=== PATIENT | male | born 1995 | race African-American/Black ===

== ENCOUNTER 2017-01-10 18:24 | Emergency (ER) | payer BC ==
[~2017-01-10] VITALS: Ht 177.8 cm; Wt 91.5 kg
[~2017-01-10 18:24] MED LIST: AMPH30TA2 PO; CLON2TAB3 PO; TEMA30CA4 PO
[2017-01-10] MEDS ORDERED: SODIUM CHLORIDE 0.9% 1000ML 1,000 ML IV STA (18:36)
[2017-01-10 18:48] VITALS: TEMP 36.8; O2SAT 97; Ht 177.8 cm; Wt 91.5 kg
--- NOTE | 2017-01-10 19:01 | EMERGENCY ROOM VISIT NOTE ---
History Report prepared by Hilary: Alondra Santos Under the Supervision of: Dr. Renzo Sinha D.O. First contact with patient: 18:27 Stated Complaint: OVERDOSE History of Present Illness The patient is a 21 year old male who presents to the Emergency Room with resolved unresponsiveness [employer]. The patient was found in a local cafe unresponsive. He had been there for 30 minutes until closing time. They were unable to wake him up and called EMS. He had empty pill bottles in his possession which he obtained today at [facility]. He states that he went to [facility] for continuing treatment of his ADHD, anxiety, and insomnia. He denies any previous surgeries or admissions to the hospital. He refuses to answer whether he smokes. He denies alcohol use, but he told the nurse previously that he had had 3 drinks. He denies any thoughts of hurting himself. He has been eating and drinking normally. The history is limited due to the patient's intoxication. Source of History: patient, nursing staff History Limited By: intoxication Onset: [employer] OPER[employer] Position: other (global) Quality: other (unresponsiveness) Timing: resolved Note: Pt denies thoughts of hurting himself. Review of Systems Limited due to intoxication. Past Medical & Surgical Medical Problems: (1) ADHD (attention deficit hyperactivity disorder) (2) Anxiety (3) Insomnia Family History Diabetes mellitus FH: cardiovascular disease Social History Smoking Status: Never Smoker Alcohol Use: none Drug Use: none Marital Status: single Housing Status: lives with family Occupation Status: student Current/Historical Medications Unable to Obtain Active Prescriptions or Reported Meds Allergies Coded Allergies: NO KNOWN DRUG ALLERGIES (Verified Allergy, Unknown, none, 06/30/16) Physical Exam Vital Signs Date Time Temp Pulse Resp B/P Pulse Ox O2 Delivery O2 Flow Rate FiO2 01/11/17 00:01 72 20 130/85 97 Room Air 01/10/17 22:59 85 01/10/17 22:18 87 20 123/62 94 Room Air 01/10/17 20:24 90 20 118/58 93 Room Air 01/10/17 19:13 96 01/10/17 18:48 36.8 112 20 122/90 97 Room Air 01/10/17 18:48 97 Room Air Physical Exam GENERAL: Patient is listless, but responds to verbal commands. Odor of alcohol noted, does not appear to be in pain, no outward signs of trauma appreciated. EYES: The conjunctivae are clear. The pupils are round and reactive. EARS, NOSE, MOUTH AND THROAT: The nose is without any evidence of any deformity. Mucous membranes are moist tongue is midline NECK: The neck is nontender and supple. RESPIRATORY: Normal respiratory effort is noted there is no evidence of wheezing rhonchi or rales CARDIOVASCULAR: Regular rate and rhythm noted there no murmurs rubs or gallops normal S1 normal S2 GASTROINTESTINAL: The abdomen is soft. Bowel sounds are present in all quadrants. Abdomen is nontender MUSCULOSKELETAL/EXTREMITIES: There is no evidence of gross deformity full range of motion is noted in the hips and shoulders SKIN: There is no obvious evidence of any rash. There are no petechiae, pallor or cyanosis noted. NEUROLOGIC: Patient is oriented to person, place, and situation, strength is symmetric, patellar tendon reflexes 2+ bilaterally. PSYCH: Affect is flat, patient currently denies SI/HI, does not appear to be responding to internal stimuli. Medical Decision & Procedures ER Provider Diagnostic Interpretation: X-ray results as stated below per interpretation by me and the radiologist. CHEST ONE VIEW PORTABLE CLINICAL HISTORY: Overdose COMPARISON STUDY: Chest radiograph April 12, 2014. FINDINGS: There is no pneumothorax or pleural effusion. Lung volumes are slightly diminished. There is no consolidation. Pulmonary vascularity is normal. Patient is rotated. Cardiomediastinal silhouette is unremarkable. IMPRESSION: No acute cardiopulmonary findings. Electronically signed by: Anish Wallace M.D. 01/10/2017 7:30 PM Dictated Date/Time: 01/10/2017 7:30 PM Laboratory Results 01/10/17 19:00 Red Blood Count 4.64, Mean Corpuscular Volume 92.0, Mean Corpuscular Hemoglobin 31.9, Mean Corpuscular Hemoglobin Concent 34.7, Mean Platelet Volume 10.1, Neutrophils (%) (Auto) 59.9, Lymphocytes (%) (Auto) 34.7, Monocytes (%) (Auto) 4.3, Eosinophils (%) (Auto) 0.5, Basophils (%) (Auto) 0.3, Neutrophils # (Auto) 3.91, Lymphocytes # (Auto) 2.26, Monocytes # (Auto) 0.28, Eosinophils # (Auto) 0.03, Basophils # (Auto) 0.02 5/26/17 19:00 Test 01/10/17 18:40 01/10/17 19:00 Urine Color YELLOW Urine Appearance TURBID (CLEAR) Urine pH 5.0 (4.5-7.5) Urine Specific [place] 1.009 (1.000-1.030) Urine Protein NEG (NEG) Urine Glucose (UA) NEG (NEG) Urine Ketones NEG (NEG) Urine Occult Blood NEG (NEG) Urine Nitrite NEG (NEG) Urine Bilirubin NEG (NEG) Urine Urobilinogen NEG (NEG) Urine Leukocyte Esterase NEG (NEG) Urine WBC (Auto) 1-5 /hpf (0-5) Urine RBC (Auto) 0-4 /hpf (0-4) Urine Hyaline Casts (Auto) 0 /lpf (0-5) Urine Epithelial Cells (Auto) 0-5 /lpf (0-5) Urine Bacteria (Auto) NEG (NEG) Urine Opiates Screen NEG (NEG) Urine Methadone, Qualitative NEG (NEG) Urine Barbiturates NEG (NEG) Urine Phencyclidine (PCP) Level NEG (NEG) Ur Amphetamine/Methamphetamine NEG (NEG) MDMA (Ecstasy) Screen NEG (NEG) Urine Benzodiazepines Screen POS (NEG) Urine Cocaine Metabolite NEG (NEG) Urine Marijuana (THC) NEG (NEG) White Blood Count 6.52 K/uL (4.8-10.8) Red Blood Count 4.64 M/uL (4.7-6.1) Hemoglobin 14.8 g/dL (14.0-18.0) Hematocrit 42.7 % (42-52) Mean Corpuscular Volume 92.0 fL (80-100) Mean Corpuscular Hemoglobin 31.9 pg (25-34) Mean Corpuscular Hemoglobin Concent 34.7 g/dl (32-36) Platelet Count 252 K/uL (130-400) Mean Platelet Volume 10.1 fL (7.4-10.4) Neutrophils (%) (Auto) 59.9 % Lymphocytes (%) (Auto) 34.7 % Monocytes (%) (Auto) 4.3 % Eosinophils (%) (Auto) 0.5 % Basophils (%) (Auto) 0.3 % Neutrophils # (Auto) 3.91 K/uL (1.4-6.5) Lymphocytes # (Auto) 2.26 K/uL (1.2-3.4) Monocytes # (Auto) 0.28 K/uL (0.11-0.59) Eosinophils # (Auto) 0.03 K/uL (0-0.5) Basophils # (Auto) 0.02 K/uL (0-0.2) RDW Standard Deviation 46.1 fL (36.4-46.3) RDW Coefficient of Variation 13.8 % (11.5-14.5) Immature Granulocyte % (Auto) 0.3 % Immature Granulocyte # (Auto) 0.02 K/uL (0.00-0.02) Prothrombin Time 11.2 SECONDS (9.0-12.0) Prothromb Time International Ratio 1.0 (0.9-1.1) Activated Partial Thromboplast Time 24.8 SECONDS (21.0-31.0) Partial Thromboplastin Ratio 1.0 Anion Gap 10.0 mmol/L (3-11) Est Creatinine Clear Calc Drug Dose 130.7 ml/min Estimated GFR () 122.4 Estimated GFR (Non- 105.6 BUN/Creatinine Ratio 9.7 (10-20) Calcium Level 8.8 mg/dl (8.5-10.1) Total Bilirubin 0.4 mg/dl (0.2-1) Direct Bilirubin < 0.1 mg/dl (0-0.2) Aspartate Amino Transf (AST/SGOT) 22 U/L (15-37) Alanine Aminotransferase (ALT/SGPT) 48 U/L (12-78) Alkaline Phosphatase 87 U/L (45-117) Total Creatine Kinase 292 U/L (39-308) Total Protein 7.7 gm/dl (6.4-8.2) Albumin 4.1 gm/dl (3.4-5.0) Lipase 246 U/L (73-393) Salicylates Level < 1.7 mg/dl (2.8-20) Acetaminophen Level < 2 ug/ml (10-30) Ethyl Alcohol mg/dL 186.0 mg/dl (0-3) Laboratory results per my review. Medications Administered Medications (Trade) Dose Ordered Sig/Jerald Route Start Time Stop Time Status Last Admin Dose Admin Sodium Chloride (Nss 1000ml) 1,000 ml @ 999 mls/hr Q1H1M STAT IV 01/10/17 18:36 01/10/17 19:36 DC 01/10/17 19:05 999 MLS/HR Potassium Chloride (Kcl 10 Meq / Wtr) 10 meq NOW STAT IV 01/10/17 19:49 01/10/17 19:50 DC 01/10/17 20:24 10 MEQ Potassium Chloride (Klor-Con M10) 10 meq NOW STAT PO 01/10/17 19:49 01/10/17 19:50 DC 01/11/17 00:13 10 MEQ ED Course 183: The patient was evaluated in room B7. A complete history and physical examination were performed. 1835: NSS 1000 ml @ 999 mls/hr IV. 1948: Potassium Chloride 10 meq PO, Potassium Chloride 10 meq IV. 2133: I reevaluated the patient. He is not waking up. 2329: The patient was signed out to Dr. Tierney at the end of my shift. Medical Decision Prior records/ancillary studies reviewed. Triage Nursing notes reviewed. Additional history obtained from nursing staff. The patient's history was concerning for altered mental status and a possible alcohol overdose. Differential diagnosis: Etiologies such as alcohol intoxication, toxicologic, infection, hypoglycemia, electrolyte abnormalities, cardiac sources, intracerebral event, neurologic, as well as others were entertained. The patient is a 21-year-old male who presented to the emergency department after being found with altered mental status at a local restaurant. The patient appeared to have signs of alcohol intoxication on physical exam. He also had multiple bottles of benzodiazepine prescriptions with him. Initially his bottle of Xanax appeared to be empty. His other bottle benzodiazepine only had one type of pill and it on initial evaluation. The patient was medically cleared in the emergency department but was observed for a period of time until he was no longer clinically intoxicated. The patient was signed out to the shoe clerk emergency department physician at change of shift. Please see her note for final disposition. I discussed this patient's case with the emergency Department watch caser. I felt he would require some degree of an evaluation to be sure that this was not an underlying intentional overdose. The patient was much less clinically intoxicated on my final evaluation. I did advise him to avoid any further alcoholic beverages. I also advised him to only take his medications as prescribed and not mix any of his medications with alcohol. Impression Primary Impression: Altered mental status Additional Impressions: Alcohol use with intoxication Hypokalemia Scribe Attestation The scribe's documentation has been prepared under my direction and personally reviewed by me in its entirety. I confirm that the note above accurately reflects all work, treatment, procedures, and medical decision making performed by me. Departure Information Dispostion Still a Patient Prescriptions Unable to Obtain Active Prescriptions or Reported Meds Referrals No Doctor, Assigned (PCP) Problem Qualifiers Primary Impression: Altered mental status Altered mental status type: unspecified Qualified Codes: R41.82 - Altered mental status, unspecified
[2017-01-10 19:29] LABS: BASO % 0.3 %; BASO ABS # 0.02 K/uL (0-0.2); COMPLETE YES; EOS % 0.5 %; HEMATOCRIT 42.7 % (42-52); IG% 0.3 %; LYMPH % 34.7 %; LYMPH ABS # 2.26 K/uL (1.2-3.4); MEAN CORPUSCULAR HEMOGLOBIN 31.9 pg (25-34); MEAN CORPUSCULAR HGB CONC 34.7 g/dl (32-36); MEAN PLATELET VOLUME 10.1 fL (7.4-10.4); MONO % 4.3 %; NEUT % 59.9 %; PLATELET COUNT 252 K/uL (130-400); RED BLOOD COUNT 4.64 M/uL (4.7-6.1); WHITE BLOOD COUNT 6.52 K/uL (4.8-10.8)
--- NOTE | 2017-01-10 19:31 | DIAGNOSTIC IMAGING REPORT ---
CHEST ONE VIEW PORTABLE CLINICAL HISTORY: Overdose COMPARISON STUDY: Chest radiograph April 12, 2014. FINDINGS: There is no pneumothorax or pleural effusion. Lung volumes are slightly diminished. There is no consolidation. Pulmonary vascularity is normal. Patient is rotated. Cardiomediastinal silhouette is unremarkable. IMPRESSION: No acute cardiopulmonary findings. Electronically signed by: Anish Wallace M.D. 01/10/2017 7:30 PM Dictated Date/Time: 01/10/2017 7:30 PM
[2017-01-10 19:40] LABS: URINE APPEARANCE TURBID (CLEAR); URINE BILIRUBIN NEG (NEG); URINE COLOR YELLOW; URINE EPITHELIAL CELL AUTO 0-5 /lpf (0-5); URINE NITRITE NEG (NEG); URINE SPECIFIC GRAVITY 1.009 (1.000-1.030); UROBILINOGEN NEG (NEG)
[2017-01-10 19:44] LABS: PROTHROMBIN TIME (PATIENT) 11.2 SECONDS (9.0-12.0)
[2017-01-10 19:48] LABS: ACETAMINOPHEN < 2 ug/ml (10-30); ALT/SGPT 48 U/L (12-78); AST/SGOT 22 U/L (15-37); BLOOD UREA NITROGEN 10 mg/dl (7-18); BUN/CREATININE RATIO 9.7 (10-20); CALCIUM 8.8 mg/dl (8.5-10.1); CARBON DIOXIDE 28 mmol/L (21-32); CHLORIDE 109 mmol/L (98-107); GLUCOSE 73 mg/dl (70-99); POTASSIUM 2.9 mmol/L (3.5-5.1); SODIUM 147 mmol/L (136-145)
[2017-01-10] MEDS ORDERED: POTASSIUM CHLORIDE 10 MEQ TABCR PO STA (19:49)
[2017-01-10] MEDS ORDERED: POTASSIUM CHLORIDE 10 MEQ / 100ML WTR IV STA (19:49)
[2017-01-10 19:50] LABS: ALKALINE PHOSPHATASE 87 U/L (45-117)
[2017-01-10 19:54] LABS: BENZODIAZEPINE, URINE POS (NEG); COCAINE,URINE NEG (NEG); MANUAL MICROSCOPIC REQUIRED? NO; PHENCYCLIDINE, URINE NEG (NEG); REVIEW REQ? NO
[2017-01-11 00:01] VITALS: BP 130/85; PULSE 72; O2SAT 97
[2017-01-11] MEDS ORDERED: POTASSIUM CHLORIDE 10 MEQ TABCR ONE (00:11)
--- NOTE | 2017-01-11 01:10 | EMERGENCY ROOM VISIT NOTE ---
ED Visit Note First contact with patient: 00:32 This case was signed out to me at change of shift awaiting sobriety. The patient was more sober and able to communicate. He had a lengthy discussion with the audio visual project manager. He declined wanting any psychiatric evaluation. I spoke with the patient at length as well. He denies taking an overdose of his medications. He explains that he rarely drinks alcohol but did go to [facility] today and bought one [place] and drank it. The patient had his alprazolam and triazolam prescriptions refilled today at [facility]. Initially, there was some thought that he may have taken 5 triazolam with the alcohol. However, on further discussion, the patient combined both medications and one bottle. All pills were accounted for. I spent some time explaining to him the hazards of using benzodiazepines and alcohol together. I suggested that he call his parents who live locally and have them pick him up. The emergency department but he declined stating that he wanted to keep him out of it. The patient had been staying with a friend here locally but believes that he will go back to his parents [facility]. The patient denied any suicidal or homicidal thoughts. He declined wanting any psychiatric evaluation at this time.
[2017-01-12 23:39] LABS: HYDROXYETHYLFLURAZEPAM CONF NEGATIVE NG/ML (CUTOFF=50); HYDROXYMIDAZOLAM NEGATIVE NG/ML (CUTOFF=50); HYDROXYTRIAZOLAM CONF NEGATIVE NG/ML (CUTOFF=50); TEMAZEPAM CONF NEGATIVE NG/ML (CUTOFF=50)
[2017-05-23] MEDS ORDERED: RISP1TAB68 PO (05:26)
== END 2017-01-11 00:52 | disposition home or self-care (01) ==
LOC: EDBD 18:24 → C.EDB 18:26
DX: R41.82 Altered mental status, unspecified (principal); F10.129 Alcohol abuse with intoxication, unspecified; E87.6 Hypokalemia; F90.8 Attention-deficit hyperactivity disorder, other type; F41.9 Anxiety disorder, unspecified; G47.00 Insomnia, unspecified; Z83.3 Family history of diabetes mellitus

== ENCOUNTER 2017-05-15 11:59 | Inpatient (IN) | payer BC, OTHER ==
[~2017-05-15] VITALS: Ht 177.8 cm; Wt 79.7 kg
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
[2017-05-15] MEDS ORDERED: OLANZAPINE 10 MG/2.1 ML SDV IM STA (12:32)
[2017-05-15] MEDS ORDERED: WATER, STERILE FOR INJ 10 ML VIAL ONE (12:42)
[2017-05-15] MEDS ORDERED: ALPR2TAB2 PO (12:59)
[2017-05-15] MEDS ORDERED: TRIA0.25 PO (12:59)
[2017-05-15] MEDS ORDERED: AMPH30TA2 PO (12:59)
[2017-05-15 13:34] LABS: BASO % 1.1 %; BASO ABS # 0.04 K/uL (0-0.2); COMPLETE YES; EOS % 3.1 %; LYMPH % 49.7 %; LYMPH ABS # 1.75 K/uL (1.2-3.4); MEAN CELL VOLUME 92.8 fL (80-100); MEAN CORPUSCULAR HEMOGLOBIN 32.8 pg (25-34); MEAN CORPUSCULAR HGB CONC 35.3 g/dl (32-36); MONO % 10.5 %; NEUT % 35.6 %; PLATELET COUNT 190 K/uL (130-400); RED BLOOD COUNT 4.85 M/uL (4.7-6.1); WHITE BLOOD COUNT 3.52 K/uL (4.8-10.8)
[2017-05-15 13:56] LABS: ALT/SGPT 23 U/L (12-78); AST/SGOT 26 U/L (15-37); BLOOD UREA NITROGEN 8 mg/dl (7-18); CALCIUM 9.1 mg/dl (8.5-10.1); CARBON DIOXIDE 25 mmol/L (21-32); CHLORIDE 107 mmol/L (98-107); GLUCOSE 111 mg/dl (70-99); POTASSIUM 3.8 mmol/L (3.5-5.1); SODIUM 142 mmol/L (136-145)
[2017-05-15 14:06] LABS: ALKALINE PHOSPHATASE 86 U/L (45-117); THYROID STIMULATING HORMONE 0.519 uIu/ml (0.300-4.500)
[2017-05-15 14:28] LABS: ACETAMINOPHEN < 2 ug/ml (10-30)
[2017-05-15 17:21] LABS: BENZODIAZEPINE, URINE POS (NEG); COCAINE,URINE NEG (NEG); PHENCYCLIDINE, URINE NEG (NEG)
[2017-05-15 20:36] VITALS: O2SAT 99
[2017-05-15] MEDS ORDERED: SODIUM CHLORIDE 0.65% NA SOLN 45 ML (OCEAN) PRN (20:45)
[2017-05-15] MEDS ORDERED: ACETAMINOPHEN 325 MG TAB PO PRN (20:45)
[2017-05-15] MEDS ORDERED: RISPERIDONE 1 MG TAB PO PRN (20:45)
[2017-05-15] MEDS ORDERED: MAGNESIUM HYDROXIDE SUSP 30 ML UDC PO PRN (20:45)
[2017-05-15] MEDS ORDERED: BISMUTH SUBSALICYLATE PER ML OMNICELL CHARGE PO PRN (20:45)
[2017-05-15] MEDS ORDERED: ALUMINUM/MAGNESIUM SUSP 30 ML UDC PO PRN (20:45)
[2017-05-15] MEDS ORDERED: hydrOXYzine HCL 25 MG TAB PO PRN ×2 (20:45)
[2017-05-15 21:41] VITALS: BP 142/80; PULSE 64; TEMP 36.7; Ht 177.8 cm; Wt 79.7 kg
--- NOTE | 2017-05-15 22:08 | EMERGENCY ROOM VISIT NOTE ---
ED Visit Note First contact with patient: 22:07 I received this patient from Dr. Zhang at change of shift signout. The patient was medically cleared prior to change of shift. The patient was evaluated by the mental health delegate in the emergency department. The patient had a 302 petition which was upheld by Dr. Zhang. The patient was felt to be a good candidate for inpatient management at our facility. He was transferred to [address] [place] [id number]
[2017-05-16 06:49] VITALS: TEMP 36.9
[2017-05-16 07:07] VITALS: BP 110/66; PULSE 41
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
[2017-05-16] MEDS ORDERED: RISPERIDONE ODT 1MG PO ONE (11:00)
[2017-05-16] MEDS ORDERED: CLONAZEPAM 1 MG TAB PO ONE (11:00)
[2017-05-16] MEDS: RISPERIDONE ODT 1MG PO SCH ×2 (14:22→21:04)
[2017-05-16] MEDS: BENZTROPINE MESYLATE 1 MG TAB PO PRN (21:04)
[2017-05-16] MEDS: CLONAZEPAM 1 MG TAB PO SCH (21:04)
[2017-05-17 07:02] VITALS: BP 102/61; PULSE 43; TEMP 36.3
[2017-05-17 08:04] LABS: CHOLESTEROL/HDL RATIO 2.1
[2017-05-17] MEDS: CLONAZEPAM 1 MG TAB PO SCH ×2 (09:23→22:02)
[2017-05-17] MEDS: RISPERIDONE ODT 1MG PO SCH ×2 (09:23→21:36)
--- NOTE | 2017-05-17 10:30 | Psych Management Progress Note ---
Psychiatry Miscellaneous Patient seen, MS assessed. He did not attend am group and is unable to rate his mood. He is eating slowly and but was pleasant on questioning. Encouraged cooperation with treatment plan as outlined by SWAPNIL.
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
[2017-05-17] MEDS: BENZTROPINE MESYLATE 1 MG TAB PO PRN (21:36)
[2017-05-18 06:55] VITALS: BP 109/70; PULSE 51; TEMP 36.5
[2017-05-18] MEDS: CLONAZEPAM 1 MG TAB PO SCH ×3 (08:48→21:14)
[2017-05-18] MEDS: RISPERIDONE ODT 1MG PO SCH ×2 (08:49→21:14)
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
[2017-05-18 18:20] LABS: HYDROXYETHYLFLURAZEPAM CONF NEGATIVE NG/ML (CUTOFF=50); HYDROXYMIDAZOLAM NEGATIVE NG/ML (CUTOFF=50); HYDROXYTRIAZOLAM CONF NEGATIVE NG/ML (CUTOFF=50); TEMAZEPAM CONF NEGATIVE NG/ML (CUTOFF=50)
[2017-05-19 07:00] VITALS: BP 108/66; PULSE 50; TEMP 36.3
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
[2017-05-19] MEDS: RISPERIDONE ODT 1MG PO SCH ×2 (08:55→21:52)
[2017-05-19] MEDS: CLONAZEPAM 1 MG TAB PO SCH (08:55)
[2017-05-20 07:05] VITALS: BP 120/72; PULSE 71; TEMP 36.5
[2017-05-20] MEDS: CLONAZEPAM 1 MG TAB PO SCH (07:34)
[2017-05-20] MEDS: RISPERIDONE ODT 1MG PO SCH (07:35)
[2017-05-20] MEDS ORDERED: RSP1 PO (08:31)
--- NOTE | 2017-05-20 09:34 | Discharge Instructions ---
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 intact. Alert and oriented to person, place and time. Intelligence is consistent with level of education. Insight and and judgment are poor. Laboratory Test 05/15/17 13:03 05/15/17 16:35 05/17/17 07:10 White Blood Count 3.52 Red Blood Count 4.85 Hemoglobin 15.9 Hematocrit 45.0 Mean Corpuscular Volume 92.8 Mean Corpuscular Hemoglobin 32.8 Mean Corpuscular Hemoglobin Concent 35.3 Platelet Count 190 Mean Platelet Volume 10.0 Neutrophils (%) (Auto) 35.6 Lymphocytes (%) (Auto) 49.7 Monocytes (%) (Auto) 10.5 Eosinophils (%) (Auto) 3.1 Basophils (%) (Auto) 1.1 Neutrophils # (Auto) 1.25 Lymphocytes # (Auto) 1.75 Monocytes # (Auto) 0.37 Eosinophils # (Auto) 0.11 Basophils # (Auto) 0.04 RDW Standard Deviation 47.2 RDW Coefficient of Variation 13.9 Immature Granulocyte % (Auto) 0.0 Immature Granulocyte # (Auto) 0.00 Sodium Level 142 Potassium Level 3.8 Chloride Level 107 Carbon Dioxide Level 25 Anion Gap 10.0 Blood Urea Nitrogen 8 Creatinine 1.10 Estimated GFR () 108.3 Estimated GFR (Non- 93.5 BUN/Creatinine Ratio 7.0 Random Glucose 111 Calcium Level 9.1 Total Bilirubin 0.4 Direct Bilirubin 0.2 Aspartate Amino Transferase (AST) 26 Alanine Aminotransferase (ALT) 23 Alkaline Phosphatase 86 Total Protein 7.3 Albumin 3.9 Thyroid Stimulating Hormone (TSH) 0.519 Salicylates Level < 1.7 Acetaminophen Level < 2 Ethyl Alcohol mg/dL 15.0 Urine Opiates Screen NEG Urine Methadone, Qualitative NEG Urine Barbiturates NEG Urine Phencyclidine (PCP) Level NEG Urine Amphetamines Confirmation 3920 Ur Amphetamine/Methamphetamine POS Urine Methamphetamine Confirmation NEGATIVE MDMA (Ecstasy) Screen NEG Urine Hydroxyalprazolam Confirm 582 Urine Benzodiazepines Screen POS 7-Amino Clonazepam Level 121 Urine Nordiazepam Confirmation NEGATIVE Urine Hydroxyethylflurazepam Level NEGATIVE Urine Lorazepam (GC/MS) NEGATIVE Urine Oxazepam Confirm (GC/MS) NEGATIVE Urine Temazepam Confirmation NEGATIVE Urine Hydroxytriazolam Confirmation NEGATIVE Urine Hydroxymidazolam Confirmation NEGATIVE Urine Cocaine Metabolite NEG Urine Marijuana (THC) NEG Fasting Glucose 84 Triglycerides Level 86 Cholesterol Level 139 HDL Cholesterol 66 LDL Cholesterol, Calculated 56 VLDL Cholesterol, Calculated 17 Cholesterol/HDL Ratio 2.1 Total Time Total Time Spent (min): Greater than 30 minutes Total Time Included: examination of the patient, discharge planning, medication reconciliation, communication with other providers Tobacco Cessation at Discharge Smoking Status: Never Smoker FDA approved Prescription: non-smoker
[2017-05-20] MEDS ORDERED: DESTROY THIS MEDICATION SCH (12:30)
[2017-05-23] MEDS ORDERED: RISP1TAB68 PO (05:26)
== END 2017-05-20 13:42 | disposition left against medical advice (07) | DRG 885 ==
LOC: C.EDA 12:01 → C.MHU 20:50
PROVIDERS: ADMIT Psychiatry & Neurology Child & Adolescent Psychiatry; ATTEND Psychiatry & Neurology Child & Adolescent Psychiatry
DX: F29 Unspecified psychosis not due to a substance or known physiological condition (principal); F90.9 Attention-deficit hyperactivity disorder, unspecified type; Z79.899 Other long term (current) drug therapy; Z81.8 Family history of other mental and behavioral disorders

== ENCOUNTER 2017-05-21 18:28 | Emergency (ER) | payer BC, OTHER ==
[~2017-05-21] VITALS: Ht 180.3 cm; Wt 96.3 kg
[~2017-05-21 18:28] MED LIST changes: -AMPH30TA2 PO; -CLON2TAB3 PO; +RSP1 PO; -TEMA30CA4 PO
[2017-05-21] MEDS ORDERED: HALOPERIDOL LACTATE 5 MG/ML 1 ML VIAL IM STA (18:38)
[2017-05-21] MEDS ORDERED: LORAZEPAM 2 MG/ML 1 ML VIAL IM STA (18:38)
[2017-05-21 18:46] VITALS: Ht 180.3 cm; Wt 96.3 kg
[2017-05-21] MEDS ORDERED: BENZTROPINE MESYLATE 1 MG/ML 2 ML AMP IM STA (18:46)
[2017-05-21] MEDS ORDERED: SODIUM CHLORIDE 0.9% 1000ML 1,000 ML IV STA ×2 (18:51→19:34)
[2017-05-21 19:04] LABS: URINE APPEARANCE CLEAR (CLEAR); URINE BILIRUBIN NEG (NEG); URINE COLOR YELLOW; URINE NITRITE NEG (NEG); URINE PH 5.5 (4.5-7.5); URINE SPECIFIC GRAVITY 1.013 (1.000-1.030); UROBILINOGEN NEG (NEG)
[2017-05-21 19:08] LABS: MANUAL MICROSCOPIC REQUIRED? NO; REVIEW REQ? NO
[2017-05-21 19:13] LABS: BASO % 0.4 %; BASO ABS # 0.03 K/uL (0-0.2); COMPLETE YES; EOS % 0.1 %; HEMATOCRIT 45.1 % (42-52); IG% 0.3 %; LYMPH % 34.7 %; LYMPH ABS # 2.71 K/uL (1.2-3.4); MEAN CELL VOLUME 92.8 fL (80-100); MEAN CORPUSCULAR HEMOGLOBIN 32.5 pg (25-34); MEAN PLATELET VOLUME 10.2 fL (7.4-10.4); MONO % 3.7 %; NEUT % 60.8 %; PLATELET COUNT 215 K/uL (130-400); RED BLOOD COUNT 4.86 M/uL (4.7-6.1); WHITE BLOOD COUNT 7.81 K/uL (4.8-10.8)
[2017-05-21 19:24] LABS: PARTIAL THROMBOPLASTIN RATIO 0.9; PROTHROMBIN TIME (PATIENT) 11.1 SECONDS (9.0-12.0)
[2017-05-21 19:26] VITALS: O2SAT 92
[2017-05-21 19:32] LABS: BLOOD UREA NITROGEN 5 mg/dl (7-18); BUN/CREATININE RATIO 4.6 (10-20); CALCIUM 9.1 mg/dl (8.5-10.1); CARBON DIOXIDE 22 mmol/L (21-32); CHLORIDE 107 mmol/L (98-107); GLUCOSE 98 mg/dl (70-99); POTASSIUM 3.1 mmol/L (3.5-5.1); SODIUM 143 mmol/L (136-145)
[2017-05-21 19:34] LABS: ALKALINE PHOSPHATASE 76 U/L (45-117); ALT/SGPT 94 U/L (12-78); AST/SGOT 49 U/L (15-37)
[2017-05-21] MEDS ORDERED: POTASSIUM CHLORIDE 10 MEQ / 100ML WTR IV STA ×2 (19:34)
--- NOTE | 2017-05-21 19:42 | EMERGENCY ROOM VISIT NOTE ---
History Report prepared by Hilary: Alondra Santos Under the Supervision of: Dr. Won Mena M.D. First contact with patient: 18:38 Chief Complaint: ALCOHOL OVERDOSE Stated Complaint: ALCOHOL OVERDOSE Nursing Triage Summary: Patient's was walking down [place] and was found to be intoxicated. Patient's mother reports that he has been drinking alcohol and has possibly taken other drugs. Patient was cuffed by police due to raising his fists to them. 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 The patient was found downtown by police drunk and stumbling. His mother thinks that he might have taken some other drugs. Upon arrival to the ED he is spitting and urinating on security and calling the doctor "александр" and "marlen". He was placed in 10 and 2 restraints. The history is limited due to the patient's intoxication. Source of History: nursing staff History Limited By: intoxication Onset: HOSE INSPECTOR Position: other (global) Quality: other (alcohol intoxication) Timing: other (persistent) Review of Systems Limited due to intoxication. Past Medical & Surgical Medical Problems: (1) ADHD (attention deficit hyperactivity disorder) (2) Anxiety (3) Insomnia (4) Substance abuse (5) Unspecified psychosis Family History Diabetes mellitus FH: cardiovascular disease FH: depression Social History Smoking Status: Unknown if Ever Smoked Alcohol Use: none Drug Use: none Marital Status: single Housing Status: lives with family Occupation Status: student Current/Historical Medications Scheduled Risperidone (Risperidone), 3 MG PO HS Allergies Coded Allergies: NO KNOWN DRUG ALLERGIES (Verified Allergy, Unknown, none, 06/30/16) Physical Exam Vital Signs Date Time Temp Pulse Resp B/P (MAP) Pulse Ox O2 Delivery O2 Flow Rate FiO2 05/21/17 23:52 78 16 107/54 96 Room Air 05/21/17 22:48 89 05/21/17 22:32 96 94/56 100 Nasal Cannula 2.0 05/21/17 22:06 160 102/63 95 Nasal Cannula 2.0 05/21/17 21:00 85 104/73 97 Nasal Cannula 2.0 05/21/17 20:30 91 123/71 98 Nasal Cannula 2.0 05/21/17 20:08 92 16 119/56 98 Nasal Cannula 2.0 05/21/17 19:37 93 130/57 98 Nasal Cannula 2.0 05/21/17 19:28 95 95 05/21/17 19:26 92 Nasal Cannula 2.0 05/21/17 19:15 130/57 05/21/17 19:13 101 92 05/21/17 19:00 130/58 05/21/17 18:58 120 7 94 05/21/17 18:53 141/83 05/21/17 18:46 149 05/21/17 18:46 96 Room Air 05/21/17 18:46 37.1 162 142/100 96 Room Air 05/21/17 18:43 151 96 05/21/17 18:35 142/100 Physical Exam GENERAL: Patient is cursing, spitting on the floor, unreasonable, screaming at the top of his lungs, risking catastrophe in the ED. HEAD: Normocephalic atraumatic EYES: Ocular movements intact pupils equal and react to light OROPHARYNX mucous membranes are moist no exudates present no erythema or edema present NECK: Supple no nuchal rigidity CHEST: Good equal expansion LUNGS: Clear and equal to auscultation CARDIAC: Normal S1 and S2 ABDOMEN: Soft nontender no guarding BACK: No CVA tenderness EXTREMITIES: No pain upon palpation normal muscle strength in all groups no clubbing cyanosis or edema NEURO: Cranial Nerves 2-12 grossly intact Medical Decision & Procedures Laboratory Results 05/21/17 18:53 Red Blood Count 4.86, Mean Corpuscular Volume 92.8, Mean Corpuscular Hemoglobin 32.5, Mean Corpuscular Hemoglobin Concent 35.0, Mean Platelet Volume 10.2, Neutrophils (%) (Auto) 60.8, Lymphocytes (%) (Auto) 34.7, Monocytes (%) (Auto) 3.7, Eosinophils (%) (Auto) 0.1, Basophils (%) (Auto) 0.4, Neutrophils # (Auto) 4.75, Lymphocytes # (Auto) 2.71, Monocytes # (Auto) 0.29, Eosinophils # (Auto) 0.01, Basophils # (Auto) 0.03 05/21/17 18:51 Test 05/21/17 18:44 05/21/17 18:45 05/21/17 18:51 05/21/17 18:53 Urine Opiates Screen NEG (NEG) Urine Methadone, Qualitative NEG (NEG) Urine Barbiturates NEG (NEG) Urine Phencyclidine (PCP) Level NEG (NEG) Ur Amphetamine/Methamphetamine NEG (NEG) MDMA (Ecstasy) Screen NEG (NEG) Urine Benzodiazepines Screen NEG (NEG) Urine Cocaine Metabolite NEG (NEG) Urine Marijuana (THC) NEG (NEG) Urine Color YELLOW Urine Appearance CLEAR (CLEAR) Urine pH 5.5 (4.5-7.5) Urine Specific [place] 1.013 (1.000-1.030) Urine Protein NEG (NEG) Urine Glucose (UA) NEG (NEG) Urine Ketones NEG (NEG) Urine Occult Blood NEG (NEG) Urine Nitrite NEG (NEG) Urine Bilirubin NEG (NEG) Urine Urobilinogen NEG (NEG) Urine Leukocyte Esterase NEG (NEG) Anion Gap 14.0 mmol/L (3-11) Est Creatinine Clear Calc Drug Dose 122.6 ml/min Estimated GFR () 108.3 Estimated GFR (Non- 93.5 BUN/Creatinine Ratio 4.6 (10-20) Calcium Level 9.1 mg/dl (8.5-10.1) Total Bilirubin 0.3 mg/dl (0.2-1) Direct Bilirubin < 0.1 mg/dl (0-0.2) Aspartate Amino Transf (AST/SGOT) 49 U/L (15-37) Alanine Aminotransferase (ALT/SGPT) 94 U/L (12-78) Alkaline Phosphatase 76 U/L (45-117) Total Creatine Kinase 300 U/L (39-308) Total Protein 7.7 gm/dl (6.4-8.2) Albumin 4.2 gm/dl (3.4-5.0) Lipase 239 U/L (73-393) Ethyl Alcohol mg/dL 281.0 mg/dl (0-3) White Blood Count 7.81 K/uL (4.8-10.8) Red Blood Count 4.86 M/uL (4.7-6.1) Hemoglobin 15.8 g/dL (14.0-18.0) Hematocrit 45.1 % (42-52) Mean Corpuscular Volume 92.8 fL (80-100) Mean Corpuscular Hemoglobin 32.5 pg (25-34) Mean Corpuscular Hemoglobin Concent 35.0 g/dl (32-36) Platelet Count 215 K/uL (130-400) Mean Platelet Volume 10.2 fL (7.4-10.4) Neutrophils (%) (Auto) 60.8 % Lymphocytes (%) (Auto) 34.7 % Monocytes (%) (Auto) 3.7 % Eosinophils (%) (Auto) 0.1 % Basophils (%) (Auto) 0.4 % Neutrophils # (Auto) 4.75 K/uL (1.4-6.5) Lymphocytes # (Auto) 2.71 K/uL (1.2-3.4) Monocytes # (Auto) 0.29 K/uL (0.11-0.59) Eosinophils # (Auto) 0.01 K/uL (0-0.5) Basophils # (Auto) 0.03 K/uL (0-0.2) RDW Standard Deviation 47.8 fL (36.4-46.3) RDW Coefficient of Variation 14.1 % (11.5-14.5) Immature Granulocyte % (Auto) 0.3 % Immature Granulocyte # (Auto) 0.02 K/uL (0.00-0.02) Test 05/21/17 18:55 Prothrombin Time 11.1 SECONDS (9.0-12.0) Prothromb Time International Ratio 1.0 (0.9-1.1) Activated Partial Thromboplast Time 22.8 SECONDS (21.0-31.0) Partial Thromboplastin Ratio 0.9 Salicylates Level < 1.7 mg/dl (2.8-20) Acetaminophen Level < 2 ug/ml (10-30) Labs reviewed by ED physician. Medications Administered Medications (Trade) Dose Ordered Sig/Jerald Route Start Time Stop Time Status Last Admin Dose Admin Haloperidol Lactate (Haldol Inj) 10 mg NOW STAT IM 05/21/17 18:38 05/21/17 18:39 DC 05/21/17 18:44 10 MG Lorazepam (Ativan Inj) 2 mg NOW STAT IM 05/21/17 18:38 05/21/17 18:39 DC 05/21/17 18:44 2 MG Benztropine Mesylate (Cogentin Inj) 2 mg NOW STAT IM 05/21/17 18:46 05/21/17 18:47 DC 05/21/17 19:00 2 MG Sodium Chloride 1,000 ml @ 999 mls/hr Q1H1M STAT IV 05/21/17 18:51 05/21/17 19:51 DC 05/21/17 20:24 999 MLS/HR Potassium Chloride (Kcl 10 Meq / Wtr) 10 meq NOW STAT IV 05/21/17 19:34 05/21/17 19:35 DC 05/21/17 20:26 10 MEQ Potassium Chloride (Kcl 10 Meq / Wtr) 10 meq NOW STAT IV 05/21/17 19:34 05/21/17 19:35 DC 05/21/17 21:34 10 MEQ Sodium Chloride 1,000 ml @ 999 mls/hr Q1H1M STAT IV 05/21/17 19:34 05/21/17 20:34 DC 05/21/17 19:35 999 MLS/HR ECG Indication: altered mental status Rate (beats per minute): 99 Rhythm: normal sinus Findings: no acute ischemic change, no ectopy ED Course 1834: Past medical records reviewed. The patient was evaluated in room B3B. A complete history and physical examination was performed. 183: Lorazepam 2 mg IM, Haldol Inj 10 mg IM. 1845: Cogentin Inj 2 mg IM. 1850: NSS 1000 ml @ 999 mls/hr IV. 1933: NSS 1000 ml @ 999 mls/hr IV, Potassium Chloride 10 meq IV, Potassium Chloride 10 meq IV. Medical Decision Differential diagnosis: Etiologies such as metabolic, infection, hypoglycemia, electrolyte abnormalities , cardiac sources, intracerebral event, toxicologic, neurologic, as well as others were entertained. This is a 22-year-old male who presents during a period of high volume and high acuity to the emergency department belligerent and uncooperative. The patient is spitting out security guards and urinating on them. He is out of control and is risking a catastrophe. For this reason he was Haldol and Ativan and placed in restraints. He is not making sense and is babbling. He appears to be intoxicated and his blood alcohol level was obtained. Due to the fact that the patient was in restraints and chemically sedated he was placed on the quality assurance monitor. An IV was established, patient given normal saline bolus, potassium. I'm concerned that the patient may need a mental health assessment when he alana up as he was just discharged from [facility]. For this reason he was signout to Dr. Tierney at change of shift. Medication Reconcilliation Current Medication List: was personally reviewed by me Blood Pressure Screening Patient's blood pressure: Normal blood pressure Blood pressure disposition: Did not require urgent referral Impression Primary Impression: Alcohol intoxication Additional Impression: Altered mental status Critical Care I have personally spent greater than 30 minutes of critical care time in the direct management of this patient. This includes bedside care, interpretation of diagnostic studies, and testing, discussion with consultants, patient, and family members, and other required patient management activities. This 30 minutes is in excess of all separately billable procedures. Scribe Attestation The scribe's documentation has been prepared under my direction and personally reviewed by me in its entirety. I confirm that the note above accurately reflects all work, treatment, procedures, and medical decision making performed by me. Departure Information Dispostion Still a Patient Referrals No Doctor, Assigned (PCP) Forms HOME CARE DOCUMENTATION FORM, IMPORTANT VISIT INFORMATION Patient Instructions Alcohol Intoxication - [facility], Haloperidol injection, My [facility] Additional Instructions You have been examined and treated today on an emergency basis only. This is not a substitute for, or an effort to provide, complete comprehensive medical care. It is impossible to recognize and treat all injuries or illnesses in a single emergency department visit. It is therefore important that you follow up closely with your PCP. Call as soon as possible for an appointment. Thank you for your time and consideration. I look forward to speaking with you again soon. Please don't hesitate to call us if you have any questions. Problem Qualifiers Primary Impression: Alcohol intoxication Complication of substance-induced condition: with delirium Qualified Codes: F10.921 - Alcohol use, unspecified with intoxication delirium Additional Impression: Altered mental status Altered mental status type: delirium Qualified Codes: R41.0 - Disorientation , unspecified
[2017-05-21 19:51] LABS: ACETAMINOPHEN < 2 ug/ml (10-30)
[2017-05-21 22:39] LABS: BENZODIAZEPINE, URINE NEG (NEG); COCAINE,URINE NEG (NEG); PHENCYCLIDINE, URINE NEG (NEG)
[2017-05-22 06:17] VITALS: TEMP 36.9
--- NOTE | 2017-05-22 07:19 | EMERGENCY ROOM VISIT NOTE ---
ED Visit Note First contact with patient: 02:15 This case was signed out to me at change of shift awaiting sobriety. The patient is currently sleeping and will be further evaluated by psychiatry once he is medically cleared and sober. 0600: The patient woke up and was evaluated by the staff from [facility] who are familiar with him. The patient admits that he is not used to drinking such excessive alcohol. He explained that he drank [place] and most likely caused his behavior last night here in the emergency department. The patient missed taking his daily medications yesterday but has agreed to continue taking them at home. He is currently living with his parents. He'll be discharged back to them. He refused to allow the staff from [facility] to call his parents. He denies being suicidal or homicidal. He was encouraged to avoid such excessive alcohol use in the future. He does have an outpatient appointment with his provider later this week.
[2017-05-22 08:09] VITALS: BP 117/60; PULSE 84; O2SAT 95
[2017-05-23] MEDS ORDERED: RISP1TAB68 PO (05:26)
[2017-05-23] MEDS ORDERED: ALPR2TAB2 PO (18:52)
== END 2017-05-22 08:10 | disposition home or self-care (01) ==
LOC: EDBD 18:28 → C.EDB 18:32
DX: F10.921 Alcohol use, unspecified with intoxication delirium (principal); R41.0 Disorientation, unspecified; F90.9 Attention-deficit hyperactivity disorder, unspecified type; F41.9 Anxiety disorder, unspecified; G47.00 Insomnia, unspecified; F29 Unspecified psychosis not due to a substance or known physiological condition; Z83.3 Family history of diabetes mellitus; Z82.49 Family history of ischemic heart disease and other diseases of the circulatory system

== ENCOUNTER 2017-05-23 17:41 | Emergency (ER) | payer BC, OTHER ==
[~2017-05-23] VITALS: Ht 177.8 cm; Wt 95.7 kg
[~2017-05-23 17:41] MED LIST changes: +RISP1TAB68 PO; -RSP1 PO
[2017-05-23 17:53] VITALS: Ht 177.8 cm; Wt 95.7 kg
--- NOTE | 2017-05-23 18:37 | EMERGENCY ROOM VISIT NOTE ---
History Report prepared by Hilary: Celsa Gross Under the Supervision of: Dr. Ryann Zhang D.O. First contact with patient: 18:17 Chief Complaint: OTHER COMPLAINT Stated Complaint: OVERDOSE History of Present Illness The patient is a 22 year old male who presents to the Emergency Room with complaints of an episode of stumbling and weakness beginning just E MERCHANT. Per nursing staff, the patient was seen here recently for a mental health evaluation and agitation. He was seen at [facility] after a 302. She reports that the patient was brought in today after the police found him stumbling on his way home. Pt denies any trauma and none reported by police. The patient states that he is not taking any medications and was not started on his medications when he was seen here last. He reports that he has not eaten today. He denies any alcohol use, drug use, paranoia, pain, and visual and auditory hallucinations. Source of History: patient Onset: just E MERCHANT Position: other (global) Quality: other (stumbling and weakness) Timing: other (episode) Note: He denies any alcohol use, drug use, paranoia, pain, and visual and auditory hallucinations. Review of Systems See HPI for pertinent positives & negatives. A total of 10 systems reviewed and were otherwise negative. Past Medical & Surgical Medical Problems: (1) ADHD (attention deficit hyperactivity disorder) (2) Anxiety (3) Insomnia (4) Substance abuse (5) Unspecified psychosis Family History Diabetes mellitus FH: cardiovascular disease FH: depression Social History Smoking Status: Current Every Day Smoker Alcohol Use: none Drug Use: none Marital Status: single Housing Status: lives with family Occupation Status: student Current/Historical Medications Scheduled Risperidone (Risperdal), 3 MG PO HS Scheduled PRN Alprazolam (Xanax), 2 MG PO TID PRN for Anxiety Allergies Coded Allergies: No Known Allergies (Unverified , 05/22/17) Physical Exam Vital Signs Date Time Temp Pulse Resp B/P (MAP) Pulse Ox O2 Delivery O2 Flow Rate FiO2 05/24/17 14:50 60 16 128/78 98 Room Air 05/24/17 09:39 72 16 116/58 98 05/24/17 06:44 82 18 131/70 97 05/23/17 23:55 78 18 137/85 98 Room Air 05/23/17 22:51 77 18 111/54 98 Room Air 05/23/17 20:23 66 18 115/65 97 Room Air 05/23/17 17:53 102 18 134/87 97 Room Air Physical Exam GENERAL: odd affect, flat affect, alert, well appearing, well nourished, no distress, non-toxic EYE EXAM: normal conjunctiva, PERRL and EOM's grossly intact OROPHARYNX: no exudate, no erythema, lips, buccal mucosa, and tongue normal and mucous membranes are moist NECK: supple, no nuchal rigidity, no adenopathy, non-tender LUNGS: Clear to auscultation. Normal chest wall mechanics HEART: no murmurs, S1 normal and S2 normal ABDOMEN: abdomen soft, non-tender, normo-active bowel sounds, no masses, no rebound or guarding. BACK: Back is symmetrical on inspection and there is no deformity, no midline tenderness, no CVA tenderness. SKIN: no rashes and no bruising UPPER EXTREMITIES: upper extremities are grossly normal. LOWER EXTREMITIES: No pitting edema. NEURO EXAM: Normal sensorium, cranial nerves II-XII grossly intact, normal speech, no gross weakness of arms, no gross weakness of legs. Medical Decision & Procedures Laboratory Results 05/23/17 19:07 Red Blood Count 4.29, Mean Corpuscular Volume 92.1, Mean Corpuscular Hemoglobin 32.4, Mean Corpuscular Hemoglobin Concent 35.2, Mean Platelet Volume 10.0, Neutrophils (%) (Auto) 63.7, Lymphocytes (%) (Auto) 28.3, Monocytes (%) (Auto) 6.7, Eosinophils (%) (Auto) 0.4, Basophils (%) (Auto) 0.7, Neutrophils # (Auto) 3.45, Lymphocytes # (Auto) 1.53, Monocytes # (Auto) 0.36, Eosinophils # (Auto) 0.02, Basophils # (Auto) 0.04 05/23/17 19:07 Test 05/23/17 19:07 05/23/17 22:53 White Blood Count 5.41 K/uL (4.8-10.8) Red Blood Count 4.29 M/uL (4.7-6.1) Hemoglobin 13.9 g/dL (14.0-18.0) Hematocrit 39.5 % (42-52) Mean Corpuscular Volume 92.1 fL (80-100) Mean Corpuscular Hemoglobin 32.4 pg (25-34) Mean Corpuscular Hemoglobin Concent 35.2 g/dl (32-36) Platelet Count 197 K/uL (130-400) Mean Platelet Volume 10.0 fL (7.4-10.4) Neutrophils (%) (Auto) 63.7 % Lymphocytes (%) (Auto) 28.3 % Monocytes (%) (Auto) 6.7 % Eosinophils (%) (Auto) 0.4 % Basophils (%) (Auto) 0.7 % Neutrophils # (Auto) 3.45 K/uL (1.4-6.5) Lymphocytes # (Auto) 1.53 K/uL (1.2-3.4) Monocytes # (Auto) 0.36 K/uL (0.11-0.59) Eosinophils # (Auto) 0.02 K/uL (0-0.5) Basophils # (Auto) 0.04 K/uL (0-0.2) RDW Standard Deviation 46.9 fL (36.4-46.3) RDW Coefficient of Variation 13.9 % (11.5-14.5) Immature Granulocyte % (Auto) 0.2 % Immature Granulocyte # (Auto) 0.01 K/uL (0.00-0.02) Anion Gap 6.0 mmol/L (3-11) Est Creatinine Clear Calc Drug Dose 132.2 ml/min Estimated GFR () 121.6 Estimated GFR (Non- 104.9 BUN/Creatinine Ratio 10.5 (10-20) Calcium Level 8.9 mg/dl (8.5-10.1) Total Bilirubin 0.4 mg/dl (0.2-1) Aspartate Amino Transf (AST/SGOT) 37 U/L (15-37) Alanine Aminotransferase (ALT/SGPT) 56 U/L (12-78) Alkaline Phosphatase 68 U/L (45-117) Total Protein 6.4 gm/dl (6.4-8.2) Albumin 3.6 gm/dl (3.4-5.0) Globulin 2.8 gm/dl (2.5-4.0) Albumin/Globulin Ratio 1.3 (0.9-2) Ethyl Alcohol mg/dL < 3.0 mg/dl (0-3) Urine Opiates Screen NEG (NEG) Urine Methadone, Qualitative NEG (NEG) Urine Barbiturates NEG (NEG) Urine Phencyclidine (PCP) Level NEG (NEG) Ur Amphetamine/Methamphetamine NEG (NEG) MDMA (Ecstasy) Screen NEG (NEG) Urine Benzodiazepines Screen NEG (NEG) Urine Cocaine Metabolite NEG (NEG) Urine Marijuana (THC) POS (NEG) Laboratory results per my review. Medications Administered Medications (Trade) Dose Ordered Sig/Jerald Route Start Time Stop Time Status Last Admin Dose Admin Risperidone (Risperdal Tab) 3 mg NOW STAT PO 05/23/17 23:48 05/23/17 23:49 DC 05/24/17 00:19 3 MG Alprazolam (Xanax Tab) 2 mg NOW STAT PO 05/23/17 23:48 05/23/17 23:49 DC 05/23/17 23:48 2 MG ECG Indication: toxicologic Rate (beats per minute): 79 Rhythm: sinus rhythm Findings: no acute ischemic change, no ectopy, other (normal axis, normal intervals) ED Course 1820: The patient was evaluated in room C11. A complete history and physical exam was performed. 2127: I spoke to the psychiatric correctional counselor/case manager about the patients case. 2156: I spoke to Dr. Hubbard of Psychiatry. He recommends psych correctional counselor/case manager evaluation from the emergency room. 2348: Xanax Tab 2mg PO, Risperdal Tab 3mg PO. 0230: The patient was signed out to Dr. Jaime at change of shift. Pt sleeping at this time. Will be re-evaluated in the morning. Medical Decision Differential diagnosis: Etiologies such as toxicologic, infection, hypoglycemia, electrolyte abnormalities, cardiac sources, intracerebral event, neurologic, as well as others were entertained. Pt with recent admission for psychosis. Not agitated at this time, but behaving very oddly and refusing to answer many questions. Pt initially stated he wasn't taking any meds, then asked for evening meds. Psychiatry did not have any additional insight into condition and stated pt left psych unit AMA. Pt to be evaluated by psych correctional counselor/case manager here. Pt denies any complaints. Will follow simple instructions/commands for staff here. Medication Reconcilliation Current Medication List: was personally reviewed by me Blood Pressure Screening Patient's blood pressure: Elevated blood pressure Blood pressure disposition: Elevated BP felt to be situational Consults Time Called: 2153 Consulting Physician: Dr. Hubbard - Psychiatry Returned Call: [phone] Hubbard of Psychiatry. She recommends psych correctional counselor/case manager evaluation from the emergency room. Impression Primary Impression: Mood disorder Scribe Attestation The scribe's documentation has been prepared under my direction and personally reviewed by me in its entirety. I confirm that the note above accurately reflects all work, treatment, procedures, and medical decision making performed by me. Departure Information Dispostion Still a Patient Referrals No Doctor, Assigned (PCP) Patient Instructions My [facility]
[2017-05-23] MEDS ORDERED: ALPR2TAB2 PO (18:52)
[2017-05-23 19:27] LABS: BASO % 0.7 %; BASO ABS # 0.04 K/uL (0-0.2); COMPLETE YES; EOS % 0.4 %; HEMATOCRIT 39.5 % (42-52); IG% 0.2 %; LYMPH % 28.3 %; LYMPH ABS # 1.53 K/uL (1.2-3.4); MEAN CELL VOLUME 92.1 fL (80-100); MEAN CORPUSCULAR HEMOGLOBIN 32.4 pg (25-34); MEAN CORPUSCULAR HGB CONC 35.2 g/dl (32-36); MONO % 6.7 %; NEUT % 63.7 %; PLATELET COUNT 197 K/uL (130-400); RED BLOOD COUNT 4.29 M/uL (4.7-6.1); WHITE BLOOD COUNT 5.41 K/uL (4.8-10.8)
[2017-05-23 19:59] LABS: ALB/GLOB RATIO 1.3 (0.9-2); BUN/CREATININE RATIO 10.5 (10-20); CALCIUM 8.9 mg/dl (8.5-10.1); POTASSIUM 3.4 mmol/L (3.5-5.1)
[2017-05-23 23:24] LABS: BENZODIAZEPINE, URINE NEG (NEG); COCAINE,URINE NEG (NEG); PHENCYCLIDINE, URINE NEG (NEG)
[2017-05-23] MEDS ORDERED: RISPERIDONE 3 MG TAB PO STA (23:48)
[2017-05-23] MEDS ORDERED: ALPRAZOLAM 0.5 MG TAB PO STA (23:48)
--- NOTE | 2017-05-24 06:59 | EMERGENCY ROOM VISIT NOTE ---
ED Visit Note First contact with patient: 04:29 22 yr old male brought in by Police yesterday for evaluation of alerted mental status. Recent history of admission with psychosis along with alcohol abuse and reported benzo dependence. [place] to be psychiatric issue last night and given medicine to sedate him by Dr Zhang. Unable to be evaluated by [facility] until the AM when awake alert and oriented. Denies suicidal/homicidal ideation. States he feels fine. Calm cooperative and without complaint. Given earlier concerns will await [facility] eval. Signed out to Dr Kelly awaiting mental health evaluation.
--- NOTE | 2017-05-24 07:29 | EMERGENCY ROOM VISIT NOTE ---
ED Visit Note First contact with patient: 06:56 This patient was signed out shift change by Dr. Jaime. The patient had sobered up and was awaiting 3 S. to evaluate him. I went and saw him he is resting comfortably he denies any complaints. He was given a meal tray. He denies any thoughts of hurting himself and or others. Denies hallucinations. He was evaluated by 3 S and Radhika, the ED psychiatric case assembler. Radhika does know the patient's family from a recent visits. The father and the mother haven 't are involved. They feel he is safe to go home. He apparently is much better than when he was before. The parents are going to stay with him they have come up with the treatment plan that he is signed. He has not been violent. He's not been suicidal. The parents will ensure that he is taking his medications and he will get in with [facility]. He was encouraged to return if he has worsening symptoms, thoughts of hurting himself or others, any new problems or concerns.
[2017-05-24 14:50] VITALS: BP 128/78; PULSE 60; O2SAT 98
== END 2017-05-24 14:55 | disposition home or self-care (01) ==
LOC: EDBD 17:41 → C.EDC 17:43 → C.EDA 05-24 14:55
DX: F39 Unspecified mood [affective] disorder (principal); F90.9 Attention-deficit hyperactivity disorder, unspecified type; F41.9 Anxiety disorder, unspecified; G47.00 Insomnia, unspecified; Z71.51 Drug abuse counseling and surveillance of drug abuser; Z83.3 Family history of diabetes mellitus; Z82.49 Family history of ischemic heart disease and other diseases of the circulatory system; F17.210 Nicotine dependence, cigarettes, uncomplicated; Z79.899 Other long term (current) drug therapy

== ENCOUNTER → 2017-07-29 | Outpatient (CLI) | payer BC, OTHER ==
[~2017-07-29] MED LIST changes: +ALPR2TAB2 PO
[2017-07-29 09:57] LABS: BENZODIAZEPINE, URINE NEG (NEG); COCAINE,URINE NEG (NEG); PHENCYCLIDINE, URINE NEG (NEG)
== END | disposition home or self-care (01) ==
LOC: C.LAB1850 08:50
PROVIDERS: ATTEND Internal Medicine
DX: R03.0 Elevated blood-pressure reading, without diagnosis of hypertension (principal)

== ENCOUNTER → 2017-07-31 | Outpatient (CLI) | payer BC, OTHER ==
[2017-07-31 18:10] LABS: HEPATITIS B AB NEG
[2017-08-05 02:35] LABS: CHLAMYDIA TRACH RNA*** NOT DETECTED (NOT DETECTED); GC (NEIS GONORRHOEAE)RNA** NOT DETECTED (NOT DETECTED); URCREATININE 77.6 MG/DL (>/= 20)
== END | disposition home or self-care (01) ==
LOC: C.LAB1850 17:13
PROVIDERS: ATTEND Internal Medicine
DX: F19.10 Other psychoactive substance abuse, uncomplicated (principal); Z11.3 Encounter for screening for infections with a predominantly sexual mode of transmission

== ENCOUNTER 2018-03-27 12:25 | Emergency (ER) | payer OTHER ==
[~2018-03-27] VITALS: Ht 177.8 cm; Wt 98.2 kg
[~2018-03-27 12:25] MED LIST changes: -ALPR2TAB2 PO; +AMPH30TA2 PO; -RISP1TAB68 PO
[2018-03-27 12:28] VITALS: TEMP 37.3; Ht 177.8 cm; Wt 98.2 kg
[2018-03-27] MEDS ORDERED: KETOROLAC TROMETHAMINE 30 MG/ML VIAL IV STA (13:01)
[2018-03-27] MEDS ORDERED: ACETAMINOPHEN 500 MG TAB PO STA (13:01)
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
--- NOTE | 2018-03-27 13:38 | DIAGNOSTIC IMAGING REPORT ---
CHEST ONE VIEW PORTABLE CLINICAL HISTORY: 23 years-old Male presenting with EVALUATE FOR TRAUMA/INJURY. TECHNIQUE: Portable upright AP view of the chest was obtained. COMPARISON: 01/10/2017. FINDINGS: Cardiomediastinal silhouette normal. No focal opacity. No large effusion or pneumothorax. Osseous structures normal. Upper abdomen normal. IMPRESSION: 1. No acute cardiopulmonary disease. Electronically signed by: Oneal Osorio M.D. 03/27/2018 1:37 PM Dictated Date/Time: 03/27/2018 1:36 PM
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
[2018-03-27] MEDS ORDERED: OXYCODONE HCL IR 5 MG TAB (IMMEDIATE RELEASE) PO STA (15:42)
[2018-03-27 17:15] VITALS: BP 157/94; PULSE 94; O2SAT 97
== END 2018-03-27 17:17 | disposition home or self-care (01) ==
LOC: C.EDB 12:26
DX: R51 Headache (principal); S02.40FD Zygomatic fracture, left side, subsequent encounter for fracture with routine healing; S02.82XD Fracture of other specified skull and facial bones, left side, subsequent encounter for fracture with routine healing; W50.0XXA Accidental hit or strike by another person, initial encounter; F90.9 Attention-deficit hyperactivity disorder, unspecified type; F41.9 Anxiety disorder, unspecified; F12.90 Cannabis use, unspecified, uncomplicated

== ENCOUNTER 2018-04-01 00:15 | Emergency (ER) | payer OTHER ==
[~2018-04-01] VITALS: Ht 177.8 cm; Wt 90.5 kg
--- NOTE | 2018-04-01 00:29 | EMERGENCY ROOM VISIT NOTE ---
History Report prepared by Hilary: Brandon Ruff Under the Supervision of: Dr. Ryann Zhang D.O. First contact with patient: 00:18 Chief Complaint: MENTAL HEALTH EVALUATION Stated Complaint: MR History of Present Illness The patient is a 23 year old male who presents to the Emergency Room with complaints of an episode of a mental health evaluation occurring tonight. Per caser up, the patient was brought into the emergency department tonight via a 302 warrant that was signed by [facility]. He states that the patient has been increasingly delusional and aggressive. He notes that the patient was recently discharged from [facility]. The patient reports that he does not take his prescribed Adderall. He denies any recent injury and recent illness. He states that he does not use cigarettes and use recreational drugs. He notes that he drinks a moderate amount of alcohol but he reports that he did not drink any alcohol tonight. The patient reports that he does not have any suicidal and homicidal ideations. He also states that he does not feel like he is being followed/watched and he notes that he is not seeing/hearing anything that others are not noticing. HPI limited secondary to the patient being uncooperative during examination. Source of History: patient, other (caser up) History Limited By: poor cooperation Onset: tonight Position: head Quality: other (mental health evaluation) Timing: other (an episode) Note: Per caser up, the patient has been increasingly delusional and aggressive. The patient reports that he does not have any suicidal and homicidal ideations. He also states that he does not feel like he is being followed/watched and he notes that he is not seeing/hearing anything that others are not noticing. Review of Systems ROS limited secondary to the patient being uncooperative during examination. Past Medical & Surgical Medical Problems: (1) ADHD (attention deficit hyperactivity disorder) (2) Anxiety (3) Hx of psychosis (4) Insomnia (5) Substance abuse (6) Unspecified psychosis Family History Diabetes mellitus FH: cardiovascular disease FH: depression Social History Smoking Status: Never Smoker Alcohol Use: occasionally Drug Use: marijuana Marital Status: single Housing Status: lives with family Occupation Status: employed Current/Historical Medications Unable to Obtain Active Prescriptions or Reported Meds Allergies Coded Allergies: No Known Allergies (Unverified , 04/01/18) Physical Exam Vital Signs Date Time Temp Pulse Resp B/P (MAP) Pulse Ox O2 Delivery O2 Flow Rate FiO2 04/01/18 00:33 150/81 Room Air Physical Exam GENERAL: alert, well appearing, well nourished, no distress, non-toxic, odd affect. EYE EXAM: normal conjunctiva, PERRL and EOM's grossly intact OROPHARYNX: no exudate, no erythema, lips, buccal mucosa, and tongue normal and mucous membranes are moist NECK: supple, no nuchal rigidity, no adenopathy, non-tender LUNGS: Clear to auscultation. Normal chest wall mechanics HEART: no murmurs, S1 normal and S2 normal ABDOMEN: abdomen soft, non-tender, normo-active bowel sounds, no masses, no rebound or guarding. BACK: Back is symmetrical on inspection and there is no deformity, no midline tenderness, no CVA tenderness. SKIN: no rashes and no bruising UPPER EXTREMITIES: upper extremities are grossly normal. LOWER EXTREMITIES: No pitting edema. NEURO EXAM: Normal sensorium, cranial nerves II-XII grossly intact, normal speech, no gross weakness of arms, no gross weakness of legs. PSYCH: Odd affect. Patient denies HI, SI, paranoia, and hallucinations. Odd behavior, inappropriate eye contact, abnormal responses to questions. Medical Decision & Procedures Laboratory Results 04/01/18 00:35 Red Blood Count 4.32, Mean Corpuscular Volume 91.9, Mean Corpuscular Hemoglobin 32.4, Mean Corpuscular Hemoglobin Concent 35.3, Mean Platelet Volume 9.8, Neutrophils (%) (Auto) 52.5, Lymphocytes (%) (Auto) 36.5, Monocytes (%) (Auto) 7.7, Eosinophils (%) (Auto) 2.4, Basophils (%) (Auto) 0.7, Neutrophils # (Auto) 3.23, Lymphocytes # (Auto) 2.24, Monocytes # (Auto) 0.47, Eosinophils # (Auto) 0.15, Basophils # (Auto) 0.04 04/01/18 00:35 Test 04/01/18 00:35 04/01/18 02:30 White Blood Count 6.14 K/uL (4.8-10.8) Red Blood Count 4.32 M/uL (4.7-6.1) Hemoglobin 14.0 g/dL (14.0-18.0) Hematocrit 39.7 % (42-52) Mean Corpuscular Volume 91.9 fL (80-100) Mean Corpuscular Hemoglobin 32.4 pg (25-34) Mean Corpuscular Hemoglobin Concent 35.3 g/dl (32-36) Platelet Count 197 K/uL (130-400) Mean Platelet Volume 9.8 fL (7.4-10.4) Neutrophils (%) (Auto) 52.5 % Lymphocytes (%) (Auto) 36.5 % Monocytes (%) (Auto) 7.7 % Eosinophils (%) (Auto) 2.4 % Basophils (%) (Auto) 0.7 % Neutrophils # (Auto) 3.23 K/uL (1.4-6.5) Lymphocytes # (Auto) 2.24 K/uL (1.2-3.4) Monocytes # (Auto) 0.47 K/uL (0.11-0.59) Eosinophils # (Auto) 0.15 K/uL (0-0.5) Basophils # (Auto) 0.04 K/uL (0-0.2) RDW Standard Deviation 44.1 fL (36.4-46.3) RDW Coefficient of Variation 13.2 % (11.5-14.5) Immature Granulocyte % (Auto) 0.2 % Immature Granulocyte # (Auto) 0.01 K/uL (0.00-0.02) Anion Gap 9.0 mmol/L (3-11) Est Creatinine Clear Calc Drug Dose 103.9 ml/min Estimated GFR () 94.0 Estimated GFR (Non- 81.1 BUN/Creatinine Ratio 14.0 (10-20) Calcium Level 8.7 mg/dl (8.5-10.1) Total Bilirubin 0.5 mg/dl (0.2-1) Direct Bilirubin 0.2 mg/dl (0-0.2) Aspartate Amino Transf (AST/SGOT) 44 U/L (15-37) Alanine Aminotransferase (ALT/SGPT) 62 U/L (12-78) Alkaline Phosphatase 84 U/L (45-117) Total Protein 7.4 gm/dl (6.4-8.2) Albumin 3.9 gm/dl (3.4-5.0) Thyroid Stimulating Hormone (TSH) 1.170 uIu/ml (0.300-4.500) Ethyl Alcohol mg/dL < 3.0 mg/dl (0-3) Urine Color YELLOW Urine Appearance CLEAR (CLEAR) Urine pH 5.0 (4.5-7.5) Urine Specific [place] 1.030 (1.000-1.030) Urine Protein NEG (NEG) Urine Glucose (UA) NEG (NEG) Urine Ketones NEG (NEG) Urine Occult Blood NEG (NEG) Urine Nitrite NEG (NEG) Urine Bilirubin NEG (NEG) Urine Urobilinogen NEG (NEG) Urine Leukocyte Esterase NEG (NEG) Urine Opiates Screen NEG (NEG) Urine Methadone, Qualitative NEG (NEG) Urine Barbiturates NEG (NEG) Urine Phencyclidine (PCP) Level NEG (NEG) Ur Amphetamine/Methamphetamine POS (NEG) MDMA (Ecstasy) Screen NEG (NEG) Urine Benzodiazepines Screen NEG (NEG) Urine Cocaine Metabolite NEG (NEG) Urine Marijuana (THC) NEG (NEG) Laboratory results per my review. ED Course 0020: The patient was evaluated in room A5. A complete history and physical exam was performed. 0410: Patient seen and evaluated by Guicho Herrera. 0509: I spoke to psychiatric case management. 0515: [facility] delegate here to start bed search. Page 7 signed. 0700: The patient was accepted to [facility]. He will be transferred for further psychiatric treatment and care. Medical Decision Differential diagnosis: Etiologies such as mood disorder, infection, hypoglycemia, electrolyte abnormalities, cardiac sources, intracerebral event, toxicologic, neurologic, as well as others were entertained. Medication Reconcilliation Current Medication List: was personally reviewed by me Blood Pressure Screening Patient's blood pressure: Elevated blood pressure Blood pressure disposition: Elevated BP felt to be situational Impression Primary Impression: Unspecified psychosis Additional Impression: Substance abuse Scribe Attestation The scribe's documentation has been prepared under my direction and personally reviewed by me in its entirety. I confirm that the note above accurately reflects all work, treatment, procedures, and medical decision making performed by me. Departure Information Dispostion Transfer Acute Care Facility Prescriptions Unable to Obtain Active Prescriptions or Reported Meds Referrals No Doctor, Assigned (PCP) Patient Instructions My [facility] Problem Qualifiers
[2018-04-01 00:33] VITALS: Ht 177.8 cm; Wt 90.5 kg
[2018-04-01 00:47] LABS: BASO % 0.7 %; BASO ABS # 0.04 K/uL (0-0.2); EOS % 2.4 %; EOS ABS # 0.15 K/uL (0-0.5); HEMATOCRIT 39.7 % (42-52); IG# 0.01 K/uL (0.00-0.02); LYMPH % 36.5 %; LYMPH ABS # 2.24 K/uL (1.2-3.4); MEAN CELL VOLUME 91.9 fL (80-100); MEAN CORPUSCULAR HEMOGLOBIN 32.4 pg (25-34); MEAN CORPUSCULAR HGB CONC 35.3 g/dl (32-36); MEAN PLATELET VOLUME 9.8 fL (7.4-10.4); MONO % 7.7 %; MONO ABS # 0.47 K/uL (0.11-0.59); NEUT % 52.5 %; NEUT ABS # 3.23 K/uL (1.4-6.5); PLATELET COUNT 197 K/uL (130-400); RED CELL DISTRIBUTION WIDTH CV 13.2 % (11.5-14.5); RED CELL DISTRIBUTION WIDTH SD 44.1 fL (36.4-46.3); WHITE BLOOD COUNT 6.14 K/uL (4.8-10.8)
[2018-04-01 01:27] LABS: ALBUMIN 3.9 gm/dl (3.4-5.0); CALCIUM 8.7 mg/dl (8.5-10.1); CREATININE 1.23 mg/dl (0.60-1.40); POTASSIUM 3.4 mmol/L (3.5-5.1); TOTAL PROTEIN 7.4 gm/dl (6.4-8.2)
[2018-04-01 10:26] VITALS: BP 144/79; PULSE 83; O2SAT 99
== END 2018-04-01 10:27 | disposition short-term general hospital (02) ==
LOC: EDSEX 00:15 → EDBD 00:15 → C.EDA 00:17
DX: F29 Unspecified psychosis not due to a substance or known physiological condition (principal); F15.10 Other stimulant abuse, uncomplicated; R03.0 Elevated blood-pressure reading, without diagnosis of hypertension; F41.9 Anxiety disorder, unspecified; F90.9 Attention-deficit hyperactivity disorder, unspecified type; Z79.899 Other long term (current) drug therapy; Z81.8 Family history of other mental and behavioral disorders

== ENCOUNTER 2019-02-19 10:00 | Inpatient (IN) ==
[2019-02-19] MEDS ORDERED: clonazePAM 1 MG TAB PO STA (10:28)
[2019-02-19] MEDS ORDERED: clonazePAM 0.5 MG TAB PO ONE (10:33)
[2019-02-19] MEDS ORDERED: HALOPERIDOL LACTATE 5 MG/ML 1 ML VIAL IM STA (11:19)
[2019-02-19] MEDS ORDERED: LORazepam 2 MG/ML VIAL (IM USE) IM STA (11:19)
[2019-02-19 12:26] LABS: Basophils # (auto) 0.03 K/uL (0-0.2); Basophils % (auto) 0.7 %; Eosinophils # (auto) 0.01 K/uL (0-0.5); Eosinophils % (auto) 0.2 %; Hematocrit (blood only) 42.1 % (42-52); Hemoglobin 14.7 g/dL (14.0-18.0); Lymphocytes # (auto) 1.44 K/uL (1.2-3.4); Mean Corpuscular Hgb Conc 34.9 g/dL (32-36); Mean Corpuscular Volume 92.3 fL (80-100); Mean Platelet Volume 10.2 fL (7.4-10.4); Monocytes # (auto) 0.29 K/uL (0.11-0.59); Monocytes % (auto) 6.6 %; Neutrophils % (auto) 59.5 %; Platelet Count 216 K/uL (130-400); RDW Coefficient of Variation 13.7 % (11.5-14.5); RDW Standard Deviation 46.1 fL (36.4-46.3); Red Blood Count 4.56 M/uL (4.7-6.1); White Blood Count 4.37 K/uL (4.8-10.8)
[2019-02-19 12:43] LABS: BUN Creatinine Ratio 8.1 (10-20); Calcium 9.1 mg/dl (8.5-10.1); Est GFR (African American) 111.7; Est GFR (Non-African American) 96.4; Potassium 3.3 mmol/L (3.5-5.1)
[2019-02-19 12:54] LABS: Albumin Globulin Ratio 1.3 (0.9-2); Bilirubin,Total 0.9 mg/dl (0.2-1); Globulin 3.1 gm/dl (2.5-4.0); Total Protein 7.1 gm/dl (6.4-8.2)
[2019-02-19 12:58] LABS: Acetaminophen < 2 ug/ml (10-30); Salicylate < 1.7 mg/dl (2.8-20)
[2019-02-19 16:58] LABS: Amphetamines+Metham, Urine Neg (Neg); Barbiturates, Urine Neg (Neg); Benzodiazepine, Urine Neg (Neg); Cocaine, Urine Neg (Neg); MDMA (Ecstacy), Urine Neg (Neg); Methadone, Urine Neg (Neg); Opiate, Urine Neg (Neg); Phencyclidine, Urine Neg (Neg)
[2019-02-19 17:13] LABS: Appearance Urine Clear (Clear); Bacteria Urine Automated Negative (Negative); Bilirubin Urine Negative (Negative); Blood Urine Negative (Negative); Color Urine Yellow; Glucose Urine UA Negative (Negative); Ketones Urine Negative (Negative); Leukocyte Esterase Urine Trace (Negative); Nitrite Urine Negative (Negative); Protein Urine Negative (Negative); RBC Urine Automated 0-4 /hpf (0-4); Specific Gravity Urine 1.017 (1.000-1.030); Urobilinogen Urine Negative (Negative)
[2019-02-19] MEDS ORDERED: SODIUM CHLORIDE 0.65% NA SOLN 45 ML (OCEAN) PRN (17:23)
[2019-02-19] MEDS ORDERED: BISMUTH SUBSALICYLATE PER ML OMNICELL CHARGE PO PRN (17:23)
[2019-02-19] MEDS ORDERED: ALUMINUM/MAGNESIUM SUSP 30 ML UDC PO PRN (17:23)
[2019-02-19] MEDS ORDERED: ACETAMINOPHEN 325 MG TAB PO PRN (17:23)
[2019-02-19] MEDS ORDERED: MAGNESIUM HYDROXIDE SUSP 30 ML UDC PO PRN (17:23)
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
[2019-02-19] MEDS ORDERED: HALOPERIDOL LACTATE 5 MG/ML 1 ML VIAL IM PRN (20:26)
[2019-02-19] MEDS ORDERED: LORazepam 2 MG/ML VIAL (IM USE) IM PRN (20:26)
[2019-02-20] MEDS: LORazepam 1 MG TAB PO PRN ×2 (10:57→18:06)
[2019-02-20] MEDS: HALOPERIDOL 5 MG TAB PO PRN ×2 (11:33→18:06)
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
[2019-02-20] MEDS ORDERED: BENZTROPINE MESYLATE 1 MG TAB PO PRN (11:53)
[2019-02-21] MEDS: LORazepam 1 MG TAB PO PRN ×2 (03:28→21:15)
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
[2019-02-21] MEDS ORDERED: HALOPERIDOL 10 MG TABLET PO SCH (22:00)
[2019-02-22] MEDS: HALOPERIDOL 5 MG TAB PO PRN ×2 (08:00→14:52)
[2019-02-22] MEDS: LORazepam 1 MG TAB PO PRN ×3 (08:00→21:32)
--- NOTE | 2019-02-22 08:21 | Psychiatric Progress Note ---
Date of Service February 22, 2019 Impression / Recommendations Impression Denise is a 24 y/o male with a history of schizophrenia who presented with disorganized and threatening behavior, in the context of decompensation for the last several months. He was admitted on an involuntary commitment following escalating interactions with the police over disorganized and threatening behavior in the community. He requires a MNPR for safety of other patients given reports of threats to a supervisor [employer], police, and court house staff prior to admission and lability. He has been uncooperative with treatment here, refusing to participate in assessments or interviews, and has been only sporadically accept ing prn medications. He will have a 303 hearing tomorrow. (1) Schizophrenia: 02/20--The patient was admitted to the [facility] ([facility]) on q15 min checks (behavioral with suicide precautions) for safety. The patient will participate in group, recreational, and milieu therapies and will be offered additional individual and family sessions as clinically appropriate. Reviewed that he should resume antipsychotic medication FABIO and he would only discuss benzos. Adamant he won't resume Risperdal. Will offer Haldol 5 mg with Ativan 2 mg (take Haldol first) TID and readdress when less agitated. 02/21--mild improvement today in that less thought blocking and slightly less irritability. Refused meds again this am. In my opinion (Dr. Diaz), antipsychotic medication is medically necessary for the treatment of his psychosis given risk of or serious injury within 30 days. He has shown a pattern of non-compliance and escalating and threatening behavior in the community and his condition is unlikely to improve without forced psychiatric medications. Will order Haldol [address] Hubbard to provide second opinion on this and likely 303 petition tomorrow. 02/22 -patient remains inappropriate for groups and therapy, due to threatening and menacing behavior with staff and peers. Continue private room. -Increase haloperidol to 10 mg twice daily, and continue as needed doses. Agree with medications over objection, as patient has a history of a primary thought disorder, has been noncompliant with treatment which has led to decompensation, increasing psychosis, and escalating threatening and aggressive behavior in the community and now in the hospital. He required physical and chemical restraints in the ER due to threats to staff and attempts to leave. He has improved with antipsychotic medication in the past. -File for 303 hearing to be held tomorrow. -Patient remains uncooperative with attempts to assess him, will not provide historical information such as where he has been living or if he has any outpatient treatment, or sign releases for family or friends to provide collateral information. Present on Admission?: Yes (2) Noncompliance with medication regimen: 02/22 -patient with chronic noncompliance which has severely impaired his ability to function or provide for his own basic needs in the community. He will likely need an involuntary outpatient commitment. Present on Admission?: Yes (3) Anxiety: 02/22 -patient reports anxiety, but otherwise uncooperative with the assessment and does not appear overtly anxious; refusing vital signs for the last 3 days. He has been demanding high-dose benzodiazepines, and has been repeatedly informed that these are not indicated, but that Lorazepam is ordered as needed to be taken with haloperidol. Present on Admission?: Yes (4) Substance abuse: 02/22 -drug screen positive for THC. Once he is less psychotic, we will need to provide education regarding the risks of cannabis use, specifically exacerbation of psychotic symptoms. -On admission, patient reported being prescribed clonazepam 2 mg twice daily, and per PDMP he last filled a prescription on 12/17/2018, from a Dr. Matt Oneill in [place], [place]. In the past year, he has filled clonazepam and dextroamphetamine/amphetamine prescriptions from 5 different clinicians in different parts of the [place], a pattern consistent with substance abuse and drug-seeking. He does not appear to have been on clonazepam consistently, as his last 2 prescriptions were filled in 06/2018 and 12/2018. Present on Admission?: Yes Inventory Assets Strengths: unable to assess Needs: clarification of legal charges, outpatient services Risk Factors Assessment Male: Yes : No Do You Have Access To A Gun?: No Health Problems: No Mental Health Diagnoses: Yes Substance Use Disorders: Yes Previous Psychiatric Hospitalization: Yes Protective Factors Assessment : No Responsible for Young Children: No Employed: No Good Rapport with Provider: No Interval History Identifying Information DENISE MURRY is a 24-year-old M who has a history of schizophrenia, who was admitted on 02/19/19 17:23 on a 302 involuntary commitment for threatening behavior in the community. Chief Complaint "Your stop was unanticipated". Review of Systems Sleep Information Total Hours of Sleep: 9.75 Sleep Comments: awake at shift change then slept the remainder of the night Meal Information Percent Meal Consumed - Breakfast: 100 Percent Meal Consumed - Lunch: 100 Percent Meal Consumed - Dinner: 100 Nutrition Comment: still sleeping Subjective Subjective Patient was seen & assessed and interval progress reviewed with Treatment Team. Staff report he remains disorganized, has not been appropriate to attend groups, has had inappropriate behavior with staff and peers, and security had to be called to the unit due to threatening behavior to staff. He has refused to complete his admission assessments, and has repeatedly gone to the nursing station and stared at staff or knocked on the window to get their attention, then made demands of them (demanded to be given 4 mg of Ativan, and told staff to do his laundry). He has repeatedly asked for high dose benzodiazepines, and has not wanted to take Haldol as needed's when offered, but has he has taken it with staff encouragement. Not been cooperative with treatment or assessments, and has refused to sign releases for parents or outpatient treatment providers. He has been staring intently and inappropriately at staff and peers, attempted to disrobe in the dayroom, and laughing inappropriately at times. On my assess ment, he was seen in his room, and was uncooperative with attempts to engage him in interview. He either answered questions with unrelated information, or stared intently and did not speak at all. When asked his understanding of why he was admitted, he said "how often will I be seeing you?" When the question was repeated, he said "the Haldol does not need to be conjoined, disjoin the Haldol." He then demanded to be given Ativan, and then Klonopin, and when asked why he wants these medications, he said "I wish to take the medication I wish to take." He refused to answer questions about his mood, thoughts, where he has been living, and if he has any outpatient treatment. He said he wants to leave "within 5 days," and advised him that we will need more complete information regarding his recent treatment, symptoms, and living situation, which she is declining to give. He denies that he has ever been diagnosed with schizophrenia, although he does state he remembers being hospitalized here in the past. Physical Exam Psychiatric Orientation: alert Apperance: appropriately dressed and appeared stated age Athletic appearing muscular male. Staring intently. Menacing, leaning toward this physician while staring angrily. Minimal, at times does not respond to questions at all, other times answers with very short statements. Affect: + irritable affect, + angry affect and + constricted affect Refuses to answer Thought Process: + thought blocking, + tangential thought process and + incoherent thought process Focused on demands for benzodiazepines. Refuses to answer Refuses to answer Refuses to answer Cognition: + recent memory not intact and + attention not intact Insight: + severely impaired insight Judgement: + severely impaired judgement Vital Signs (Past 24 Hours) Last Vital Signs Temp 36.8 C 02/19/19 19:39 Pulse 91 H 02/19/19 19:39 Resp 18 02/19/19 19:39 BP 134/82 02/19/19 19:39 Pulse Ox 99 02/19/19 19:39 Results & Data Current Inpatient Medications Current Inpatient Medications: Current Inpatient Medications Acetaminophen (Tylenol) 650 mg PO Q4H PRN PRN Reason: Headache or Minor Fever Stop: 03/21/19 17:22 Al Hydrox/Mg Hydrox/Simethicone (Maalox) 30 ml PO Q4H PRN PRN Reason: GI Upset Stop: 03/21/19 17:22 Benztropine Mesylate (Cogentin) 1 mg PO Q8 PRN PRN Reason: Muscle Spasm Stop: 03/22/19 11:52 Bismuth Subsalicylate (Kaopectate) 15 ml PO PRN PRN PRN Reason: Loose Stool Stop: 03/21/19 17:22 Haloperidol (Haldol) 5 mg PO Q4H PRN PRN Reason: Agitation Stop: 03/21/19 20:25 Last Admin: 02/22/19 08:00 Dose: 5 mg Documented by: Haloperidol (Haldol) 10 mg PO HS [facility] Stop: 03/23/19 21:59 Last Admin: 02/21/19 21:10 Dose: 10 mg Documented by: Haloperidol Lactate (Haldol) 5 mg IM Q4H PRN PRN Reason: Severe Agitation Stop: 03/21/19 20:25 Hydroxyzine HCl (Vistaril) 50 mg PO HSZ PRN PRN Reason: Insomnia Stop: 03/21/19 17:22 Hydroxyzine HCl (Vistaril) 25 mg PO Q4H PRN PRN Reason: Anxiety Stop: 03/21/19 17:22 Lorazepam (Ativan) 2 mg IM Q4H PRN PRN Reason: Severe Agitation Stop: 03/21/19 20:25 Lorazepam (Ativan) 2 mg PO Q4H PRN PRN Reason: Agitation Stop: 03/21/19 20:25 Last Admin: 02/22/19 08:00 Dose: 2 mg Documented by: Magnesium Hydroxide (Milk Of Magnesia) 30 ml PO DAILY PRN PRN Reason: Heartburn Stop: 03/21/19 17:22 Sodium Chloride ([place] Nasal) 1 - 2 sprays NA PRN PRN PRN Reason: Nasal Dryness/Congestion Stop: 03/21/19 17:22 Mental Health & Subst Abuse Tx Therapist Name of Therapist: None Prime Broker Name of Prime Broker: [employer] [facility] Harriett Treviño Phone Number for Prime Broker: [phone] Case Management Appointment Comment: [address] Dougie [address] [place] [id number] Post Discharge Appointments Contact Information Discharge Discharge [address]: [address] [place] [id number] CPT Code CPT Code 80906 (1) Schizophrenia Schizophrenia type: unspecified Qualified Code(s): F20.9 - Schizophrenia, unspecified
[2019-02-22] MEDS ORDERED: HALOPERIDOL 10 MG TABLET PO SCH (10:15)
[2019-02-22] MEDS: HALOPERIDOL 10 MG TABLET PO SCH (21:29)
--- NOTE | 2019-02-23 08:17 | Psychiatric Progress Note ---
Date of Service February 23, 2019 Impression / Recommendations Impression Denise is a 24 y/o male with a history of schizophrenia and polysubstance abuse who presented with disorganized and threatening behavior, in the context of decompensation for the last several months. He was admitted on an involuntary commitment following escalating interactions with the police over disorganized and threatening behavior in the community. He requires a MNPR for safety of other patients given reports of threats to a coke drawer, police, and court house staff prior to admission and lability. He has been uncooperative with treatment here, refusing to participate in assessments or interviews, lacks insight and does not believe he needs treatment, wanting only benzodiazepines. He is on a 303 involuntary commitment as of today, and we will start medications over objection and work towards a long-acting injectable antipsychotic and likely involuntary outpatient commitment. (1) Schizophrenia: 02/20--The patient was admitted to the [facility] ([facility]) on q15 min checks (behavioral with suicide precautions) for safety. The patient will participate in group, recreational, and milieu therapies and will be offered additional individual and family sessions as clinically appropriate. Reviewed that he should resume antipsychotic medication FABIO and he would only discuss benzos. Adamant he won't resume Risperdal. Will offer Haldol 5 mg with Ativan 2 mg (take Haldol first) TID and readdress when less agitated. 02/21--mild improvement today in that less thought blocking and slightly less irritability. Refused meds again this am. In my opinion (Dr. Diaz), antipsychotic medication is medically necessary for the treatment of his psychosis given risk of or serious injury within 30 days. He has shown a pattern of non-compliance and escalating and threatening behavior in the community and his condition is unlikely to improve without forced psychiatric medications. Will order Haldol [address] Hubbard to provide second opinion on this and likely 303 petition tomorrow. 02/22 -patient remains inappropriate for groups and therapy, due to threatening and menacing behavior with staff and peers. Continue private room. -Increase haloperidol to 10 mg twice daily, and continue as needed doses. Agree with medications over objection, as patient has a history of a primary thought disorder, has been noncompliant with treatment which has led to decompensation, increasing psychosis, and escalating threatening and aggressive behavior in the community and now in the hospital. He required physical and chemical restraints in the ER due to threats to staff and attempts to leave. He has improved with antipsychotic medication in the past. -File for 303 hearing to be held tomorrow. -Patient remains uncooperative with attempts to assess him, will not provide historical information such as where he has been living or if he has any outpatient treatment, or sign releases for family or friends to provide collateral information. 02/23 -303 commitment granted. -Continue private room given threatening behavior, agitation, and recent history of erratic and inappropriate behavior in the community. Patient not yet appropriate for groups. -Continue haloperidol 10 mg twice daily, and 5 mg as needed. Will order an IM backup for refusal, as he has been seen by 2 physicians who both agree with medications over objection. He will likely need a long-acting injectable antipsychotic given his history of nonadherence. -Parents report he has been abusing benzodiazepines, and he is very focused on getting them here, asking for them frequently and receiving 8 mg of lorazepam daily. Will decrease to 1 mg every 4 hours as needed, with a plan to taper off prior to discharge given risk of abuse/misuse/negative outcomes. -Contact forensic therapeutic case manager, Harriett Treviño, and schedule a meeting to discuss treatment plan. Patient will likely need an involuntary outpatient commitment. (2) Noncompliance with medication regimen: 02/22 -patient with chronic noncompliance which has severely impaired his ability to function or provide for his own basic needs in the community. He will likely need an involuntary outpatient commitment. 02/23 -303 commitment granted. Pursue medications over objection, consider long- acting injectable, and schedule meeting with forensic therapeutic case manager. (3) Anxiety: 02/22 -patient reports anxiety, but otherwise uncooperative with the assessment and does not appear overtly anxious; refusing vital signs for the last 3 days. He has been demanding high-dose benzodiazepines, and has been repeatedly informed that these are not indicated, but that Lorazepam is ordered as needed to be taken with haloperidol. 02/23 -parents describe history of OCD symptoms. Patient unwilling to participate in assessment, and no noticeable compulsions here, so unclear if currently active. Continue to monitor and assess. (4) Substance abuse: 02/22 -drug screen positive for THC. Once he is less psychotic, we will need to provide education regarding the risks of cannabis use, specifically exacerbation of psychotic symptoms. -On admission, patient reported being prescribed clonazepam 2 mg twice daily, and per PDMP he last filled a prescription on 12/17/2018, from a Dr. Matt Oneill in [place], [place]. In the past year, he has filled clonazepam and dextroamphetamine/amphetamine prescriptions from 5 different clinicians in different parts of the [place], a pattern consistent with substance abuse and drug -seeking. He does not appear to have been on clonazepam consistently, as his last 2 prescriptions were filled in 06/2018 and 12/2018. 02/23 -parents report history of alcohol, cannabis, benzodiazepine, and stimulant abuse. This is also indicated in previous records from 2017 hospitalization. -Avoid controlled substances given high risk of abuse. Inventory Assets Strengths: unable to assess Needs: clarification of legal charges, outpatient services Risk Factors Assessment Male: Yes : No Do You Have Access To A Gun?: No Health Problems: No Mental Health Diagnoses: Yes Substance Use Disorders: Yes Previous Psychiatric Hospitalization: Yes Protective Factors Assessment : No Responsible for Young Children: No Employed: No Supportive Family: Yes Good Rapport with Provider: No Interval History Identifying Information DENISE MURRY is a 24-year-old M who has a history of schizophrenia, who was admitted on 02/19/19 17:23 on a 302 involuntary commitment for threatening behavior in the community. He is on a 303 involuntary commitment as of 02/24/20 19. Chief Complaint "What do you want?" Review of Systems Notes Attempted to review 10 systems, but patient was uncooperative and refused to answer. Sleep Information Total Hours of Sleep: 9.25 Sleep Comments: awake shortly before 0600-wanting to know when his hearing is and "will they find me?" he had his hand inside his underwear and while talking to staff was moving his hand about. he did stop when asked to. Meal Information Percent Meal Consumed - Breakfast: 100 Percent Meal Consumed - Lunch: 100 Percent Meal Consumed - Dinner: 100 Nutrition Comment: still sleeping Subjective Subjective Patient was seen & assessed and interval progress reviewed with Nursing and social work. Staff report he was irritable and poorly cooperative yesterday, frequently demanding benzodiazepines, and got 4 doses of lorazepam 2 mg. He refused to complete his social and TR assessment, despite multiple attempts to meet with him. He spends most of his time in his room, is refusing groups, but has come out to eat meals. He refused to sign his treatment plan, and does not respond to questions about symptoms when asked by nursing staff or clinicians. He took scheduled haloperidol with staff encouragement, and requested and received Haldol and Ativan as needed multiple times for anxiety and agitation. He had inappropriate behavior with a female peer, telling her he "really really" liked her, and stating that the hospital did not give him condoms. She reported this to staff. He contacted his parents, who attempted to visit him, but left after he was disrespectful to them. He has refused to sign a release for them, but they provided some information to staff: the patient has had mental health and substance abuse problems for 5-6 years. 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 At the time, he was using marijuana heavily, and after returning home, he began drinking alcohol excessively. He then went to [place] to try to continue law school, but was kicked out of the program. He then went to a law school in [place], continued to drink heavily, began hallucinating and experiencing paranoia, and thought that people including the [place] police were after him. He has been involuntarily committed multiple times and has been to rehab for alcoholism. He has had erratic and threatening behavior in the community which has led to him being banned from multiple businesses and outpatient clinics. He abuses prescription medications including stimulants and benzodiazepines, and they recently received a letter from the hospital asking the patient to stop calling demanding medications. They stated he took 60 tablets of clonazepam and 1.5 weeks. It has been recommended that he take a long-acting injectable antipsychotic, but he has always refused. Parents indicated support of this, preferably one that lasts 3 months. He blames his parents for what has happened to him and has been verbally aggressive with them at home. He has been unable to hold a job, but was functioning better between 07/2018 and 10/2018, but decompensated after his friend was shot and killed by police. They did not know where he was until he called them yesterday, and were going to file a missing persons report with the police. On my assessment, the patient was uncooperative and refused to answer questions, saying "what do you want," then demanded that I come back later. He refused to answer questions about his mood, anxiety, sleep, SI, HI, or psychotic symptoms. He refused to answer questions about his visit with his parents, if he has outpatient treatment providers, or his opinions on treatment. He did ask questions about his hearing, and explained what I would reports and the treatment recommendations to him again. He then ignored further questions about his current symptoms or wishes with respect to treatment. He attended his 303 hearing which he contested, and testified that he has a bail modification hearing February 25 which he needs to continue. He said he was also given a subpoena to appear as a witness in a criminal trial and doesn't know when it is, and requested a public safety teacher to be assigned to him for these issues. Physical Exam Psychiatric Orientation: alert; + uncooperative Apperance: appropriately dressed and appeared stated age Athletic appearing muscular male. Intense, menacing stare. Motor Behavior: no abnormal motor movements Minimal speech, long delay prior to answering Affect: + angry affect and + constricted affect Patient refuses to answer Thought Process: + thought blocking Disorganized, perseverating on wanting benzodiazepines and wanting to leave the hospital. Answers with unrelated information; at times refuses to answer. Refuses to answer. Refuses to answer. Refuses to answer. Insight: + severely impaired insight Judgement: + severely impaired judgement Vital Signs (Past 24 Hours) Last Vital Signs Temp 36.8 C 02/19/19 19:39 Pulse 91 H 02/19/19 19:39 Resp 18 02/19/19 19:39 BP 134/82 02/19/19 19:39 Pulse Ox 99 02/19/19 19:39 Results & Data Laboratory Results Laboratory Results - last 24 hr 02/19/19 16:15 U Marijuana THC Carboxy 16 A Current Inpatient Medications Current Inpatient Medications: Current Inpatient Medications Acetaminophen (Tylenol) 650 mg PO Q4H PRN PRN Reason: Headache or Minor Fever Stop: 03/21/19 17:22 Al Hydrox/Mg Hydrox/Simethicone (Maalox) 30 ml PO Q4H PRN PRN Reason: GI Upset Stop: 03/21/19 17:22 Benztropine Mesylate (Cogentin) 1 mg PO Q8 PRN PRN Reason: Muscle Spasm Stop: 03/22/19 11:52 Bismuth Subsalicylate (Kaopectate) 15 ml PO PRN PRN PRN Reason: Loose Stool Stop: 03/21/19 17:22 Haloperidol (Haldol) 5 mg PO Q4H PRN PRN Reason: Agitation Stop: 03/21/19 20:25 Last Admin: 02/22/19 14:52 Dose: 5 mg Documented by: Haloperidol (Haldol) 10 mg PO BID [facility] Stop: 03/24/19 20:59 Last Admin: 02/22/19 21:29 Dose: 10 mg Documented by: Haloperidol Lactate (Haldol) 5 mg IM Q4H PRN PRN Reason: Severe Agitation Stop: 03/21/19 20:25 Hydroxyzine HCl (Vistaril) 50 mg PO HSZ PRN PRN Reason: Insomnia Stop: 03/21/19 17:22 Hydroxyzine HCl (Vistaril) 25 mg PO Q4H PRN PRN Reason: Anxiety Stop: 03/21/19 17:22 Lorazepam (Ativan) 2 mg IM Q4H PRN PRN Reason: Severe Agitation Stop: 03/21/19 20:25 Lorazepam (Ativan) 2 mg PO Q4H PRN PRN Reason: Agitation Stop: 03/21/19 20:25 Last Admin: 02/22/19 21:32 Dose: 2 mg Documented by: Magnesium Hydroxide (Milk Of Magnesia) 30 ml PO DAILY PRN PRN Reason: Heartburn Stop: 03/21/19 17:22 Sodium Chloride ([place] Nasal) 1 - 2 sprays NA PRN PRN PRN Reason: Nasal Dryness/Congestion Stop: 03/21/19 17:22 Mental Health & Subst Abuse Tx Therapist Name of Therapist: None Area Field Person Name of Area Field Person: [employer] - Harriett Treviño Phone Number for Area Field Person: [phone] Case Management Appointment Comment: [address], [place] [address] Post Discharge Appointments Contact Information Discharge Discharge [address]: [address] [place] [address], [place] [address] CPT Code CPT Code 60392 (1) Schizophrenia Schizophrenia type: unspecified Qualified Code(s): F20.9 - Schizophrenia, unspecified
[2019-02-23] MEDS: LORazepam 1 MG TAB PO PRN ×2 (09:24→22:17)
[2019-02-23] MEDS: HALOPERIDOL 10 MG TABLET PO SCH ×2 (09:25→22:13)
[2019-02-23] MEDS ORDERED: HALOPERIDOL LACTATE 5 MG/ML 1 ML VIAL IM PRN (10:35)
[2019-02-24] MEDS: LORazepam 1 MG TAB PO PRN ×2 (09:49→21:58)
[2019-02-24] MEDS: HALOPERIDOL 10 MG TABLET PO SCH ×2 (09:49→21:58)
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
--- NOTE | 2019-02-25 08:27 | Psychiatric Progress Note ---
Date of Service February 25, 2019 Impression / Recommendations Impression Denise is a 24 y/o male with a history of schizophrenia, treatment nonadherence, and polysubstance abuse who presented with disorganized and threatening behavior, in the context of decompensation for the last several months and ongoing substance abuse. He was admitted on an involuntary commitment following escalating interactions with the police over disorganized and threatening behavior in the community, and is now on a 303 involuntary commitment. He requires a MNPR for the safety of other patients given his psychosis and recent threatening and aggressive behavior. He is behaving in a sexually inappropriate way here, exposing his genitals to staff and propositioning female peer multiple times despite attempts to educate him on behavioral expectations and to redirect him. He is uncooperative with treatment, refusing to participate in assessments or interviews, lacks insight and does not believe he needs treatment, wanting only benzodiazepines. He has been seen by 2 physicians for medications over ob jection and will work towards a long-acting injectable antipsychotic and long- term treatment at the [facility] versus involuntary outpatient commitment. (1) Schizophrenia: 02/20--The patient was admitted to the [facility] ([facility] mental health unit) on q15 min checks (behavioral with suicide precautions) for safety. The patient will participate in group, recreational, and milieu therapies and will be offered additional individual and family sessions as clinically appropriate. Reviewed that he should resume antipsychotic medication FABIO and he would only discuss benzos. Adamant he won't resume Risperdal. Will offer Haldol 5 mg with Ativan 2 mg (take Haldol first) TID and readdress when less agitated. 02/21--mild improvement today in that less thought blocking and slightly less irritability. Refused meds again this am. In my opinion (Dr. Diaz), antipsychotic medication is medically necessary for the treatment of his psychosis given risk of or serious injury within 30 days. He has shown a pattern of non-compliance and escalating and threatening behavior in the community and his condition is unlikely to improve without forced psychiatric medications. Will order Haldol [address] Hubbard to provide second opinion on this and likely 303 petition tomorrow. 02/22 -patient remains inappropriate for groups and therapy, due to threatening and menacing behavior with staff and peers. Continue private room. -Increase haloperidol to 10 mg twice daily, and continue as needed doses. Agree with medications over objection, as patient has a history of a primary thought disorder, has been noncompliant with treatment which has led to decompensation, increasing psychosis, and escalating threatening and aggressive behavior in the community and now in the hospital. He required physical and chemical restraints in the ER due to threats to staff and attempts to leave. He has improved with antipsychotic medication in the past. -File for 303 hearing to be held tomorrow. -Patient remains uncooperative with attempts to assess him, will not provide historical information such as where he has been living or if he has any outpatient treatment, or sign releases for family or friends to provide collateral information. 02/23 -303 commitment granted. -Continue private room given threatening behavior, agitation, and recent history of erratic and inappropriate behavior in the community. Patient not yet appropriate for groups. -Continue haloperidol 10 mg twice daily, and 5 mg as needed. Will order an IM backup for refusal, as he has been seen by 2 physicians who both agree with medications over objection. He will likely need a long-acting injectable antipsychotic given his history of nonadherence. -Parents report he has been abusing benzodiazepines, and he is very focused on getting them here, asking for them frequently and receiving 8 mg of lorazepam daily. Will decrease to 1 mg every 4 hours as needed, with a plan to taper off prior to discharge given risk of abuse/misuse/negative outcomes. -Contact forensic spring encaser, Harriett Treviño, and schedule a meeting to discuss treatment plan. Patient will likely need an involuntary outpatient commitment. 02/24 -continue Haldol p.o. with IM backup, and lorazepam as needed. Patient refusing to discuss other antipsychotic options, so if he remains on haloperidol, can receive Haldol Decanoate once the effective dose is reached. -Encourage patient to sign releases for his parents and for outpatient treatment referrals, so that discharge planning can begin. -Continue to enforce appropriate boundaries, as patient has been sexually inappropriate with female peer. Continue private room, and excused from groups until he is able to maintain behavioral control. 02/25 -continue Haldol, and lorazepam as needed. -Attempt scheduled family meeting with parents and his outpatient spring encaser. -Encourage the patient to start engaging in treatment. He is willing to meet with a counselor one-on-one today. -Appropriate boundaries-patient has been reminded repeatedly of the need to cover his genital area and the inappropriateness of his sexual propositions to females. (2) Noncompliance with medication regimen: 02/22 -patient with chronic noncompliance which has severely impaired his ability to function or provide for his own basic needs in the community. He will likely need an involuntary outpatient commitment. 02/23 -303 commitment granted. Pursue medications over objection, consider long- acting injectable, and schedule meeting with forensic spring encaser. 02/25 -file for 304 involuntary commitment, as state hospitalization may be needed given severity of his illness, lack of insight and unwillingness to engage in treatment, and pattern of noncompliance with treatment. Patient has requested an independent evaluation, so the hearing will be scheduled sometime next week once that is completed. Patient was informed, and states his preference is to leave the hospital immediately, with no outpatient treatment. (3) Anxiety: 02/22 -patient reports anxiety, but otherwise uncooperative with the assessment and does not appear overtly anxious; refusing vital signs for the last 3 days. He has been demanding high-dose benzodiazepines, and has been repeatedly informed that these are not indicated, but that Lorazepam is ordered as needed to be taken with haloperidol. 02/23 -parents describe history of OCD symptoms. Patient unwilling to participate in assessment, and no noticeable compulsions here, so unclear if currently active. Continue to monitor and assess. 02/25 -patient denies OCD symptoms, and none have been observed here. He does report feeling "anxious," but is a poor historian and unable to get much further information. He does not appear to be expansive panic. We will continue to assess and rule out SYBIL. He is refusing an SSRI antidepressant, wanting only benzodiazepines. (4) Substance abuse: 02/22 -drug screen positive for THC. Once he is less psychotic, we will need to provide education regarding the risks of cannabis use, specifically exacerbation of psychotic symptoms. -On admission, patient reported being prescribed clonazepam 2 mg twice daily, and per PDMP he last filled a prescription on 12/17/2018, from a Dr. Matt Oneill in [place], [place]. In the past year, he has filled clonazepam and dextroamphetamine/amphetamine prescriptions from 5 different clinicians in different parts of the state, a pattern consistent with substance abuse and drug-seeking. He does not appear to have been on clonazepam consistently, as his last 2 prescriptions were filled in 06/2018 and 12/2018. 02/23 -parents report history of alcohol, cannabis, benzodiazepine, and stimulant abuse. This is also indicated in previous records from 2017 hospitalization. -Avoid controlled substances given high risk of abuse. Inventory Assets Strengths: unable to assess Needs: clarification of legal charges, outpatient services Risk Factors Assessment Male: Yes : No Do You Have Access To A Gun?: No Health Problems: No Mental Health Diagnoses: Yes Substance Use Disorders: Yes Previous Psychiatric Hospitalization: Yes Protective Factors Assessment : No Responsible for Young Children: No Employed: No Supportive Family: Yes Good Rapport with Provider: No Interval History Identifying Information DENISE MURRY is a 24-year-old M who has a history of schizophrenia, who was admitted on 02/19/19 17:23 on a 302 involuntary commitment for threatening behavior in the community. He is on a 303 involuntary commitment as of 02/23/2019. Chief Complaint "All right". Review of Systems Sleep Information Total Hours of Sleep: 7.75 Sleep Comments: toileted at 0030 Meal Information Percent Meal Consumed - Breakfast: 100 Percent Meal Consumed - Lunch: 100 Percent Meal Consumed - Dinner: 100 Nutrition Comment: pt consistently throws away plastic utensils after eating rather than handing them back in Subjective Subjective Patient was seen & assessed and interval progress reviewed with nursing and social work. Staff report he remains disorganized, hypersexual, disrobing and exposing his genitals to staff, and has sexually propositioned a female peer multiple times despite redirection. He is thought blocked and paranoid, uncooperative with care, and refuses to answer questions about symptoms and his psychiatric history or treatment. On my assessment, he initially answers all questions with "all right." He says "I have a question for you, can't remember." Again attempted to clarify the events that led up to hospitalization, and when asked about what was going on in his life, he says "just trying to get by." He unable/unwilling to clarify what he means by this or to explain why he had so many contacts with crisis and police prior to hospitalization. He cannot explain why he repeatedly went to the court house or threatens people there. He abruptly changes the subject, stating "I feel like I have anxiety that's not being treated here." He is more willing today to talk about his anxiety symptoms, and although he cannot explain them independently, when given options, indicates that he worries a lot, feels on edge, and that this has been going on "for some time." He becomes irritable when attempts are made to get more specific information, and when questions about panic attacks arrest. He denies OCD symptoms "not that I can recall," and symptoms of depression and henry. He denies thoughts of harming himself and others at this time. He asks what he can have to treat his anxiety, and started to discuss ge neralized anxiety disorder and the first line treatment, SSRI antidepressants, and he interrupted to say "no, I do not want treatment, my anxiety is better." He then asks for a higher dose of Ativan, and again explained that this medication is being used only short-term for acute symptom management, and is not a good long-term treatment given his addictions history. He refused to discuss past antipsychotic medication trials, and says he wants to "leave as soon as possible." When asked what he would do if he were discharged today, he says he will "go home and better my life." When reflected back that his parents said he could not return home until he was in treatment, stable, and agreed to involve them in his treatment planning, he did not respond. Again reviewed the treatment recommendations, including the plan to file for a 304 involuntary commitment with the options of long-term inpatient treatment at the [facility] versus diversion and an involuntary outpatient commitment. Discussed the recommended outpatient treatment, which would include following up with a psychiatrist, therapist, and spring encaser, as well as other services as deemed appropriate. He repeatedly states that he does not want any outpatient treatment and asks what he can do to be discharged without having to go to treatment. When asked if he can explain this more, he says "I can address all of my medical concerns here in the hospital." Although he continues to refuse to attend groups, today he is willing to meet with a counselor one-on-one. He then demands that he have "intensive, individual, daily therapy." Physical Exam Psychiatric Orientation: alert and oriented x 3 Apperance: appropriately dressed, appropriately groomed and appeared stated age Eye Contact: good eye contact Staring Motor Behavior: no abnormal motor movements Slightly delayed and slowed Affect: + flat affect (Irritable at times) "All right." Thought Process: + thought blocking and + tangential thought process; + thought association not intact Paucity of thought content, often gives very vague answers, have to ask for jose quent clarification, at times does not respond with related information or refuses to respond at all. Suicidal Thoughts: denies suicidal thoughts Homicidal Thoughts: denies homicidal thoughts Does not answer with related information Cognition: + remote memory not intact, + attention not intact and + language not intact Insight: + severely impaired insight Judgement: + severely impaired judgement Vital Signs (Past 24 Hours) Last Vital Signs Temp 36.8 C 02/19/19 19:39 Pulse 91 H 02/19/19 19:39 Resp 18 02/19/19 19:39 BP 134/82 02/19/19 19:39 Pulse Ox 99 02/19/19 19:39 Results & Data Current Inpatient Medications Current Inpatient Medications: Current Inpatient Medications Acetaminophen (Tylenol) 650 mg PO Q4H PRN PRN Reason: Headache or Minor Fever Stop: 03/21/19 17:22 Al Hydrox/Mg Hydrox/Simethicone (Maalox) 30 ml PO Q4H PRN PRN Reason: GI Upset Stop: 03/21/19 17:22 Benztropine Mesylate (Cogentin) 1 mg PO Q8 PRN PRN Reason: Muscle Spasm Stop: 03/22/19 11:52 Bismuth Subsalicylate (Kaopectate) 15 ml PO PRN PRN PRN Reason: Loose Stool Stop: 03/21/19 17:22 Haloperidol (Haldol) 5 mg PO Q4H PRN PRN Reason: Agitation Stop: 03/21/19 20:25 Last Admin: 02/22/19 14:52 Dose: 5 mg Documented by: Haloperidol (Haldol) 10 mg PO BID [facility] Stop: 03/24/19 20:59 Last Admin: 02/24/19 21:58 Dose: 10 mg Documented by: Haloperidol Lactate (Haldol) 5 mg IM Q4H PRN PRN Reason: Severe Agitation Stop: 03/21/19 20:25 Haloperidol Lactate (Haldol) 10 mg IM BID PRN PRN Reason: refusal of PO Haldol Stop: 03/25/19 10:34 Hydroxyzine HCl (Vistaril) 50 mg PO HSZ PRN PRN Reason: Insomnia Stop: 03/21/19 17:22 Hydroxyzine HCl (Vistaril) 25 mg PO Q4H PRN PRN Reason: Anxiety Stop: 03/21/19 17:22 Lorazepam (Ativan) 2 mg IM Q4H PRN PRN Reason: Severe Agitation Stop: 03/21/19 20:25 Lorazepam (Ativan) 1 mg PO Q4H PRN PRN Reason: Agitation Stop: 03/21/19 20:25 Last Admin: 02/24/19 21:58 Dose: 1 mg Documented by: Magnesium Hydroxide (Milk Of Magnesia) 30 ml PO DAILY PRN PRN Reason: Heartburn Stop: 03/21/19 17:22 Sodium Chloride ([place] Nasal) 1 - 2 sprays NA PRN PRN PRN Reason: Nasal Dryness/Congestion Stop: 03/21/19 17:22 Mental Health & Subst Abuse Tx Therapist Name of Therapist: None Litigation Counsel Name of Litigation Counsel: [employer] [facility] - Harriett Treviño Phone Number for Litigation Counsel: [phone] Case Management Appointment Comment: [address], [place] [address] Post Discharge Appointments Contact Information Discharge Discharge Address: [address] [place] [id number] CPT Code CPT Code 81193 (1) Schizophrenia Schizophrenia type: unspecified Qualified Code(s): F20.9 - Schizophrenia, unspecified
[2019-02-25] MEDS: HALOPERIDOL 10 MG TABLET PO SCH ×2 (09:20→21:59)
[2019-02-25] MEDS: LORazepam 1 MG TAB PO PRN (21:59)
[2019-02-26] MEDS: LORazepam 1 MG TAB PO PRN (09:52)
[2019-02-26] MEDS: HALOPERIDOL 10 MG TABLET PO SCH ×2 (09:56→21:37)
--- NOTE | 2019-02-26 12:14 | Psychiatric Progress Note ---
Date of Service February 26, 2019 Impression / Recommendations Cary Argueta is a 24 y/o male with a history of schizophrenia, treatment nonadherence, and polysubstance abuse who presented with disorganized and threatening behavior, in the context of decompensation for the last several months and ongoing substance abuse. He was admitted on an involuntary commitment following escalating interactions with the police over disorganized and threatening behavior in the community, and is now on a 303 involuntary commitment. He requires a MNPR for the safety of other patients given his psychosis and recent threatening and aggressive behavior. He is behaving in a sexually inappropriate way here, exposing his genitals to staff and propositioning female peer multiple times despite attempts to educate him on behavioral expectations and to redirect him. He is uncooperative with treatment, refusing to participate in assessments or interviews, lacks insight and does not believe he needs treatment, wanting only benzodiazepines. He has been seen by 2 physicians for medications over ob jection and will work towards a long-acting injectable antipsychotic and long- term treatment at the [facility] versus involuntary outpatient commitment. The patient remains guarded and appears to be suspicious. His response to routine questions, such as where he lives in the community, are met with stoney silence or questions about my motives in asking. He has no insight into his illness, he tells me that he does not have any correct psychiatric diagnoses, other than ADHD and anxiety, and he also tells me that any medication I might name, other than Adderall, clonazepam, and buspirone will be refused because "[He] cannot take them." He declined to explain what he meant when he said that he "cannot take them," and when I named various psychiatric medications he immediately replied to each, "that is on the list I cannot take." His insistence is that he be given "the right medicines: Clonazepam and Adderall," and that if he is given these medications he will be "fine" and able to go home. He does allow that he might be interested in finding a place to live other than with his parents, but struggles to tell me what he means by that and what kind of a living situation he would for. He declined to describe his circumstances at home, only to say "it is fine." (1) Schizophrenia: 02/20--The patient was admitted to the [facility] ([facility]) on q15 min checks (behavioral with suicide precautions) for safety. The patient will participate in group, recreational, and milieu therapies and will be offered additional individual and family sessions as clinically appropriate. Reviewed that he should resume antipsychotic medication FABIO and he would only discuss benzos. Adamant he won't resume Risperdal. Will offer Haldol 5 mg with Ativan 2 mg (take Haldol first) TID and readdress when less agitated. 02/21--mild improvement today in that less thought blocking and slightly less irritability. Refused meds again this am. In my opinion (Dr. Diaz), antipsychotic medication is medically necessary for the treatment of his psychosis given risk of or serious injury within 30 days. He has shown a pattern of non-compliance and escalating and threatening behavior in the community and his condition is unlikely to improve without forced psychiatric medications. Will order Haldol [address] Hubbard to provide second opinion on this and likely 303 petition tomorrow. 02/22 -patient remains inappropriate for groups and therapy, due to threatening and menacing behavior with staff and peers. Continue private room. -Increase haloperidol to 10 mg twice daily, and continue as needed doses. Agree with medications over objection, as patient has a history of a primary thought disorder, has been noncompliant with treatment which has led to decompensation, increasing psychosis, and escalating threatening and aggressive behavior in the community and now in the hospital. He required physical and chemical restraints in the ER due to threats to staff and attempts to leave. He has improved with antipsychotic medication in the past. -File for 303 hearing to be held tomorrow. -Patient remains uncooperative with attempts to assess him, will not provide historical information such as where he has been living or if he has any outpatient treatment, or sign releases for family or friends to provide collateral information. 02/23 -303 commitment granted. -Continue private room given threatening behavior, agitation, and recent history of erratic and inappropriate behavior in the community. Patient not yet appr opriate for groups. -Continue haloperidol 10 mg twice daily, and 5 mg as needed. Will order an IM backup for refusal, as he has been seen by 2 physicians who both agree with medications over objection. He will likely need a long-acting injectable antipsychotic given his history of nonadherence. -Parents report he has been abusing benzodiazepines, and he is very focused on getting them here, asking for them frequently and receiving 8 mg of lorazepam daily. Will decrease to 1 mg every 4 hours as needed, with a plan to taper off prior to discharge given risk of abuse/misuse/negative outcomes. -Contact forensic child welfare caseworker, Harriett Treviño, and schedule a meeting to discuss treatment plan. Patient will likely need an involuntary outpatient commitment. 02/24 -continue Haldol p.o. with IM backup, and lorazepam as needed. Patient refusing to discuss other antipsychotic options, so if he remains on haloperidol, can receive Haldol Decanoate once the effective dose is reached. -Encourage patient to sign releases for his parents and for outpatient treatment referrals, so that discharge planning can begin. -Continue to enforce appropriate boundaries, as patient has been sexually inappropriate with female peer. Continue private room, and excused from groups until he is able to maintain behavioral control. 02/25 -continue Haldol, and lorazepam as needed. -Attempt scheduled family meeting with parents and his outpatient child welfare caseworker. -Encourage the patient to start engaging in treatment. He is willing to meet with a counselor one-on-one today. -Appropriate boundaries-patient has been reminded repeatedly of the need to cover his genital area and the inappropriateness of his sexual propositions to females. 02/26 -The patient is taking haloperidol 10 mg twice a day as prescribedalthough he repeatedly asks to have this medication discontinued. At the same time, he cannot or will not say, specifically, why he would like haloperidol to be discontinued, other than to say "it is not what I need." (The patient does appear to be tolerating haloperidol well, except for some excess sedation at this point.) -The patient continues to appear suspicious and is withdrawn. He is decl ining to actively participate in treatment. (2) Noncompliance with medication regimen: 02/22 -patient with chronic noncompliance which has severely impaired his ability to function or provide for his own basic needs in the community. He will likely need an involuntary outpatient commitment. 02/23 -303 commitment granted. Pursue medications over objection, consider long- acting injectable, and schedule meeting with forensic child welfare caseworker. 02/25 -file for 304 involuntary commitment, as state hospitalization may be needed given severity of his illness, lack of insight and unwillingness to engage in treatment, and pattern of noncompliance with treatment. Patient has requested an independent evaluation, so the hearing will be scheduled sometime next week once that is completed. Patient was informed, and states his preference is to leave the hospital immediately, with no outpatient treatment. 02/26 -the patient seems to have no insight into his illness, no insight into his need for treatment (with the exception of stimulant medications and clonazepam). He acknowledges that he had been in outpatient treatment, but stopped going "because it is not necessary." -Because of the severity of illness, the patient's lack of insight, and is not adherence with treatment on an outpatient basis, the plan was reiterated today is to refer the patient for long-term psychiatric hospitalization. (3) Anxiety: 02/22 -patient reports anxiety, but otherwise uncooperative with the assessment and does not appear overtly anxious; refusing vital signs for the last 3 days. He has been demanding high-dose benzodiazepines, and has been repeatedly informed that these are not indicated, but that Lorazepam is ordered as needed to be taken with haloperidol. 02/23 -parents describe history of OCD symptoms. Patient unwilling to participate in assessment, and no noticeable compulsions here, so unclear if currently active. Continue to monitor and assess. 02/25 -patient denies OCD symptoms, and none have been observed here. He does report feeling "anxious," but is a poor historian and unable to get much further information. He does not appear to be expansive panic. We will continue to assess and rule out SYBIL. He is refusing an SSRI antidepressant, wanting only benzodiazepines. (4) Substance abuse: 02/22 -drug screen positive for THC. Once he is less psychotic, we will need to provide education regarding the risks of cannabis use, specifically exacerbation of psychotic symptoms. -On admission, patient reported being prescribed clonazepam 2 mg twice daily, and per PDMP he last filled a prescription on 12/17/2018, from a Dr. Matt Oneill in [place], [place]. In the past year, he has filled clonazepam and dextroamphetamine/amphetamine prescriptions from 5 different clinicians in different parts of the state, a pattern consistent with substance abuse and drug-seeking. He does not appear to have been on clonazepam consistently, as his last 2 prescriptions were filled in 06/2018 and 12/2018. 02/23 -parents report history of alcohol, cannabis, benzodiazepine, and stimulant abuse. This is also indicated in previous records from 2017 hospitalization. -Avoid controlled substances given high risk of abuse. 02/26 -Today, the patient tells us that he is able to take buspirone at an unspecified dose, but when we offered to prescribe this to him for anxiety he said "it is not necessary." When asked why clonazepam is necessary, if buspirone is not, he simply repeated "clonazepam is necessary. Buspirone is not necessary." Inventory Assets Strengths: College graduate. Supportive family. Needs: clarification of legal charges, outpatient services Risk Factors Assessment Male: Yes : No Do You Have Access To A Gun?: No Health Problems: No Mental Health Diagnoses: Yes Substance Use Disorders: Yes Previous Psychiatric Hospitalization: Yes Protective Factors Assessment : No Responsible for Young Children: No Employed: No Supportive Family: Yes Good Rapport with Provider: No Interval History Identifying Information DENISE MURRY is a 24-year-old M who has a history of schizophrenia, who was admitted on 02/19/19 17:23 on a 302 involuntary commitment for threatening behavior in the community. He is on a 303 involuntary commitment as of 02/23/2019. Chief Complaint "It's all in my record". Review of Systems Sleep Information Total Hours of Sleep: 9 Sleep Comments: toileted at 0030 Meal Information Percent Meal Consumed - Breakfast: 80 Percent Meal Consumed - Lunch: 100 Percent Meal Consumed - Dinner: 100 Nutrition Comment: pt consistently throws away plastic utensils after eating rather than handing them back in Subjective Subjective Patient was seen & assessed and interval progress reviewed with Treatment Team. I met individually with the patient in order to assess his current mental status, evaluate his response to treatment, coordinate any necessary changes in his treatment regimen together with the patient, and address issues and concerns that may arise. The patient was only marginally cooperative, and presented as highly suspicious of most questions asked. When I asked what had happened that brought him to the hospital, he told me that the information I would need will be found in his record ("petitioning statement"). I explained several times that while I have read his record, I would like to understand what happened from his perspective, and his responses to say "my perspective is the same as what is in the record." It was only when I said that the perspective that is in the record is that he has schizophrenia and needs treatment at the hospital level of care that he offered any other explanation. That explanation was only "I was interacting with people, and that was the problem." When specifically asked to address the fact that he was at the [facility] in [place], he told me that he was there for "writs." When he was asked to explain what he meant by that, he simply repeated the word "writs." Eventually, with additional questioning, he reported that he had gone to the [facility] in order to file writs against other people, but would not say the reasons for this, and would not individual targets. I commented that I had read that he had been observed wearing only boxer shorts below the waist in the court house, and he told me that he had removed his pants in order to "get through security." The patient reflexively denied all symptoms of schizophrenia, and tells me that the only medications he will except in the hospital are Adderall, clonazepam, and buspironealthough he adds "buspirone is not currently necessary." I had offered to shake the patient's hand, but he would not shake hands, and would not explain why. He also ask nursing staff or a pen so that he could make notes of what I said, but did not do so during the encounter. When I asked what I could do to help him, he said "give me the right medicines and get me out of here quick." He asked that I discontinue haloperidol, but accepted my opinion that this was a medication that I believe would be beneficial for him to take and that I would not recommend discontinuing haloperidol. There had been some concern among nursing staff that the patient may be "cheeking" his haloperidol, but the person's administering the medications indicate that they are doing mouth checks, see no evidence of movements that would suggest cheeking, and describes him placing the pill at the back of his throat and then swallowing water. The concern had been that the patient, on at least one occasion, entered the bathroom immediately after taking his medications and so I am recommending that he be asked to use the bathroom before medicines are given, and then be observed for at least a few minutes afterwards. According to the PDMP, he filled a presciption for Clonazepam 2 mg BID #60 on 12/17/18. (There are several other filled prescriptions for Clorazepam 2 mg in the past year). The PDMP also shows that he has been prescribed Adderall 30 mg twice a day as recently as 05/11/2018. Physical Exam Psychiatric Orientation: oriented x 3 Apperance: appropriately dressed and appropriately groomed Eye Contact: + poor eye contact Motor Behavior: no abnormal motor movements The patient offers little spontaneous speech. There are substantial pauses between questions and answers. The patient often answers in 1 or 2 words, and declines to elaborate. 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 Suicidal Thoughts: denies suicidal thoughts Homicidal Thoughts: denies homicidal thoughts Hallucinations: no auditory hallucinations The patient appears to be attending to internal stimuli. The patient was uncooperative with cognitive testing. Estimated Intelligence: + above average estimated intelligence Insight: + severely impaired insight Judgement: + severely impaired judgement Vital Signs (Past 24 Hours) Last Vital Signs Temp 36.8 C 02/19/19 19:39 Pulse 91 H 02/19/19 19:39 Resp 18 02/19/19 19:39 BP 134/82 02/19/19 19:39 Pulse Ox 99 02/19/19 19:39 Results & Data Current Inpatient Medications Current Inpatient Medications: Current Inpatient Medications Acetaminophen (Tylenol) 650 mg PO Q4H PRN PRN Reason: Headache or Minor Fever Stop: 03/21/19 17:22 Al Hydrox/Mg Hydrox/Simethicone (Maalox) 30 ml PO Q4H PRN PRN Reason: GI Upset Stop: 03/21/19 17:22 Benztropine Mesylate (Cogentin) 1 mg PO Q8 PRN PRN Reason: Muscle Spasm Stop: 03/22/19 11:52 Bismuth Subsalicylate (Kaopectate) 15 ml PO PRN PRN PRN Reason: Loose Stool Stop: 03/21/19 17:22 Haloperidol (Haldol) 5 mg PO Q4H PRN PRN Reason: Agitation Stop: 03/21/19 20:25 Last Admin: 02/22/19 14:52 Dose: 5 mg Documented by: Haloperidol (Haldol) 10 mg PO BID [facility] Stop: 03/24/19 20:59 Last Admin: 02/26/19 09:56 Dose: 10 mg Documented by: Haloperidol Lactate (Haldol) 5 mg IM Q4H PRN PRN Reason: Severe Agitation Stop: 03/21/19 20:25 Haloperidol Lactate (Haldol) 10 mg IM BID PRN PRN Reason: refusal of PO Haldol Stop: 03/25/19 10:34 Hydroxyzine HCl (Vistaril) 50 mg PO HSZ PRN PRN Reason: Insomnia Stop: 03/21/19 17:22 Hydroxyzine HCl (Vistaril) 25 mg PO Q4H PRN PRN Reason: Anxiety Stop: 03/21/19 17:22 Lorazepam (Ativan) 2 mg IM Q4H PRN PRN Reason: Severe Agitation Stop: 03/21/19 20:25 Lorazepam (Ativan) 1 mg PO Q4H PRN PRN Reason: Agitation Stop: 03/21/19 20:25 Last Admin: 02/26/19 09:52 Dose: 1 mg Documented by: Magnesium Hydroxide (Milk Of Magnesia) 30 ml PO DAILY PRN PRN Reason: Heartburn Stop: 03/21/19 17:22 Sodium Chloride ([place] Nasal) 1 - 2 sprays NA PRN PRN PRN Reason: Nasal Dryness/Congestion Stop: 03/21/19 17:22 Mental Health & Subst Abuse Tx Therapist Name of Therapist: IOANA Hassan [employer] Mixer Operator Name of Snack Foods Mixer Operator: [employer] - Harriett Treviño Phone Number for [employer] Mixer Operator: [phone] Case Management Appointment Comment: [address], [place] [address] Post Discharge Appointments Primary Care Physician Name Of Family Doctor: STACEY Holt Contact Information Discharge Discharge [address]: [address] [place] [id number] CPT Code CPT Code 59855 (1) Schizophrenia Schizophrenia type: unspecified Qualified Code(s): F20.9 - Schizophrenia, unspecified
[2019-02-27] MEDS: HALOPERIDOL 10 MG TABLET PO SCH ×2 (10:30→21:36)
--- NOTE | 2019-02-27 12:46 | Psychiatric Progress Note ---
Date of Service February 27, 2019 Impression / Recommendations Impression Denise is a 24 y/o male with a history of schizophrenia, treatment nonadherence, and polysubstance abuse who presented with disorganized and threatening behavior, in the context of decompensation for the last several months and ongoing substance abuse. He was admitted on an involuntary commitment following escalating interactions with the police over disorganized and threatening behavior in the community, and is now on a 303 involuntary commitment. He requires a MNPR for the safety of other patients given his psychosis and recent threatening and aggressive behavior. He is behaving in a sexually inappropriate way here, exposing his genitals to staff and propositioning female peer multiple times despite attempts to educate him on behavioral expectations and to redirect him. He is uncooperative with treatment, refusing to participate in assessments or interviews, lacks insight and does not believe he needs treatment, wanting only benzodiazepines. He has been seen by 2 physicians for medications over ob jection and will work towards a long-acting injectable antipsychotic and long- term treatment at the [facility] versus involuntary outpatient commitment. (1) Schizophrenia: 02/20--The patient was admitted to the [facility] ([facility]) on q15 min checks (behavioral with suicide precautions) for safety. The patient will participate in group, recreational, and milieu therapies and will be offered additional individual and family sessions as clinically appropriate. Reviewed that he should resume antipsychotic medication FABIO and he would only discuss benzos. Adamant he won't resume Risperdal. Will offer Haldol 5 mg with Ativan 2 mg (take Haldol first) TID and readdress when less agitated. 02/21--mild improvement today in that less thought blocking and slightly less irritability. Refused meds again this am. In my opinion (Dr. Diaz), antipsychotic medication is medically necessary for the treatment of his psychosis given risk of or serious injury within 30 days. He has shown a pattern of non-compliance and escalating and threatening behavior in the community and his condition is unlikely to improve without forced psychiatric medications. Will order Haldol [address] Hubbard to provide second opinion on this and likely 303 petition tomorrow. 02/22 -patient remains inappropriate for groups and therapy, due to threatening and menacing behavior with staff and peers. Continue private room. -Increase haloperidol to 10 mg twice daily, and continue as needed doses. Agree with medications over objection, as patient has a history of a primary thought disorder, has been noncompliant with treatment which has led to decompensation, increasing psychosis, and escalating threatening and aggressive behavior in the community and now in the hospital. He required physical and chemical restraints in the ER due to threats to staff and attempts to leave. He has improved with antipsychotic medication in the past. -File for 303 hearing to be held tomorrow. -Patient remains uncooperative with attempts to assess him, will not provide historical information such as where he has been living or if he has any outpatient treatment, or sign releases for family or friends to provide collateral information. 02/23 -303 commitment granted. -Continue private room given threatening behavior, agitation, and recent history of erratic and inappropriate behavior in the community. Patient not yet appropriate for groups. -Continue haloperidol 10 mg twice daily, and 5 mg as needed. Will order an IM backup for refusal, as he has been seen by 2 physicians who both agree with medications over objection. He will likely need a long-acting injectable antipsychotic given his history of nonadherence. -Parents report he has been abusing benzodiazepines, and he is very focused on getting them here, asking for them frequently and receiving 8 mg of lorazepam daily. Will decrease to 1 mg every 4 hours as needed, with a plan to taper off prior to discharge given risk of abuse/misuse/negative outcomes. -Contact forensic clinical case manager, Harriett Treviño, and schedule a meeting to discuss treatment plan. Patient will likely need an involuntary outpatient commitment. 02/24 -continue Haldol p.o. with IM backup, and lorazepam as needed. Patient refusing to discuss other antipsychotic options, so if he remains on haloperidol, can receive Haldol Decanoate once the effective dose is reached. -Encourage patient to sign releases for his parents and for outpatient treatment referrals, so that discharge planning can begin. -Continue to enforce appropriate boundaries, as patient has been sexually inappropriate with female peer. Continue private room, and excused from groups until he is able to maintain behavioral control. 02/25 -continue Haldol, and lorazepam as needed. -Attempt scheduled family meeting with parents and his outpatient clinical case manager. -Encourage the patient to start engaging in treatment. He is willing to meet with a counselor one-on-one today. -Appropriate boundaries-patient has been reminded repeatedly of the need to cover his genital area and the inappropriateness of his sexual propositions to females. 02/26 -The patient is taking haloperidol 10 mg twice a day as prescribedalthough he repeatedly asks to have this medication discontinued. At the same time, he cannot or will not say, specifically, why he would like haloperidol to be discontinued, other than to say "it is not what I need." (The patient does appear to be tolerating haloperidol well, except for some excess sedation at this point.) -The patient continues to appear suspicious and is withdrawn. He is declining to actively participate in treatment. 02/27 Continue medication regimen unchanged 304 hearing scheduled for Friday. Patient will require chest x-ray and EKG prior to transfer to [facility]. (2) Noncompliance with medication regimen: 02/22 -patient with chronic noncompliance which has severely impaired his ability to function or provide for his own basic needs in the community. He will likely need an involuntary outpatient commitment. 02/23 -303 commitment granted. Pursue medications over objection, consider long- acting injectable, and schedule meeting with forensic clinical case manager. 02/25 -file for 304 involuntary commitment, as state hospitalization may be need ed given severity of his illness, lack of insight and unwillingness to engage in treatment, and pattern of noncompliance with treatment. Patient has requested an independent evaluation, so the hearing will be scheduled sometime next week once that is completed. Patient was informed, and states his preference is to leave the hospital immediately, with no outpatient treatment. 02/26 -the patient seems to have no insight into his illness, no insight into his need for treatment (with the exception of stimulant medications and clonazepam). He acknowledges that he had been in outpatient treatment, but stopped going "because it is not necessary." -Because of the severity of illness, the patient's lack of insight, and is not adherence with treatment on an outpatient basis, the plan was reiterated today is to refer the patient for long-term psychiatric hospitalization. (3) Anxiety: 02/22 -patient reports anxiety, but otherwise uncooperative with the assessment and does not appear overtly anxious; refusing vital signs for the last 3 days. He has been demanding high-dose benzodiazepines, and has been repeatedly informed that these are not indicated, but that Lorazepam is ordered as needed to be taken with haloperidol. 02/23 -parents describe history of OCD symptoms. Patient unwilling to participate in assessment, and no noticeable compulsions here, so unclear if currently active. Continue to monitor and assess. 02/25 -patient denies OCD symptoms, and none have been observed here. He does report feeling "anxious," but is a poor historian and unable to get much further information. He does not appear to be expansive panic. We will continue to assess and rule out SYBIL. He is refusing an SSRI antidepressant, wanting only benzodiazepines. (4) Substance abuse: 02/22 -drug screen positive for THC. Once he is less psychotic, we will need to provide education regarding the risks of cannabis use, specifically exacerbation of psychotic symptoms. -On admission, patient reported being prescribed clonazepam 2 mg twice daily, and per PDMP he last filled a prescription on 12/17/2018, from a Dr. Matt Oneill in [place], [place]. In the past year, he has filled clonazepam and dextroamphetamine/amphetamine prescriptions from 5 different clinicians in different parts of the [place], a pattern consistent with substance abuse and drug-seeking. He does not appear to have been on clonazepam consistently, as his last 2 prescriptions were filled in 06/2018 and 12/2018. 02/23 -parents report history of alcohol, cannabis, benzodiazepine, and stimulant abuse. This is also indicated in previous records from 2017 hospitalization. -Avoid controlled substances given high risk of abuse. 02/26 -Today, the patient tells us that he is able to take buspirone at an unspecified dose, but when we offered to prescribe this to him for anxiety he said "it is not necessary." When asked why clonazepam is necessary, if buspirone is not, he simply repeated "clonazepam is necessary. Buspirone is not necessary." Inventory Assets Strengths: College graduate. Supportive family. Needs: clarification of legal charges, outpatient services Risk Factors Assessment Male: Yes : No Do You Have Access To A Gun?: No Health Problems: No Mental Health Diagnoses: Yes Substance Use Disorders: Yes Previous Psychiatric Hospitalization: Yes Protective Factors Assessment : No Responsible for Young Children: No Employed: No Supportive Family: Yes Good Rapport with Provider: No Interval History Identifying Information DENISE MURRY is a 24-year-old M who has a history of schizophrenia, who was admitted on 02/19/19 17:23 on a 302 involuntary commitment for threatening behavior in the community. He is on a 303 involuntary commitment as of 02/23/2019. Chief Complaint "I do not agree with my diagnosis". Review of Systems Notes Denies dystonia Sleep Information Total Hours of Sleep: 8 Sleep Comments: toileted at 0030 Meal Information Percent Meal Consumed - Breakfast: 100 Percent Meal Consumed - Lunch: 80 Percent Meal Consumed - Dinner: 100 Nutrition Comment: pt consistently throws away plastic utensils after eating rather than handing them back in Subjective Subjective Patient was seen & assessed and interval progress reviewed with Treatment Team. Per staff patient has 304 hearing on Friday. Has been compliant with Haldol. Has appeared paranoid regarding medication and focused on examining medication packaging before willing to comply. Cannot tolerate groups. Irritable, rude on the unit. Patient is minimally participatory in interview today. States he fe els "fine." He reports that he is being treated for a diagnosis that he does not agree with but denies side effects associated with Haldol. He is aware of pending 304 hearing. Physical Exam Psychiatric Drowsy Apperance: + disheveled Eye Contact: + fair eye contact Motor Behavior: no abnormal motor movements Clear but minimal Affect: + blunted affect Fine Thought Process: + perseveration and + concrete thought process Thought Content: + paranoid Suicidal Thoughts: denies suicidal thoughts Homicidal Thoughts: denies homicidal thoughts Hallucinations: no auditory hallucinations Cognition: + attention not intact Insight: + severely impaired insight Judgement: + severely impaired judgement Vital Signs (Past 24 Hours) Last Vital Signs Temp 36.8 C 02/19/19 19:39 Pulse 91 H 02/19/19 19:39 Resp 18 02/19/19 19:39 BP 134/82 02/19/19 19:39 Pulse Ox 99 02/19/19 19:39 Results & Data Current Inpatient Medications Current Inpatient Medications: Current Inpatient Medications Acetaminophen (Tylenol) 650 mg PO Q4H PRN PRN Reason: Headache or Minor Fever Stop: 03/21/19 17:22 Al Hydrox/Mg Hydrox/Simethicone (Maalox) 30 ml PO Q4H PRN PRN Reason: GI Upset Stop: 03/21/19 17:22 Benztropine Mesylate (Cogentin) 1 mg PO Q8 PRN PRN Reason: Muscle Spasm Stop: 03/22/19 11:52 Bismuth Subsalicylate (Kaopectate) 15 ml PO PRN PRN PRN Reason: Loose Stool Stop: 03/21/19 17:22 Haloperidol (Haldol) 5 mg PO Q4H PRN PRN Reason: Agitation Stop: 03/21/19 20:25 Last Admin: 02/22/19 14:52 Dose: 5 mg Documented by: Haloperidol (Haldol) 10 mg PO BID [facility] Stop: 03/24/19 20:59 Last Admin: 02/27/19 10:30 Dose: 10 mg Documented by: Haloperidol Lactate (Haldol) 5 mg IM Q4H PRN PRN Reason: Severe Agitation Stop: 03/21/19 20:25 Haloperidol Lactate (Haldol) 10 mg IM BID PRN PRN Reason: refusal of PO Haldol Stop: 03/25/19 10:34 Hydroxyzine HCl (Vistaril) 50 mg PO HSZ PRN PRN Reason: Insomnia Stop: 03/21/19 17:22 Hydroxyzine HCl (Vistaril) 25 mg PO Q4H PRN PRN Reason: Anxiety Stop: 03/21/19 17:22 Lorazepam (Ativan) 2 mg IM Q4H PRN PRN Reason: Severe Agitation Stop: 03/21/19 20:25 Lorazepam (Ativan) 1 mg PO Q4H PRN PRN Reason: Agitation Stop: 03/21/19 20:25 Last Admin: 02/26/19 09:52 Dose: 1 mg Documented by: Magnesium Hydroxide (Milk Of Magnesia) 30 ml PO DAILY PRN PRN Reason: Heartburn Stop: 03/21/19 17:22 Sodium Chloride (Lamb Nasal) 1 - 2 sprays NA PRN PRN PRN Reason: Nasal Dryness/Congestion Stop: 03/21/19 17:22 Mental Health & Subst Abuse Tx Therapist Name of Therapist: IOANA Hassan Enterprise Systems Manager Name of Enterprise Systems Manager: [employer] - Harriett Treviño Phone Number for Enterprise Systems Manager: [phone] Case Management Appointment Comment: [address], [place] [address] Post Discharge Appointments Primary Care Physician Name Of Family Doctor: STACEY Holt Contact Information Discharge Discharge [address]: [address] [place] [id number] CPT Code CPT Code 11066 (1) Schizophrenia Schizophrenia type: unspecified Qualified Code(s): F20.9 - Schizophrenia, unspecified
[2019-02-27] MEDS: LORazepam 1 MG TAB PO PRN (21:36)
[2019-02-28] MEDS: HALOPERIDOL 10 MG TABLET PO SCH ×2 (09:56→21:43)
--- NOTE | 2019-02-28 14:50 | Psychiatric Progress Note ---
Date of Service February 28, 2019 Impression / Recommendations Impression Denise is a 24 y/o male with a history of schizophrenia, treatment nonadherence, and polysubstance abuse who presented with disorganized and threatening behavior, in the context of decompensation for the last several months and ongoing substance abuse. He was admitted on an involuntary commitment following escalating interactions with the police over disorganized and threatening behavior in the community, and is now on a 303 involuntary commitment. He requires a MNPR for the safety of other patients given his psychosis and recent threatening and aggressive behavior. He is behaving in a sexually inappropriate way here, exposing his genitals to staff and propositioning female peer multiple times despite attempts to educate him on behavioral expectations and to redirect him. He is uncooperative with treatment, refusing to participate in assessments or interviews, lacks insight and does not believe he needs treatment, wanting only benzodiazepines. He has been seen by 2 physicians for medications over ob jection and will work towards a long-acting injectable antipsychotic and long- term treatment at the [facility] versus involuntary outpatient commitment. (1) Schizophrenia: 02/20--The patient was admitted to the [facility] ([facility]) on q15 min checks (behavioral with suicide precautions) for safety. The patient will participate in group, recreational, and milieu therapies and will be offered additional individual and family sessions as clinically appropriate. Reviewed that he should resume antipsychotic medication FABIO and he would only discuss benzos. Adamant he won't resume Risperdal. Will offer Haldol 5 mg with Ativan 2 mg (take Haldol first) TID and readdress when less agitated. 02/21--mild improvement today in that less thought blocking and slightly less irritability. Refused meds again this am. In my opinion (Dr. Diaz), antipsychotic medication is medically necessary for the treatment of his psychosis given risk of or serious injury within 30 days. He has shown a pattern of non-compliance and escalating and threatening behavior in the community and his condition is unlikely to improve without forced psychiatric medications. Will order Haldol [address] Hbubard to provide second opinion on this and likely 303 petition tomorrow. 02/22 -patient remains inappropriate for groups and therapy, due to threatening and menacing behavior with staff and peers. Continue private room. -Increase haloperidol to 10 mg twice daily, and continue as needed doses. Agree with medications over objection, as patient has a history of a primary thought disorder, has been noncompliant with treatment which has led to decompensation, increasing psychosis, and escalating threatening and aggressive behavior in the community and now in the hospital. He required physical and chemical restraints in the ER due to threats to staff and attempts to leave. He has improved with antipsychotic medication in the past. -File for 303 hearing to be held tomorrow. -Patient remains uncooperative with attempts to assess him, will not provide historical information such as where he has been living or if he has any outpatient treatment, or sign releases for family or friends to provide collateral information. 02/23 -303 commitment granted. -Continue private room given threatening behavior, agitation, and recent history of erratic and inappropriate behavior in the community. Patient not yet appropriate for groups. -Continue haloperidol 10 mg twice daily, and 5 mg as needed. Will order an IM backup for refusal, as he has been seen by 2 physicians who both agree with medications over objection. He will likely need a long-acting injectable antipsychotic given his history of nonadherence. -Parents report he has been abusing benzodiazepines, and he is very focused on getting them here, asking for them frequently and receiving 8 mg of lorazepam daily. Will decrease to 1 mg every 4 hours as needed, with a plan to taper off prior to discharge given risk of abuse/misuse/negative outcomes. -Contact forensic rn case manager hospice, Harriett Treviño, and schedule a meeting to discuss treatment plan. Patient will likely need an involuntary outpatient commitment. 02/24 -continue Haldol p.o. with IM backup, and lorazepam as needed. Patient refusing to discuss other antipsychotic options, so if he remains on haloperidol, can receive Haldol Decanoate once the effective dose is reached. -Encourage patient to sign releases for his parents and for outpatient treatment referrals, so that discharge planning can begin. -Continue to enforce appropriate boundaries, as patient has been sexually inappropriate with female peer. Continue private room, and excused from groups until he is able to maintain behavioral control. 02/25 -continue Haldol, and lorazepam as needed. -Attempt scheduled family meeting with parents and his outpatient rn case manager hospice. -Encourage the patient to start engaging in treatment. He is willing to meet with a counselor one-on-one today. -Appropriate boundaries-patient has been reminded repeatedly of the need to cover his genital area and the inappropriateness of his sexual propositions to females. 02/26 -The patient is taking haloperidol 10 mg twice a day as prescribedalthough he repeatedly asks to have this medication discontinued. At the same time, he cannot or will not say, specifically, why he would like haloperidol to be discontinued, other than to say "it is not what I need." (The patient does appear to be tolerating haloperidol well, except for some excess sedation at this point.) -The patient continues to appear suspicious and is withdrawn. He is declining to actively participate in treatment. 02/27 Continue medication regimen unchanged 304 hearing scheduled for Friday. Patient will require chest x-ray and EKG prior to transfer to [facility]. 02/28 Patient demonstrating some improved ability to participate and interacting more appropriately with peers and staff in last 24 hours. We will continue to advance therapeutic programming as tolerated and indicated. Continue Haldol as scheduled which remains well-tolerated (2) Noncompliance with medication regimen: 02/22 -patient with chronic noncompliance which has severely impaired his ability to function or provide for his own basic needs in the community. He wi ll likely need an involuntary outpatient commitment. 02/23 -303 commitment granted. Pursue medications over objection, consider long- acting injectable, and schedule meeting with forensic rn case manager hospice. 02/25 -file for 304 involuntary commitment, as state hospitalization may be needed given severity of his illness, lack of insight and unwillingness to engage in treatment, and pattern of noncompliance with treatment. Patient has requested an independent evaluation, so the hearing will be scheduled sometime next week once that is completed. Patient was informed, and states his preference is to leave the hospital immediately, with no outpatient treatment. 02/26 -the patient seems to have no insight into his illness, no insight into his need for treatment (with the exception of stimulant medications and clonazepam). He acknowledges that he had been in outpatient treatment, but stopped going "because it is not necessary." -Because of the severity of illness, the patient's lack of insight, and is not adherence with treatment on an outpatient basis, the plan was reiterated today is to refer the patient for long-term psychiatric hospitalization. (3) Anxiety: 02/22 -patient reports anxiety, but otherwise uncooperative with the assessment and does not appear overtly anxious; refusing vital signs for the last 3 days. He has been demanding high-dose benzodiazepines, and has been repeatedly informed that these are not indicated, but that Lorazepam is ordered as needed to be taken with haloperidol. 02/23 -parents describe history of OCD symptoms. Patient unwilling to participate in assessment, and no noticeable compulsions here, so unclear if currently active. Continue to monitor and assess. 02/25 -patient denies OCD symptoms, and none have been observed here. He does report feeling "anxious," but is a poor historian and unable to get much further information. He does not appear to be expansive panic. We will continue to assess and rule out SYBIL. He is refusing an SSRI antidepressant, wanting only benzodiazepines. 02/28 Possibility of obsessive concern for germs again raised by nursing following his reluctance to take the Haldol tablet after it touched his pillow and reluctance to touch his silverware again after he has finished eating. Patient denies obsessions or compulsions but we will continue to monitor (4) Substance abuse: 02/22 -drug screen positive for THC. Once he is less psychotic, we will need to provide education regarding the risks of cannabis use, specifically exacerbation of psychotic symptoms. -On admission, patient reported being prescribed clonazepam 2 mg twice daily, and per PDMP he last filled a prescription on 12/17/2018, from a Dr. Matt Oneill in [place], [place]. In the past year, he has filled clonazepam and dextroamphetamine/amphetamine prescriptions from 5 different clinicians in different parts of the state, a pattern consistent with substance abuse and drug-seeking. He does not appear to have been on clonazepam consistently, as his last 2 prescriptions were filled in 06/2018 and 12/2018. 02/23 -parents report history of alcohol, cannabis, benzodiazepine, and stimulant abuse. This is also indicated in previous records from 2017 hospitalization. -Avoid controlled substances given high risk of abuse. 02/26 -Today, the patient tells us that he is able to take buspirone at an unspecified dose, but when we offered to prescribe this to him for anxiety he said "it is not necessary." When asked why clonazepam is necessary, if buspiron e is not, he simply repeated "clonazepam is necessary. Buspirone is not necessary." Inventory Assets Strengths: College graduate. Supportive family. Needs: clarification of legal charges, outpatient services Risk Factors Assessment Male: Yes : No Do You Have Access To A Gun?: No Health Problems: No Mental Health Diagnoses: Yes Substance Use Disorders: Yes Previous Psychiatric Hospitalization: Yes Protective Factors Assessment : No Responsible for Young Children: No Employed: No Supportive Family: Yes Good Rapport with Provider: No Interval History Identifying Information DENISE MURRY is a 24-year-old M who has a history of schizophrenia, who was admitted on 02/19/19 17:23 on a 302 involuntary commitment for threatening behavior in the community. He is on a 303 involuntary commitment as of 02/23/2019. Chief Complaint "I am fine". Review of Systems Notes Denies pain or dystonia Sleep Information Total Hours of Sleep: 7.5 Sleep Comments: toileted at 0030 Meal Information Percent Meal Consumed - Breakfast: 100 Percent Meal Consumed - Lunch: 100 Percent Meal Consumed - Dinner: 100 Nutrition Comment: pt consistently throws away plastic utensils after eating rather than handing them back in Subjective Subjective Patient was seen & assessed and interval progress reviewed with Treatment Team. No acute events overnight. Patient was visited by mother last evening which went well. He did attend community meeting but did not participate. Remains compliant with Haldol following thorough inspection of the packaging. Per nursing report, suspect for obsessive preoccupation regarding potential contagion. Patient is interviewed lying in bed. He is minimally participatory but reports feeling fine and denies acute concerns today. Physical Exam Psychiatric Orientation: + guarded Apperance: + disheveled Eye Contact: + fair eye contact Motor Behavior: + psychomotor retardation Speech: + abnormal rate/rhythm/volume of speech (minimal) Affect: + flat affect "fine" Thought Process: + concrete thought process Thought Content: not paranoid Suicidal Thoughts: denies suicidal thoughts Hallucinations: no auditory hallucinations Insight: + severely impaired insight Judgement: + impaired judgement Vital Signs (Past 24 Hours) Last Vital Signs Temp 36.8 C 02/19/19 19:39 Pulse 91 H 02/19/19 19:39 Resp 18 02/19/19 19:39 BP 134/82 02/19/19 19:39 Pulse Ox 99 02/19/19 19:39 Results & Data Current Inpatient Medications Current Inpatient Medications: Current Inpatient Medications Acetaminophen (Tylenol) 650 mg PO Q4H PRN PRN Reason: Headache or Minor Fever Stop: 03/21/19 17:22 Al Hydrox/Mg Hydrox/Simethicone (Maalox) 30 ml PO Q4H PRN PRN Reason: GI Upset Stop: 03/21/19 17:22 Benztropine Mesylate (Cogentin) 1 mg PO Q8 PRN PRN Reason: Muscle Spasm Stop: 03/22/19 11:52 Bismuth Subsalicylate (Kaopectate) 15 ml PO PRN PRN PRN Reason: Loose Stool Stop: 03/21/19 17:22 Haloperidol (Haldol) 5 mg PO Q4H PRN PRN Reason: Agitation Stop: 03/21/19 20:25 Last Admin: 02/22/19 14:52 Dose: 5 mg Documented by: Haloperidol (Haldol) 10 mg PO BID [facility] Stop: 03/24/19 20:59 Last Admin: 02/28/19 09:56 Dose: 10 mg Documented by: Haloperidol Lactate (Haldol) 5 mg IM Q4H PRN PRN Reason: Severe Agitation Stop: 03/21/19 20:25 Haloperidol Lactate (Haldol) 10 mg IM BID PRN PRN Reason: refusal of PO Haldol Stop: 03/25/19 10:34 Hydroxyzine HCl (Vistaril) 50 mg PO HSZ PRN PRN Reason: Insomnia Stop: 03/21/19 17:22 Hydroxyzine HCl (Vistaril) 25 mg PO Q4H PRN PRN Reason: Anxiety Stop: 03/21/19 17:22 Lorazepam (Ativan) 2 mg IM Q4H PRN PRN Reason: Severe Agitation Stop: 03/21/19 20:25 Lorazepam (Ativan) 1 mg PO Q4H PRN PRN Reason: Agitation Stop: 03/21/19 20:25 Last Admin: 02/27/19 21:36 Dose: 1 mg Documented by: Magnesium Hydroxide (Milk Of Magnesia) 30 ml PO DAILY PRN PRN Reason: Heartburn Stop: 03/21/19 17:22 Sodium Chloride ([place] Nasal) 1 - 2 sprays NA PRN PRN PRN Reason: Nasal Dryness/Congestion Stop: 03/21/19 17:22 Mental Health & Subst Abuse Tx Therapist Name of Therapist: IOANA Hassan [employer] Crop [employer]er Name of Field Crop Grower: [facility] - Harriett Treviño Phone Number for Field Crop Grower: [phone] Case Management Appointment Comment: [phone], [place] [address] Post Discharge Appointments Primary Care Physician Name Of Family Doctor: STACEY Holt Contact Information Discharge Discharge [address]: [address] [place] [address], [place] [address] CPT Code CPT Code 80198 (1) Schizophrenia Schizophrenia type: unspecified Qualified Code(s): F20.9 - Schizophrenia, unspecified
[2019-02-28] MEDS: LORazepam 1 MG TAB PO PRN (21:46)
--- NOTE | 2019-03-01 08:50 | Psychiatric Progress Note ---
Date of Service March 01, 2019 Impression / Recommendations Impression Denise is a 24 y/o male with a history of schizophrenia, OCD, treatment nonadherence, and polysubstance abuse who presented with disorganized and threatening behavior, in the context of nonadherence, decompensation for the last several months and ongoing substance abuse. He was admitted on an involuntary commitment following escalating interactions with the police over disorganized and threatening behavior in the community, and is on a 304 involuntary commitment as of 03/01/19. He requires a MNPR for the safety of other patients given his psychosis, sexually inappropriate behavior, and threatening and aggressive behavior. He remains poorly uncooperative with treatment, declining to participate in assessments or interviews, lacks insight and does not believe he needs treatment, wanting only benzodiazepines. He will be referred to [facility], while also exploring diversion and involuntary outpatient commitment with referral to the community. (1) Schizophrenia: 02/20--The patient was admitted to the [facility] ([facility]) on q15 min checks (behavioral with suicide precautions) for safety. The patient will participate in group, recreational, and milieu therapies and will be offered additional individual and family sessions as clinically appropriate. Reviewed that he should resume antipsychotic medication FABIO and he would only discuss benzos. Adamant he won't resume Risperdal. Will offer Haldol 5 mg with Ativan 2 mg (take Haldol first) TID and readdress when less agitated. 02/21--mild improvement today in that less thought blocking and slightly less irritability. Refused meds again this am. In my opinion (Dr. Diaz), antipsychotic medication is medically necessary for the treatment of his psychosis given risk of or serious injury within 30 days. He has shown a pattern of non-compliance and escalating and threatening behavior in the community and his condition is unlikely to improve without forced psychiatric medications. Will order Haldol [address] Hubbard to provide second opinion on this and likely 303 petition tomorrow. 02/22 -patient remains inappropriate for groups and therapy, due to threatening and menacing behavior with staff and peers. Continue private room. -Increase haloperidol to 10 mg twice daily, and continue as needed doses. Agree with medications over objection, as patient has a history of a primary thought disorder, has been noncompliant with treatment which has led to decompensation, increasing psychosis, and escalating threatening and aggressive behavior in the community and now in the hospital. He required physical and chemical restraints in the ER due to threats to staff and attempts to leave. He has improved with antipsychotic medication in the past. -File for 303 hearing to be held tomorrow. -Patient remains uncooperative with attempts to assess him, will not provide historical information such as where he has been living or if he has any outpatient treatment, or sign releases for family or friends to provide collateral information. 02/23 -303 commitment granted. -Continue private room given threatening behavior, agitation, and recent history of erratic and inappropriate behavior in the community. Patient not yet appropriate for groups. -Continue haloperidol 10 mg twice daily, and 5 mg as needed. Will order an IM backup for refusal, as he has been seen by 2 physicians who both agree with medications over objection. He will likely need a long-acting injectable antipsychotic given his history of nonadherence. -Parents report he has been abusing benzodiazepines, and he is very focused on getting them here, asking for them frequently and receiving 8 mg of lorazepam daily. Will decrease to 1 mg every 4 hours as needed, with a plan to taper off prior to discharge given risk of abuse/misuse/negative outcomes. -Contact forensic manager of case management, Harriett Treviño, and schedule a meeting to discuss treatment plan. Patient will likely need an involuntary outpatient commitment. 02/24 -continue Haldol p.o. with IM backup, and lorazepam as needed. Patient refusing to discuss other antipsychotic options, so if he remains on haloperidol, can receive Haldol Decanoate once the effective dose is reached. -Encourage patient to sign releases for his parents and for outpatient treatment referrals, so that discharge planning can begin. -Continue to enforce appropriate boundaries, as patient has been sexually inappropriate with female peer. Continue private room, and excused from groups until he is able to maintain behavioral control. 02/25 -continue Haldol, and lorazepam as needed. -Attempt scheduled family meeting with parents and his outpatient manager of case management. -Encourage the patient to start engaging in treatment. He is willing to meet with a counselor one-on-one today. -Appropriate boundaries-patient has been reminded repeatedly of the need to cover his genital area and the inappropriateness of his sexual propositions to females. 02/26 -The patient is taking haloperidol 10 mg twice a day as prescribedalthough he repeatedly asks to have this medication discontinued. At the same time, he cannot or will not say, specifically, why he would like haloperidol to be discontinued, other than to say "it is not what I need." (The patient does appear to be tolerating haloperidol well, except for some excess sedation at this point.) -The patient continues to appear suspicious and is withdrawn. He is declining to actively participate in treatment. 02/27 Continue medication regimen unchanged 304 hearing scheduled for Friday. Patient will require chest x-ray and EKG prior to transfer to [facility]. 02/28 Patient demonstrating some improved ability to participate and interacting more appropriately with peers and staff in last 24 hours. We will continue to advance therapeutic programming as tolerated and indicated. Continue Haldol as scheduled which remains well-tolerated. 03/01 -Patient noncompliant with mouth checks and continues to go to the bathroom just after taking pills; due to concerns for cheeking, will switch to liquid haloperidol, with IM back up for refusal. -304 granted. Refer to [facility]. -Schedule meeting with patient, manager of case management, and family for discharge planning/exploring diversion options. (2) Noncompliance with medication regimen: 02/22 -patient with chronic noncompliance which has severely impaired his ability to function or provide for his own basic needs in the community. He will likely need an involuntary outpatient commitment. 02/23 -303 commitment granted. Pursue medications over objection, consider long- acting injectable, and schedule meeting with forensic manager of case management. 02/25 -file for 304 involuntary commitment, as state hospitalization may be needed given severity of his illness, lack of insight and unwillingness to engage in treatment, and pattern of noncompliance with treatment. Patient has requested an independent evaluation, so the hearing will be scheduled sometime next week once that is completed. Patient was informed, and states his preference is to leave the hospital immediately, with no outpatient treatment. 02/26 -The patient seems to have no insight into his illness, no insight into his need for treatment (with the exception of stimulant medications and clonazepam). He acknowledges that he had been in outpatient treatment, but stopped going "because it is not necessary." -Because of the severity of illness, the patient's lack of insight, and is not adherence with treatment on an outpatient basis, the plan was reiterated today is to refer the patient for long-term psychiatric hospitalization. 03/01 -Concerns for cheeking as above; change to liquid haloperidol with IM ba ckup for refusal. Work towards long acting injectable. -304 granted; refer to [facility]. (3) Anxiety: 02/22 -patient reports anxiety, but otherwise uncooperative with the assessment and does not appear overtly anxious; refusing vital signs for the last 3 days. He has been demanding high-dose benzodiazepines, and has been repeatedly informed that these are not indicated, but that Lorazepam is ordered as needed to be taken with haloperidol. 02/23 -parents describe history of OCD symptoms. Patient unwilling to participate in assessment, and no noticeable compulsions here, so unclear if currently active. Continue to monitor and assess. 02/25 -patient denies OCD symptoms, and none have been observed here. He does report feeling "anxious," but is a poor historian and unable to get much further information. He does not appear to be expansive panic. We will continue to assess and rule out SYBIL. He is refusing an SSRI antidepressant, wanting only benzodiazepines. 02/28Possibility of obsessive concern for germs again raised by nursing following his reluctance to take the Haldol tablet after it touched his pillow and reluctance to touch his silverware again after he has finished eating. Patient denies obsessions or compulsions but we will continue to monitor. 03/01 - Patient refusing to discuss OCD symptoms. (4) Substance abuse: 02/22 -drug screen positive for THC. Once he is less psychotic, we will need to provide education regarding the risks of cannabis use, specifically exacerbation of psychotic symptoms. -On admission, patient reported being prescribed clonazepam 2 mg twice daily, and per PDMP he last filled a prescription on 12/17/2018, from a Dr. Matt Oneill in [place], [place]. In the past year, he has filled clonazepam and dextroamphetamine/amphetamine prescriptions from 5 different clinicians in different parts of the state, a pattern consistent with substance abuse and drug-seeking. He does not appear to have been on clonazepam consistently, as his last 2 prescriptions were filled in 06/2018 and 12/2018. 02/23 -parents report history of alcohol, cannabis, benzodiazepine, and stimulant abuse. This is also indicated in previous records from 2017 hospitalization. -Avoid controlled substances given high risk of abuse. 02/26-Today, the patient tells us that he is able to take buspirone at an unspecified dose, but when we offered to prescribe this to him for anxiety he said "it is not necessary." When asked why clonazepam is necessary, if buspirone is not, he simply repeated "clonazepam is necessary. Buspirone is not necessary." Inventory Assets Strengths: College graduate. Supportive family. Needs: clarification of legal charges, outpatient services, adherence with treatment and medications Risk Factors Assessment Male: Yes : No Do You Have Access To A Gun?: No Health Problems: No Mental Health Diagnoses: Yes Substance Use Disorders: Yes Previous Psychiatric Hospitalization: Yes Protective Factors Assessment : No Responsible for Young Children: No Employed: No Supportive Family: Yes Good Rapport with Provider: No Interval History Identifying Information DENISE MURRY is a 24-year-old M who has a history of schizophrenia, who was admitted on 02/19/19 17:23 on a 302 involuntary commitment for threatening behavior in the community. He is on a 303 involuntary commitment as of 02/23/2019. Chief Complaint "I'm good". Review of Systems Sleep Information Total Hours of Sleep: 8 Sleep Comments: toileted at 0030 Meal Information Percent Meal Consumed - Breakfast: 100 Percent Meal Consumed - Lunch: 100 Percent Meal Consumed - Dinner: 90 Nutrition Comment: pt consistently throws away plastic utensils after eating rather than handing them back in Subjective Subjective Patient was seen & assessed and interval progress reviewed with Treatment Team. Staff reports that, due to concerns for cheeking, he was instructed to use the bathroom prior to taking his medications and then to be observed for several minutes afterwards, but he has not been willing to do this and refused to allow mouth checks and went to go to the bathroom directly after taking pills. He remains irritable and demanding with staff. He spends most of his time in bed, and although he did attend community meeting, he did not participate. On my assessment, he was uncooperative and answered most questions with a question. When asked his understanding of his diagnosis and treatment recommendations, he says "you tell me." He did state he understood that snf treatment was being recommended, but was unable to give further details. He denies mood symptoms and says "I'm good." He does not believe he needs inpatient treatment or antipsychotic medication, and says if he were discharged he would return to live with his parents. When reflected concerns that they had expressed and that they weren't willing to accept him at home unless he was stabilized, he said they told him it could be considered. He then refused to answer further questions, stating he wanted to talk to his green lumber grader, and wanted his green lumber grader present. The patient attended his 304 hearing, and had requested a second opinion, so met with Dr. Luis Key who testified as well, and recommended PHP or IOP. The patient testified and said he would consider outpatient treatment, and said he did not need a long acting injectable antipsychotic as "it's a step towards addiction." Physical Exam Psychiatric Orientation: alert and + guarded; + uncooperative Apperance: appropriately dressed, appropriately groomed and appeared stated age Staring intently. Motor Behavior: steady gait and station and no abnormal motor movements slow speech, delayed response Affect: + irritable affect and + constricted affect "I'm good." Thought Process: goal directed thought process Thought Content: + paranoid and + compulsions (refused to take pill after it fell on his pillow) paucity of thought content, vague answers Suicidal Thoughts: denies suicidal thoughts Homicidal Thoughts: denies homicidal thoughts does not answer with related information Cognition: attention grossly intact and language grossly intact; + recent memory not intact Insight: + severely impaired insight Judgement: + severely impaired judgement Vital Signs (Past 24 Hours) Last Vital Signs Temp 36.8 C 02/19/19 19:39 Pulse 91 H 02/19/19 19:39 Resp 18 02/19/19 19:39 BP 134/82 02/19/19 19:39 Pulse Ox 99 02/19/19 19:39 Results & Data Current Inpatient Medications Current Inpatient Medications: Current Inpatient Medications Acetaminophen (Tylenol) 650 mg PO Q4H PRN PRN Reason: Headache or Minor Fever Stop: 03/21/19 17:22 Al Hydrox/Mg Hydrox/Simethicone (Maalox) 30 ml PO Q4H PRN PRN Reason: GI Upset Stop: 03/21/19 17:22 Benztropine Mesylate (Cogentin) 1 mg PO Q8 PRN PRN Reason: Muscle Spasm Stop: 03/22/19 11:52 Bismuth Subsalicylate (Kaopectate) 15 ml PO PRN PRN PRN Reason: Loose Stool Stop: 03/21/19 17:22 Haloperidol (Haldol) 5 mg PO Q4H PRN PRN Reason: Agitation Stop: 03/21/19 20:25 Last Admin: 02/22/19 14:52 Dose: 5 mg Documented by: Haloperidol (Haldol) 10 mg PO BID [facility] Stop: 03/24/19 20:59 Last Admin: 02/28/19 21:43 Dose: 10 mg Documented by: Haloperidol Lactate (Haldol) 5 mg IM Q4H PRN PRN Reason: Severe Agitation Stop: 03/21/19 20:25 Haloperidol Lactate (Haldol) 10 mg IM BID PRN PRN Reason: refusal of PO Haldol Stop: 03/25/19 10:34 Hydroxyzine HCl (Vistaril) 50 mg PO HSZ PRN PRN Reason: Insomnia Stop: 03/21/19 17:22 Hydroxyzine HCl (Vistaril) 25 mg PO Q4H PRN PRN Reason: Anxiety Stop: 03/21/19 17:22 Lorazepam (Ativan) 2 mg IM Q4H PRN PRN Reason: Severe Agitation Stop: 03/21/19 20:25 Lorazepam (Ativan) 1 mg PO Q4H PRN PRN Reason: Agitation Stop: 03/21/19 20:25 Last Admin: 02/28/19 21:46 Dose: 1 mg Documented by: Magnesium Hydroxide (Milk Of Magnesia) 30 ml PO DAILY PRN PRN Reason: Heartburn Stop: 03/21/19 17:22 Sodium Chloride ([place] Nasal) 1 - 2 sprays NA PRN PRN PRN Reason: Nasal Dryness/Congestion Stop: 03/21/19 17:22 Mental Health & Subst Abuse Tx Therapist Name of Therapist: IOANA Hassan Cash Sales Audit Clerk Name of Cash Sales Audit Clerk: [employer] - Harriett Treviño Phone Number for Cash Sales Audit Clerk: [phone] Case Management Appointment Comment: [address] [place] [address] [place] [address], [place] [address] Post Discharge Appointments Primary Care Physician Name Of Family Doctor: STACEY Holt Contact Information Discharge Discharge Address: [address] [place] [address], [place] [address] CPT Code CPT Code 87702 (1) Schizophrenia Schizophrenia type: unspecified Qualified Code(s): F20.9 - Schizophrenia, unspecified
[2019-03-01] MEDS ORDERED: HALOPERIDOL 5 MG TAB PO SCH (09:45)
[2019-03-01] MEDS: HALOPERIDOL 5 MG/2.5 ML UDP PO SCH ×2 (10:31→22:07)
[2019-03-01] MEDS: LORazepam 1 MG TAB PO PRN ×2 (10:31→22:13)
--- NOTE | 2019-03-01 14:12 | XRay Report ---
SINGLE VIEW CHEST CLINICAL HISTORY: Pre-referral examination. FINDINGS: An AP, portable, upright chest radiograph is compared to study dated 12/30/2018. The cardiom ediastinal silhouette is unremarkable. There is mild elevation of the left hemidiaphragm. The lungs a nd pleural spaces are clear. No pneumothorax is seen. The bony thorax is grossly intact. IMPRESSION: No active disease in the chest. Electronically signed by: Armando Fonseca M.D. 03/01/2019 2:11 PM
--- NOTE | 2019-03-02 09:43 | Psychiatric Progress Note ---
Date of Service March 02, 2019 Impression / Recommendations Impression Denise is a 24 y/o male with a history of schizophrenia, OCD, treatment nonadherence, and polysubstance abuse who presented with disorganized and threatening behavior, in the context of nonadherence, decompensation for the last several months and ongoing substance abuse. He was admitted on an involuntary commitment following escalating interactions with the police over disorganized and threatening behavior in the community, and is on a 304 involuntary commitment as of 03/01/19. He requires a MNPR for the safety of other patients given his psychosis, sexually inappropriate behavior, and threatening and aggressive behavior. He remains poorly uncooperative with treatment, declining to participate in assessments or interviews, lacks insight and does not believe he needs treatment, wanting only benzodiazepines. He was started on the liquid form of haloperidol, due to concern for cheeking medications. Mild improvements have been seen in the appropriateness of patient's behavior; however, he remains in appropriate for discharge to the community in his current condition. He has been referred to [facility], but exploration of diversion and involuntary outpatient commitment with referral to the community will continue in the interim. At this time, he is unwilling to sign necessary releases of information for coordination of aftercare arrangements to make a referral to the community a viable option. (1) Schizophrenia: 02/20--The patient was admitted to the [facility] ([facility] unit) on q15 min checks (behavioral with suicide precautions) for safety. The patient will participate in group, recreational, and milieu therapies and will be offered additional individual and family sessions as clinically appropriate. Reviewed that he should resume antipsychotic medication FABIO and he would only discuss benzos. Adamant he won't resume Risperdal. Will offer Haldol 5 mg with Ativan 2 mg (take Haldol first) TID and readdress when less agitated. 02/21--mild improvement today in that less thought blocking and slightly less irritability. Refused meds again this am. In my opinion (Dr. Diaz), antipsychotic medication is medically necessary for the treatment of his psychosis given risk of or serious injury within 30 days. He has shown a pattern of non-compliance and escalating and threatening behavior in the community and his condition is unlikely to improve without forced psychiatric medications. Will order Haldol [address] Hubbard to provide second opinion on this and likely 303 petition tomorrow. 02/22 -patient remains inappropriate for groups and therapy, due to threatening and menacing behavior with staff and peers. Continue private room. -Increase haloperidol to 10 mg twice daily, and continue as needed doses. Agree with medications over objection, as patient has a history of a primary thought disorder, has been noncompliant with treatment which has led to decompensation, increasing psychosis, and escalating threatening and aggressive behavior in the community and now in the hospital. He required physical and chemical restraints in the ER due to threats to staff and attempts to leave. He has improved with antipsychotic medication in the past. -File for 303 hearing to be held tomorrow. -Patient remains uncooperative with attempts to assess him, will not provide historical information such as where he has been living or if he has any outpatient treatment, or sign releases for family or friends to provide collateral information. 02/23 -303 commitment granted. -Continue private room given threatening behavior, agitation, and recent history of erratic and inappropriate behavior in the community. Patient not yet appropriate for groups. -Continue haloperidol 10 mg twice daily, and 5 mg as needed. Will order an IM backup for refusal, as he has been seen by 2 physicians who both agree with medications over objection. He will likely need a long-acting injectable antipsychotic given his history of nonadherence. -Parents report he has been abusing benzodiazepines, and he is very focused on getting them here, asking for them frequently and receiving 8 mg of lorazepam daily. Will decrease to 1 mg every 4 hours as needed, with a plan to taper off prior to discharge given risk of abuse/misuse/negative outcomes. -Contact forensic showcase maker, Harriett Treviño, and schedule a meeting to discuss treatment plan. Patient will likely need an involuntary outpatient commitment. 02/24 -continue Haldol p.o. with IM backup, and lorazepam as needed. Patient refusing to discuss other antipsychotic options, so if he remains on haloperidol, can receive Haldol Decanoate once the effective dose is reached. -Encourage patient to sign releases for his parents and for outpatient treatment referrals, so that discharge planning can begin. -Continue to enforce appropriate boundaries, as patient has been sexually inappropriate with female peer. Continue private room, and excused from groups until he is able to maintain behavioral control. 02/25 -continue Haldol, and lorazepam as needed. -Attempt scheduled family meeting with parents and his outpatient showcase maker. -Encourage the patient to start engaging in treatment. He is willing to meet with a counselor one-on-one today. -Appropriate boundaries-patient has been reminded repeatedly of the need to cover his genital area and the inappropriateness of his sexual propositions to females. 02/26 -The patient is taking haloperidol 10 mg twice a day as prescribedalthough he repeatedly asks to have this medication discontinued. At the same time, he cannot or will not say, specifically, why he would like haloperidol to be discontinued, other than to say "it is not what I need." (The patient does appear to be tolerating haloperidol well, except for some excess sedation at this point.) -The patient continues to appear suspicious and is withdrawn. He is declining to actively participate in treatment. 02/27 Continue medication regimen unchanged 304 hearing scheduled for Friday. Patient will require chest x-ray and EKG prior to transfer to [facility]. 02/28 Patient demonstrating some improved ability to participate and interacting more appropriately with peers and staff in last 24 hours. We will continue to advance therapeutic programming as tolerated and indicated. Continue Haldol as scheduled which remains well-tolerated. 03/01 -Patient noncompliant with mouth checks and continues to go to the bathroom just after taking pills; due to concerns for cheeking, will switch to liquid haloperidol, with IM back up for refusal. -304 granted. Refer to [facility]. -Schedule meeting with patient, showcase maker, and family for discharge planning/exploring diversion options. 03/02 - Continue liquid haloperidol as above - Refusing to sign ROIs to allow for consideration or adequate coordination of diversion options. (2) Noncompliance with medication regimen: 02/22 -patient with chronic noncompliance which has severely impaired his ability to function or provide for his own basic needs in the community. He will likely need an involuntary outpatient commitment. 02/23 -303 commitment granted. Pursue medications over objection, consider long- acting injectable, and schedule meeting with forensic showcase maker. 02/25 -file for 304 involuntary commitment, as state hospitalization may be needed given severity of his illness, lack of insight and unwillingness to engage in treatment, and pattern of noncompliance with treatment. Patient has requested an independent evaluation, so the hearing will be scheduled sometime next week once that is completed. Patient was informed, and states his preference is to leave the hospital immediately, with no outpatient treatment. 02/26 -The patient seems to have no insight into his illness, no insight into his need for treatment (with the exception of stimulant medications and clonazepam). He acknowledges that he had been in outpatient treatment, but stopped going "because it is not necessary." -Because of the severity of illness, the patient's lack of insight, and is not adherence with treatment on an outpatient basis, the plan was reiterated today is to refer the patient for long-term psychiatric hospitalization. 03/01 -Concerns for cheeking as above; change to liquid haloperidol with IM backup for refusal. Work towards long acting injectable. -304 granted; refer to [facility]. (3) Anxiety: 02/22 -patient reports anxiety, but otherwise uncooperative with the assessment and does not appear overtly anxious; refusing vital signs for the last 3 days. He has been demanding high-dose benzodiazepines, and has been repeatedly informed that these are not indicated, but that Lorazepam is ordered as needed to be taken with haloperidol. 02/23 -parents describe history of OCD symptoms. Patient unwilling to participate in assessment, and no noticeable compulsions here, so unclear if currently active. Continue to monitor and assess. 02/25 -patient denies OCD symptoms, and none have been observed here. He does report feeling "anxious," but is a poor historian and unable to get much further information. He does not appear to be expansive panic. We will continue to assess and rule out SYBIL. He is refusing an SSRI antidepressant, wanting only b enzodiazepines. 02/28Possibility of obsessive concern for germs again raised by nursing following his reluctance to take the Haldol tablet after it touched his pillow and reluctance to touch his silverware again after he has finished eating. Patient denies obsessions or compulsions but we will continue to monitor. 03/01 - Patient refusing to discuss OCD symptoms. (4) Substance abuse: 02/22 -drug screen positive for THC. Once he is less psychotic, we will need to provide education regarding the risks of cannabis use, specifically exacerbation of psychotic symptoms. -On admission, patient reported being prescribed clonazepam 2 mg twice daily, and per PDMP he last filled a prescription on 12/17/2018, from a Dr. Matt Oneill in [place], [place]. In the past year, he has filled clonazepam and dextroamphetamine/amphetamine prescriptions from 5 different clinicians in different parts of the state, a pattern consistent with substance abuse and drug-seeking. He does not appear to have been on clonazepam consistently, as his last 2 prescriptions were filled in 06/2018 and 12/2018. 02/23 -parents report history of alcohol, cannabis, benzodiazepine, and stimulant abuse. This is also indicated in previous records from 2017 hospitalization. -Avoid controlled substances given high risk of abuse. 02/26-Today, the patient tells us that he is able to take buspirone at an unspecified dose, but when we offered to prescribe this to him for anxiety he said "it is not necessary." When asked why clonazepam is necessary, if buspirone is not, he simply repeated "clonazepam is necessary. Buspirone is not necessary." Inventory Assets Strengths: College graduate. Supportive family. Needs: clarification of legal charges, outpatient services, adherence with treatment and medications Risk Factors Assessment Male: Yes : No Do You Have Access To A Gun?: No Health Problems: No Mental Health Diagnoses: Yes Substance Use Disorders: Yes Previous Psychiatric Hospitalization: Yes Protective Factors Assessment : No Responsible for Young Children: No Employed: No Supportive Family: Yes Good Rapport with Provider: No Interval History Identifying Information DENISE MURRY is a 24-year-old M who has a history of schizophrenia, who was admitted on 02/19/19 17:23 on a 302 involuntary commitment for threatening behavior in the community. He is on a 303 involuntary commitment as of 02/23/2019. Chief Complaint "Fine..." Review of Systems Notes Constitutional: denied Cardiovascular: denied Respiratory: denied Gastrointestinal: denied Neurological: denied Psychiatric: denies symptoms other than stated above Total of at least 10 systems reviewed, pertinent positives as above and in HPI. Sleep Information Total Hours of Sleep: 7.5 Sleep Comments: pt pn q-15 minute checks Meal Information Percent Meal Consumed - Breakfast: 100 Percent Meal Consumed - Lunch: 100 Percent Meal Consumed - Dinner: 100 Nutrition Comment: pt consistently throws away plastic utensils after eating rather than handing them back in Subjective Subjective Patient was seen & assessed and interval progress reviewed with Nursing and social work. Staff reports the patient continues to remain in his room most of the day. He is unwilling to sign releases to encourage coordination of aftercare, should a diversionary plan be appropriate. He is continued to take his scheduled haloperidol as ordered. Patient was seen today to assess progress since admission. He states that he is "fine". He was asked about his group attendance, and if he felt he would be able to participate in activity groups more frequently throughout the day. Patient does not clearly answer this question, but does inquire if staff keeps track of his group participation. It was explained to patient that appropriate participation in group programming allow staff to assess if patient started displaying behavior appropriate for discharge. Patient inquires further, specifically asking of staff documents attendance or behavior during group. Patient also requests to know what will be required for discharge. Patient was reminded that at this time his discharge planning is uncertain, with staff preparing for the highest level of care which at this time is [facility]. A brief summary of expectations for safe and appropriate discharge was explained, again reiterating that it was not clear at this time if this situation was applied to the patient. Patient then states "if I am discharged, is Miguel A off the table?" This provider briefly but clearly stated that we have to make discharge plans according to the highest possible level of treatment necessary, but if it was felt that a diversion was appropriate to Miguel A would be off the table for his current admission. Patient was reminded that if he continues to behave similarly to prior to his hospitalization, a [facility] referral may be considered in future hospitalizations as well. Patient denied having further questions and stated he was planning to attend community meeting after our discussion. This provider periodically checked on the patient, who did not attend community meeting on time. Physical Exam Psychiatric Orientation: alert, oriented x 3 and + guarded; + uncooperative Apperance: appropriately dressed (in t-shirt and shorts) and appropriately groomed Eye Contact: + poor eye contact (Eyes closed for majority of the encounter) Motor Behavior: no abnormal motor movements (Observed while laying in bed) Speech: normal rate/rhythm/volume of speech (Only brief responses to questions, irritable tone) Affect: + irritable affect and + constricted affect "Fine" Thought Process: goal directed thought process (Frequent questions regarding discharge process) Thought Content: + paranoid Suicidal Thoughts: denies suicidal thoughts Homicidal Thoughts: denies homicidal thoughts Cognition: attention grossly intact Insight: + severely impaired insight Judgement: + severely impaired judgement Vital Signs (Past 24 Hours) Last Vital Signs Temp 36.8 C 07/05/19 19:39 Pulse 91 H 02/19/19 19:39 Resp 18 02/19/19 19:39 BP 134/82 02/19/19 19:39 Pulse Ox 99 02/19/19 19:39 Results & Data Current Inpatient Medications Current Inpatient Medications: Current Inpatient Medications Acetaminophen (Tylenol) 650 mg PO Q4H PRN PRN Reason: Headache or Minor Fever Stop: 03/21/19 17:22 Al Hydrox/Mg Hydrox/Simethicone (Maalox) 30 ml PO Q4H PRN PRN Reason: GI Upset Stop: 03/21/19 17:22 Benztropine Mesylate (Cogentin) 1 mg PO Q8 PRN PRN Reason: Muscle Spasm Stop: 03/22/19 11:52 Bismuth Subsalicylate (Kaopectate) 15 ml PO PRN PRN PRN Reason: Loose Stool Stop: 03/21/19 17:22 Haloperidol (Haldol) 5 mg PO Q4H PRN PRN Reason: Agitation Stop: 03/21/19 20:25 Last Admin: 02/22/19 14:52 Dose: 5 mg Documented by: Haloperidol Lactate (Haldol) 5 mg IM Q4H PRN PRN Reason: Severe Agitation Stop: 03/21/19 20:25 Haloperidol Lactate (Haldol) 10 mg IM BID PRN PRN Reason: refusal of PO Haldol Stop: 03/25/19 10:34 Haloperidol Lactate (Haldol Lactate) 10 mg PO BID [facility] Stop: 03/31/19 10:14 Last Admin: 03/01/19 22:07 Dose: 10 mg Documented by: Hydroxyzine HCl (Vistaril) 50 mg PO HSZ PRN PRN Reason: Insomnia Stop: 03/21/19 17:22 Hydroxyzine HCl (Vistaril) 25 mg PO Q4H PRN PRN Reason: Anxiety Stop: 03/21/19 17:22 Lorazepam (Ativan) 2 mg IM Q4H PRN PRN Reason: Severe Agitation Stop: 03/21/19 20:25 Lorazepam (Ativan) 1 mg PO Q4H PRN PRN Reason: Agitation Stop: 03/21/19 20:25 Last Admin: 03/01/19 22:13 Dose: 1 mg Documented by: Magnesium Hydroxide (Milk Of Magnesia) 30 ml PO DAILY PRN PRN Reason: Heartburn Stop: 03/21/19 17:22 Sodium Chloride ([place] Nasal) 1 - 2 sprays NA PRN PRN PRN Reason: Nasal Dryness/Congestion Stop: 03/21/19 17:22 Mental Health & Subst Abuse Tx Therapist Name of Therapist: IOANA Hassan Director Global Market Research Name of Director Global Market Research: [employer] - Harriett Treviño Phone Number for Director Global Market Research: [phone] Case Management Appointment Comment: [address], [place] [address] Post Discharge Appointments Primary Care Physician Name Of Family Doctor: STACEY Holt Contact Information Discharge Discharge [address]: [address] [place] [id number] CPT Code CPT Code 19217 (1) Schizophrenia Schizophrenia type: unspecified Qualified Code(s): F20.9 - Schizophrenia, unspecified
[2019-03-02] MEDS: HALOPERIDOL 5 MG/2.5 ML UDP PO SCH ×2 (09:49→21:40)
[2019-03-02] MEDS: LORazepam 1 MG TAB PO PRN ×2 (09:52→21:40)
[2019-03-03] MEDS: HALOPERIDOL 5 MG/2.5 ML UDP PO SCH ×2 (09:53→21:33)
[2019-03-03] MEDS: LORazepam 1 MG TAB PO PRN ×2 (09:58→21:38)
--- NOTE | 2019-03-03 11:22 | Psychiatric Progress Note ---
Date of Service March 03, 2019 Impression / Recommendations Impression 24 y/o male with a history of schizophrenia, OCD, treatment nonadherence, and polysubstance abuse who presented with disorganized and threatening behavior, in the context of nonadherence, decompensation for the last several months and ongoing substance abuse. He was admitted on an involuntary commitment following escalating interactions with the police over disorganized and threatening behavior in the community, and is on a 304 involuntary commitment as of 03/01/19. He requires a MNPR for the safety of other patients given his psychosis, sexually inappropriate behavior, and threatening and aggressive behavior. He was started on the liquid form of haloperidol, due to concern for cheeking medications. Mild improvements have been seen in the appropriateness of patient's behavior; however, he remains in appropriate for discharge to the community at this time. He has been referred to [facility], but exploration of diversion and involuntary outpatient commitment with referral to the community will continue in the interim. Pt signed conditional releases for various individuals to allow for attempted coordination of a diversion plan, should that be appropriate at time of anticipated discharge. (1) Schizophrenia: 02/20--The patient was admitted to the [facility]) on q15 min checks (behavioral with suicide precautions) for safety. The patient will participate in group, recreational, and milieu therapies and will be offered additional individual and family sessions as clinically appropriate. Reviewed that he should resume antipsychotic medication FABIO and he would only discuss benzos. Adamant he won't resume Risperdal. Will offer Haldol 5 mg with Ativan 2 mg (take Haldol first) TID and readdress when less agitated. 02/21--mild improvement today in that less thought blocking and slightly less irritability. Refused meds again this am. In my opinion (Dr. Diaz), antipsychotic medication is medically necessary for the treatment of his psychosis given risk of or serious injury within 30 days. He has shown a pattern of non-compliance and escalating and threatening behavior in the community and his condition is unlikely to improve without forced psychiatric medications. Will order Haldol [address] Hubbard to provide second opinion on this and likely 303 petition tomorrow. 02/22 -patient remains inappropriate for groups and therapy, due to threatening and menacing behavior with staff and peers. Continue private room. -Increase haloperidol to 10 mg twice daily, and continue as needed doses. Agree with medications over objection, as patient has a history of a primary thought disorder, has been noncompliant with treatment which has led to decompensation, increasing psychosis, and escalating threatening and aggressive behavior in the community and now in the hospital. He required physical and chemical restraints in the ER due to threats to staff and attempts to leave. He has improved with antipsychotic medication in the past. -File for 303 hearing to be held tomorrow. -Patient remains uncooperative with attempts to assess him, will not provide historical information such as where he has been living or if he has any outpatient treatment, or sign releases for family or friends to provide collateral information. 02/23 -303 commitment granted. -Continue private room given threatening behavior, agitation, and recent history of erratic and inappropriate behavior in the community. Patient not yet appropriate for groups. -Continue haloperidol 10 mg twice daily, and 5 mg as needed. Will order an IM backup for refusal, as he has been seen by 2 physicians who both agree with medications over objection. He will likely need a long-acting injectable antipsychotic given his history of nonadherence. -Parents report he has been abusing benzodiazepines, and he is very focused on getting them here, asking for them frequently and receiving 8 mg of lorazepam daily. Will decrease to 1 mg every 4 hours as needed, with a plan to taper off prior to discharge given risk of abuse/misuse/negative outcomes. -Contact forensic case filler, Harriett Treviño, and schedule a meeting to discuss treatment plan. Patient will likely need an involuntary outpatient commitment. 02/24 -continue Haldol p.o. with IM backup, and lorazepam as needed. Patient refusing to discuss other antipsychotic options, so if he remains on haloperidol, can receive Haldol Decanoate once the effective dose is reached. -Encourage patient to sign releases for his parents and for outpatient treatment referrals, so that discharge planning can begin. -Continue to enforce appropriate boundaries, as patient has been sexually inappropriate with female peer. Continue private room, and excused from groups until he is able to maintain behavioral control. 02/25 -continue Haldol, and lorazepam as needed. -Attempt scheduled family meeting with parents and his outpatient case filler. -Encourage the patient to start engaging in treatment. He is willing to meet with a counselor one-on-one today. -Appropriate boundaries-patient has been reminded repeatedly of the need to cover his genital area and the inappropriateness of his sexual propositions to females. 02/26 -The patient is taking haloperidol 10 mg twice a day as prescribedalthough he repeatedly asks to have this medication discontinued. At the same time, he cannot or will not say, specifically, why he would like haloperidol to be discontinued, other than to say "it is not what I need." (The patient does appear to be tolerating haloperidol well, except for some excess sedation at this point.) -The patient continues to appear suspicious and is withdrawn. He is declining to actively participate in treatment. 02/27 Continue medication regimen unchanged 304 hearing scheduled for Friday. Patient will require chest x-ray and EKG prior to transfer to [facility]. 02/28 Patient demonstrating some improved ability to participate and interacting more appropriately with peers and staff in last 24 hours. We will continue to advance therapeutic programming as tolerated and indicated. Continue Haldol as scheduled which remains well-tolerated. 03/01 -Patient noncompliant with mouth checks and continues to go to the bathroom just after taking pills; due to concerns for cheeking, will switch to liquid haloperidol, with IM back up for refusal. -304 granted. Refer to [facility]. -Schedule meeting with patient, case filler, and family for discharge planning/exploring diversion options. 03/02 - Continue liquid haloperidol as above - Refusing to sign ROIs to allow for consideration or adequate coordination of diversion options. 03/03 - Continue current haloperidol dosing, liquid as above - Pt signed some conditional ROIs this morning to allow for potential coordination of diversion plan (2) Noncompliance with medication regimen: 02/22 -patient with chronic noncompliance which has severely impaired his ability to function or provide for his own basic needs in the community. He will likely need an involuntary outpatient commitment. 02/23 -303 commitment granted. Pursue medications over objection, consider long- acting injectable, and schedule meeting with forensic case filler. 02/25 -file for 304 involuntary commitment, as state hospitalization may be need ed given severity of his illness, lack of insight and unwillingness to engage in treatment, and pattern of noncompliance with treatment. Patient has requested an independent evaluation, so the hearing will be scheduled sometime next week once that is completed. Patient was informed, and states his preference is to leave the hospital immediately, with no outpatient treatment. 02/26 -The patient seems to have no insight into his illness, no insight into his need for treatment (with the exception of stimulant medications and clonazepam). He acknowledges that he had been in outpatient treatment, but stopped going "because it is not necessary." -Because of the severity of illness, the patient's lack of insight, and is not adherence with treatment on an outpatient basis, the plan was reiterated today is to refer the patient for long-term psychiatric hospitalization. 03/01 -Concerns for cheeking as above; change to liquid haloperidol with IM backup for refusal. Work towards long acting injectable. -304 granted; refer to [facility]. (3) Anxiety: 02/22 -patient reports anxiety, but otherwise uncooperative with the assessment and does not appear overtly anxious; refusing vital signs for the last 3 days. He has been demanding high-dose benzodiazepines, and has been repeatedly informed that these are not indicated, but that Lorazepam is ordered as needed to be taken with haloperidol. 02/23 -parents describe history of OCD symptoms. Patient unwilling to participate in assessment, and no noticeable compulsions here, so unclear if currently a ctive. Continue to monitor and assess. 02/25 -patient denies OCD symptoms, and none have been observed here. He does report feeling "anxious," but is a poor historian and unable to get much further information. He does not appear to be expansive panic. We will continue to assess and rule out SYBIL. He is refusing an SSRI antidepressant, wanting only benzodiazepines. 02/28Possibility of obsessive concern for germs again raised by nursing following his reluctance to take the Haldol tablet after it touched his pillow and reluctance to touch his silverware again after he has finished eating. Patient denies obsessions or compulsions but we will continue to monitor. 03/01 - Patient refusing to discuss OCD symptoms. (4) Substance abuse: 02/22 -drug screen positive for THC. Once he is less psychotic, we will need to provide education regarding the risks of cannabis use, specifically exacerbation of psychotic symptoms. -On admission, patient reported being prescribed clonazepam 2 mg twice daily, and per PDMP he last filled a prescription on 12/17/2018, from a Dr. Matt Oneill in [place], [place]. In the past year, he has filled clonazepam and dextroa mphetamine/amphetamine prescriptions from 5 different clinicians in different parts of the state, a pattern consistent with substance abuse and drug-seeking. He does not appear to have been on clonazepam consistently, as his last 2 prescriptions were filled in 06/2018 and 12/2018. 02/23 -parents report history of alcohol, cannabis, benzodiazepine, and stimulant abuse. This is also indicated in previous records from 2017 hospitalization. -Avoid controlled substances given high risk of abuse. 02/26-Today, the patient tells us that he is able to take buspirone at an unspecified dose, but when we offered to prescribe this to him for anxiety he said "it is not necessary." When asked why clonazepam is necessary, if buspirone is not, he simply repeated "clonazepam is necessary. Buspirone is not necessary." Inventory Assets Strengths: College graduate. Supportive family. Needs: clarification of legal charges, outpatient services, adherence with treatment and medications Risk Factors Assessment Male: Yes : No Do You Have Access To A Gun?: No Health Problems: No Mental Health Diagnoses: Yes Substance Use Disorders: Yes Previous Psychiatric Hospitalization: Yes Protective Factors Assessment : No Responsible for Young Children: No Employed: No Supportive Family: Yes Good Rapport with Provider: No Interval History Identifying Information DENISE MURRY is a 24-year-old M who has a history of schizophrenia, who was admitted on 02/19/19 17:23 on a 302 involuntary commitment for threatening behavior in the community. He is on a 304 involuntary commitment as of 03/01/2019. Chief Complaint "I'm feeling very good, thank you. How are you today?" Review of Systems Notes Constitutional: denied Cardiovascular: denied Respiratory: denied Gastrointestinal: denied Neurological: denied Psychiatric: denies symptoms other than stated above Total of at least 10 systems reviewed, pertinent positives as above and in HPI. Sleep Information Total Hours of Sleep: 8 Sleep Comments: pt pn q-15 minute checks Meal Information Percent Meal Consumed - Breakfast: 100 Percent Meal Consumed - Lunch: 100 Percent Meal Consumed - Dinner: 100 Nutrition Comment: pt consistently throws away plastic utensils after eating rather than handing them back in Subjective Subjective Patient was seen & assessed and interval progress reviewed with Treatment Team. Staff reports the patient has been demonstrating some increased group participation. Referral to [facility] was faxed and reportedly received. Pt did sign some conditional ROIs for communication with various individuals - which was previously declined. Pt was seen today to assess progress since admission. Pt states he is doing "very well." He reports feeling "very comfortable" with his progress and remains interested in a diversion plan. Pt offers, "I'm not delusional, I'm not hallucinating, I'm not having any suicidal [id number]. I'm fine." Pt denies homicidal ideation as well. Pt was asked what he feels would be beneficial for the remainder of his stay - to which he reports "a discharge plan." Pt seemed to believe he would be able to return to his parents' house, which is was informed did not seem to be the case. Pt was applauded for his willingness to sign releases to allow for coordination of a possible diversion plan. He continues to desire to not require state hospitalization. He denied other needs or concerns today. Physical Exam Psychiatric Orientation: alert, oriented x 3, cooperative (superficially) and + guarded (remaining somewhat guarded) Apperance: appropriately dressed (casually in t-shirt and shorts) and appropriately groomed Eye Contact: + fair eye contact Motor Behavior: no abnormal motor movements (observed while laying and sitting upright in bed) Speech: normal rate/rhythm/volume of speech Affect: + flat affect; no depressed affect and no anxious affect Mood: no depressed mood and no anxious mood "I'm doing very well, feeling very comfortable" Thought Process: goal directed thought process and clear/coherent thought process Thought Content: + paranoid (improved greatly, continues to have increased suspicion ) and reality based without delusions; no hopelessness and no worthlessness Suicidal Thoughts: denies suicidal thoughts, denies suicidal plan and denies suicidal intent Homicidal Thoughts: denies homicidal thoughts Hallucinations: no auditory hallucinations and no visual hallucinations Cognition: attention grossly intact and language grossly intact Insight: + impaired insight Judgement: + impaired judgement Vital Signs (Past 24 Hours) Last Vital Signs Temp 36.8 C 02/19/19 19:39 Pulse 91 H 02/19/19 19:39 Resp 18 02/19/19 19:39 BP 134/82 02/19/19 19:39 Pulse Ox 99 02/19/19 19:39 Results & Data Current Inpatient Medications Current Inpatient Medications: Current Inpatient Medications Acetaminophen (Tylenol) 650 mg PO Q4H PRN PRN Reason: Headache or Minor Fever Stop: 03/21/19 17:22 Al Hydrox/Mg Hydrox/Simethicone (Maalox) 30 ml PO Q4H PRN PRN Reason: GI Upset Stop: 03/21/19 17:22 Benztropine Mesylate (Cogentin) 1 mg PO Q8 PRN PRN Reason: Muscle Spasm Stop: 03/22/19 11:52 Bismuth Subsalicylate (Kaopectate) 15 ml PO PRN PRN PRN Reason: Loose Stool Stop: 03/21/19 17:22 Haloperidol (Haldol) 5 mg PO Q4H PRN PRN Reason: Agitation Stop: 03/21/19 20:25 Last Admin: 02/22/19 14:52 Dose: 5 mg Documented by: Haloperidol Lactate (Haldol) 5 mg IM Q4H PRN PRN Reason: Severe Agitation Stop: 03/21/19 20:25 Haloperidol Lactate (Haldol) 10 mg IM BID PRN PRN Reason: refusal of PO Haldol Stop: 03/25/19 10:34 Haloperidol Lactate (Haldol Lactate) 10 mg PO BID [facility] Stop: 03/31/19 10:14 Last Admin: 03/03/19 09:53 Dose: 10 mg Documented by: Hydroxyzine HCl (Vistaril) 50 mg PO HSZ PRN PRN Reason: Insomnia Stop: 03/21/19 17:22 Hydroxyzine HCl (Vistaril) 25 mg PO Q4H PRN PRN Reason: Anxiety Stop: 03/21/19 17:22 Lorazepam (Ativan) 2 mg IM Q4H PRN PRN Reason: Severe Agitation Stop: 03/21/19 20:25 Lorazepam (Ativan) 1 mg PO Q4H PRN PRN Reason: Agitation Stop: 03/21/19 20:25 Last Admin: 03/03/19 09:58 Dose: 1 mg Documented by: Magnesium Hydroxide (Milk Of Magnesia) 30 ml PO DAILY PRN PRN Reason: Heartburn Stop: 03/21/19 17:22 Sodium Chloride (Reno Nasal) 1 - 2 sprays NA PRN PRN PRN Reason: Nasal Dryness/Congestion Stop: 03/21/19 17:22 Mental Health & Subst Abuse Tx Therapist Name of Therapist: IOANA Hassan Machine Assembler Supervisor Name of Machine Assembler Supervisor: [employer] - Harriett Treviño Phone Number for Machine Assembler Supervisor: [phone] Case Management Appointment Comment: [address], [place] [address] Post Discharge Appointments Primary Care Physician Name Of Family Doctor: STACEY Holt Contact Information Discharge Discharge [address]: [address] [place] [id number] CPT Code CPT Code 15100 (1) Schizophrenia Schizophrenia type: unspecified Qualified Code(s): F20.9 - Schizophrenia, unspecified
--- NOTE | 2019-03-04 08:50 | Psychiatric Progress Note ---
Date of Service March 04, 2019 Impression / Recommendations Impression 24 y/o male with a history of schizophrenia, OCD, treatment nonadherence, and polysubstance abuse who presented with disorganized and threatening behavior, in the context of nonadherence, decompensation for the last several months and ongoing substance abuse. He was admitted on an involuntary commitment following escalating interactions with the police over disorganized and threatening behavior in the community, and is on a 304 involuntary commitment as of 03/01/19. He requires a MNPR for the safety of other patients given his psychosis, sexually inappropriate behavior, and threatening and aggressive behavior. He was started on the liquid form of haloperidol, due to concern for cheeking medications. Mild improvements have been seen in the appropriateness of patient's behavior; however, he remains in appropriate for discharge to the community at this time. He has been referred to [facility], but exploration of diversion and involuntary outpatient commitment with referral to the community will continue in the interim. Pt signed conditional releases for the [employer] to allow for attempted coordination of a diversion plan, should that be appropriate at time of anticipated discharge. (1) Schizophrenia: 02/20--The patient was admitted to the [facility] on q15 min checks (behavioral with suicide precautions) for safety. The patient will participate in group, recreational, and milieu therapies and will be offered additional individual and family sessions as clinically appropriate. Reviewed that he should resume antipsychotic medication FABIO and he would only discuss benzos. Adamant he won't resume Risperdal. Will offer Haldol 5 mg with Ativan 2 mg (take Haldol first) TID and readdress when less agitated. 02/21--mild improvement today in that less thought blocking and slightly less irritability. Refused meds again this am. In my opinion (Dr. Diaz), antipsychotic medication is medically necessary for the treatment of his psychosis given risk of or serious injury within 30 days. He has shown a pattern of non-compliance and escalating and threatening behavior in the community and his condition is unlikely to improve without forced psychiatric medications. Will order Haldol [address] Hubbard to provide second opinion on this and likely 303 petition tomorrow. 02/22 -patient remains inappropriate for groups and therapy, due to threatening and menacing behavior with staff and peers. Continue private room. -Increase haloperidol to 10 mg twice daily, and continue as needed doses. Agree with medications over objection, as patient has a history of a primary thought disorder, has been noncompliant with treatment which has led to decompensation, increasing psychosis, and escalating threatening and aggressive behavior in the community and now in the hospital. He required physical and chemical restraints in the ER due to threats to staff and attempts to leave. He has improved with antipsychotic medication in the past. -File for 303 hearing to be held tomorrow. -Patient remains uncooperative with attempts to assess him, will not provide historical information such as where he has been living or if he has any outpatient treatment, or sign releases for family or friends to provide collateral information. 02/23 -303 commitment granted. -Continue private room given threatening behavior, agitation, and recent history of erratic and inappropriate behavior in the community. Patient not yet appropriate for groups. -Continue haloperidol 10 mg twice daily, and 5 mg as needed. Will order an IM backup for refusal, as he has been seen by 2 physicians who both agree with medications over objection. He will likely need a long-acting injectable antipsychotic given his history of nonadherence. -Parents report he has been abusing benzodiazepines, and he is very focused on getting them here, asking for them frequently and receiving 8 mg of lorazepam daily. Will decrease to 1 mg every 4 hours as needed, with a plan to taper off prior to discharge given risk of abuse/misuse/negative outcomes. -Contact forensic heel caser, Harriett Treviño, and schedule a meeting to discuss treatment plan. Patient will likely need an involuntary outpatient commitment. 02/24 -continue Haldol p.o. with IM backup, and lorazepam as needed. Patient refusing to discuss other antipsychotic options, so if he remains on haloperidol, can receive Haldol Decanoate once the effective dose is reached. -Encourage patient to sign releases for his parents and for outpatient treatment referrals, so that discharge planning can begin. -Continue to enforce appropriate boundaries, as patient has been sexually inappropriate with female peer. Continue private room, and excused from groups until he is able to maintain behavioral control. 02/25 -continue Haldol, and lorazepam as needed. -Attempt scheduled family meeting with parents and his outpatient heel caser. -Encourage the patient to start engaging in treatment. He is willing to meet with a counselor one-on-one today. -Appropriate boundaries-patient has been reminded repeatedly of the need to cover his genital area and the inappropriateness of his sexual propositions to females. 02/26 -The patient is taking haloperidol 10 mg twice a day as prescribedalthough he repeatedly asks to have this medication discontinued. At the same time, he cannot or will not say, specifically, why he would like haloperidol to be discontinued, other than to say "it is not what I need." (The patient does appear to be tolerating haloperidol well, except for some excess sedation at this point.) -The patient continues to appear suspicious and is withdrawn. He is declining to actively participate in treatment. 02/27 Continue medication regimen unchanged 304 hearing scheduled for Friday. Patient will require chest x-ray and EKG prior to transfer to [facility]. 02/28 Patient demonstrating some improved ability to participate and interacting m ore appropriately with peers and staff in last 24 hours. We will continue to advance therapeutic programming as tolerated and indicated. Continue Haldol as scheduled which remains well-tolerated. 03/01 -Patient noncompliant with mouth checks and continues to go to the bathroom just after taking pills; due to concerns for cheeking, will switch to liquid haloperidol, with IM back up for refusal. -304 granted. Refer to [facility]. -Schedule meeting with patient, heel caser, and family for discharge planning/exploring diversion options. 03/02 - Continue liquid haloperidol as above - Refusing to sign ROIs to allow for consideration or adequate coordination of diversion options. 03/03 - Continue current haloperidol dosing, liquid as above - Pt signed some conditional ROIs this morning to allow for potential coordination of diversion plan 03/04 - Continue current medication regimen - Meeting with mother and [employer] automotive leasing sales representative to discuss diversionary discharge planning tomorrow morning - Continue to encourage participation in groups to most adequately assess thought content/process and appropriate behavior, these all appear to be improving (2) Noncompliance with medication regimen: 02/22 -patient with chronic noncompliance which has severely impaired his ability to function or provide for his own basic needs in the community. He will likely need an involuntary outpatient commitment. 02/23 -303 commitment granted. Pursue medications over objection, consider long- acting injectable, and schedule meeting with forensic heel caser. 02/25 -file for 304 involuntary commitment, as state hospitalization may be needed given severity of his illness, lack of insight and unwillingness to engage in treatment, and pattern of noncompliance with treatment. Patient has requested an independent evaluation, so the hearing will be scheduled sometime next week once that is completed. Patient was informed, and states his pr eference is to leave the hospital immediately, with no outpatient treatment. 02/26 -The patient seems to have no insight into his illness, no insight into his need for treatment (with the exception of stimulant medications and clonazepam). He acknowledges that he had been in outpatient treatment, but stopped going "because it is not necessary." -Because of the severity of illness, the patient's lack of insight, and is not adherence with treatment on an outpatient basis, the plan was reiterated today is to refer the patient for long-term psychiatric hospitalization. 03/01 -Concerns for cheeking as above; change to liquid haloperidol with IM backup for refusal. Work towards long acting injectable. -304 granted; refer to [facility]. (3) Anxiety: 02/22 -patient reports anxiety, but otherwise uncooperative with the assessment and does not appear overtly anxious; refusing vital signs for the last 3 days. He has been demanding high-dose benzodiazepines, and has been repeatedly informed that these are not indicated, but that Lorazepam is ordered as needed to be taken with haloperidol. 02/23 -parents describe history of OCD symptoms. Patient unwilling to participate in assessment, and no noticeable compulsions here, so unclear if currently active. Continue to monitor and assess. 02/25 -patient denies OCD symptoms, and none have been observed here. He does report feeling "anxious," but is a poor historian and unable to get much further information. He does not appear to be expansive panic. We will continue to assess and rule out SYBIL. He is refusing an SSRI antidepressant, wanting only benzodiazepines. 02/28Possibility of obsessive concern for germs again raised by nursing following his reluctance to take the Haldol tablet after it touched his pillow and reluctance to touch his silverware again after he has finished eating. Patient denies obsessions or compulsions but we will continue to monitor. 03/01 - Patient refusing to discuss OCD symptoms. (4) Substance abuse: 02/22 -drug screen positive for THC. Once he is less psychotic, we will need to provide education regarding the risks of cannabis use, specifically exacerbation of psychotic symptoms. -On admission, patient reported being prescribed clonazepam 2 mg twice daily, and per PDMP he last filled a prescription on 12/17/2018, from a Dr. Matt Oneill in [place], [place]. In the past year, he has filled clonazepam and dextroamphetamine/amphetamine prescriptions from 5 different clinicians in different parts of the state, a pattern consistent with substance abuse and drug-seeking. He does not appear to have been on clonazepam consistently, as his last 2 prescriptions were filled in 06/2018 and 12/2018. 02/23 -parents report history of alcohol, cannabis, benzodiazepine, and stimulant abuse. This is also indicated in previous records from 2017 hospitalization. -Avoid controlled substances given high risk of abuse. 02/26-Today, the patient tells us that he is able to take buspirone at an unspecified dose, but when we offered to prescribe this to him for anxiety he said "it is not necessary." When asked why clonazepam is necessary, if buspirone is not, he simply repeated "clonazepam is necessary. Buspirone is not necessary." Inventory Assets Strengths: College graduate. Supportive family. Needs: clarification of legal charges, outpatient services, adherence with treatment and medications Risk Factors Assessment Male: Yes : No Do You Have Access To A Gun?: No Health Problems: No Mental Health Diagnoses: Yes Substance Use Disorders: Yes Previous Psychiatric Hospitalization: Yes Protective Factors Assessment : No Responsible for Young Children: No Employed: No Supportive Family: Yes Good Rapport with Provider: No Interval History Identifying Information DENISE MURRY is a 24-year-old M who has a history of schizophrenia, who was admitted on 02/19/19 17:23 on a 302 involuntary commitment for threatening behavior in the community. He is on a 304 involuntary commitment as of 03/01/2019. Chief Complaint "I'm fine, thank you." Review of Systems Notes Constitutional: denied Cardiovascular: denied Respiratory: denied Gastrointestinal: denied Neurological: denied Psychiatric: denies symptoms other than stated above Total of at least 10 systems reviewed, pertinent positives as above and in HPI. Sleep Information Total Hours of Sleep: 7 Sleep Comments: pt pn q-15 minute checks Meal Information Percent Meal Consumed - Breakfast: 100 Percent Meal Consumed - Lunch: 100 Percent Meal Consumed - Dinner: 100 Nutrition Comment: pt consistently throws away plastic utensils after eating rather than handing them back in Subjective Subjective Patient was seen & assessed and interval progress reviewed with Nursing and social work. Staff reports the patient received visit from his mother last evening, and appeared to be appropriately affectionate. It was reported he can return to live with his parents temporarily while awaiting alternative housing plans. A meeting with mother and BSU is scheduled for tomorrow morning. Pt has participated in more groups, but often leaves early or does not fully participate. Some ongoing irritability with evening staff was reported. Pt was seen today to assess progress since admission. Pt states he is "fine" today. He states he had a visit with his mother yesterday, which went well. He told this provider his is permitted to return home, which is his ideal plan. Pt states he does not feel a day or skills program would be helpful for him. Prior to his hospitalization, he states he had been searching for a job. Ideally, patient states he would like to work in a law firm. Pt continues to desire a "discharge plan" that would allow him to avoid state hospitalization. He is not sure that he requires anything additional from his stay in order for this to be done. Pt denies other needs or concerns today, and is hopeful to attend more groups today. Physical Exam Psychiatric Orientation: alert, oriented x 3 and cooperative (pleasant conversation today) Apperance: appropriately dressed (casually in t-shirt and shorts) and appropriately groomed Eye Contact: good eye contact Motor Behavior: no abnormal motor movements (observed while laying in bed) Speech: normal rate/rhythm/volume of speech (rather brief responses to questions, monotone) Affect: + flat affect; no depressed affect and no anxious affect Mood: no depressed mood and no anxious mood "I'm fine" Thought Process: goal directed thought process and clear/coherent thought process Thought Content: reality based without delusions Suicidal Thoughts: denies suicidal thoughts Homicidal Thoughts: denies homicidal thoughts Hallucinations: no auditory hallucinations and no visual hallucinations Cognition: attention grossly intact and language grossly intact Estimated Intelligence: consistent with education level Insight: + impaired insight Judgement: + impaired judgement Vital Signs (Past 24 Hours) Last Vital Signs Temp 36.8 C 02/19/19 19:39 Pulse 91 H 02/19/19 19:39 Resp 18 02/19/19 19:39 BP 134/82 02/19/19 19:39 Pulse Ox 99 02/19/19 19:39 Results & Data Current Inpatient Medications Current Inpatient Medications: Current Inpatient Medications Acetaminophen (Tylenol) 650 mg PO Q4H PRN PRN Reason: Headache or Minor Fever Stop: 03/21/19 17:22 Al Hydrox/Mg Hydrox/Simethicone (Maalox) 30 ml PO Q4H PRN PRN Reason: GI Upset Stop: 03/21/19 17:22 Benztropine Mesylate (Cogentin) 1 mg PO Q8 PRN PRN Reason: Muscle Spasm Stop: 03/22/19 11:52 Bismuth Subsalicylate (Kaopectate) 15 ml PO PRN PRN PRN Reason: Loose Stool Stop: 03/21/19 17:22 Haloperidol (Haldol) 5 mg PO Q4H PRN PRN Reason: Agitation Stop: 03/21/19 20:25 Last Admin: 02/22/19 14:52 Dose: 5 mg Documented by: Haloperidol Lactate (Haldol) 5 mg IM Q4H PRN PRN Reason: Severe Agitation Stop: 03/21/19 20:25 Haloperidol Lactate (Haldol) 10 mg IM BID PRN PRN Reason: refusal of PO Haldol Stop: 03/25/19 10:34 Haloperidol Lactate (Haldol Lactate) 10 mg PO BID [facility] Stop: 03/04/19 09:01 Last Admin: 03/03/19 21:33 Dose: 10 mg Documented by: Haloperidol Lactate (Haldol Lactate) 10 mg PO BID [facility] Stop: 04/03/19 20:59 Hydroxyzine HCl (Vistaril) 50 mg PO HSZ PRN PRN Reason: Insomnia Stop: 03/21/19 17:22 Hydroxyzine HCl (Vistaril) 25 mg PO Q4H PRN PRN Reason: Anxiety Stop: 03/21/19 17:22 Lorazepam (Ativan) 2 mg IM Q4H PRN PRN Reason: Severe Agitation Stop: 03/21/19 20:25 Lorazepam (Ativan) 1 mg PO Q4H PRN PRN Reason: Agitation Stop: 03/21/19 20:25 Last Admin: 03/03/19 21:38 Dose: 1 mg Documented by: Magnesium Hydroxide (Milk Of Magnesia) 30 ml PO DAILY PRN PRN Reason: Heartburn Stop: 03/21/19 17:22 Sodium Chloride ([place] Nasal) 1 - 2 sprays NA PRN PRN PRN Reason: Nasal Dryness/Congestion Stop: 03/21/19 17:22 Mental Health & Subst Abuse Tx Therapist Name of Therapist: IOANA Hassan Electrician Third Name of Electrician Third: [employer] - Harriett Treviño Phone Number for Electrician Third: [phone] Case Management Appointment Comment: [address] [place] [address], [place] [address] Post Discharge Appointments Primary Care Physician [facility] Contact Information Discharge Discharge [address]: [address] [place] [address], [place] [address] CPT Code CPT Code 39467 (1) Schizophrenia Schizophrenia type: unspecified Qualified Code(s): F20.9 - Schizophrenia, unspecified
[2019-03-04] MEDS: LORazepam 1 MG TAB PO PRN ×2 (09:16→21:54)
[2019-03-04] MEDS: HALOPERIDOL 5 MG/2.5 ML UDP PO SCH (09:17)
[2019-03-04] MEDS: HALOPERIDOL ORAL SOLN 2 MG/ML PO SCH (21:43)
[2019-03-05] MEDS: HALOPERIDOL ORAL SOLN 2 MG/ML PO SCH ×2 (09:36→21:05)
--- NOTE | 2019-03-05 15:41 | Psychiatric Progress Note ---
Date of Service March 05, 2019 Impression / Recommendations Impression 24 y/o male with a history of schizophrenia, OCD, treatment nonadherence, and polysubstance abuse who presented with disorganized and threatening behavior, in the context of nonadherence, decompensation for the last several months and ongoing substance abuse. He was admitted on an involuntary commitment following escalating interactions with the police over disorganized and threatening behavior in the community, and is on a 304 involuntary commitment as of 03/01/19. The patient continues to have essentially no insight into his illness and insists that he believes that he does not have schizophrenia, nor does he believe that he has any other psychiatric illness. Instead, he attributes to the incompetence of others his encounters with police officers in the community, the behaviors that led to the admission, his history of previous psychiatric hospitalizations, and various past behaviors that are consistent with psychosis. At the same time, the patient seems to be beginning to understand that he will need to cooperate with treatment if he is to avoid long-term psychiatric hospitalization at a state facility --although, while indicating verbal understanding, he continues to be unwilling to complete the necessary paperwork that would allow us to fully explore diversion options with his based services unit. He is now saying that he will agree to take oral psychiatric medications, including haloperidol, on discharge. However, he continues to have difficulty accepting our recommendation that he be placed on a Depo form of haloperidol (Haldol decanoate) because of his long history of nonadherence with medications. We met today with the patient's parents, together with the patient and a administrative representative from the [facility] services unit for [facility]. The patient's parents clearly want what is best for the patient. The patient's father said several times that he expects mental health professionals to "identify the causes [of his son's illness) and get to the root of the problem."In essence, the patient's mother, and possibly his mother, believe that their son's schizophrenia can be cured, although they were able to hear and, perhaps, except the explanation that, at the present time, we do not yet know how to cure schizophreniaalthough we can effectively treat it. The patient's parents are also quite supportive, but at times appeared to be vacillating between aligning themselves with the patient's treatment providers, and at other times apparently suspecting the motives of the staff. For example, they seem to have trouble accepting that our goal is not long-term psychiatric hospitalization, but successful community reentry. There was also somewhat difficult to successfully encourage the parents to reinforce our recommendations, for example regarding long-acting intramuscular antipsychotic medications and by encouraging the patient to cooperate with our efforts to coordinate long-term care and diversion efforts. At the same time, as noted above, the patient's condition does seem to be improving and he has been somewhat less suspicious and somewhat more cooperative. Our hope is that as the patient continues to improve he will except that he has not, or at least to be able to accept that he will require long-acting Depo antipsychotic medications due to his history of recurrent nonadherence with psychiatric medications on an outpatient basis. (1) Schizophrenia: 02/20--The patient was admitted to the [facility] ([facility] unit) on q15 min checks (behavioral with suicide precautions) for safety. The patient will participate in group, recreational, and milieu therapies and will be offered additional individual and family sessions as clinically appropriate. Reviewed that he should resume antipsychotic medication FABIO and he would only discuss benzos. Adamant he won't resume Risperdal. Will offer Haldol 5 mg with Ativan 2 mg (take Haldol first) TID and readdress when less agitated. 02/21--mild improvement today in that less thought blocking and slightly less irritability. Refused meds again this am. In my opinion (Dr. Diaz), antipsychotic medication is medically necessary for the treatment of his psychosis given risk of or serious injury within 30 days. He has shown a pattern of non-compliance and escalating and threatening behavior in the community and his condition is unlikely to improve without forced psychiatric medications. Will order Haldol [address] Hubbard to provide second opinion on this and likely 303 petition tomorrow. 02/22 -patient remains inappropriate for groups and therapy, due to threatening and menacing behavior with staff and peers. Continue private room. -Increase haloperidol to 10 mg twice daily, and continue as needed doses. Agree with medications over objection, as patient has a history of a primary thought disorder, has been noncompliant with treatment which has led to decompensation, increasing psychosis, and escalating threatening and aggressive behavior in the community and now in the hospital. He required physical and chemical restraints in the ER due to threats to staff and attempts to leave. He has improved with antipsychotic medication in the past. -File for 303 hearing to be held tomorrow. -Patient remains uncooperative with attempts to assess him, will not provide historical information such as where he has been living or if he has any outpatient treatment, or sign releases for family or friends to provide collateral information. 02/23 -303 commitment granted. -Continue private room given threatening behavior, agitation, and recent history of erratic and inappropriate behavior in the community. Patient not yet appropriate for groups. -Continue haloperidol 10 mg twice daily, and 5 mg as needed. Will order an IM b ackup for refusal, as he has been seen by 2 physicians who both agree with medications over objection. He will likely need a long-acting injectable antipsychotic given his history of nonadherence. -Parents report he has been abusing benzodiazepines, and he is very focused on getting them here, asking for them frequently and receiving 8 mg of lorazepam daily. Will decrease to 1 mg every 4 hours as needed, with a plan to taper off prior to discharge given risk of abuse/misuse/negative outcomes. -Contact forensic family preservation caseworker, Harriett Treviño, and schedule a meeting to discuss treatment plan. Patient will likely need an involuntary outpatient commitment. 02/24 -continue Haldol p.o. with IM backup, and lorazepam as needed. Patient refusing to discuss other antipsychotic options, so if he remains on haloperidol, can receive Haldol Decanoate once the effective dose is reached. -Encourage patient to sign releases for his parents and for outpatient treatment referrals, so that discharge planning can begin. -Continue to enforce appropriate boundaries, as patient has been sexually inappropriate with female peer. Continue private room, and excused from groups until he is able to maintain behavioral control. 02/25 -continue Haldol, and lorazepam as needed. -Attempt scheduled family meeting with parents and his outpatient family preservation caseworker. -Encourage the patient to start engaging in treatment. He is willing to meet with a counselor one-on-one today. -Appropriate boundaries-patient has been reminded repeatedly of the need to cover his genital area and the inappropriateness of his sexual propositions to females. 02/26 -The patient is taking haloperidol 10 mg twice a day as prescribedalthough he repeatedly asks to have this medication discontinued. At the same time, he cannot or will not say, specifically, why he would like haloperidol to be discontinued, other than to say "it is not what I need." (The patient does appear to be tolerating haloperidol well, except for some excess sedation at this point.) -The patient continues to appear suspicious and is withdrawn. He is declining to actively participate in treatment. 02/27 Continue medication regimen unchanged 304 hearing scheduled for Friday. Patient will require chest x-ray and EKG [facility]. 02/28 Patient demonstrating some improved ability to participate and interacting more appropriately with peers and staff in last 24 hours. We will continue to advance therapeutic programming as tolerated and indicated. Continue Haldol as scheduled which remains well-tolerated. 03/01 -Patient noncompliant with mouth checks and continues to go to the bathroom just after taking pills; due to concerns for cheeking, will switch to liquid haloperidol, with IM back up for refusal. -304 granted. Refer to [facility]. -Schedule meeting with patient, family preservation caseworker, and family for discharge planning/exploring diversion options. 03/02 - Continue liquid haloperidol as above - Refusing to sign ROIs to allow for consideration or adequate coordination of diversion options. 03/03 - Continue current haloperidol dosing, liquid as above - Pt signed some conditional ROIs this morning to allow for potential coordination of diversion plan 03/04 - Continue current medication regimen - Meeting with mother and [facility] administrative representative to discuss diversionary discharge planning tomorrow morning - Continue to encourage participation in groups to most adequately assess thought content/process and appropriate behavior, these all appear to be improving 03/05 -We have been discussing the option of converting immediate release oral haloperidol to Haldol Decanoate, given his history of nonadherence. The patient's initial response was to become irritated and insists that he does not have a history of nonadherence with medications (even though he was initially nonadherent even here in the hospital). Later, he seemed to recognize that it is reasonable for treatment providers and caregivers to be concerned about his history of nonadherence with medications, and offered reassurance that he would promise to continue to take psychiatric medications as prescribedbut he does not want to take an intramuscular form. (2) Noncompliance with medication regimen: 02/22 -patient with chronic noncompliance which has severely impaired his ability to function or provide for his own basic needs in the community. He will likely need an involuntary outpatient commitment. 02/23 -303 commitment granted. Pursue medications over objection, consider long- acting injectable, and schedule meeting with forensic family preservation caseworker. 02/25 -file for 304 involuntary commitment, as state hospitalization may be needed given severity of his illness, lack of insight and unwillingness to engage in treatment, and pattern of noncompliance with treatment. Patient has requested an independent evaluation, so the hearing will be scheduled sometime next week once that is completed. Patient was informed, and states his preference is to leave the hospital immediately, with no outpatient treatment. 02/26 -The patient seems to have no insight into his illness, no insight into his need for treatment (with the exception of stimulant medications and clonazepam). He acknowledges that he had been in outpatient treatment, but stopped going "because it is not necessary." -Because of the severity of illness, the patient's lack of insight, and is not adherence with treatment on an outpatient basis, the plan was reiterated today is to refer the patient for long-term psychiatric hospitalization. 03/01 -Concerns for cheeking as above; change to liquid haloperidol with IM backup for refusal. Work towards long acting injectable. -304 granted; refer to [facility]. 03/05 -The patient seems to have improved since being given liquid haloperidol, which suggests but does not confirm that he had been "cheeking" his haloperidol tablets. This circumstance, combined with his history of recurrent nonadherence with medications on an outpatient basis are reasons that the treatment team agrees that a condition of discharge needs to be willingness to accept intramuscular Depo antipsychotic medications. (3) Anxiety: 02/22 -patient reports anxiety, but otherwise uncooperative with the assessment and does not appear overtly anxious; refusing vital signs for the last 3 days. He has been demanding high-dose benzodiazepines, and has been repeatedly informed that these are not indicated, but that Lorazepam is ordered as needed to be taken with haloperidol. 02/23 -parents describe history of OCD symptoms. Patient unwilling to participate in assessment, and no noticeable compulsions here, so unclear if currently active. Continue to monitor and assess. 02/25 -patient denies OCD symptoms, and none have been observed here. He does report feeling "anxious," but is a poor historian and unable to get much further information. He does not appear to be expansive panic. We will continue to assess and rule out SYBIL. He is refusing an SSRI antidepressant, wanting only benzodiazepines. 02/28Possibility of obsessive concern for germs again raised by nursing following his reluctance to take the Haldol tablet after it touched his pillow and reluctance to touch his silverware again after he has finished eating. Patient denies obsessions or compulsions but we will continue to monitor. 03/01 - Patient refusing to discuss OCD symptoms. 03/05 -Today, the patient was able to talk about his obsessive-compulsive symptoms, and his parents presence. However, he insisted that the thoughts and behaviors were not in any way abnormal, and he said "of other people have a problem with that, that is up to them." Reported behaviors include handwashing, fear of infectious disease contamination, and, for example, reluctance to touch other people, including his parents. (4) Substance abuse: 02/22 -drug screen positive for THC. Once he is less psychotic, we will need to provide education regarding the risks of cannabis use, specifically exacerbation of psychotic symptoms. -On admission, patient reported being prescribed clonazepam 2 mg twice daily, and per PDMP he last filled a prescription on 12/17/2018, from a Dr. Matt Oneill in [place], [place]. In the past year, he has filled clonazepam and dextroamphetamine/amphetamine prescriptions from 5 different clinicians in different parts of the state, a pattern consistent with substance abuse and drug-seeking. He does not appear to have been on clonazepam consistently, as his last 2 prescriptions were filled in 06/2018 and 12/2018. 02/23 -parents report history of alcohol, cannabis, benzodiazepine, and stimulant abuse. This is also indicated in previous records from 2017 hospitalization. -Avoid controlled substances given high risk of abuse. 02/26-Today, the patient tells us that he is able to take buspirone at an unspecified dose, but when we offered to prescribe this to him for anxiety he said "it is not necessary." When asked why clonazepam is necessary, if buspirone is not, he simply repeated "clonazepam is necessary. Buspirone is not necessary." 03/05 -The patient continues to have essentially no insight into the risks associated with the use of alcohol, cannabis, benzodiazepines, stimulants, and other drugs of abuse. When it was explained to him that these substances can and do interfere with treatment for mental illnesses such as schizophrenia, his replies to say "I do not have schizophrenia." Inventory Assets Strengths: College graduate. Supportive family. Needs: clarification of legal charges, outpatient services, adherence with treatment and medications Risk Factors Assessment Male: Yes : No Do You Have Access To A Gun?: No Health Problems: No Mental Health Diagnoses: Yes Substance Use Disorders: Yes Previous Psychiatric Hospitalization: Yes Protective Factors Assessment : No Responsible for Young Children: No Employed: No Supportive Family: Yes Good Rapport with Provider: No Interval History Identifying Information DENISE MURRY is a 24-year-old M who has a history of schizophrenia, who was admitted on 02/19/19 17:23 on a 302 involuntary commitment for threatening behavior in the community. He is on a 304 involuntary commitment as of 03/01/2019. Chief Complaint "Other people". Review of Systems Sleep Information Total Hours of Sleep: 7.5 Sleep Comments: pt on q-15 minute checks Meal Information Percent Meal Consumed - Breakfast: 100 Percent Meal Consumed - Lunch: 100 Percent Meal Consumed - Dinner: 100 Nutrition Comment: pt consistently throws away plastic utensils after eating rather than handing them back in Subjective Subjective Patient was seen & assessed and interval progress reviewed with Treatment Team. I met individually with the patient, as well as with the patient and his parents today in order to assess his current mental status, evaluate his response to treatment, make any necessary changes in his treatment regimen and coordination with the patient, and address issues and concerns that may arise. Reports from staff are that the patient has been less suspicious and generally more cooperative. However, he remains with holding, continues to answer questions with brief, clipped statements, and when asked to sign routine documents he looks at them suspiciously and refuses. He continues to tell us that he does not believe that he needs psychiatric medications, tells us that he does not have schizophrenia and that he has no psychiatric diagnoses. When asked to explain his psychiatric hospitalizations and problematic behaviors he externalizes all responsibility for these to other people who he describes as being confused or unable to tolerate what he considers to be reasonable behaviors. The patient's parents describe a history of irrational behaviors, such as his insisting that neither parent, anywhere near to him when he is eating because he is afraid that they will contaminate his food through spitting on it. The parents also say that he is sometimes "up for several days at a time without sleeping." The patient tells us that he continues to see nothing wrong with his decision to take off his pants and attempt to go through a metal detector at a court house and only his boxer shorts (below the waist) and says that he feels that this is perfectly reasonable for anyone to do showed a have difficulty passing through a metal detector. When it was pointed out to him today that he has been responding favorably to haloperidol, and when we recommended that he take this medication as an intramuscular injection (Depo form) because of his history of recurrent nonadherence with medications following discharge, as well as his nonadherence with medication during the initial portion of his current stay, the patient became irritated and insisted that it is not true that he stops medications on an outpatient basis. (This is well documented.) He tells me that he is interested in a diversion from the planned transfer to the [facility] [place], and asks repeatedly what he needs to do in order to accomplish a diversion. However, he seems unwilling to accept our expectations in this regard, which include agreement to a Depo form of psychiatric medications, full participation in treatment on the unit, and cooperation in the service of promoting communication between the treatment team and the base services unit that would be charged with creating a diversion plan. Physical Exam Psychiatric Orientation: oriented x 3 Apperance: appropriately dressed and appropriately groomed Eye Contact: + poor eye contact Motor Behavior: no abnormal motor movements The patient's speech is often nonspontaneous. At times, he does not respond to questions and, instead, turns his head away or yawns. Affect: + blunted affect "Fine." Thought Process: + concrete thought process Thought Content: + paranoid The patient is not forthcoming, and it is difficult to assess his thought content because he is so guarded. No delusional material was identified today and the patient's thought content, but he continues to be clearly suspicious of the motives of staff and others. Suicidal Thoughts: denies suicidal thoughts Homicidal Thoughts: denies homicidal thoughts Hallucinations: no auditory hallucinations Cognition: recent memory grossly intact, remote memory grossly intact and language grossly intact Estimated Intelligence: + above average estimated intelligence Insight: + severely impaired insight Judgement: + poor judgement Vital Signs (Past 24 Hours) Last Vital Signs Temp 36.8 C 02/19/19 19:39 Pulse 91 H 02/19/19 19:39 Resp 18 02/19/19 19:39 BP 134/82 02/19/19 19:39 Pulse Ox 99 02/19/19 19:39 Results & Data Current Inpatient Medications Current Inpatient Medications: Current Inpatient Medications Acetaminophen (Tylenol) 650 mg PO Q4H PRN PRN Reason: Headache or Minor Fever Stop: 03/21/19 17:22 Al Hydrox/Mg Hydrox/Simethicone (Maalox) 30 ml PO Q4H PRN PRN Reason: GI Upset Stop: 03/21/19 17:22 Benztropine Mesylate (Cogentin) 1 mg PO Q8 PRN PRN Reason: Muscle Spasm Stop: 03/22/19 11:52 Bismuth Subsalicylate (Kaopectate) 15 ml PO PRN PRN PRN Reason: Loose Stool Stop: 03/21/19 17:22 Haloperidol (Haldol) 5 mg PO Q4H PRN PRN Reason: Agitation Stop: 03/21/19 20:25 Last Admin: 02/22/19 14:52 Dose: 5 mg Documented by: Haloperidol Lactate (Haldol) 5 mg IM Q4H PRN PRN Reason: Severe Agitation Stop: 03/21/19 20:25 Haloperidol Lactate (Haldol) 10 mg IM BID PRN PRN Reason: refusal of PO Haldol Stop: 03/25/19 10:34 Haloperidol Lactate (Haldol Lactate) 10 mg PO BID [facility] Stop: 04/03/19 20:59 Last Admin: 03/05/19 09:36 Dose: 10 mg Documented by: Hydroxyzine HCl (Vistaril) 50 mg PO HSZ PRN PRN Reason: Insomnia Stop: 03/21/19 17:22 Hydroxyzine HCl (Vistaril) 25 mg PO Q4H PRN PRN Reason: Anxiety Stop: 03/21/19 17:22 Lorazepam (Ativan) 2 mg IM Q4H PRN PRN Reason: Severe Agitation Stop: 03/21/19 20:25 Lorazepam (Ativan) 1 mg PO Q4H PRN PRN Reason: Agitation Stop: 03/21/19 20:25 Last Admin: 03/04/19 21:54 Dose: 1 mg Documented by: Magnesium Hydroxide (Milk Of Magnesia) 30 ml PO DAILY PRN PRN Reason: Heartburn Stop: 03/21/19 17:22 Sodium Chloride ([place] Nasal) 1 - 2 sprays NA PRN PRN PRN Reason: Nasal Dryness/Congestion Stop: 03/21/19 17:22 Mental Health & Subst Abuse Tx Therapist Name of Therapist: IOANA Hassan Packaging Coordinator Name of Packaging Coordinator: Base Service Unit - Harriett Treviño Phone Number for Packaging Coordinator: [phone] Case Management Appointment Comment: [address], [place] [address] Post Discharge Appointments Primary Care Physician Name Of Family Doctor: STACEY Holt Contact Information Discharge Discharge [address]: [address] [place] [id number] CPT Code CPT Code 63902 (1) Schizophrenia Schizophrenia type: unspecified Qualified Code(s): F20.9 - Schizophrenia, unspecified
[2019-03-06] MEDS: HALOPERIDOL ORAL SOLN 2 MG/ML PO SCH ×2 (09:54→21:31)
[2019-03-06] MEDS: LORazepam 1 MG TAB PO PRN ×2 (09:54→21:34)
--- NOTE | 2019-03-06 13:33 | Psychiatric Progress Note ---
Date of Service March 06, 2019 Impression / Recommendations Impression 24 y/o male with a history of schizophrenia, OCD, treatment nonadherence, and polysubstance abuse who presented with disorganized and threatening behavior, in the context of nonadherence, decompensation for the last several months and ongoing substance abuse. He was admitted on an involuntary commitment following escalating interactions with the police over disorganized and threatening behavior in the community, and is on a 304 involuntary commitment as of 03/01/19. The patient continues to have essentially no insight into his illness and insists that he believes that he does not have schizophrenia, nor does he believe that he has any other psychiatric illness. Instead, he attributes to the incompetence of others his encounters with police officers in the community, the behaviors that led to the admission, his history of previous psychiatric hospitalizations, and various past behaviors that are consistent with psychosis. At the same time, the patient seems to be beginning to understand that he will need to cooperate with treatment if he is to avoid long-term psychiatric hospitalization at a state facility --although, while indicating verbal understanding, he continues to be unwilling to complete the necessary paperwork that would allow us to fully explore diversion options with his based services unit. He is now saying that he will agree to take oral psychiatric medications, including haloperidol, on discharge. However, he continues to have difficulty accepting our recommendation that he be placed on a Depo form of haloperidol (Haldol decanoate) because of his long history of nonadherence with medications. We met today with the patient's parents, together with the patient and a circulation representative from the [facility] unit for [facility]. The patient's parents clearly want what is best for the patient. The patient's father said several times that he expects mental health professionals to "identify the causes [of his son's illness) and get to the root of the problem."In essence, the patient's mother, and possibly his mother, believe that their son's schizophrenia can be cured, although they were able to hear and, perhaps, except the explanation that, at the present time, we do not yet know how to cure schizophreniaalthough we can effectively treat it. The patient's parents are also quite supportive, but at times appeared to be vacillating between aligning themselves with the patient's treatment providers, and at other times apparently suspecting the motives of the staff. For example, they seem to have trouble accepting that our goal is not long-term psychiatric hospitalization, but successful community reentry. There was also somewhat difficult to successfully encourage the parents to reinforce our recommendations, for example regarding long-acting intramuscular antipsychotic medications and by encouraging the patient to cooperate with our efforts to coordinate long-term care and diversion efforts. At the same time, as noted above, the patient's condition does seem to be improving and he has been somewhat less suspicious and somewhat more cooperative. Our hope is that as the patient continues to improve he will except that he has not, or at least to be able to accept that he will require long-acting Depo antipsychotic medications due to his history of recurrent nonadherence with psychiatric medications on an outpatient basis. He appears to be considering the CASTANEDA but with the consideraiton being tied to its impact on aftercare options, although it is a starting point (1) Schizophrenia: 02/20--The patient was admitted to the [facility] ([facility]) on q15 min checks (behavioral with suicide precautions) for safety. The patient will participate in group, recreational, and milieu therapies and will be offered additional individual and family sessions as clinically appropriate. Reviewed that he should resume antipsychotic medication FABIO and he would only discuss benzos. Adamant he won't resume Risperdal. Will offer Haldol 5 mg with Ativan 2 mg (take Haldol first) TID and readdress when less agitated. 02/21--mild improvement today in that less thought blocking and slightly less irritability. Refused meds again this am. In my opinion (Dr. Diaz), antipsychotic medication is medically necessary for the treatment of his psychosis given risk of or serious injury within 30 days. He has shown a pattern of non-compliance and escalating and threatening behavior in the community and his condition is unlikely to improve without forced psychiatric medications. Will order Haldol [address] Hubbard to provide second opinion on this and likely 303 petition tomorrow. 02/22 -patient remains inappropriate for groups and therapy, due to threatening and menacing behavior with staff and peers. Continue private room. -Increase haloperidol to 10 mg twice daily, and continue as needed doses. Agree with medications over objection, as patient has a history of a primary thought disorder, has been noncompliant with treatment which has led to decompensation, increasing psychosis, and escalating threatening and aggressive behavior in the community and now in the hospital. He required physical and chemical restraints in the ER due to threats to staff and attempts to leave. He has improved with antipsychotic medication in the past. -File for 303 hearing to be held tomorrow. -Patient remains uncooperative with attempts to assess him, will not provide historical information such as where he has been living or if he has any outpatient treatment, or sign releases for family or friends to provide collateral information. 02/23 -303 commitment granted. -Continue private room given threatening behavior, agitation, and recent history of erratic and inappropriate behavior in the community. Patient not yet appropriate for groups. -Continue haloperidol 10 mg twice daily, and 5 mg as needed. Will order an IM backup for refusal, as he has been seen by 2 physicians who both agree with medications over objection. He will likely need a long-acting injectable antipsychotic given his history of nonadherence. -Parents report he has been abusing benzodiazepines, and he is very focused on getting them here, asking for them frequently and receiving 8 mg of lorazepam daily. Will decrease to 1 mg every 4 hours as needed, with a plan to taper off prior to discharge given risk of abuse/misuse/negative outcomes. -Contact forensic child welfare caseworker, Harriett Treviño, and schedule a meeting to discuss treatment plan. Patient will likely need an involuntary outpatient commitment. 02/24 -continue Haldol p.o. with IM backup, and lorazepam as needed. Patient refusing to discuss other antipsychotic options, so if he remains on haloperidol, can receive Haldol Decanoate once the effective dose is reached. -Encourage patient to sign releases for his parents and for outpatient treatment referrals, so that discharge planning can begin. -Continue to enforce appropriate boundaries, as patient has been sexually inappropriate with female peer. Continue private room, and excused from groups until he is able to maintain behavioral control. 02/25 -continue Haldol, and lorazepam as needed. -Attempt scheduled family meeting with parents and his outpatient child welfare caseworker. -Encourage the patient to start engaging in treatment. He is willing to meet with a counselor one-on-one today. -Appropriate boundaries-patient has been reminded repeatedly of the need to cover his genital area and the inappropriateness of his sexual propositions to females. 02/26 -The patient is taking haloperidol 10 mg twice a day as prescribedalthough he repeatedly asks to have this medication discontinued. At the same time, he cannot or will not say, specifically, why he would like haloperidol to be discontinued, other than to say "it is not what I need." (The patient does appear to be tolerating haloperidol well, except for some excess sedation at this point.) -The patient continues to appear suspicious and is withdrawn. He is declining to actively participate in treatment. 02/27 Continue medication regimen unchanged 304 hearing scheduled for Friday. Patient will require chest x-ray and EKG prior to transfer to [facility]. 02/28 Patient demonstrating some improved ability to participate and interacting more appropriately with peers and staff in last 24 hours. We will continue to advance therapeutic programming as tolerated and indicated. Continue Haldol as scheduled which remains well-tolerated. 03/01 -Patient noncompliant with mouth checks and continues to go to the bathroom just after taking pills; due to concerns for cheeking, will switch to liquid haloperidol, with IM back up for refusal. -304 granted. Refer to [facility]. -Schedule meeting with patient, child welfare caseworker, and family for discharge planning/exploring diversion options. 03/02 - Continue liquid haloperidol as above - Refusing to sign ROIs to allow for consideration or adequate coordination of diversion options. 03/03 - Continue current haloperidol dosing, liquid as above - Pt signed some conditional ROIs this morning to allow for potential coordination of diversion plan 03/04 - Continue current medication regimen - Meeting with mother and [facility] circulation representative to discuss diversionary discharge planning tomorrow morning - Continue to encourage participation in groups to most adequately assess thought content/process and appropriate behavior, these all appear to be improving 03/05 -We have been discussing the option of converting immediate release oral haloperidol to Haldol Decanoate, given his history of nonadherence. The patient's initial response was to become irritated and insists that he does not have a history of nonadherence with medications (even though he was initially nonadherent even here in the hospital). Later, he seemed to recognize that it is reasonable for treatment providers and caregivers to be concerned about his history of nonadherence with medications, and offered reassurance that he would promise to continue to take psychiatric medications as prescribedbut he does not want to take an intramuscular form. 03/06 - continue to engage ieth him about his medication and treatment plan and addressing potential of Haldol Dec CASTANEDA. addressing if pt is willing to sign TERRY's for CRR's as potential plans [facility] (2) Noncompliance with medication regimen: 02/22 -patient with chronic noncompliance which has severely impaired his ability to function or provide for his own basic needs in the community. He will likely need an involuntary outpatient commitment. 02/23 -303 commitment granted. Pursue medications over objection, consider long- acting injectable, and schedule meeting with forensic child welfare caseworker. 02/25 -file for 304 involuntary commitment, as state hospitalization may be needed given severity of his illness, lack of insight and unwillingness to engage in treatment, and pattern of noncompliance with treatment. Patient has requested an independent evaluation, so the hearing will be scheduled sometime next week once that is completed. Patient was informed, and states his preference is to leave the hospital immediately, with no outpatient treatment. 02/26 -The patient seems to have no insight into his illness, no insight into his need for treatment (with the exception of stimulant medications and clonazepam). He acknowledges that he had been in outpatient treatment, but stopped going "because it is not necessary." -Because of the severity of illness, the patient's lack of insight, and is not adherence with treatment on an outpatient basis, the plan was reiterated today is to refer the patient for long-term psychiatric hospitalization. 03/01 -Concerns for cheeking as above; change to liquid haloperidol with IM backup for refusal. Work towards long acting injectable. -304 granted; refer to [facility]. 03/05 -The patient seems to have improved since being given liquid haloperidol, which suggests but does not confirm that he had been "cheeking" his haloperidol tablets. This circumstance, combined with his history of recurrent nonadherence with medications on an outpatient basis are reasons that the treatment team agrees that a condition of discharge needs to be willingness to accept intramuscular Depo antipsychotic medications. 03/06 =as above (3) Anxiety: 02/22 -patient reports anxiety, but otherwise uncooperative with the assessment and does not appear overtly anxious; refusing vital signs for the last 3 days. He has been demanding high-dose benzodiazepines, and has been repeatedly informed that these are not indicated, but that Lorazepam is ordered as needed to be taken with haloperidol. 02/23 -parents describe history of OCD symptoms. Patient unwilling to participate in assessment, and no noticeable compulsions here, so unclear if currently active. Continue to monitor and assess. 02/25 -patient denies OCD symptoms, and none have been observed here. He does report feeling "anxious," but is a poor historian and unable to get much further information. He does not appear to be expansive panic. We will continue to assess and rule out SYBIL. He is refusing an SSRI antidepressant, wanting only benzodiazepines. 02/28Possibility of obsessive concern for germs again raised by nursing following his reluctance to take the Haldol tablet after it touched his pillow and reluctance to touch his silverware again after he has finished eating. Patient denies obsessions or compulsions but we will continue to monitor. 03/01 - Patient refusing to discuss OCD symptoms. 03/05 -Today, the patient was able to talk about his obsessive-compulsive symptoms, and his parents presence. However, he insisted that the thoughts and behaviors were not in any way abnormal, and he said "of other people have a problem with that, that is up to them." Reported behaviors include handwashing, fear of infectious disease contamination, and, for example, reluctance to touch other people, including his parents. (4) Substance abuse: 02/22 -drug screen positive for THC. Once he is less psychotic, we will need to provide education regarding the risks of cannabis use, specifically exacerbation of psychotic symptoms. -On admission, patient reported being prescribed clonazepam 2 mg twice daily, and per PDMP he last filled a prescription on 12/17/2018, from a Dr. Matt Oneill in [place], [place]. In the past year, he has filled clonazepam and dextroamphetamine/amphetamine prescriptions from 5 different clinicians in different parts of the state, a pattern consistent with substance abuse and drug-seeking. He does not appear to have been on clonazepam consistently, as his last 2 prescriptions were filled in 06/2018 and 12/2018. 02/23 -parents report history of alcohol, cannabis, benzodiazepine, and stimulant abuse. This is also indicated in previous records from 2017 hospitalization. -Avoid controlled substances given high risk of abuse. 02/26-Today, the patient tells us that he is able to take buspirone at an unspeci fied dose, but when we offered to prescribe this to him for anxiety he said "it is not necessary." When asked why clonazepam is necessary, if buspirone is not, he simply repeated "clonazepam is necessary. Buspirone is not necessary." 03/05 -The patient continues to have essentially no insight into the risks associated with the use of alcohol, cannabis, benzodiazepines, stimulants, and other drugs of abuse. When it was explained to him that these substances can and do interfere with treatment for mental illnesses such as schizophrenia, his replies to say "I do not have schizophrenia." Inventory Assets Strengths: College graduate. Supportive family. Needs: clarification of legal charges, outpatient services, adherence with treatment and medications Risk Factors Assessment Male: Yes : No Do You Have Access To A Gun?: No Health Problems: No Mental Health Diagnoses: Yes Substance Use Disorders: Yes Previous Psychiatric Hospitalization: Yes Protective Factors Assessment : No Responsible for Young Children: No Employed: No Supportive Family: Yes Good Rapport with Provider: No Interval History Identifying Information DENISE MURRY is a 24-year-old M who has a history of schizophrenia, who was admitted on 02/19/19 17:23 on a 302 involuntary commitment for threatening behavior in the community. He is on a 304 involuntary commitment as of 03/01/2019. Chief Complaint "is there options to not go to [facility]". Review of Systems Sleep Information Total Hours of Sleep: 7 Sleep Comments: pt on q-15 minute checks Meal Information Percent Meal Consumed - Breakfast: 100 Percent Meal Consumed - Lunch: 100 Percent Meal Consumed - Dinner: 100 Nutrition Comment: pt consistently throws away plastic utensils after eating rather than handing them back in Subjective Subjective Patient was seen & assessed and interval progress reviewed with nursing and social work. Pt preoccupied and focused on exploring diversion options. Pt wanting to known if certain to go to [facility] if diversion does not occur and if certain could have diversion. Pt guarded. Denied being paranoid or suspicious though. Pt indicates that doctors dx him as having schizophrenia but he will only concede its a possibility. HE feels Haldol helps some but he is not able to articulate in what way it helps or in what ways he would it to help further. He is considering Haldol decanoate injections and started to indicate willing to have a first injection of it but then pulled back to just something he is considering. He denied SI or HI or Hallucinations. senior copywriter attempted to review with pt the meeting that occurred yesterday with parents and [facility] staff. Physical Exam Psychiatric Orientation: alert, oriented x 3, cooperative (pleasant conversation today) and + guarded (remaining somewhat guarded) Apperance: appropriately dressed, appropriately groomed and appeared stated age Eye Contact: good eye contact Motor Behavior: steady gait and station, no abnormal motor movements and + psychomotor retardation Speech: normal rate/rhythm/volume of speech (rather brief responses to questions, monotone) Affect: + blunted affect; no depressed affect, no anxious affect and + mood not congruent with affect Mood: no depressed mood good mood Thought Process: goal directed thought process, clear/coherent thought process, + thought blocking, + tangential thought process, + perseveration, + concrete thought process and + incoherent thought process; + thought association not intact Thought Content: + preoccupation, + paranoid and + persecution Suicidal Thoughts: denies suicidal thoughts, denies suicidal plan and denies suicidal intent Homicidal Thoughts: denies homicidal thoughts Hallucinations: no auditory hallucinations and no visual hallucinations Cognition: recent memory grossly intact, remote memory grossly intact, attention grossly intact and language grossly intact Estimated Intelligence: consistent with education level and + above average estimated intelligence Insight: + impaired insight Judgement: + impaired judgement Vital Signs (Past 24 Hours) Last Vital Signs Temp 36.8 C 02/19/19 19:39 Pulse 91 H 02/19/19 19:39 Resp 18 02/19/19 19:39 BP 134/82 02/19/19 19:39 Pulse Ox 99 02/19/19 19:39 Results & Data Current Inpatient Medications Current Inpatient Medications: Current Inpatient Medications Acetaminophen (Tylenol) 650 mg PO Q4H PRN PRN Reason: Headache or Minor Fever Stop: 03/21/19 17:22 Al Hydrox/Mg Hydrox/Simethicone (Maalox) 30 ml PO Q4H PRN PRN Reason: GI Upset Stop: 03/21/19 17:22 Benztropine Mesylate (Cogentin) 1 mg PO Q8 PRN PRN Reason: Muscle Spasm Stop: 03/22/19 11:52 Bismuth Subsalicylate (Kaopectate) 15 ml PO PRN PRN PRN Reason: Loose Stool Stop: 03/21/19 17:22 Haloperidol (Haldol) 5 mg PO Q4H PRN PRN Reason: Agitation Stop: 03/21/19 20:25 Last Admin: 02/22/19 14:52 Dose: 5 mg Documented by: Haloperidol Lactate (Haldol) 5 mg IM Q4H PRN PRN Reason: Severe Agitation Stop: 03/21/19 20:25 Haloperidol Lactate (Haldol) 10 mg IM BID PRN PRN Reason: refusal of PO Haldol Stop: 03/25/19 10:34 Haloperidol Lactate (Haldol Lactate) 10 mg PO BID [facility] Stop: 04/03/19 20:59 Last Admin: 03/06/19 09:54 Dose: 10 mg Documented by: Hydroxyzine HCl (Vistaril) 50 mg PO HSZ PRN PRN Reason: Insomnia Stop: 03/21/19 17:22 Hydroxyzine HCl (Vistaril) 25 mg PO Q4H PRN PRN Reason: Anxiety Stop: 03/21/19 17:22 Lorazepam (Ativan) 2 mg IM Q4H PRN PRN Reason: Severe Agitation Stop: 03/21/19 20:25 Lorazepam (Ativan) 1 mg PO Q4H PRN PRN Reason: Agitation Stop: 03/21/19 20:25 Last Admin: 03/06/19 09:54 Dose: 1 mg Documented by: Magnesium Hydroxide (Milk Of Magnesia) 30 ml PO DAILY PRN PRN Reason: Heartburn Stop: 03/21/19 17:22 Sodium Chloride ([place] Nasal) 1 - 2 sprays NA PRN PRN PRN Reason: Nasal Dryness/Congestion Stop: 03/21/19 17:22 Mental Health & Subst Abuse Tx Therapist Name of Therapist: IOANA Hassan Director Consumer Affairs Name of Director Consumer Affairs: [facility] - Harriett Treviño Phone Number for Director Consumer Affairs: [phone] Case Management Appointment Comment: [address], [place] [address] Post Discharge Appointments Primary Care Physician Name Of Family Doctor: STACEY Holt Contact Information Discharge Discharge [address]: [address] [place] [id number] CPT Code CPT Code [id number] (1) Schizophrenia Schizophrenia type: unspecified Qualified Code(s): F20.9 - Schizophrenia, unspecified
[2019-03-07] MEDS: HALOPERIDOL ORAL SOLN 2 MG/ML PO SCH ×2 (09:03→21:32)
[2019-03-07] MEDS: LORazepam 1 MG TAB PO PRN ×2 (09:03→21:34)
--- NOTE | 2019-03-07 18:28 | Psychiatric Progress Note ---
Date of Service March 07, 2019 Impression / Recommendations Impression 24 y/o male with a history of schizophrenia, OCD, treatment nonadherence, and polysubstance abuse who presented with disorganized and threatening behavior, in the context of nonadherence, decompensation for the last several months and ongoing substance abuse. He was admitted on an involuntary commitment following escalating interactions with the police over disorganized and threatening behavior in the community, and is on a 304 involuntary commitment as of 03/01/19. The patient continues to have essentially no insight into his illness and insists that he believes that he does not have schizophrenia, nor does he believe that he has any other psychiatric illness. Instead, he attributes to the incompetence of others his encounters with police officers in the community, the behaviors that led to the admission, his history of previous psychiatric hospitalizations, and various past behaviors that are consistent with psychosis. At the same time, the patient seems to be beginning to understand that he will need to cooperate with treatment if he is to avoid long-term psychiatric hospitalization at a state facility --although, while indicating verbal understanding, he continues to be unwilling to complete the necessary paperwork that would allow us to fully explore diversion options with his based services unit. He is now saying that he will agree to take oral psychiatric medications, including haloperidol, on discharge. However, he continues to have difficulty accepting our recommendation that he be placed on a Depo form of haloperidol (Haldol decanoate) because of his long history of nonadherence with medications. We met today with the patient's parents, together with the patient and a loss control representative from the [facility] for [facility]. The patient's parents clearly want what is best for the patient. The patient's father said several times that he expects mental health professionals to "identify the causes [of his son's illness) and get to the root of the problem."In essence, the patient's mother, and possibly his mother, believe that their son's schizophrenia can be cured, although they were able to hear and, perhaps, except the explanation that, at the present time, we do not yet know how to cure schizophreniaalthough we can effectively treat it. The patient's parents are also quite supportive, but at times appeared to be vacillating between aligning themselves with the patient's treatment providers, and at other times apparently suspecting the motives of the staff. For example, they seem to have trouble accepting that our goal is not long-term psychiatric hospitalization, but successful community reentry. There was also somewhat difficult to successfully encourage the parents to reinforce our recommendations, for example regarding long-acting intramuscular antipsychotic medications and by encouraging the patient to cooperate with our efforts to coordinate long-term care and diversion efforts. At the same time, as noted above, the patient's condition does seem to be improving and he has been somewhat less suspicious and somewhat more cooperative. Our hope is that as the patient continues to improve he will except that he has not, or at least to be able to accept that he will require long-acting Depo antipsychotic medications due to his history of recurrent nonadherence with psychiatric medications on an outpatient basis. He appears to be considering the CASTANEDA but with the consideration being tied to its impact on aftercare options, although it is a starting point. Pt apepars to be more open about Terry's and possibility of haldol dec injection as of 03/07 (1) Schizophrenia: 02/20--The patient was admitted to the [facility] on q15 min checks (behavioral with suicide precautions) for safety. The patient will participate in group, recreational, and milieu therapies and will be offered additional individual and family sessions as clinically appropriate. Reviewed that he should resume antipsychotic medication FABIO and he would only discuss benzos. Adamant he won't resume Risperdal. Will offer Haldol 5 mg with Ativan 2 mg (take Haldol first) TID and readdress when less agitated. 02/21--mild improvement today in that less thought blocking and slightly less irritability. Refused meds again this am. In my opinion (Dr. Diaz), antipsychotic medication is medically necessary for the treatment of his psychosis given risk of or serious injury within 30 days. He has shown a pattern of non-compliance and escalating and threatening behavior in the commun ity and his condition is unlikely to improve without forced psychiatric medications. Will order Haldol [address] Hubbard to provide second opinion on this and likely 303 petition tomorrow. 02/22 -patient remains inappropriate for groups and therapy, due to threatening and menacing behavior with staff and peers. Continue private room. -Increase haloperidol to 10 mg twice daily, and continue as needed doses. Agree with medications over objection, as patient has a history of a primary thought disorder, has been noncompliant with treatment which has led to decompensation, increasing psychosis, and escalating threatening and aggressive behavior in the community and now in the hospital. He required physical and chemical restraints in the ER due to threats to staff and attempts to leave. He has improved with antipsychotic medication in the past. -File for 303 hearing to be held tomorrow. -Patient remains uncooperative with attempts to assess him, will not provide historical information such as where he has been living or if he has any outpatient treatment, or sign releases for family or friends to provide collateral information. 02/23 -303 commitment granted. -Continue private room given threatening behavior, agitation, and recent history of erratic and inappropriate behavior in the community. Patient not yet appropriate for groups. -Continue haloperidol 10 mg twice daily, and 5 mg as needed. Will order an IM backup for refusal, as he has been seen by 2 physicians who both agree with medications over objection. He will likely need a long-acting injectable antipsychotic given his history of nonadherence. -Parents report he has been abusing benzodiazepines, and he is very focused on getting them here, asking for them frequently and receiving 8 mg of lorazepam daily. Will decrease to 1 mg every 4 hours as needed, with a plan to taper off prior to discharge given risk of abuse/misuse/negative outcomes. -Contact forensic renal case manager, Harriett Treviño, and schedule a meeting to discuss treatment plan. Patient will likely need an involuntary outpatient commitment. 02/24 -continue Haldol p.o. with IM backup, and lorazepam as needed. Patient refusing to discuss other antipsychotic options, so if he remains on haloperidol, can receive Haldol Decanoate once the effective dose is reached. -Encourage patient to sign releases for his parents and for outpatient treatment referrals, so that discharge planning can begin. -Continue to enforce appropriate boundaries, as patient has been sexually inappropriate with female peer. Continue private room, and excused from groups until he is able to maintain behavioral control. 02/25 -continue Haldol, and lorazepam as needed. -Attempt scheduled family meeting with parents and his outpatient renal case manager. -Encourage the patient to start engaging in treatment. He is willing to meet with a counselor one-on-one today. -Appropriate boundaries-patient has been reminded repeatedly of the need to cover his genital area and the inappropriateness of his sexual propositions to females. 02/26 -The patient is taking haloperidol 10 mg twice a day as prescribedalthough he repeatedly asks to have this medication discontinued. At the same time, he cannot or will not say, specifically, why he would like haloperidol to be discontinued, other than to say "it is not what I need." (The patient does appear to be tolerating haloperidol well, except for some excess sedation at this point.) -The patient continues to appear suspicious and is withdrawn. He is declining to actively participate in treatment. 02/27 Continue medication regimen unchanged 304 hearing scheduled for Friday. Patient will require chest x-ray and E[facility] 02/28 Patient demonstrating some improved ability to participate and interacting more appropriately with peers and staff in last 24 hours. We will continue to advance therapeutic programming as tolerated and indicated. Continue Haldol as scheduled which remains well-tolerated. 03/01 -Patient noncompliant with mouth checks and continues to go to the bathroom just after taking pills; due to concerns for cheeking, will switch to liquid haloperidol, with IM back up for refusal. -304 granted. Refer to [facility]. -Schedule meeting with patient, renal case manager, and family for discharge planning/exploring diversion options. 03/02 - Continue liquid haloperidol as above - Refusing to sign ROIs to allow for consideration or adequate coordination of diversion options. 03/03 - Continue current haloperidol dosing, liquid as above - Pt signed some conditional ROIs this morning to allow for potential coordination of diversion plan 03/04 - Continue current medication regimen - Meeting with mother and [facility] loss control representative to discuss diversionary discharge planning tomorrow morning - Continue to encourage participation in groups to most adequately assess thought content/process and appropriate behavior, these all appear to be improving 03/05 -We have been discussing the option of converting immediate release oral haloperidol to Haldol Decanoate, given his history of nonadherence. The patient's initial response was to become irritated and insists that he does not have a history of nonadherence with medications (even though he was initially nonadherent even here in the hospital). Later, he seemed to recognize that it is reasonable for treatment providers and caregivers to be concerned about his history of nonadherence with medications, and offered reassurance that he would promise to continue to take psychiatric medications as prescribedbut he does not want to take an intramuscular form. 03/06 - continue to engage ieth him about his medication and treatment plan and addressing potential of Haldol Dec CASTANEDA. addressing if pt is willing to sign TERRY's for CRR's as potential plans [facility] 03/07 - making progress towards TERRY and possibility of haldol Dec but not fully occurred as of yet (2) Noncompliance with medication regimen: 02/22 -patient with chronic noncompliance which has severely impaired his ability to function or provide for his own basic needs in the community. He will likely need an involuntary outpatient commitment. 02/23 -303 commitment granted. Pursue medications over objection, consider long- acting injectable, and schedule meeting with forensic renal case manager. 02/25 -file for 304 involuntary commitment, as state hospitalization may be needed given severity of his illness, lack of insight and unwillingness to engage in treatment, and pattern of noncompliance with treatment. Patient has requested an independent evaluation, so the hearing will be scheduled sometime next week once that is completed. Patient was informed, and states his preference is to leave the hospital immediately, with no outpatient treatment. 02/26 -The patient seems to have no insight into his illness, no insight into his need for treatment (with the exception of stimulant medications and clonazepam). He acknowledges that he had been in outpatient treatment, but stopped going "because it is not necessary." -Because of the severity of illness, the patient's lack of insight, and is not adherence with treatment on an outpatient basis, the plan was reiterated today is to refer the patient for long-term psychiatric hospitalization. 03/01 -Concerns for cheeking as above; change to liquid haloperidol with IM backup for refusal. Work towards long acting injectable. -304 granted; refer to [facility]. 03/05 -The patient seems to have improved since being given liquid haloperidol, which suggests but does not confirm that he had been "cheeking" his haloperidol tablets. This circumstance, combined with his history of recurrent nonadherence with medications on an outpatient basis are reasons that the treatment team agrees that a condition of discharge needs to be willingness to accept intramuscular Depo antipsychotic medications. 03/06 =as above (3) Anxiety: 02/22 -patient reports anxiety, but otherwise uncooperative with the assessment and does not appear overtly anxious; refusing vital signs for the last 3 days. He has been demanding high-dose benzodiazepines, and has been repeatedly informed that these are not indicated, but that Lorazepam is ordered as needed to be taken with haloperidol. 02/23 -parents describe history of OCD symptoms. Patient unwilling to participate in assessment, and no noticeable compulsions here, so unclear if currently active. Continue to monitor and assess. 02/25 -patient denies OCD symptoms, and none have been observed here. He does report feeling "anxious," but is a poor historian and unable to get much further information. He does not appear to be expansive panic. We will continue to assess and rule out SYBIL. He is refusing an SSRI antidepressant, wanting only benzodiazepines. 02/28Possibility of obsessive concern for germs again raised by nursing following his reluctance to take the Haldol tablet after it touched his pillow and reluctance to touch his silverware again after he has finished eating. Patient denies obsessions or compulsions but we will continue to monitor. 03/01 - Patient refusing to discuss OCD symptoms. 03/05 -Today, the patient was able to talk about his obsessive-compulsive symptoms, and his parents presence. However, he insisted that the thoughts and behaviors were not in any way abnormal, and he said "of other people have a problem with that, that is up to them." Reported behaviors include handwashing, fear of infectious disease contamination, and, for example, reluctance to touch other people, including his parents. (4) Substance abuse: 02/22 -drug screen positive for THC. Once he is less psychotic, we will need to provide education regarding the risks of cannabis use, specifically exacerbation of psychotic symptoms. -On admission, patient reported being prescribed clonazepam 2 mg twice daily, and per PDMP he last filled a prescription on 12/17/2018, from a Dr. Matt Oneill in [place], [place]. In the past year, he has filled clonazepam and dextroamphetamine/amphetamine prescriptions from 5 different clinicians in different parts of the state, a pattern consistent with substance abuse and drug-seeking. He does not appear to have been on clonazepam consistently, as his last 2 prescriptions were filled in 06/2018 and 12/2018. 02/23 -parents report history of alcohol, cannabis, benzodiazepine, and stimulant abuse. This is also indicated in previous records from 2017 hospitalization. -Avoid controlled substances given high risk of abuse. 02/26-Today, the patient tells us that he is able to take buspirone at an unspecified dose, but when we offered to prescribe this to him for anxiety he said "it is not necessary." When asked why clonazepam is necessary, if buspirone is not, he simply repeated "clonazepam is necessary. Buspirone is not necessary." 03/05 -The patient continues to have essentially no insight into the risks associated with the use of alcohol, cannabis, benzodiazepines, stimulants, and other drugs of abuse. When it was explained to him that these substances can and do interfere with treatment for mental illnesses such as schizophrenia, his replies to say "I do not have schizophrenia." Inventory Assets Strengths: College graduate. Supportive family. Needs: clarification of legal charges, outpatient services, adherence with treatment and medications Risk Factors Assessment Male: Yes : No Do You Have Access To A Gun?: No Health Problems: No Mental Health Diagnoses: Yes Substance Use Disorders: Yes Previous Psychiatric Hospitalization: Yes Protective Factors Assessment : No Responsible for Young Children: No Employed: No Supportive Family: Yes Good Rapport with Provider: No Interval History Identifying Information DENISE MURRY is a 24-year-old M who has a history of schizophrenia, who was admitted on 02/19/19 17:23 on a 302 involuntary commitment for threatening behavior in the community. He is on a 304 involuntary commitment as of 03/01/2019. Chief Complaint "[]". Review of Systems Sleep Information Total Hours of Sleep: 7.5 Sleep Comments: pt on q-15 minute checks Meal Information Percent Meal Consumed - Breakfast: 100 Percent Meal Consumed - Lunch: 100 Percent Meal Consumed - Dinner: 100 Nutrition Comment: pt consistently throws away plastic utensils after eating rather than handing them back in Subjective Subjective Patient was seen & assessed and interval progress reviewed with nursing and social science teacher. pt had signed ROIs but for verbal only and addresed tis restriction would make the TERRY not practical for help with aftercare planning and pt stated would complete ROIs again wihtout such restrctions. HE indicated that he was considering otbaining a haldol dec. injection and leaning towards it but wanted to review this further with Dr. Coombs tomorrow. He denied viewing himself as parnaoid or suspciious and deneid [facility]. He endtered community memclaren [facility] region last evening and rated hism mood an 8. He denied depressed mood or anxiety concerns. He has been beahviroally approapite ion the unit per staff. Physical Exam Psychiatric Orientation: alert, oriented x 3, cooperative and + guarded (not as severely guarded today ) Apperance: appropriately dressed, appropriately groomed and appeared stated age Eye Contact: good eye contact Motor Behavior: steady gait and station and no abnormal motor movements Speech: normal rate/rhythm/volume of speech (rather brief responses to questions, monotone) Affect: + blunted affect, + constricted affect and mood congruent with affect Mood: no depressed mood, no anxious mood, no irritable mood, no dysphoric mood and no angry mood Thought Process: goal directed thought process and + concrete thought process Thought Content: + preoccupation, + paranoid, reality based without delusions, + delusions (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.") and + persecution; no worthlessness Suicidal Thoughts: denies suicidal thoughts, denies suicidal plan and denies suicidal intent Homicidal Thoughts: denies homicidal thoughts Hallucinations: no auditory hallucinations and no visual hallucinations Cognition: recent memory grossly intact, remote memory grossly intact, attention grossly intact and language grossly intact Estimated Intelligence: consistent with education level and + above average estimated intelligence Insight: + impaired insight and + severely impaired insight Judgement: + poor judgement and + impaired judgement Vital Signs (Past 24 Hours) Last Vital Signs Temp 36.8 C 02/19/19 19:39 Pulse 91 H 02/19/19 19:39 Resp 18 02/19/19 19:39 BP 134/82 02/19/19 19:39 Pulse Ox 99 02/19/19 19:39 Results & Data Current Inpatient Medications Current Inpatient Medications: Current Inpatient Medications Acetaminophen (Tylenol) 650 mg PO Q4H PRN PRN Reason: Headache or Minor Fever Stop: 03/21/19 17:22 Al Hydrox/Mg Hydrox/Simethicone (Maalox) 30 ml PO Q4H PRN PRN Reason: GI Upset Stop: 03/21/19 17:22 Benztropine Mesylate (Cogentin) 1 mg PO Q8 PRN PRN Reason: Muscle Spasm Stop: 03/22/19 11:52 Bismuth Subsalicylate (Kaopectate) 15 ml PO PRN PRN PRN Reason: Loose Stool Stop: 03/21/19 17:22 Haloperidol (Haldol) 5 mg PO Q4H PRN PRN Reason: Agitation Stop: 03/21/19 20:25 Last Admin: 02/22/19 14:52 Dose: 5 mg Documented by: Haloperidol Lactate (Haldol) 5 mg IM Q4H PRN PRN Reason: Severe Agitation Stop: 03/21/19 20:25 Haloperidol Lactate (Haldol) 10 mg IM BID PRN PRN Reason: refusal of PO Haldol Stop: 03/25/19 10:34 Haloperidol Lactate (Haldol Lactate) 10 mg PO BID [facility] Stop: 04/03/19 20:59 Last Admin: 03/07/19 09:03 Dose: 10 mg Documented by: Hydroxyzine HCl (Vistaril) 50 mg PO HSZ PRN PRN Reason: Insomnia Stop: 03/21/19 17:22 Hydroxyzine HCl (Vistaril) 25 mg PO Q4H PRN PRN Reason: Anxiety Stop: 03/21/19 17:22 Lorazepam (Ativan) 2 mg IM Q4H PRN PRN Reason: Severe Agitation Stop: 03/21/19 20:25 Lorazepam (Ativan) 1 mg PO Q4H PRN PRN Reason: Agitation Stop: 03/21/19 20:25 Last Admin: 03/07/19 09:03 Dose: 1 mg Documented by: Magnesium Hydroxide (Milk Of Magnesia) 30 ml PO DAILY PRN PRN Reason: Heartburn Stop: 03/21/19 17:22 Sodium Chloride ([place] Nasal) 1 - 2 sprays NA PRN PRN PRN Reason: Nasal Dryness/Congestion Stop: 03/21/19 17:22 Mental Health & Subst Abuse Tx Therapist Name of Therapist: IOANA Hassan [employer] Worker Name of Sugar Mill Worker: [employer] [facility] - Harriett Treviño Phone Number for Sugar Mill Worker: [phone] Case Management Appointment Comment: [address], [place] [address] Post Discharge Appointments Primary Care Physician Name Of Family Doctor: STACEY Holt Contact Information Discharge Discharge [address]: [address] [place] [id number] CPT Code CPT Code 20195 (1) Schizophrenia Schizophrenia type: unspecified Qualified Code(s): F20.9 - Schizophrenia, unspecified
[2019-03-08] MEDS: HALOPERIDOL ORAL SOLN 2 MG/ML PO SCH ×2 (08:54→20:50)
[2019-03-08] MEDS: LORazepam 1 MG TAB PO PRN ×2 (09:09→21:15)
--- NOTE | 2019-03-08 17:05 | Psychiatric Progress Note ---
Date of Service March 08, 2019 Impression / Recommendations Impression 24 y/o male with a history of schizophrenia, OCD, treatment nonadherence, and polysubstance abuse who presented with disorganized and threatening behavior, in the context of nonadherence, decompensation for the last several months and ongoing substance abuse. He was admitted on an involuntary commitment following escalating interactions with the police over disorganized and threatening behavior in the community, and is on a 304 involuntary commitment as of 03/01/19. We are currently seeing some signs of improvement, although the improvement noted seems to be, to some extent, depending upon the identity of the staff member with whom he is interacting. Overall, he has been less suspicious, more forthcoming, and more willing to trust. As has been the case recently, today he makes reference with a plan to cooperate, or to "seriously consider" forms of cooperation, without necessarily following through with the promised or requested behaviors. The reason that the patient currently requires psychiatric hospitalization is the fact that he has consistently, and fairly quickly, stopped psychiatric treatment, including all psychiatric medications (other than benzodiazepines) upon release from hospitals, or after they have otherwise been prescribed. His history is such that medication and other forms of treatment adherence in the community, he is at current ongoing risk for causing serious physical harm to the person of others and to himself. This is the case with many individuals who suffer from serious and persistent mental illnesses, he may not fully understand the reasons for him to take psychiatric medications, and he may not be able to understand or acknowledge the target symptoms. However, the goal is for the patient to understand that he needs active psychiatric treatment in the community, as an alternative to return to the hospital. We will continue to actively treat the patient with the hope and expectation that he will eventually be able to cooperate with our efforts to investigate diversionary strategies to avoid long-term psychiatric hospitalization. (1) Schizophrenia: 02/20--The patient was admitted to the [facility] ([facility]) on q15 min checks (behavioral with suicide precautions) for safety. The patient will participate in group, recreational, and milieu therapies and will be offered additional individual and family sessions as clinically appropriate. Reviewed that he should resume antipsychotic medication FABIO and he would only discuss benzos. Adamant he won't resume Risperdal. Will offer H aldol 5 mg with Ativan 2 mg (take Haldol first) TID and readdress when less agitated. 02/21--mild improvement today in that less thought blocking and slightly less irritability. Refused meds again this am. In my opinion (Dr. Diaz), antipsychotic medication is medically necessary for the treatment of his psychosis given risk of or serious injury within 30 days. He has shown a pattern of non-compliance and escalating and threatening behavior in the community and his condition is unlikely to improve without forced psychiatric medications. Will order Haldol [address] Hubbard to provide second opinion on this and likely 303 petition tomorrow. 02/22 -patient remains inappropriate for groups and therapy, due to threatening and menacing behavior with staff and peers. Continue private room. -Increase haloperidol to 10 mg twice daily, and continue as needed doses. Agree with medications over objection, as patient has a history of a primary thought disorder, has been noncompliant with treatment which has led to decompensation, increasing psychosis, and escalating threatening and aggressive behavior in the community and now in the hospital. He required physical and chemical restraints in the ER due to threats to staff and attempts to leave. He has improved with antipsychotic medication in the past. -File for 303 hearing to be held tomorrow. -Patient remains uncooperative with attempts to assess him, will not provide historical information such as where he has been living or if he has any outpatient treatment, or sign releases for family or friends to provide collateral information. 02/23 -303 commitment granted. -Continue private room given threatening behavior, agitation, and recent history of erratic and inappropriate behavior in the community. Patient not yet appropriate for groups. -Continue haloperidol 10 mg twice daily, and 5 mg as needed. Will order an IM backup for refusal, as he has been seen by 2 physicians who both agree with medications over objection. He will likely need a long-acting injectable antipsychotic given his history of nonadherence. -Parents report he has been abusing benzodiazepines, and he is very focused on getting them here, asking for them frequently and receiving 8 mg of lorazepam daily. Will decrease to 1 mg every 4 hours as needed, with a plan to taper off prior to discharge given risk of abuse/misuse/negative outcomes. -Contact forensic patient case manager, Harriett Treviño, and schedule a meeting to discuss treatment plan. Patient will likely need an involuntary outpatient commitment. 02/24 -continue Haldol p.o. with IM backup, and lorazepam as needed. Patient refusing to discuss other antipsychotic options, so if he remains on haloperidol, can receive Haldol Decanoate once the effective dose is reached. -Encourage patient to sign releases for his parents and for outpatient treatment referrals, so that discharge planning can begin. -Continue to enforce appropriate boundaries, as patient has been sexually inappropriate with female peer. Continue private room, and excused from groups until he is able to maintain behavioral control. 02/25 -continue Haldol, and lorazepam as needed. -Attempt scheduled family meeting with parents and his outpatient patient case manager. -Encourage the patient to start engaging in treatment. He is willing to meet with a counselor one-on-one today. -Appropriate boundaries-patient has been reminded repeatedly of the need to cover his genital area and the inappropriateness of his sexual propositions to females. 02/26 -The patient is taking haloperidol 10 mg twice a day as prescribedalthough he repeatedly asks to have this medication discontinued. At the same time, he cannot or will not say, specifically, why he would like haloperidol to be discontinued, other than to say "it is not what I need." (The patient does appear to be tolerating haloperidol well, except for some excess sedation at this point.) -The patient continues to appear suspicious and is withdrawn. He is declinin g to actively participate in treatment. 02/27 Continue medication regimen unchanged 304 hearing scheduled for Friday. Patient will require chest x-ray and EKG prior to transfer to [facility]. 02/28 Patient demonstrating some improved ability to participate and interacting more appropriately with peers and staff in last 24 hours. We will continue to advance therapeutic programming as tolerated and indicated. Continue Haldol as scheduled which remains well-tolerated. 03/01 -Patient noncompliant with mouth checks and continues to go to the bathroom just after taking pills; due to concerns for cheeking, will switch to liquid haloperidol, with IM back up for refusal. -304 granted. Refer to [facility]. -Schedule meeting with patient, patient case manager, and family for discharge planning/exploring diversion options. 03/02 - Continue liquid haloperidol as above - Refusing to sign ROIs to allow for consideration or adequate coordination of diversion options. 03/03 - Continue current haloperidol dosing, liquid as above - Pt signed some conditional ROIs this morning to allow for potential coordination of diversion plan 03/04 - Continue current medication regimen - Meeting with mother and [facility] medical office representative to discuss diversionary discharge planning tomorrow morning - Continue to encourage participation in groups to most adequately assess thought content/process and appropriate behavior, these all appear to be improving 03/05 -We have been discussing the option of converting immediate release oral haloperidol to Haldol Decanoate, given his history of nonadherence. The patient's initial response was to become irritated and insists that he does not have a history of nonadherence with medications (even though he was initially nonadherent even here in the hospital). Later, he seemed to recognize that it is reasonable for treatment providers and caregivers to be concerned about his history of nonadherence with medications, and offered reassurance that he would promise to continue to take psychiatric medications as prescribedbut he does not want to take an intramuscular form. 03/06 - continue to engage ieth him about his medication and treatment plan and addressing potential of Haldol Dec CASTANEDA. addressing if pt is willing to sign TERRY's for CRR's as potential plans for diversion from [facility] referral 03/07 - making progress towards TERRY and possibility of haldol Dec but not fully occurred as of yet 03/08 -The patient appears to be less suspicious and is more cooperative. Symptoms such as thought blocking appear to have improved significantly. He continues to show obsessive symptoms and, for example, still has not actually executed the necessary release of information documents that we will need to pursue diversion from long-term hospitalization. He has expressed a willingness to do so for several days now, but has yet to actually follow through. -Although it has been difficult to get specific information from the patient regarding his thought content, he does seem to be much more trusting, less suspicious, and more animated, a set of circumstances that we are attributing to antipsychotic medication. Present on Admission?: Yes (2) Noncompliance with medication regimen: 02/22 -patient with chronic noncompliance which has severely impaired his ability to function or provide for his own basic needs in the community. He will likely need an involuntary outpatient commitment. 02/23 -303 commitment granted. Pursue medications over objection, consider long- acting injectable, and schedule meeting with forensic patient case manager. 02/25 -file for 304 involuntary commitment, as state hospitalization may be needed given severity of his illness, lack of insight and unwillingness to engage in treatment, and pattern of noncompliance with treatment. Patient has requested an independent evaluation, so the hearing will be scheduled sometime next week once that is completed. Patient was informed, and states his preference is to leave the hospital immediately, with no outpatient treatment. 02/26 -The patient seems to have no insight into his illness, no insight into his need for treatment (with the exception of stimulant medications and clonazepam). He acknowledges that he had been in outpatient treatment, but stopped going "because it is not necessary." -Because of the severity of illness, the patient's lack of insight, and is not adherence with treatment on an outpatient basis, the plan was reiterated today is to refer the patient for long-term psychiatric hospitalization. 03/01 -Concerns for cheeking as above; change to liquid haloperidol with IM backup for refusal. Work towards long acting injectable. -304 granted; refer to [facility]. 03/05 -The patient seems to have improved since being given liquid haloperidol, which suggests but does not confirm that he had been "cheeking" his haloperidol tablets. This circumstance, combined with his history of recurrent nonadherence with medications on an outpatient basis are reasons that the treatment team agrees that a condition of discharge needs to be willingness to accept intramuscular Depo antipsychotic medications. 03/06 =as above 03/08 -Today, the patient says that he is giving "serious consideration" to agreeing to take an intramuscular injection of Haldol Decanoate. He understands that this is 1 of the things that we are expecting him to agree to as part of an effort to actively pursue diversion. Despite the patient's agreement that he will "seriously consider" Haldol Decanoate, he still has not agreed to take it. His history of nonadherence in the community, coupled with dangerous behaviors when not medicated, are the primary reasons that long-term psychiatric hospitalization appears to be necessary Present on Admission?: Yes (3) Anxiety: 02/22 -patient reports anxiety, but otherwise uncooperative with the assessment and does not appear overtly anxious; refusing vital signs for the last 3 days. He has been demanding high-dose benzodiazepines, and has been repeatedly informed that these are not indicated, but that Lorazepam is ordered as needed to be taken with haloperidol. 02/23 -parents describe history of OCD symptoms. Patient unwilling to participate in assessment, and no noticeable compulsions here, so unclear if currently active. Continue to monitor and assess. 02/25 -patient denies OCD symptoms, and none have been observed here. He does report feeling "anxious," but is a poor historian and unable to get much further information. He does not appear to be expansive panic. We will continue to assess and rule out SYBIL. He is refusing an SSRI antidepressant, wanting only benzodiazepines. 02/28Possibility of obsessive concern for germs again raised by nursing following his reluctance to take the Haldol tablet after it touched his pillow and reluctance to touch his silverware again after he has finished eating. Patient denies obsessions or compulsions but we will continue to monitor. 03/01 - Patient refusing to discuss OCD symptoms. 03/05 -Today, the patient was able to talk about his obsessive-compulsive symptoms, and his parents presence. However, he insisted that the thoughts and behaviors were not in any way abnormal, and he said "of other people have a problem with that, that is up to them." Reported behaviors include handwashing, fear of infectious disease contamination, and, for example, reluctance to touch other people, including his parents. 03/08 -The patient reports that he realizes that he has been "obsessive" when she is also evidence of some improvement. Present on Admission?: Yes (4) Substance abuse: 02/22 -drug screen positive for THC. Once he is less psychotic, we will need to provide education regarding the risks of cannabis use, specifically exacerbation of psychotic symptoms. -On admission, patient reported being prescribed clonazepam 2 mg twice daily, and per PDMP he last filled a prescription on 12/17/2018, from a Dr. Matt Oneill in [place], [place]. In the past year, he has filled clonazepam and dextroamphetamine/amphetamine prescriptions from 5 different clinicians in different parts of the state, a pattern consistent with substance abuse and drug-seeking. He does not appear to have been on clonazepam consistently, as his last 2 prescriptions were filled in 06/2018 and 12/2018. 02/23 -parents report history of alcohol, cannabis, benzodiazepine, and stimulant abuse. This is also indicated in previous records from 2017 hospitalization. -Avoid controlled substances given high risk of abuse. 02/26-Today, the patient tells us that he is able to take buspirone at an unspecified dose, but when we offered to prescribe this to him for anxiety he said "it is not necessary." When asked why clonazepam is necessary, if buspirone is not, he simply repeated "clonazepam is necessary. Buspirone is not necessary." 03/05 -The patient continues to have essentially no insight into the risks a ssociated with the use of alcohol, cannabis, benzodiazepines, stimulants, and other drugs of abuse. When it was explained to him that these substances can and do interfere with treatment for mental illnesses such as schizophrenia, his replies to say "I do not have schizophrenia." 03/08 -The patient has not requested benzodiazepines and has not mentioned a need for chemical substances such as alcohol, cannabis, stimulant medications and other drugs of abuse, and is now more focused on meeting criteria for community diversion. Present on Admission?: Yes Inventory Assets Strengths: College graduate. Supportive family. Needs: clarification of legal charges, outpatient services, adherence with treatment and medications Risk Factors Assessment Male: Yes : No Do You Have Access To A Gun?: No Health Problems: No Mental Health Diagnoses: Yes Substance Use Disorders: Yes Previous Psychiatric Hospitalization: Yes Protective Factors Assessment : No Responsible for Young Children: No Employed: No Supportive Family: Yes Good Rapport with Provider: No Interval History Identifying Information DENISE MURRY is a 24-year-old M who has a history of schizophrenia, who was admitted on 02/19/19 17:23 on a 302 involuntary commitment for threatening behavior in the community. He is on a 304 involuntary commitment as of 03/01/2019. Chief Complaint "I'm glad to talk to you. I wonder if you've given more thought to diversion." Review of Systems Sleep Information Total Hours of Sleep: 7.5 Sleep Comments: pt on q-15 minute checks Meal Information Percent Meal Consumed - Breakfast: 100 Percent Meal Consumed - Lunch: 100 Percent Meal Consumed - Dinner: 100 Nutrition Comment: pt consistently throws away plastic utensils after eating rather than handing them back in Subjective Subjective Patient was seen & assessed and interval progress reviewed with Treatment Team. I met with the patient individually in order to assess his current mental status, evaluate his response to treatment, coordinate any necessary changes in his treatment regimen with the patient, and address issues and concerns that may arise. As above, the patient said that he was eager to discuss the steps that he will need to take in order to achieve diversion from a transfer to long-term psychiatric hospitalization. I reiterated what has been repeated a number of times, and, specifically, told him that we will need to start by having clear releases of information that will allow us to make the necessary appropriate referrals to the usual channels which will include both verbal and written communications, including communications by facsimile. Perhaps disingenuously, the patient said "I understand that. I did not realize it at first, but I understand it now." However, the reality is that although he has been given the release of information paperwork again, he still has not executed at and, instead, to sitting at his bedside unsigned. We also discussed our expectation that he will agree to Depo antipsychotic medication, (currently held always recommended) given his history of recurrent nonadherence with medications in the community, confirmed by his family. The patient again repeated that he is "seriously considering" this, but did not agree to it. Or observations the patient has been more active in the milieu, has begun interacting appropriately with peers, has not been exposing his penis to others, and has not been observed her smiling appropriately during interactions. Physical Exam Psychiatric Orientation: oriented x 3 Apperance: appropriately groomed Eye Contact: + fair eye contact Motor Behavior: steady gait and station Speech: normal rate/rhythm/volume of speech Today there were no delays between questions and responses, and the patient elaborated fully without my having to ask follow-up questions. Affect: + constricted affect The patient's body movements are now more animated, and he smiles appropriately during conversations. The patient describes his mood as "hopeful." Thought Process: goal directed thought process Thought Content: reality based without delusions (No delusional material was identified and the patient's thought content. Other staff members, however, reports that the patient remains suspicious and withholding.) Suicidal Thoughts: denies suicidal thoughts Homicidal Thoughts: denies homicidal thoughts Hallucinations: no auditory hallucinations Cognition: recent memory grossly intact, remote memory grossly intact and language grossly intact Estimated Intelligence: + above average estimated intelligence Insight: + impaired insight Judgement: + limited judgement Vital Signs (Past 24 Hours) Last Vital Signs Temp 36.8 C 02/19/19 19:39 Pulse 91 H 02/19/19 19:39 Resp 18 02/19/19 19:39 BP 134/82 02/19/19 19:39 Pulse Ox 99 02/19/19 19:39 Results & Data Current Inpatient Medications Current Inpatient Medications: Current Inpatient Medications Acetaminophen (Tylenol) 650 mg PO Q4H PRN PRN Reason: Headache or Minor Fever Stop: 03/21/19 17:22 Al Hydrox/Mg Hydrox/Simethicone (Maalox) 30 ml PO Q4H PRN PRN Reason: GI Upset Stop: 03/21/19 17:22 Benztropine Mesylate (Cogentin) 1 mg PO Q8 PRN PRN Reason: Muscle Spasm Stop: 03/22/19 11:52 Bismuth Subsalicylate (Kaopectate) 15 ml PO PRN PRN PRN Reason: Loose Stool Stop: 03/21/19 17:22 Haloperidol (Haldol) 5 mg PO Q4H PRN PRN Reason: Agitation Stop: 03/21/19 20:25 Last Admin: 02/22/19 14:52 Dose: 5 mg Documented by: Haloperidol Lactate (Haldol) 5 mg IM Q4H PRN PRN Reason: Severe Agitation Stop: 03/21/19 20:25 Haloperidol Lactate (Haldol) 10 mg IM BID PRN PRN Reason: refusal of PO Haldol Stop: 03/25/19 10:34 Haloperidol Lactate (Haldol Lactate) 10 mg PO BID [facility] Stop: 04/03/19 20:59 Last Admin: 03/08/19 08:54 Dose: 10 mg Documented by: Hydroxyzine HCl (Vistaril) 50 mg PO HSZ PRN PRN Reason: Insomnia Stop: 03/21/19 17:22 Hydroxyzine HCl (Vistaril) 25 mg PO Q4H PRN PRN Reason: Anxiety Stop: 03/21/19 17:22 Lorazepam (Ativan) 2 mg IM Q4H PRN PRN Reason: Severe Agitation Stop: 03/21/19 20:25 Lorazepam (Ativan) 1 mg PO Q4H PRN PRN Reason: Agitation Stop: 03/21/19 20:25 Last Admin: 03/08/19 09:09 Dose: 1 mg Documented by: Magnesium Hydroxide (Milk Of Magnesia) 30 ml PO DAILY PRN PRN Reason: Heartburn Stop: 03/21/19 17:22 Sodium Chloride ([place] Nasal) 1 - 2 sprays NA PRN PRN PRN Reason: Nasal Dryness/Congestion Stop: 03/21/19 17:22 Mental Health & Subst Abuse Tx Therapist Name of Therapist: IOANA Hassan Editing Clerk Name of Editing Clerk: [employer] - Harriett Treviño Phone Number for Editing Clerk: [phone] Case Management Appointment Comment: [address], [place] [address] Post Discharge Appointments Primary Care Physician Name Of Family Doctor: STACEY Holt Contact Information Discharge Discharge [address]: [address] [place] [address], [place] [address] CPT Code CPT Code 56190 (1) Schizophrenia Schizophrenia type: unspecified Qualified Code(s): F20.9 - Schizophrenia, unspecified
[2019-03-09] MEDS: LORazepam 1 MG TAB PO PRN ×2 (09:07→21:04)
[2019-03-09] MEDS: HALOPERIDOL ORAL SOLN 2 MG/ML PO SCH ×2 (09:07→21:02)
--- NOTE | 2019-03-09 15:34 | Psychiatric Progress Note ---
Date of Service March 09, 2019 Impression / Recommendations Impression 24 y/o male with a history of schizophrenia, OCD, treatment nonadherence, and polysubstance abuse who presented with disorganized and threatening behavior, in the context of nonadherence, decompensation for the last several months and ongoing substance abuse. He was admitted on an involuntary commitment following escalating interactions with the police over disorganized and threatening behavior in the community, and is on a 304 involuntary commitment as of 03/01/19. We are currently seeing some signs of improvement, although the improvement noted seems to be, to some extent, depending upon the identity of the staff member with whom he is interacting. Overall, he has been less suspicious, more forthcoming, and more willing to trust. As has been the case recently, today he makes reference with a plan to cooperate, or to "seriously consider" forms of cooperation, without necessarily following through with the promised or requested behaviors. The reason that the patient currently requires psychiatric hospitalization is the fact that he has consistently, and fairly quickly, stopped psychiatric treatment, including all psychiatric medications (other than benzodiazepines) upon release from hospitals, or after they have otherwise been prescribed. His history is such that medication and other forms of treatment adherence in the community, he is at current ongoing risk for causing serious physical harm to the person of others and to himself. This is the case with many individuals who suffer from serious and persistent mental illnesses, he may not fully understand the reasons for him to take psychiatric medications, and he may not be able to understand or acknowledge the target symptoms. However, the goal is for the patient to understand that he needs active psychiatric treatment in the community, as an alternative to return to the hospital. We will continue to actively treat the patient with the hope and expectation that he will eventually be able to cooperate with our efforts to investigate diversionary strategies to avoid long-term psychiatric hospitalization. Received request from Miguel A for additional information regarding previous diagnosis of "pulmonary nodule." Records reviewed by this provider. It appears the patient had been diagnosed with a 5mm pulmonary nodule on a CT scan on 04/08/2014. Nodule described to be "indeterminate left apical 5mm pulmonary nodule." Repeat scanned in 6 months was recommended, but either not completed or records are unavailable. CT scan obtained for unrelated concerns on 02/15/2015 - again reported 5mm left apical nodule described to be "stable." No further scans available for review. Chest x-ray on 03/01/19 showed "no active disease in the chest." (1) Schizophrenia: 02/20--The patient was admitted to the [facility]) on q15 min checks (behavioral with suicide precautions) for safety. The patient will participate in group, recreational, and milieu therapies and will be offered additional individual and family sessions as clinically appropriate. Reviewed that he should resume antipsychotic medication FABIO and he would only discuss benzos. Adamant he won't resume Risperdal. Will offer Haldol 5 mg with Ativan 2 mg (take Haldol first) TID and readdress when less agitated. 02/21--mild improvement today in that less thought blocking and slightly less irritability. Refused meds again this am. In my opinion (Dr. Diaz), antipsychotic medication is medically necessary for the treatment of his psychosis given risk of or serious injury within 30 days. He has shown a pattern of non-compliance and escalating and threatening behavior in the community and his condition is unlikely to improve without forced psychiatric medications. Will order Haldol [address] Hubbard to provide second opinion on this and likely 303 petition tomorrow. 02/22 -patient remains inappropriate for groups and therapy, due to threatening and menacing behavior with staff and peers. Continue private room. -Increase haloperidol to 10 mg twice daily, and continue as needed doses. Agree with medications over objection, as patient has a history of a primary thought disorder, has been noncompliant with treatment which has led to decompensation, increasing psychosis, and escalating threatening and aggressive behavior in the community and now in the hospital. He required physical and chemical restraints in the ER due to threats to staff and attempts to leave. He has improved with antipsychotic medication in the past. -File for 303 hearing to be held tomorrow. -Patient remains uncooperative with attempts to assess him, will not provide historical information such as where he has been living or if he has any outpatient treatment, or sign releases for family or friends to provide collateral information. 02/23 -303 commitment granted. -Continue private room given threatening behavior, agitation, and recent history of erratic and inappropriate behavior in the community. Patient not yet appropriate for groups. -Continue haloperidol 10 mg twice daily, and 5 mg as needed. Will order an IM backup for refusal, as he has been seen by 2 physicians who both agree with medications over objection. He will likely need a long-acting injectable antipsychotic given his history of nonadherence. -Parents report he has been abusing benzodiazepines, and he is very focused on getting them here, asking for them frequently and receiving 8 mg of lorazepam daily. Will decrease to 1 mg every 4 hours as needed, with a plan to taper off prior to discharge given risk of abuse/misuse/negative outcomes. -Contact forensic porter sample case, Harriett Treviño, and schedule a meeting to discuss treatment plan. Patient will likely need an involuntary outpatient commitment. 02/24 -continue Haldol p.o. with IM backup, and lorazepam as needed. Patient refusing to discuss other antipsychotic options, so if he remains on haloperidol, can receive Haldol Decanoate once the effective dose is reached. -Encourage patient to sign releases for his parents and for outpatient treatment referrals, so that discharge planning can begin. -Continue to enforce appropriate boundaries, as patient has been sexually inappropriate with female peer. Continue private room, and excused from groups until he is able to maintain behavioral control. 02/25 -continue Haldol, and lorazepam as needed. -Attempt scheduled family meeting with parents and his outpatient porter sample case. -Encourage the patient to start engaging in treatment. He is willing to meet with a counselor one-on-one today. -Appropriate boundaries-patient has been reminded repeatedly of the need to cover his genital area and the inappropriateness of his sexual propositions to females. 02/26 -The patient is taking haloperidol 10 mg twice a day as prescribedalthough he repeatedly asks to have this medication discontinued. At the same time, he cannot or will not say, specifically, why he would like haloperidol to be di scontinued, other than to say "it is not what I need." (The patient does appear to be tolerating haloperidol well, except for some excess sedation at this point.) -The patient continues to appear suspicious and is withdrawn. He is declining to actively participate in treatment. 02/27 Continue medication regimen unchanged 304 hearing scheduled for Friday. Patient will require chest x-ray and EKG prior to [facility]. 02/28 Patient demonstrating some improved ability to participate and interacting more appropriately with peers and staff in last 24 hours. We will continue to advance therapeutic programming as tolerated and indicated. Continue Haldol as scheduled which remains well-tolerated. 03/01 -Patient noncompliant with mouth checks and continues to go to the bathroom just after taking pills; due to concerns for cheeking, will switch to liquid haloperidol, with IM back up for refusal. -304 granted. Refer to [facility]. -Schedule meeting with patient, porter sample case, and family for discharge planning/exploring diversion options. 03/02 - Continue liquid haloperidol as above - Refusing to sign ROIs to allow for consideration or adequate coordination of diversion options. 03/03 - Continue current haloperidol dosing, liquid as above - Pt signed some conditional ROIs this morning to allow for potential coordination of diversion plan 03/04 - Continue current medication regimen - Meeting with mother and [employer] student services representative to discuss diversionary discharge planning tomorrow morning - Continue to encourage participation in groups to most adequately assess thought content/process and appropriate behavior, these all appear to be improving 03/05 -We have been discussing the option of converting immediate release oral haloperidol to Haldol Decanoate, given his history of nonadherence. The patient's initial response was to become irritated and insists that he does not have a history of nonadherence with medications (even though he was initially nonadherent even here in the hospital). Later, he seemed to recognize that it is reasonable for treatment providers and caregivers to be concerned about his history of nonadherence with medications, and offered reassurance that he would promise to continue to take psychiatric medications as prescribedbut he does not want to take an intramuscular form. 03/06 - continue to engage ieth him about his medication and treatment plan and addressing potential of Haldol Dec CASTANEDA. addressing if pt is willing to sign TERRY's for CRR's as potential plans for diversion from [facility] referral 03/07 - making progress towards TERRY and possibility of haldol Dec but not fully occurred as of yet 03/08 -The patient appears to be less suspicious and is more cooperative. Symptoms such as thought blocking appear to have improved significantly. He continues to show obsessive symptoms and, for example, still has not actually executed the necessary release of information documents that we will need to pursue diversion from long-term hospitalization. He has expressed a willingness to do so for several days now, but has yet to actually follow through. -Although it has been difficult to get specific information from the patient regarding his thought content, he does seem to be much more trusting, less suspicious, and more animated, a set of circumstances that we are attributing to antipsychotic medication. 03/09 - Continue current medication regimen, with ongoing encouragement for consideration of haloperidol decanoate - Pt requesting additional meeting with [employer] and parents - seems appropriate as still considering diversion planning, will determine appropriate timing for a second meeting as well as clear objectives to discuss (2) Noncompliance with medication regimen: 02/22 -patient with chronic noncompliance which has severely impaired his ability to function or provide for his own basic needs in the community. He will likely need an involuntary outpatient commitment. 02/23 -303 commitment granted. Pursue medications over objection, consider long- acting injectable, and schedule meeting with forensic porter sample case. 02/25 -file for 304 involuntary commitment, as state hospitalization may be needed given severity of his illness, lack of insight and unwillingness to engage in treatment, and pattern of noncompliance with treatment. Patient has requested an independent evaluation, so the hearing will be scheduled sometime next week once that is completed. Patient was informed, and states his preference is to leave the hospital immediately, with no outpatient treatment. 02/26 -The patient seems to have no insight into his illness, no insight into his need for treatment (with the exception of stimulant medications and clonazepam). He acknowledges that he had been in outpatient treatment, but stopped going "because it is not necessary." -Because of the severity of illness, the patient's lack of insight, and is not adherence with treatment on an outpatient basis, the plan was reiterated today is to refer the patient for long-term psychiatric hospitalization. 03/01 -Concerns for cheeking as above; change to liquid haloperidol with IM backup for refusal. Work towards long acting injectable. -304 granted; refer to [facility]. 03/05 -The patient seems to have improved since being given liquid haloperidol, which suggests but does not confirm that he had been "cheeking" his haloperidol tablets. This circumstance, combined with his history of recurrent nonadherence with medications on an outpatient basis are reasons that the treatment team agrees that a condition of discharge needs to be willingness to accept intramuscular Depo antipsychotic medications. 03/06 =as above 03/08 -Today, the patient says that he is giving "serious consideration" to agreeing to take an intramuscular injection of Haldol Decanoate. He understands that this is 1 of the things that we are expecting him to agree to as part of an effort to actively pursue diversion. Despite the patient's agreement that he will "seriously consider" Haldol Decanoate, he still has not agreed to take it. His history of nonadherence in the community, coupled with dangerous behaviors when not medicated, are the primary reasons that long-term psychiatric hospitalization appears to be necessary (3) Anxiety: 02/22 -patient reports anxiety, but otherwise uncooperative with the assessment and does not appear overtly anxious; refusing vital signs for the last 3 days. He has been demanding high-dose benzodiazepines, and has been repeatedly informed that these are not indicated, but that Lorazepam is ordered as needed to be taken with haloperidol. 02/23 -parents describe history of OCD symptoms. Patient unwilling to participate in assessment, and no noticeable compulsions here, so unclear if currently active. Continue to monitor and assess. 02/25 -patient denies OCD symptoms, and none have been observed here. He does report feeling "anxious," but is a poor historian and unable to get much further information. He does not appear to be expansive panic. We will continue to assess and rule out SYBIL. He is refusing an SSRI antidepressant, wanting only benzodiazepines. 02/28Possibility of obsessive concern for germs again raised by nursing following his reluctance to take the Haldol tablet after it touched his pillow and reluctance to touch his silverware again after he has finished eating. Patient denies obsessions or compulsions but we will continue to monitor. 03/01 - Patient refusing to discuss OCD symptoms. 03/05 -Today, the patient was able to talk about his obsessive-compulsive symptoms, and his parents presence. However, he insisted that the thoughts and behaviors were not in any way abnormal, and he said "of other people have a problem with that, that is up to them." Reported behaviors include handwashing, fear of infectious disease contamination, and, for example, reluctance to touch other people, including his parents. 03/08 -The patient reports that he realizes that he has been "obsessive" when she is also evidence of some improvement. (4) Substance abuse: 02/22 -drug screen positive for THC. Once he is less psychotic, we will need to provide education regarding the risks of cannabis use, specifically exacerbation of psychotic symptoms. -On admission, patient reported being prescribed clonazepam 2 mg twice daily, and per PDMP he last filled a prescription on 12/17/2018, from a Dr. Matt Oneill in [place], [place]. In the past year, he has filled clonazepam and dextroamphetamine/amphetamine prescriptions from 5 different clinicians in different parts of the state, a pattern consistent with substance abuse and drug-seeking. He does not appear to have been on clonazepam consistently, as his last 2 prescriptions were filled in 06/2018 and 12/2018. 02/23 -parents report history of alcohol, cannabis, benzodiazepine, and stimulant abuse. This is also indicated in previous records from 2017 hospitalization. -Avoid controlled substances given high risk of abuse. 02/26-Today, the patient tells us that he is able to take buspirone at an unspecified dose, but when we offered to prescribe this to him for anxiety he said "it is not necessary." When asked why clonazepam is necessary, if buspir one is not, he simply repeated "clonazepam is necessary. Buspirone is not necessary." 03/05 -The patient continues to have essentially no insight into the risks associated with the use of alcohol, cannabis, benzodiazepines, stimulants, and other drugs of abuse. When it was explained to him that these substances can and do interfere with treatment for mental illnesses such as schizophrenia, his replies to say "I do not have schizophrenia." 03/08 -The patient has not requested benzodiazepines and has not mentioned a need for chemical substances such as alcohol, cannabis, stimulant medications and other drugs of abuse, and is now more focused on meeting criteria for community diversion. Inventory Assets Strengths: College graduate. Supportive family. Needs: clarification of legal charges, outpatient services, adherence with treatment and medications Risk Factors Assessment Male: Yes : No Do You Have Access To A Gun?: No Health Problems: No Mental Health Diagnoses: Yes Substance Use Disorders: Yes Previous Psychiatric Hospitalization: Yes Protective Factors Assessment : No Responsible for Young Children: No Employed: No Supportive Family: Yes Good Rapport with Provider: No Interval History Identifying Information DENISE MURRY is a 24-year-old M who has a history of schizophrenia, who was admitted on 02/19/19 17:23 on a 302 involuntary commitment for threatening behavior in the community. He is on a 304 involuntary commitment as of 03/01/2019. Chief Complaint "I'm fine. How are you?" Review of Systems Notes Constitutional: denied Cardiovascular: denied Respiratory: denied Gastrointestinal: denied Neurological: denied Psychiatric: denies symptoms other than stated above Total of at least 10 systems reviewed, pertinent positives as above and in HPI. Sleep Information Total Hours of Sleep: 7.75 Sleep Comments: pt on q-1`5 minute checks Meal Information Percent Meal Consumed - Breakfast: 100 Percent Meal Consumed - Lunch: 100 Percent Meal Consumed - Dinner: 100 Nutrition Comment: pt consistently throws away plastic utensils after eating rather than handing them back in Subjective Subjective Patient was seen & assessed and interval progress reviewed with Nursing and social work. Staff report the patient has continued to be rather consistent in behavior, tolerating some groups. Pt was seen today to assess progress since admission. Pt states he is fine, and nearly immediately requests to discuss discharge. He verbalized that he completed all requested ROIs to allow for referrals for additional outpatient services. Pt was asked about his consideration of haloperidol decanoate, as he was informed this would likely be the recommendation if diversion from the [facility] is deemed appropriate. Pt states he is not interested, as he was told it isn't something that would be enforced. Pt was reminded of how easily medications can be forgotten and that, in fact, our recommendations have not changed. Pt requests to know why is estimated length of stay is not decreasing, and when informed that referral to [place] remained the current discharge trajectory, he requested to know if the referral could be revoked. Pt was informed this was not possible, but was reminded that with his cooperation a diversionary plan may be possible. Pt was asked about other needs today, and verbalized desire to have another treatment team meeting including the [employer] and his parents. He denies other needs or c oncerns today. Physical Exam Psychiatric Orientation: alert, oriented x 3 and + guarded Apperance: appropriately dressed and + disheveled (observed to be in bed most of the day) Eye Contact: + fair eye contact Motor Behavior: no abnormal motor movements (observed while laying or sitting in bed) Speech: normal rate/rhythm/volume of speech (somewhat harsh/direct tone) Affect: + flat affect and + irritable affect (mildly) Mood: no depressed mood and no anxious mood "I'm fine" Thought Process: goal directed thought process and + concrete thought process Thought Content: + paranoid; no delusions (none verbalized at this time, though may still be underlying) Suicidal Thoughts: denies suicidal thoughts Homicidal Thoughts: denies homicidal thoughts Hallucinations: no auditory hallucinations (denies) Cognition: attention grossly intact and language grossly intact Estimated Intelligence: consistent with education level Insight: + severely impaired insight Judgement: + severely impaired judgement Vital Signs (Past 24 Hours) Last Vital Signs Temp 36.8 C 02/19/19 19:39 Pulse 76 03/09/19 11:28 Resp 14 03/09/19 11:28 BP 113/67 03/09/19 11:28 Pulse Ox 99 02/19/19 19:39 Results & Data Current Inpatient Medications Current Inpatient Medications: Current Inpatient Medications Acetaminophen (Tylenol) 650 mg PO Q4H PRN PRN Reason: Headache or Minor Fever Stop: 03/21/19 17:22 Al Hydrox/Mg Hydrox/Simethicone (Maalox) 30 ml PO Q4H PRN PRN Reason: GI Upset Stop: 03/21/19 17:22 Benztropine Mesylate (Cogentin) 1 mg PO Q8 PRN PRN Reason: Muscle Spasm Stop: 03/22/19 11:52 Bismuth Subsalicylate (Kaopectate) 15 ml PO PRN PRN PRN Reason: Loose Stool Stop: 03/21/19 17:22 Haloperidol (Haldol) 5 mg PO Q4H PRN PRN Reason: Agitation Stop: 03/21/19 20:25 Last Admin: 02/22/19 14:52 Dose: 5 mg Documented by: Haloperidol Lactate (Haldol) 5 mg IM Q4H PRN PRN Reason: Severe Agitation Stop: 03/21/19 20:25 Haloperidol Lactate (Haldol) 10 mg IM BID PRN PRN Reason: refusal of PO Haldol Stop: 03/25/19 10:34 Haloperidol Lactate (Haldol Lactate) 10 mg PO BID [facility] Stop: 04/03/19 20:59 Last Admin: 03/09/19 09:07 Dose: 10 mg Documented by: Hydroxyzine HCl (Vistaril) 50 mg PO HSZ PRN PRN Reason: Insomnia Stop: 03/21/19 17:22 Hydroxyzine HCl (Vistaril) 25 mg PO Q4H PRN PRN Reason: Anxiety Stop: 03/21/19 17:22 Lorazepam (Ativan) 2 mg IM Q4H PRN PRN Reason: Severe Agitation Stop: 03/21/19 20:25 Lorazepam (Ativan) 1 mg PO Q4H PRN PRN Reason: Agitation Stop: 03/21/19 20:25 Last Admin: 03/09/19 09:07 Dose: 1 mg Documented by: Magnesium Hydroxide (Milk Of Magnesia) 30 ml PO DAILY PRN PRN Reason: Heartburn Stop: 03/21/19 17:22 Sodium Chloride ([place] Nasal) 1 - 2 sprays NA PRN PRN PRN Reason: Nasal Dryness/Congestion Stop: 03/21/19 17:22 Mental Health & Subst Abuse Tx Therapist Name of Therapist: IOANA Hassan Economic Development Manager Name of Economic Development Manager: [employer] - Harriett Treviño Phone Number for Economic Development Manager: [phone] Case Management Appointment Comment: [address], [place] [address] Post Discharge Appointments Primary Care Physician Name Of Family Doctor: STACEY Holt Contact Information Discharge Discharge [address]: [address] [place] [id number] CPT Code CPT Code 22193 (1) Schizophrenia Schizophrenia type: unspecified Qualified Code(s): F20.9 - Schizophrenia, unspecified
[2019-03-10] MEDS: HALOPERIDOL ORAL SOLN 2 MG/ML PO SCH ×2 (09:00→21:25)
[2019-03-10] MEDS: LORazepam 1 MG TAB PO PRN ×2 (09:02→21:28)
--- NOTE | 2019-03-10 13:42 | Psychiatric Progress Note ---
Date of Service March 10, 2019 Impression / Recommendations Impression 24 y/o male with a history of schizophrenia, OCD, treatment nonadherence, and polysubstance abuse who presented with disorganized and threatening behavior, in the context of nonadherence, decompensation for the last several months and ongoing substance abuse. He was admitted on an involuntary commitment following escalating interactions with the police over disorganized and threatening behavior in the community, and is on a 304 involuntary commitment as of 03/01/19. We are currently seeing some signs of improvement, although the improvement noted seems to be, to some extent, depending upon the identity of the staff member with whom he is interacting. Overall, he has been less suspicious, more forthcoming, and more willing to trust. As has been the case recently, today he makes reference with a plan to cooperate, or to "seriously consider" forms of cooperation, without necessarily following through with the promised or requested behaviors. The reason that the patient currently requires psychiatric hospitalization is the fact that he has consistently, and fairly quickly, stopped psychiatric treatment, including all psychiatric medications (other than benzodiazepines) upon release from hospitals, or after they have otherwise been prescribed. His history is such that medication and other forms of treatment adherence in the community, he is at current ongoing risk for causing serious physical harm to the person of others and to himself. This is the case with many individuals who suffer from serious and persistent mental illnesses, he may not fully understand the reasons for him to take psychiatric medications, and he may not be able to understand or acknowledge the target symptoms. However, the goal is for the patient to understand that he needs active psychiatric treatment in the community, as an alternative to return to the hospital. We will continue to actively treat the patient with the hope and expectation that he will eventually be able to cooperate with our efforts to investigate diversionary strategies to avoid long-term psychiatric hospitalization. (1) Schizophrenia: 02/20--The patient was admitted to the [facility] ([facility]) on q15 min checks (behavioral with suicide precautions) for safety. The patient will participate in group, recreational, and milieu therapies and will be offered additional individual and family sessions as clinically appropriate. Reviewed that he should resume antipsychotic medication FABIO and he would only discuss benzos. Adamant he won't resume Risperdal. Will offer Haldol 5 mg with Ativan 2 mg (take Haldol first) TID and readdress when less agitated. 02/21--mild improvement today in that less thought blocking and slightly less irritability. Refused meds again this am. In my opinion (Dr. Diaz), antipsychotic medication is medically necessary for the treatment of his psychosis given risk of or serious injury within 30 days. He has shown a pattern of non-compliance and escalating and threatening behavior in the community and his condition is unlikely to improve without forced psychiatric medications. Will order Haldol [address] Hubbard to provide second opinion on this and likely 303 petition tomorrow. 02/22 -patient remains inappropriate for groups and therapy, due to threatening and menacing behavior with staff and peers. Continue private room. -Increase haloperidol to 10 mg twice daily, and continue as needed doses. Agree with medications over objection, as patient has a history of a primary thought disorder, has been noncompliant with treatment which has led to decompensation, increasing psychosis, and escalating threatening and aggressive behavior in the community and now in the hospital. He required physical and chemical restraints in the ER due to threats to staff and attempts to leave. He has improved with antipsychotic medication in the past. -File for 303 hearing to be held tomorrow. -Patient remains uncooperative with attempts to assess him, will not provide historical information such as where he has been living or if he has any outpatient treatment, or sign releases for family or friends to provide collateral information. 02/23 -303 commitment granted. -Continue private room given threatening behavior, agitation, and recent history of erratic and inappropriate behavior in the community. Patient not yet approp riate for groups. -Continue haloperidol 10 mg twice daily, and 5 mg as needed. Will order an IM backup for refusal, as he has been seen by 2 physicians who both agree with medications over objection. He will likely need a long-acting injectable antipsychotic given his history of nonadherence. -Parents report he has been abusing benzodiazepines, and he is very focused on getting them here, asking for them frequently and receiving 8 mg of lorazepam daily. Will decrease to 1 mg every 4 hours as needed, with a plan to taper off prior to discharge given risk of abuse/misuse/negative outcomes. -Contact forensic case managers, Harriett Treviño, and schedule a meeting to discuss treatment plan. Patient will likely need an involuntary outpatient commitment. 02/24 -continue Haldol p.o. with IM backup, and lorazepam as needed. Patient refusing to discuss other antipsychotic options, so if he remains on haloperidol, can receive Haldol Decanoate once the effective dose is reached. -Encourage patient to sign releases for his parents and for outpatient treatment referrals, so that discharge planning can begin. -Continue to enforce appropriate boundaries, as patient has been sexually inappropriate with female peer. Continue private room, and excused from groups until he is able to maintain behavioral control. 02/25 -continue Haldol, and lorazepam as needed. -Attempt scheduled family meeting with parents and his outpatient case managers. -Encourage the patient to start engaging in treatment. He is willing to meet with a counselor one-on-one today. -Appropriate boundaries-patient has been reminded repeatedly of the need to cover his genital area and the inappropriateness of his sexual propositions to females. 02/26 -The patient is taking haloperidol 10 mg twice a day as prescribedalthough he repeatedly asks to have this medication discontinued. At the same time, he cannot or will not say, specifically, why he would like haloperidol to be discontinued, other than to say "it is not what I need." (The patient does appear to be tolerating haloperidol well, except for some excess sedation at this point.) -The patient continues to appear suspicious and is withdrawn. He is declin ing to actively participate in treatment. 02/27 Continue medication regimen unchanged 304 hearing scheduled for Friday. Patient will require chest x-ray and EKG prior to transfer to [facility]. 02/28 Patient demonstrating some improved ability to participate and interacting more appropriately with peers and staff in last 24 hours. We will continue to advance therapeutic programming as tolerated and indicated. Continue Haldol as scheduled which remains well-tolerated. 03/01 -Patient noncompliant with mouth checks and continues to go to the bathroom just after taking pills; due to concerns for cheeking, will switch to liquid haloperidol, with IM back up for refusal. -304 granted. Refer to [facility]. -Schedule meeting with patient, case managers, and family for discharge planning/exploring diversion options. 03/02 - Continue liquid haloperidol as above - Refusing to sign ROIs to allow for consideration or adequate coordination of diversion options. 03/03 - Continue current haloperidol dosing, liquid as above - Pt signed some conditional ROIs this morning to allow for potential coordination of diversion plan 03/04 - Continue current medication regimen - Meeting with mother and [employer] guest experience representative to discuss diversionary discharge planning tomorrow morning - Continue to encourage participation in groups to most adequately assess thought content/process and appropriate behavior, these all appear to be improving 03/05 -We have been discussing the option of converting immediate release oral haloperidol to Haldol Decanoate, given his history of nonadherence. The patient's initial response was to become irritated and insists that he does not have a history of nonadherence with medications (even though he was initially nonadherent even here in the hospital). Later, he seemed to recognize that it is reasonable for treatment providers and caregivers to be concerned about his history of nonadherence with medications, and offered reassurance that he would promise to continue to take psychiatric medications as prescribedbut he does not want to take an intramuscular form. 03/06 - continue to engage ieth him about his medication and treatment plan and addressing potential of Haldol Dec CASTANEDA. addressing if pt is willing to sign TERRY's for CRR's as potential plans for diversion from [facility] referral 03/07 - making progress towards TERRY and possibility of haldol Dec but not fully occurred as of yet 03/08 -The patient appears to be less suspicious and is more cooperative. Symptoms such as thought blocking appear to have improved significantly. He continues to show obsessive symptoms and, for example, still has not actually executed the necessary release of information documents that we will need to pursue diversion from long-term hospitalization. He has expressed a willingness to do so for several days now, but has yet to actually follow through. -Although it has been difficult to get specific information from the patient regarding his thought content, he does seem to be much more trusting, less suspicious, and more animated, a set of circumstances that we are attributing to antipsychotic medication. 03/09 - Continue current medication regimen, with ongoing encouragement for consideration of haloperidol decanoate - Pt requesting additional meeting with BSU and parents - seems appropriate as still considering diversion planning, will determine appropriate timing for a second meeting as well as clear objectives to discuss 03/10 - Continue as above - Attempting to schedule outpatient treatment team meeting for 03/15 - Continue to encourage participation in group programming in order to demonstrate appropriateness for diversionary planning (2) Noncompliance with medication regimen: 02/22 -patient with chronic noncompliance which has severely impaired his ability to function or provide for his own basic needs in the community. He will likely need an involuntary outpatient commitment. 02/23 -303 commitment granted. Pursue medications over objection, consider long- acting injectable, and schedule meeting with forensic case managers. 02/25 -file for 304 involuntary commitment, as state hospitalization may be needed given severity of his illness, lack of insight and unwillingness to engage in treatment, and pattern of noncompliance with treatment. Patient has requested an independent evaluation, so the hearing will be scheduled sometime next week once that is completed. Patient was informed, and states his preference is to leave the hospital immediately, with no outpatient treatment. 02/26 -The patient seems to have no insight into his illness, no insight into his need for treatment (with the exception of stimulant medications and clonazepam). He acknowledges that he had been in outpatient treatment, but stopped going "because it is not necessary." -Because of the severity of illness, the patient's lack of insight, and is not adherence with treatment on an outpatient basis, the plan was reiterated today is to refer the patient for long-term psychiatric hospitalization. 03/01 -Concerns for cheeking as above; change to liquid haloperidol with IM backup for refusal. Work towards long acting injectable. -304 granted; refer to [facility]. 03/05 -The patient seems to have improved since being given liquid haloperidol, which suggests but does not confirm that he had been "cheeking" his haloperidol tablets. This circumstance, combined with his history of recurrent nonadherence with medications on an outpatient basis are reasons that the treatment team agrees that a condition of discharge needs to be willingness to accept intramuscular Depo antipsychotic medications. 03/06 =as above 03/08 -Today, the patient says that he is giving "serious consideration" to agreeing to take an intramuscular injection of Haldol Decanoate. He understands that this is 1 of the things that we are expecting him to agree to as part of an effort to actively pursue diversion. Despite the patient's agreement that he will "seriously consider" Haldol Decanoate, he still has not agreed to take it. His history of nonadherence in the community, coupled with dangerous behaviors when not medicated, are the primary reasons that long-term psychiatric hospitalization appears to be necessary 03/10 - revisited recommendation that the patient consider CASTANEDA haloperidol decanoate prior to discharge. Pt is resistant to the idea, as he feels he does not need this form of medication. He states he is "considering it" (3) Anxiety: 02/22 -patient reports anxiety, but otherwise uncooperative with the assessment and does not appear overtly anxious; refusing vital signs for the last 3 days. He has been demanding high-dose benzodiazepines, and has been repeatedly informed that these are not indicated, but that Lorazepam is ordered as needed to be taken with haloperidol. 02/23 -parents describe history of OCD symptoms. Patient unwilling to participate in assessment, and no noticeable compulsions here, so unclear if currently active. Continue to monitor and assess. 02/25 -patient denies OCD symptoms, and none have been observed here. He does report feeling "anxious," but is a poor historian and unable to get much further information. He does not appear to be expansive panic. We will continue to assess and rule out SYBIL. He is refusing an SSRI antidepressant, wanting only benzodiazepines. 02/28Possibility of obsessive concern for germs again raised by nursing following his reluctance to take the Haldol tablet after it touched his pillow and reluctance to touch his silverware again after he has finished eating. Patient denies obsessions or compulsions but we will continue to monitor. 03/01 - Patient refusing to discuss OCD symptoms. 03/05 -Today, the patient was able to talk about his obsessive-compulsive symptoms, and his parents presence. However, he insisted that the thoughts and behaviors were not in any way abnormal, and he said "of other people have a problem with that, that is up to them." Reported behaviors include handwashing, fear of infectious disease contamination, and, for example, reluctance to touch other people, including his parents. 03/08 -The patient reports that he realizes that he has been "obsessive" when she is also evidence of some improvement. (4) Substance abuse: 02/22 -drug screen positive for THC. Once he is less psychotic, we will need to provide education regarding the risks of cannabis use, specifically exacerbation of psychotic symptoms. -On admission, patient reported being prescribed clonazepam 2 mg twice daily, and per PDMP he last filled a prescription on 12/17/2018, from a Dr. Matt Oneill in [place], [place]. In the past year, he has filled clonazepam and dextroamphetamine/amphetamine prescriptions from 5 different clinicians in different parts of the state, a pattern consistent with substance abuse and drug-seeking. He does not appear to have been on clonazepam consistently, as his last 2 prescriptions were filled in 06/2018 and 12/2018. 02/23 -parents report history of alcohol, cannabis, benzodiazepine, and stimulant abuse. This is also indicated in previous records from 2017 hospitalization. -Avoid controlled substances given high risk of abuse. 02/26-Today, the patient tells us that he is able to take buspirone at an unspecified dose, but when we offered to prescribe this to him for anxiety he said "it is not necessary." When asked why clonazepam is necessary, if buspirone is not, he simply repeated "clonazepam is necessary. Buspirone is not necessary." 03/05 -The patient continues to have essentially no insight into the risks associated with the use of alcohol, cannabis, benzodiazepines, stimulants, and other drugs of abuse. When it was explained to him that these substances can and do interfere with treatment for mental illnesses such as schizophrenia, his replies to say "I do not have schizophrenia." 03/08 -The patient has not requested benzodiazepines and has not mentioned a need for chemical substances such as alcohol, cannabis, stimulant medications and other drugs of abuse, and is now more focused on meeting criteria for community diversion. Inventory Assets Strengths: College graduate. Supportive family. Needs: clarification of legal charges, outpatient services, adherence with treatment and medications Risk Factors Assessment Male: Yes : No Do You Have Access To A Gun?: No Health Problems: No Mental Health Diagnoses: Yes Substance Use Disorders: Yes Previous Psychiatric Hospitalization: Yes Protective Factors Assessment : No Responsible for Young Children: No Employed: No Supportive Family: Yes Good Rapport with Provider: No Interval History Identifying Information DENISE MURRY is a 24-year-old M who has a history of schizophrenia, who was admitted on 02/19/19 17:23 on a 302 involuntary commitment for threatening behavior in the community. He is on a 304 involuntary commitment as of 03/01/2019. Chief Complaint "Oh hi, yeah, I'm good. Coming along." Review of Systems Notes Constitutional: denied Cardiovascular: denied Respiratory: denied Gastrointestinal: denied Neurological: denied Psychiatric: denies symptoms other than stated above Total of at least 10 systems reviewed, pertinent positives as above and in HPI. Sleep Information Total Hours of Sleep: 7.75 Sleep Comments: pt on q-15 minute checks Meal Information Percent Meal Consumed - Breakfast: 100 Percent Meal Consumed - Lunch: 100 Percent Meal Consumed - Dinner: 100 Nutrition Comment: pt consistently throws away plastic utensils after eating rather than handing them back in Subjective Subjective Patient was seen & assessed and interval progress reviewed with Treatment Team. Staff report the patient has continued to show improvements. He has signed releases without the previous conditions (only verbal communication, no faxed documents, etc.), which allows for consideration of a diversion plan. It is reported the patient appears less guarded and has been demonstrating clearer thoughts. Pt was seen today to assess progress since admission. Pt states he is doing well today, "coming along." Pt reports feeling as though things are progressing during his treatment, but is unable to provide specific examples - stating "everything's better." Pt states, "so we are thinking more like 5 to 8 days and then discharge?" Pt was informed that his estimated length of stay was reduced, as his progress suggests it is most likely a diversionary plan will be an option. Pt is pleased to hear this, but continues to pressure this provider on specifics regarding discharge. Pt was informed of the steps that would need to take place to ensure adequate aftercare and outpatient support. Pt states, "I signed a release for [facility], do I need to sign others? Are there other options we could be considering to hear back faster?" Pt was reassured that we would keep him informed of updates and if our search for providers would need to widen. He remains willing for a psychiatric prescriber and a therapist. We revisited the idea of an CASTANEDA, which he remains largely resistant to. Pt was informed that it is likely that it will be recommended by his outpatient supports, and certainly remains our recommendation even if we are not enforcing it at this time. Pt states he is "considering it." Pt denies other needs or concerns today. Physical Exam Psychiatric Orientation: alert, oriented x 3 and cooperative (moreso today) Apperance: appropriately dressed, appropriately groomed and appeared stated age Eye Contact: good eye contact Motor Behavior: steady gait and station and no abnormal motor movements Speech: normal rate/rhythm/volume of speech Affect: + blunted affect (a bit more reactive today during conversation) Mood: no depressed mood and no anxious mood "Things are going well, I'm feeling better." Thought Process: goal directed thought process and clear/coherent thought process Thought Content: + preoccupation (with discharge and steps to allow for this) and reality based without delusions (no overt delusional content voiced today) Suicidal Thoughts: denies suicidal thoughts Homicidal Thoughts: denies homicidal thoughts Hallucinations: no auditory hallucinations (no mention of hallucinations) Cognition: attention grossly intact and language grossly intact Estimated Intelligence: consistent with education level Insight: + limited insight (likely chronic, due to long-term illness) Judgement: + limited judgement (likely chronic, due to long-term illness) Vital Signs (Past 24 Hours) Last Vital Signs Temp 36.8 C 02/19/19 19:39 Pulse 76 03/09/19 11:28 Resp 14 03/09/19 11:28 BP 113/67 03/09/19 11:28 Pulse Ox 99 02/19/19 19:39 Results & Data Current Inpatient Medications Current Inpatient Medications: Current Inpatient Medications Acetaminophen (Tylenol) 650 mg PO Q4H PRN PRN Reason: Headache or Minor Fever Stop: 03/21/19 17:22 Al Hydrox/Mg Hydrox/Simethicone (Maalox) 30 ml PO Q4H PRN PRN Reason: GI Upset Stop: 03/21/19 17:22 Benztropine Mesylate (Cogentin) 1 mg PO Q8 PRN PRN Reason: Muscle Spasm Stop: 03/22/19 11:52 Bismuth Subsalicylate (Kaopectate) 15 ml PO PRN PRN PRN Reason: Loose Stool Stop: 03/21/19 17:22 Haloperidol (Haldol) 5 mg PO Q4H PRN PRN Reason: Agitation Stop: 03/21/19 20:25 Last Admin: 02/22/19 14:52 Dose: 5 mg Documented by: Haloperidol Lactate (Haldol) 5 mg IM Q4H PRN PRN Reason: Severe Agitation Stop: 03/21/19 20:25 Haloperidol Lactate (Haldol) 10 mg IM BID PRN PRN Reason: refusal of PO Haldol Stop: 03/25/19 10:34 Haloperidol Lactate (Haldol Lactate) 10 mg PO BID [facility] Stop: 04/03/19 20:59 Last Admin: 03/10/19 09:00 Dose: 10 mg Documented by: Hydroxyzine HCl (Vistaril) 50 mg PO HSZ PRN PRN Reason: Insomnia Stop: 03/21/19 17:22 Hydroxyzine HCl (Vistaril) 25 mg PO Q4H PRN PRN Reason: Anxiety Stop: 03/21/19 17:22 Lorazepam (Ativan) 2 mg IM Q4H PRN PRN Reason: Severe Agitation Stop: 03/21/19 20:25 Lorazepam (Ativan) 1 mg PO Q4H PRN PRN Reason: Agitation Stop: 03/21/19 20:25 Last Admin: 03/10/19 09:02 Dose: 1 mg Documented by: Magnesium Hydroxide (Milk Of Magnesia) 30 ml PO DAILY PRN PRN Reason: Heartburn Stop: 03/21/19 17:22 Sodium Chloride ([place] Nasal) 1 - 2 sprays NA PRN PRN PRN Reason: Nasal Dryness/Congestion Stop: 03/21/19 17:22 Mental Health & Subst Abuse Tx Therapist Name of Therapist: IOANA Hassan Employment Counselor Name of Employment Counselor: [employer] Harriett Treviño Phone Number for Employment Counselor: [phone] Case Management Appointment Comment: [address] [place] [address] [place] [address], [place] [address] Post Discharge Appointments Primary Care Physician Name Of Family Doctor: STACEY Hlot Contact Information Discharge Discharge Address: [address] [place] [id number] CPT Code CPT Code 87658 (1) Schizophrenia Schizophrenia type: unspecified Qualified Code(s): F20.9 - Schizophrenia, unspecified
[2019-03-11] MEDS: HALOPERIDOL ORAL SOLN 2 MG/ML PO SCH ×2 (08:57→21:19)
[2019-03-11] MEDS: LORazepam 1 MG TAB PO PRN ×2 (09:20→21:20)
--- NOTE | 2019-03-11 09:48 | Psychiatric Progress Note ---
Date of Service March 11, 2019 Impression / Recommendations Impression 24 y/o male with a history of schizophrenia, OCD, treatment nonadherence, and polysubstance abuse who presented with disorganized and threatening behavior, in the context of nonadherence, decompensation for the last several months and ongoing substance abuse. He was admitted on an involuntary commitment following escalating interactions with the police over disorganized and threatening behavior in the community, and is on a 304 involuntary commitment as of 03/01/19. We are currently seeing some signs of improvement, although the improvement noted seems to be, to some extent, depending upon the identity of the staff member with whom he is interacting. Overall, he has been less suspicious, more forthcoming, and more willing to trust. As has been the case recently, today he makes reference with a plan to cooperate, or to "seriously consider" forms of cooperation, without necessarily following through with the promised or requested behaviors. The reason that the patient currently requires psychiatric hospitalization is the fact that he has consistently, and fairly quickly, stopped psychiatric treatment, including all psychiatric medications (other than benzodiazepines) upon release from hospitals, or after they have otherwise been prescribed. His history is such that medication and other forms of treatment adherence in the community, he is at current ongoing risk for causing serious physical harm to the person of others and to himself. This is the case with many individuals who suffer from serious and persistent mental illnesses, he may not fully understand the reasons for him to take psychiatric medications, and he may not be able to understand or acknowledge the target symptoms. However, the goal is for the patient to understand that he needs active psychiatric treatment in the community, as an alternative to return to the hospital. We will continue to actively treat the patient with the hope and expectation that he will eventually be able to cooperate with our efforts to investigate diversionary strategies to avoid long-term psychiatric hospitalization. (1) Schizophrenia: 02/20--The patient was [facility] to [facility]) on q15 min checks (behavioral with suicide precautions) for safety. The patient will participate in group, recreational, and milieu therapies and will be offered additional individual and family sessions as clinically appropriate. Reviewed that he should resume antipsychotic medication FABIO and he would only discuss benzos. Adamant he won't resume Risperdal. Will offer Haldol 5 mg with Ativan 2 mg (take Haldol first) TID and readdress when less agitated. 02/21--mild improvement today in that less thought blocking and slightly less irritability. Refused meds again this am. In my opinion (Dr. Diaz), antipsychotic medication is medically necessary for the treatment of his psychosis given risk of or serious injury within 30 days. He has shown a pattern of non-compliance and escalating and threatening behavior in the community and his condition is unlikely to improve without forced psychiatric medications. Will order Haldol [address] Hubbard to provide second opinion on this and likely 303 petition tomorrow. 02/22 -patient remains inappropriate for groups and therapy, due to threatening and menacing behavior with staff and peers. Continue private room. -Increase haloperidol to 10 mg twice daily, and continue as needed doses. Agree with medications over objection, as patient has a history of a primary thought disorder, has been noncompliant with treatment which has led to decompensation, increasing psychosis, and escalating threatening and aggressive behavior in the community and now in the hospital. He required physical and chemical restraints in the ER due to threats to staff and attempts to leave. He has improved with antipsychotic medication in the past. -File for 303 hearing to be held tomorrow. -Patient remains uncooperative with attempts to assess him, will not provide historical information such as where he has been living or if he has any outpatient treatment, or sign releases for family or friends to provide collateral information. 02/23 -303 commitment granted. -Continue private room given threatening behavior, agitation, and recent history of erratic and inappropriate behavior in the community. Patient not yet approp riate for groups. -Continue haloperidol 10 mg twice daily, and 5 mg as needed. Will order an IM backup for refusal, as he has been seen by 2 physicians who both agree with medications over objection. He will likely need a long-acting injectable antipsychotic given his history of nonadherence. -Parents report he has been abusing benzodiazepines, and he is very focused on getting them here, asking for them frequently and receiving 8 mg of lorazepam daily. Will decrease to 1 mg every 4 hours as needed, with a plan to taper off prior to discharge given risk of abuse/misuse/negative outcomes. -Contact forensic case mgr, Harriett Treviño, and schedule a meeting to discuss treatment plan. Patient will likely need an involuntary outpatient commitment. 02/24 -continue Haldol p.o. with IM backup, and lorazepam as needed. Patient refusing to discuss other antipsychotic options, so if he remains on haloperidol, can receive Haldol Decanoate once the effective dose is reached. -Encourage patient to sign releases for his parents and for outpatient treatment referrals, so that discharge planning can begin. -Continue to enforce appropriate boundaries, as patient has been sexually inappropriate with female peer. Continue private room, and excused from groups until he is able to maintain behavioral control. 02/25 -continue Haldol, and lorazepam as needed. -Attempt scheduled family meeting with parents and his outpatient case mgr. -Encourage the patient to start engaging in treatment. He is willing to meet with a counselor one-on-one today. -Appropriate boundaries-patient has been reminded repeatedly of the need to cover his genital area and the inappropriateness of his sexual propositions to females. 02/26 -The patient is taking haloperidol 10 mg twice a day as prescribedalthough he repeatedly asks to have this medication discontinued. At the same time, he cannot or will not say, specifically, why he would like haloperidol to be discontinued, other than to say "it is not what I need." (The patient does appear to be tolerating haloperidol well, except for some excess sedation at this point.) -The patient continues to appear suspicious and is withdrawn. He is declin ing to actively participate in treatment. 02/27 Continue medication regimen unchanged 304 hearing scheduled for Friday. Patient will require chest x-ray and EKG prior to transfer to [facility]. 02/28 Patient demonstrating some improved ability to participate and interacting more appropriately with peers and staff in last 24 hours. We will continue to advance therapeutic programming as tolerated and indicated. Continue Haldol as scheduled which remains well-tolerated. 03/01 -Patient noncompliant with mouth checks and continues to go to the bathroom just after taking pills; due to concerns for cheeking, will switch to liquid haloperidol, with IM back up for refusal. -304 granted. Refer to [facility]. -Schedule meeting with patient, case mgr, and family for discharge planning/exploring diversion options. 03/02 - Continue liquid haloperidol as above - Refusing to sign ROIs to allow for consideration or adequate coordination of diversion options. 03/03 - Continue current haloperidol dosing, liquid as above - Pt signed some conditional ROIs this morning to allow for potential coordination of diversion plan 03/04 - Continue current medication regimen - Meeting with mother and [employer] statement services representative to discuss diversionary discharge planning tomorrow morning - Continue to encourage participation in groups to most adequately assess thought content/process and appropriate behavior, these all appear to be improving 03/05 -We have been discussing the option of converting immediate release oral haloperidol to Haldol Decanoate, given his history of nonadherence. The patient's initial response was to become irritated and insists that he does not have a history of nonadherence with medications (even though he was initially nonadherent even here in the hospital). Later, he seemed to recognize that it is reasonable for treatment providers and caregivers to be concerned about his history of nonadherence with medications, and offered reassurance that he would promise to continue to take psychiatric medications as prescribedbut he does not want to take an intramuscular form. 03/06 - continue to engage ieth him about his medication and treatment plan and addressing potential of Haldol Dec CASTANEDA. addressing if pt is willing to sign TERRY's for CRR's as potential plans for diversion from [facility] referral 03/07 - making progress towards TERRY and possibility of haldol Dec but not fully occurred as of yet 03/08 -The patient appears to be less suspicious and is more cooperative. Symptoms such as thought blocking appear to have improved significantly. He continues to show obsessive symptoms and, for example, still has not actually executed the necessary release of information documents that we will need to pursue diversion from long-term hospitalization. He has expressed a willingness to do so for several days now, but has yet to actually follow through. -Although it has been difficult to get specific information from the patient regarding his thought content, he does seem to be much more trusting, less suspicious, and more animated, a set of circumstances that we are attributing to antipsychotic medication. 03/09 - Continue current medication regimen, with ongoing encouragement for consideration of haloperidol decanoate - Pt requesting additional meeting with BSU and parents - seems appropriate as still considering diversion planning, will determine appropriate timing for a second meeting as well as clear objectives to discuss 03/10 - Continue as above - Attempting to schedule outpatient treatment team meeting for 03/15 - Continue to encourage participation in group programming in order to demonstrate appropriateness for diversionary planning 03/11 - As above - Continue to reinforce recommendation for CASTANEDA due to compliance concerns and increase likelihood of diversionary planning being appropriate - Continue to encourage increased group participation (2) Noncompliance with medication regimen: 02/22 -patient with chronic noncompliance which has severely impaired his ability to function or provide for his own basic needs in the community. He wi ll likely need an involuntary outpatient commitment. 02/23 -303 commitment granted. Pursue medications over objection, consider long- acting injectable, and schedule meeting with forensic case mgr. 02/25 -file for 304 involuntary commitment, as state hospitalization may be needed given severity of his illness, lack of insight and unwillingness to engage in treatment, and pattern of noncompliance with treatment. Patient has requested an independent evaluation, so the hearing will be scheduled sometime next week once that is completed. Patient was informed, and states his preference is to leave the hospital immediately, with no outpatient treatment. 02/26 -The patient seems to have no insight into his illness, no insight into his need for treatment (with the exception of stimulant medications and clonazepam). He acknowledges that he had been in outpatient treatment, but stopped going "because it is not necessary." -Because of the severity of illness, the patient's lack of insight, and is not adherence with treatment on an outpatient basis, the plan was reiterated today is to refer the patient for long-term psychiatric hospitalization. 03/01 -Concerns for cheeking as above; change to liquid haloperidol with IM backup for refusal. Work towards long acting injectable. -304 granted; refer to [facility]. 03/05 -The patient seems to have improved since being given liquid haloperidol, which suggests but does not confirm that he had been "cheeking" his haloperidol tablets. This circumstance, combined with his history of recurrent nonadherence with medications on an outpatient basis are reasons that the treatment team agrees that a condition of discharge needs to be willingness to accept intramuscular Depo antipsychotic medications. 03/06 =as above 03/08 -Today, the patient says that he is giving "serious consideration" to agreeing to take an intramuscular injection of Haldol Decanoate. He understands that this is 1 of the things that we are expecting him to agree to as part of an effort to actively pursue diversion. Despite the patient's agreement that he will "seriously consider" Haldol Decanoate, he still has not agreed to take it. His history of nonadherence in the community, coupled with dangerous behaviors when not medicated, are the primary reasons that long-term psychiatric hospitalization appears to be necessary 03/10 - revisited recommendation that the patient consider CASTANEDA haloperidol decanoate prior to discharge. Pt is resistant to the idea, as he feels he does not need this form of medication. He states he is "considering it" (3) Anxiety: 02/22 -patient reports anxiety, but otherwise uncooperative with the assessment and does not appear overtly anxious; refusing vital signs for the last 3 days. He has been demanding high-dose benzodiazepines, and has been repeatedly informed that these are not indicated, but that Lorazepam is ordered as needed to be taken with haloperidol. 02/23 -parents describe history of OCD symptoms. Patient unwilling to participate in assessment, and no noticeable compulsions here, so unclear if currently active. Continue to monitor and assess. 02/25 -patient denies OCD symptoms, and none have been observed here. He does report feeling "anxious," but is a poor historian and unable to get much further information. He does not appear to be expansive panic. We will continue to assess and rule out SYBIL. He is refusing an SSRI antidepressant, wanting only benzodiazepines. 02/28Possibility of obsessive concern for germs again raised by nursing followin g his reluctance to take the Haldol tablet after it touched his pillow and reluctance to touch his silverware again after he has finished eating. Patient denies obsessions or compulsions but we will continue to monitor. 03/01 - Patient refusing to discuss OCD symptoms. 03/05 -Today, the patient was able to talk about his obsessive-compulsive symptoms, and his parents presence. However, he insisted that the thoughts and behaviors were not in any way abnormal, and he said "of other people have a problem with that, that is up to them." Reported behaviors include handwashing, fear of infectious disease contamination, and, for example, reluctance to touch other people, including his parents. 03/08 -The patient reports that he realizes that he has been "obsessive" when she is also evidence of some improvement. (4) Substance abuse: 02/22 -drug screen positive for THC. Once he is less psychotic, we will need to provide education regarding the risks of cannabis use, specifically exacerbation of psychotic symptoms. -On admission, patient reported being prescribed clonazepam 2 mg twice daily, and per PDMP he last filled a prescription on 12/17/2018, from a Dr. Matt Oneill in [place], [place]. In the past year, he has filled clonazepam and dextroamphetamine/amphetamine prescriptions from 5 different clinicians in different parts of the state, a pattern consistent with substance abuse and drug-seeking. He does not appear to have been on clonazepam consistently, as his last 2 prescriptions were filled in 06/2018 and 12/2018. 02/23 -parents report history of alcohol, cannabis, benzodiazepine, and stimulant abuse. This is also indicated in previous records from 2017 hospitalization. -Avoid controlled substances given high risk of abuse. 02/26-Today, the patient tells us that he is able to take buspirone at an unspecified dose, but when we offered to prescribe this to him for anxiety he said "it is not necessary." When asked why clonazepam is necessary, if buspirone is not, he simply repeated "clonazepam is necessary. Buspirone is not necessary." 03/05 -The patient continues to have essentially no insight into the risks associated with the use of alcohol, cannabis, benzodiazepines, stimulants, and other drugs of abuse. When it was explained to him that these substances can and do interfere with treatment for mental illnesses such as schizophrenia, his replies to say "I do not have schizophrenia." 03/08 -The patient has not requested benzodiazepines and has not mentioned a need for chemical substances such as alcohol, cannabis, stimulant medications and other drugs of abuse, and is now more focused on meeting criteria for community diversion. Inventory Assets Strengths: College graduate. Supportive family. Needs: clarification of legal charges, outpatient services, adherence with treatment and medications Risk Factors Assessment Male: Yes : No Do You Have Access To A Gun?: No Health Problems: No Mental Health Diagnoses: Yes Substance Use Disorders: Yes Previous Psychiatric Hospitalization: Yes Protective Factors Assessment : No Responsible for Young Children: No Employed: No Supportive Family: Yes Good Rapport with Provider: No Interval History Identifying Information DENISE MURRY is a 24-year-old M who has a history of schizophrenia, who was admitted on 02/19/19 17:23 on a 302 involuntary commitment for threatening behavior in the community. He is on a 304 involuntary commitment as of 03/01/2019. Chief Complaint "Doing well this morning." Review of Systems Notes Constitutional: denied Cardiovascular: denied Respiratory: denied Gastrointestinal: denied Neurological: denied Psychiatric: denies symptoms other than stated above Total of at least 10 systems reviewed, pertinent positives as above and in HPI. Sleep Information Total Hours of Sleep: 8.75 Sleep Comments: pt on q-15 minute checks Meal Information Percent Meal Consumed - Breakfast: 100 Percent Meal Consumed - Lunch: 100 Percent Meal Consumed - Dinner: 100 Nutrition Comment: pt consistently throws away plastic utensils after eating rather than handing them back in Subjective Subjective Patient was seen & assessed and interval progress reviewed with Nursing and social work. Staff reports the patient has been accepted to [facility], but willingness of outpatient [facility] services to support a diversion plans unclear at this time. There are plans to discuss this further today in order to determine if diversion is an option. Patient was seen today to assess progress since admission. Initially met with patient this morning, noticing he was in bed during community meeting. Pt was encouraged to get up and attend the group, and we would speak after it was over. Pt was agreeable to this, and did attend community meeting where he rated his mood an 8/10 and "opportunistic". Patient shares with this provider following community meeting that his goal was to "just get through the day", but states he is also focused on discharge planning. Patient verbalizes concern about the timing of a scheduled treatment team meeting to involve outpatient supports. Patient was reminded that the estimated length of stay is a fluid number, and that his discharge planning is still not concrete. Patient was informed of some of the concerns expressed by the [facility], in order to prepare for this treatment team meeting the afternoon of 03/15/2019. Patient was commended for completing two mena points: signing adequate ROIs and being willing for outpatient psychiatric services. He was reminded that another mena factor in diversion planning will be his willingness for a long-acting injectable to ensure medication compliance. Patient seems to be somewhat confused about the weight of the county's opinion and his discharge planning, and was reminded that they will be providing his outpatient supports and therefore need to feel comfortable with his treatment plan. It appears patient still is not able to fully make this connection at this time. Patient does request this provider to find out specifics on a 304 outpatient commitment, specifically in regard to the renewal process. Patient denies other needs or concerns outside of discharge planning questions. Physical Exam Psychiatric Orientation: alert, oriented x 3 and + guarded (Superficially cooperative) Apperance: appropriately dressed (Casually in a T-shirt and gym shorts), + disheveled and appeared stated age Eye Contact: + fair eye contact (Often prolonged eye contact, or staring at other objects in room) Motor Behavior: steady gait and station and no abnormal motor movements Speech: normal rate/rhythm/volume of speech (Monotone) Affect: + flat affect Mood: no depressed mood and no anxious mood "Alright" Thought Process: goal directed thought process and clear/coherent thought process Thought Content: + preoccupation (With intricate details of discharge planning and explanation); no delusions (No overt presentation of delusional thought content) Suicidal Thoughts: + reports suicidal thoughts Homicidal Thoughts: + reports homicidal thoughts Hallucinations: no auditory hallucinations and no visual hallucinations Cognition: attention grossly intact and language grossly intact Estimated Intelligence: consistent with education level Insight: + impaired insight Judgement: + impaired judgement Vital Signs (Past 24 Hours) Last Vital Signs Temp 36.8 C 02/19/19 19:39 Pulse 76 03/09/19 11:28 Resp 14 03/09/19 11:28 BP 113/67 03/09/19 11:28 Pulse Ox 99 02/19/19 19:39 Results & Data Current Inpatient Medications Current Inpatient Medications: Current Inpatient Medications Acetaminophen (Tylenol) 650 mg PO Q4H PRN PRN Reason: Headache or Minor Fever Stop: 03/21/19 17:22 Al Hydrox/Mg Hydrox/Simethicone (Maalox) 30 ml PO Q4H PRN PRN Reason: GI Upset Stop: 03/21/19 17:22 Benztropine Mesylate (Cogentin) 1 mg PO Q8 PRN PRN Reason: Muscle Spasm Stop: 03/22/19 11:52 Bismuth Subsalicylate (Kaopectate) 15 ml PO PRN PRN PRN Reason: Loose Stool Stop: 03/21/19 17:22 Haloperidol (Haldol) 5 mg PO Q4H PRN PRN Reason: Agitation Stop: 03/21/19 20:25 Last Admin: 02/22/19 14:52 Dose: 5 mg Documented by: Haloperidol Lactate (Haldol) 5 mg IM Q4H PRN PRN Reason: Severe Agitation Stop: 03/21/19 20:25 Haloperidol Lactate (Haldol) 10 mg IM BID PRN PRN Reason: refusal of PO Haldol Stop: 03/25/19 10:34 Haloperidol Lactate (Haldol Lactate) 10 mg PO BID [facility] Stop: 04/03/19 20:59 Last Admin: 03/11/19 08:57 Dose: 10 mg Documented by: Hydroxyzine HCl (Vistaril) 50 mg PO HSZ PRN PRN Reason: Insomnia Stop: 03/21/19 17:22 Hydroxyzine HCl (Vistaril) 25 mg PO Q4H PRN PRN Reason: Anxiety Stop: 03/21/19 17:22 Lorazepam (Ativan) 2 mg IM Q4H PRN PRN Reason: Severe Agitation Stop: 03/21/19 20:25 Lorazepam (Ativan) 1 mg PO Q4H PRN PRN Reason: Agitation Stop: 03/21/19 20:25 Last Admin: 03/11/19 09:20 Dose: 1 mg Documented by: Magnesium Hydroxide (Milk Of Magnesia) 30 ml PO DAILY PRN PRN Reason: Heartburn Stop: 03/21/19 17:22 Sodium Chloride (Worth Nasal) 1 - 2 sprays NA PRN PRN PRN Reason: Nasal Dryness/Congestion Stop: 03/21/19 17:22 Mental Health & Subst Abuse Tx Therapist Name of Therapist: IOANA Hassan Toddler Nanny Name of Toddler Nanny: [employer] - Harriett Treviño Phone Number for Toddler Nanny: [phone] Case Management Appointment Comment: [address] [address], [place] [address] Post Discharge Appointments Primary Care Physician Name Of Family Doctor: STACEY Holt Contact Information Discharge Discharge [address]: [address] [place] [id number] CPT Code CPT Code 21160 (1) Schizophrenia Schizophrenia type: unspecified Qualified Code(s): F20.9 - Schizophrenia, unspecified
[2019-03-12] MEDS: HALOPERIDOL ORAL SOLN 2 MG/ML PO SCH ×2 (09:35→21:49)
[2019-03-12] MEDS: LORazepam 1 MG TAB PO PRN (09:36)
--- NOTE | 2019-03-12 16:48 | Psychiatric Progress Note ---
Date of Service March 12, 2019 Impression / Recommendations Impression 24 y/o male with a history of schizophrenia, OCD, treatment nonadherence, and polysubstance abuse who presented with disorganized and threatening behavior, in the context of nonadherence, decompensation for the last several months and ongoing substance abuse. He was admitted on an involuntary commitment following escalating interactions with the police over disorganized and threatening behavior in the community, and is on a 304 involuntary commitment as of 03/01/19. We are currently seeing some signs of improvement, although the improvement noted seems to be, to some extent, depending upon the identity of the staff member with whom he is interacting. Overall, he has been less suspicious, more forthcoming, and more willing to trust. As has been the case recently, today he makes reference with a plan to cooperate, or to "seriously consider" forms of cooperation, without necessarily following through with the promised or requested behaviors. The reason that the patient currently requires psychiatric hospitalization is the fact that he has consistently, and fairly quickly, stopped psychiatric treatment, including all psychiatric medications (other than benzodiazepines) upon release from hospitals, or after they have otherwise been prescribed. His history is such that medication and other forms of treatment adherence in the community, he is at current ongoing risk for causing serious physical harm to the person of others and to himself. This is the case with many individuals who suffer from serious and persistent mental illnesses, he may not fully understand the reasons for him to take psychiatric medications, and he may not be able to understand or acknowledge the target symptoms. However, the goal is for the patient to understand that he needs active psychiatric treatment in the community, as an alternative to return to the hospital. We will continue to actively treat the patient with the hope and expectation that he will eventually be able to cooperate with our efforts to investigate diversionary strategies to avoid long-term psychiatric hospitalization. An ongoing issue for the patient is that he has come to believe that the reason that his treatment team at [facility] is recommending a Depo form of his antipsychotic medication is that it has been recommended to us by the [facility] services unit. We are attempting to help the patient understand that the reverse is true; i.e., that his p clinicians on the behavioral health unit are recommending injectable Depo antipsychotic medications, and the court service agency is saying that they will not consider a state hospital diversion unless the patient is, in fact, taking injectable Depo antipsychotic medication. It is also been carefully explained to the patient that the [facility] services unit is also looking for evidence that the patient is actively participating in treatment, and that he is forthcoming and cooperative with treatment providers. (1) Schizophrenia: 02/20--The patient was admitted to the [facility] ([facility] mental health unit) on q15 min checks (behavioral with suicide precautions) for safety. The patient will participate in group, recreational, and milieu therapies and will be offered additional individual and family sessions as clinically appropriate. Reviewed that he should resume antipsychotic medication FABIO and he would only discuss benzos. Adamant he won't resume Risperdal. Will offer Haldol 5 mg with Ativan 2 mg (take Haldol first) TID and readdress when less agitated. 02/21--mild improvement today in that less thought blocking and slightly less irritability. Refused meds again this am. In my opinion (Dr. Diaz), antipsychotic medication is medically necessary for the treatment of his psychosis given risk of or serious injury within 30 days. He has shown a pattern of non-compliance and escalating and threatening behavior in the community and his condition is unlikely to improve without forced psychiatric medications. Will order Haldol [address] Hubbard to provide second opinion on this and likely 303 petition tomorrow. 02/22 -patient remains inappropriate for groups and therapy, due to threatening and menacing behavior with staff and peers. Continue private room. -Increase haloperidol to 10 mg twice daily, and continue as needed doses. Agree with medications over objection, as patient has a history of a primary thought disorder, has been noncompliant with treatment which has led to decompensation, increasing psychosis, and escalating threatening and aggressive behavior in the community and now in the hospital. He required physical and chemical restraints in the ER due to threats to staff and attempts to leave. He has improved with antipsychotic medication in the past. -File for 303 hearing to be held tomorrow. -Patient remains uncooperative with attempts to assess him, will not provide historical information such as where he has been living or if he has any outpat ient treatment, or sign releases for family or friends to provide collateral information. 02/23 -303 commitment granted. -Continue private room given threatening behavior, agitation, and recent history of erratic and inappropriate behavior in the community. Patient not yet appropriate for groups. -Continue haloperidol 10 mg twice daily, and 5 mg as needed. Will order an IM backup for refusal, as he has been seen by 2 physicians who both agree with medications over objection. He will likely need a long-acting injectable antipsychotic given his history of nonadherence. -Parents report he has been abusing benzodiazepines, and he is very focused on getting them here, asking for them frequently and receiving 8 mg of lorazepam daily. Will decrease to 1 mg every 4 hours as needed, with a plan to taper off prior to discharge given risk of abuse/misuse/negative outcomes. -Contact forensic case management coordinator, Harriett Treviño, and schedule a meeting to discuss treatment plan. Patient will likely need an involuntary outpatient commitment. 02/24 -continue Haldol p.o. with IM backup, and lorazepam as needed. Patient refusing to discuss other antipsychotic options, so if he remains on haloperidol, can receive Haldol Decanoate once the effective dose is reached. -Encourage patient to sign releases for his parents and for outpatient treatment referrals, so that discharge planning can begin. -Continue to enforce appropriate boundaries, as patient has been sexually inappropriate with female peer. Continue private room, and excused from groups until he is able to maintain behavioral control. 02/25 -continue Haldol, and lorazepam as needed. -Attempt scheduled family meeting with parents and his outpatient case management coordinator. -Encourage the patient to start engaging in treatment. He is willing to meet with a counselor one-on-one today. -Appropriate boundaries-patient has been reminded repeatedly of the need to cover his genital area and the inappropriateness of his sexual propositions to females. 02/26 -The patient is taking haloperidol 10 mg twice a day as prescribedalthough he repeatedly asks to have this medication discontinued. At the same time, he cannot or will not say, specifically, why he would like haloperidol to be discontinued, other than to say "it is not what I need." (The patient does appear to be tolerating haloperidol well, except for some excess sedation at this point.) -The patient continues to appear suspicious and is withdrawn. He is declining to actively participate in treatment. 02/27 Continue medication regimen unchanged 304 hearing scheduled for Friday. Patient will require chest x-ray and EKG prior to transfer to [facility]. 02/28 Patient demonstrating some improved ability to participate and interacting more appropriately with peers and staff in last 24 hours. We will continue to advance therapeutic programming as tolerated and indicated. Continue Haldol as scheduled which remains well-tolerated. 03/01 -Patient noncompliant with mouth checks and continues to go to the bathroom just after taking pills; due to concerns for cheeking, will switch to liquid haloperidol, with IM back up for refusal. -304 granted. Refer to [facility]. -Schedule meeting with patient, case management coordinator, and family for discharge planning/exploring diversion options. 03/02 - Continue liquid haloperidol as above - Refusing to sign ROIs to allow for consideration or adequate coordination of diversion options. 03/03 - Continue current haloperidol dosing, liquid as above - Pt signed some conditional ROIs this morning to allow for potential coordination of diversion plan 03/04 - Continue current medication regimen - Meeting with mother and [facility] human resources representative to discuss diversionary discharge planning tomorrow morning - Continue to encourage participation in groups to most adequately assess thought content/process and appropriate behavior, these all appear to be improving 03/05 -We have been discussing the option of converting immediate release oral haloperidol to Haldol Decanoate, given his history of nonadherence. The patient's initial response was to become irritated and insists that he does not have a history of nonadherence with medications (even though he was initially nonadherent even here in the hospital). Later, he seemed to recognize that it is reasonable for treatment providers and caregivers to be concerned about his history of nonadherence with medications, and offered reassurance that he would promise to continue to take psychiatric medications as prescribedbut he does not want to take an intramuscular form. 03/06 - continue to engage ieth him about his medication and treatment plan and addressing potential of Haldol Dec CASTANEDA. addressing if pt is willing to sign TERRY's for CRR's as potential plans for diversion from [facility] referral 03/07 - making progress towards TERRY and possibility of haldol Dec but not fully occurred as of yet 03/08 -The patient appears to be less suspicious and is more cooperative. Symptoms such as thought blocking appear to have improved significantly. He continues to show obsessive symptoms and, for example, still has not actually executed the necessary release of information documents that we will need to pursue diversion from long-term hospitalization. He has expressed a willingness to do so for several days now, but has yet to actually follow through. -Although it has been difficult to get specific information from the patient regarding his thought content, he does seem to be much more trusting, less suspicious, and more animated, a set of circumstances that we are attributing to antipsychotic medication. 03/09 - Continue current medication regimen, with ongoing encouragement for consideration of haloperidol decanoate - Pt requesting additional meeting with [facility] and parents - seems appropriate as still considering diversion planning, will determine appropriate timing for a second meeting as well as clear objectives to discuss 03/10 - Continue as above - Attempting to schedule outpatient treatment team meeting for 03/15 - Continue to encourage participation in group programming in order to demonstrate appropriateness for diversionary planning 03/11 - As above - Continue to reinforce recommendation for CASTANEDA due to compliance concerns and increase likelihood of diversionary planning being appropriate - Continue to encourage increased group participation 03/12 -The patient seems to have 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 He continues to insist that the reasons for his hospitalizations and various behaviors observed in the community are simply a function of the difficulty that other people have an understanding him and his reasoning. -Oral Haldol 10 mg twice a day seems to have helped the patient be less suspicious and more cooperative. However, the patient continues to lacks substantial insight into his illness, the nature of the problems that have occurred in the community, and his need for certain forms of treatment. -All members of the patient's treatment team will need to continuously and consistently reinforce the fact that we are recommending that he agree to take Haldol Decanoate because in our clinical opinion it is medically necessary, and in the opinion of the base services unit that will possibly arrange for state hospital diversion, they are not willing to agree to diversion if the patient is not cooperating with the recommendations of the hospital. (2) Noncompliance with medication regimen: 02/22 -patient with chronic noncompliance which has severely impaired his ability to function or provide for his own basic needs in the community. He will likely need an involuntary outpatient commitment. 02/23 -303 commitment granted. Pursue medications over objection, consider long- acting injectable, and schedule meeting with forensic case management coordinator. 02/25 -file for 304 involuntary commitment, as state hospitalization may be needed given severity of his illness, lack of insight and unwillingness to engage in treatment, and pattern of noncompliance with treatment. Patient has requested an independent evaluation, so the hearing will be scheduled sometime next week once that is completed. Patient was informed, and states his preference is to leave the hospital immediately, with no outpatient treatment. 02/26 -The patient seems to have no insight into his illness, no insight into his need for treatment (with the exception of stimulant medications and clonazepam). He acknowledges that he had been in outpatient treatment, but stopped going "because it is not necessary." -Because of the severity of illness, the patient's lack of insight, and is not adherence with treatment on an outpatient basis, the plan was reiterated today is to refer the patient for long-term psychiatric hospitalization. 03/01 -Concerns for cheeking as above; change to liquid haloperidol with IM backup for refusal. Work towards long acting injectable. -304 granted; refer to [facility]. 03/05 -The patient seems to have improved since being given liquid haloperidol, which suggests but does not confirm that he had been "cheeking" his haloperidol tablets. This circumstance, combined with his history of recurrent nonadherence with medications on an outpatient basis are reasons that the treatment team agrees that a condition of discharge needs to be willingness to accept intramuscular Depo antipsychotic medications. 03/06 =as above 03/08 -Today, the patient says that he is giving "serious consideration" to agreeing to take an intramuscular injection of Haldol Decanoate. He understands that this is 1 of the things that we are expecting him to agree to as part of an effort to actively pursue diversion. Despite the patient's agreement that he will "seriously consider" Haldol Decanoate, he still has not agreed to take it. His history of nonadherence in the community, coupled with dangerous behaviors when not medicated, are the primary reasons that long-term psychiatric hospitalization appears to be necessary 03/10 - revisited recommendation that the patient consider CASTANEDA haloperidol decanoate prior to discharge. Pt is resistant to the idea, as he feels he does not need this form of medication. He states he is "considering it" 03/12 -The patient has variously said that he is "considering" or "seriously consid ering" conversion to long-acting haloperidol decanoate prior to discharge. However, to date, he has not moved past "seriously considering." -Today, we explained again that the agency that we will have control over the question of diversion from admission to the [facility] will not consider diversion unless he is adherent with our recommendations and that are recommendations include active participation in therapy, a willingness to be cooperative and forthcoming with the treatment team, and agreement to take Depo antipsychotic medication. (3) Anxiety: 02/22 -patient reports anxiety, but otherwise uncooperative with the assessment and does not appear overtly anxious; refusing vital signs for the last 3 days. He has been demanding high-dose benzodiazepines, and has been repeatedly informed that these are not indicated, but that Lorazepam is ordered as needed to be taken with haloperidol. 02/23 -parents describe history of OCD symptoms. Patient unwilling to participate in assessment, and no noticeable compulsions here, so unclear if currently active. Continue to monitor and assess. 02/25 -patient denies OCD symptoms, and none have been observed here. He does report feeling "anxious," but is a poor historian and unable to get much further information. He does not appear to be expansive panic. We will continue to assess and rule out SYBIL. He is refusing an SSRI antidepressant, wanting only benzodiazepines. 02/28Possibility of obsessive concern for germs again raised by nursing following his reluctance to take the Haldol tablet after it touched his pillow and reluctance to touch his silverware again after he has finished eating. Patient denies obsessions or compulsions but we will continue to monitor. 03/01 - Patient refusing to discuss OCD symptoms. 03/05 -Today, the patient was able to talk about his obsessive-compulsive symptoms, and his parents presence. However, he insisted that the thoughts and behaviors were not in any way abnormal, and he said "of other people have a problem with that, that is up to them." Reported behaviors include handwashing, fear of infectious disease contamination, and, for example, reluctance to touch other people, including his parents. 03/08 -The patient reports that he realizes that he has been "obsessive" which is also evidence of some improvement. 03/12 -The patient voices anxiety in association with the difficulty that he is understanding the expectations of the treatment team, as well as an anxiety associated with the possibility of long-term psychiatric hospitalization. (4) Substance abuse: 02/22 -drug screen positive for THC. Once he is less psychotic, we will need to provide education regarding the risks of cannabis use, specifically exacerbation of psychotic symptoms. -On admission, patient reported being prescribed clonazepam 2 mg twice daily, and per PDMP he last filled a prescription on 12/17/2018, from a Dr. Matt Oneill in [place], [place]. In the past year, he has filled clonazepam and dextroamphetamine/amphetamine prescriptions from 5 different clinicians in different parts of the state, a pattern consistent with substance abuse and drug-seeking. He does not appear to have been on clonazepam consistently, as his last 2 prescriptions were filled in 06/2018 and 12/2018. 02/23 -parents report history of alcohol, cannabis, benzodiazepine, and stimulant abuse. This is also indicated in previous records from 2017 hospitalization. -Avoid controlled substances given high risk of abuse. 02/26-Today, the patient tells us that he is able to take buspirone at an unspecified dose, but when we offered to prescribe this to him for anxiety he said "it is not necessary." When asked why clonazepam is necessary, if buspirone is not, he simply repeated "clonazepam is necessary. Buspirone is not necessary." 03/05 -The patient continues to have essentially no insight into the risks associated with the use of alcohol, cannabis, benzodiazepines, stimulants, and other drugs of abuse. When it was explained to him that these substances can and do interfere with treatment for mental illnesses such as schizophrenia, his replies to say "I do not have schizophrenia." 03/08 -The patient has not requested benzodiazepines and has not mentioned a need for chemical substances such as alcohol, cannabis, stimulant medications and other drugs of abuse, and is now more focused on meeting criteria for community diversion. Inventory Assets Strengths: College graduate. Supportive family. Needs: clarification of legal charges, outpatient services, adherence with treatment and medications Risk Factors Assessment Male: Yes : No Do You Have Access To A Gun?: No Health Problems: No Mental Health Diagnoses: Yes Substance Use Disorders: Yes Previous Psychiatric Hospitalization: Yes Protective Factors Assessment : No Responsible for Young Children: No Employed: No Supportive Family: Yes Good Rapport with Provider: No Interval History Identifying Information DENISE HOLLEY is a 24-year-old M who has a history of schizophrenia, who was admitted on 02/19/19 17:23 on a 302 involuntary commitment for threatening behavior in the community. He is on a 304 involuntary commitment as of 03/01/2019. Chief Complaint "My length of stay went up." Review of Systems Sleep Information Total Hours of Sleep: 8.5 Sleep Comments: pt on q-15 minute checks Meal Information Percent Meal Consumed - Breakfast: 100 Percent Meal Consumed - Lunch: 100 Percent Meal Consumed - Dinner: 100 Nutrition Comment: pt consistently throws away plastic utensils after eating rather than handing them back in Subjective Subjective Patient was seen & assessed and interval progress reviewed with Treatment Team. I met individually with the patient in order to assess his current mental status, evaluate his response to treatment, provide education regarding his illness and various treatment options, coordinate any changes in the patient's treatment regimen with the patient, and address issues and concerns that may arise. The patient began the encounter by noting that he had learned that his length of stay had been increased today and he asked me if I could explain the reason why. Mr. Holley had already asked different staff members the same question regarding the length of stay and was given the same answer that I gave him. Specifically, I explained that we had received a report that he had not been regularly attending his therapeutic groups and activities, and when he does attend he may not participate. I also pointed out that he still has not agreed to take Haldol decanoate. He has been saying that the agents of the [facility] services agency that is requiring that he be on a Depo form of antipsychotic medication as a condition of considering diversion are not qualified to make medical decisions, and he raised this point with me again today. I explained that while they are not qualified to make medical decisions, they are in a position to refused to participate in a state hospital diversion effort and instances in which an individual is not following the recommendations of his or her treatment provider. I went on to explain that, in his case, the rest of the treatment team and I are recommending that he allow us to convert his medication to Haldol Decanoate and he has been refusing. The patient indicated understanding, but then said that he thought that it was not reasonable for us to give him 3 different forms of Haldol, by which he means to tablet form, oral form, and injectable. I asked him if he understood why he had been converted from the tablet form to the oral form and he said that he did not, although this has been explained to her many times. I reminded him that it was because it appeared that he was cheeking his medications and not actually swallowing them, so he was changed from the tablet form to the oral form. I also explained that once he is successfully converted to the Depo form of Haldol ("Haldol Decanoate") we would be able to stop the oral form of the medication-be it tabl et or liquid. The patient indicated understanding. He tells me that he feels that he does participate in groups, but eventually was able to acknowledge that he often does refused to go. He agreed that he would "try harder" to attend groups and participate appropriately. When it came to the question of his medication, he said that he is "seriously considering" Haldol Decanoate, but would not agree to take it today. Physical Exam Psychiatric Orientation: oriented x 3 Apperance: + inappropriately groomed The patient is malodorous and reportedly has been refusing to shower. Eye Contact: + fair eye contact Motor Behavior: no abnormal motor movements The patient often stares and delays his responses to questions by as long as 30 seconds. Sometimes he has to be prompted to respond by a comment about the delay and a repeat of the question. Affect: + blunted affect "I feel okay." Thought Process: + perseveration and + concrete thought process The patient often asked to have the same explanation provided to him repeatedly. It is not clear if this is a function of OCD, or if it is a delaying tactic on his part, or if he is having trouble concentrating and remembering the answers that have already been provided. It is difficult to assess the patient's thought content. He speaks sparingly and tends to be quite guarded and suspicious. Suicidal Thoughts: denies suicidal thoughts Homicidal Thoughts: denies homicidal thoughts Hallucinations: no auditory hallucinations Cognition: recent memory grossly intact and remote memory grossly intact Estimated Intelligence: + above average estimated intelligence Insight: + severely impaired insight Judgement: + poor judgement Vital Signs (Past 24 Hours) Last Vital Signs Temp 36.8 C 02/19/19 19:39 Pulse 76 03/09/19 11:28 Resp 14 03/09/19 11:28 BP 113/67 03/09/19 11:28 Pulse Ox 99 02/19/19 19:39 Results & Data Current Inpatient Medications Current Inpatient Medications: Current Inpatient Medications Acetaminophen (Tylenol) 650 mg PO Q4H PRN PRN Reason: Headache or Minor Fever Stop: 03/21/19 17:22 Al Hydrox/Mg Hydrox/Simethicone (Maalox) 30 ml PO Q4H PRN PRN Reason: GI Upset Stop: 03/21/19 17:22 Benztropine Mesylate (Cogentin) 1 mg PO Q8 PRN PRN Reason: Muscle Spasm Stop: 03/22/19 11:52 Bismuth Subsalicylate (Kaopectate) 15 ml PO PRN PRN PRN Reason: Loose Stool Stop: 03/21/19 17:22 Haloperidol (Haldol) 5 mg PO Q4H PRN PRN Reason: Agitation Stop: 03/21/19 20:25 Last Admin: 02/22/19 14:52 Dose: 5 mg Documented by: Haloperidol Lactate (Haldol) 5 mg IM Q4H PRN PRN Reason: Severe Agitation Stop: 03/21/19 20:25 Haloperidol Lactate (Haldol) 10 mg IM BID PRN PRN Reason: refusal of PO Haldol Stop: 03/25/19 10:34 Haloperidol Lactate (Haldol Lactate) 10 mg PO BID [facility] Stop: 04/03/19 20:59 Last Admin: 03/12/19 09:35 Dose: 10 mg Documented by: Hydroxyzine HCl (Vistaril) 50 mg PO HSZ PRN PRN Reason: Insomnia Stop: 03/21/19 17:22 Hydroxyzine HCl (Vistaril) 25 mg PO Q4H PRN PRN Reason: Anxiety Stop: 03/21/19 17:22 Lorazepam (Ativan) 2 mg IM Q4H PRN PRN Reason: Severe Agitation Stop: 03/21/19 20:25 Lorazepam (Ativan) 1 mg PO Q4H PRN PRN Reason: Agitation Stop: 03/21/19 20:25 Last Admin: 03/12/19 09:36 Dose: 1 mg Documented by: Magnesium Hydroxide (Milk Of Magnesia) 30 ml PO DAILY PRN PRN Reason: Heartburn Stop: 03/21/19 17:22 Sodium Chloride ([place] Nasal) 1 - 2 sprays NA PRN PRN PRN Reason: Nasal Dryness/Congestion Stop: 03/21/19 17:22 Mental Health & Subst Abuse Tx Therapist Name of Therapist: IOANA Hassan 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, [place] [address] Post Discharge Appointments Primary Care Physician Name Of Family Doctor: STACEY Holt Contact Information Discharge Discharge Address: [address] [place] [address], [place] [address] CPT Code CPT Code 47434 (1) Schizophrenia Schizophrenia type: unspecified Qualified Code(s): F20.9 - Schizophrenia, unspecified
[2019-03-13] MEDS: HALOPERIDOL ORAL SOLN 2 MG/ML PO SCH ×2 (09:12→21:05)
--- NOTE | 2019-03-13 12:36 | Psychiatric Progress Note ---
Date of Service March 13, 2019 Impression / Recommendations Impression 24 y/o male with a history of schizophrenia, OCD, treatment nonadherence, and polysubstance abuse who presented with disorganized and threatening behavior, in the context of nonadherence, decompensation for the last several months and ongoing substance abuse. He was admitted on an involuntary commitment following escalating interactions with the police over disorganized and threatening behavior in the community, and is on a 304 involuntary commitment as of 03/01/19. We are currently seeing some signs of improvement, although the improvement noted seems to be, to some extent, depending upon the identity of the staff member with whom he is interacting. Overall, he has been less suspicious, more forthcoming, and more willing to trust. As has been the case recently, today he makes reference with a plan to cooperate, or to "seriously consider" forms of cooperation, without necessarily following through with the promised or requested behaviors. The reason that the patient currently requires psychiatric hospitalization is the fact that he has consistently, and fairly quickly, stopped psychiatric treatment, including all psychiatric medications (other than benzodiazepines) upon release from hospitals, or after they have otherwise been prescribed. His history is such that medication and other forms of treatment adherence in the community, he is at current ongoing risk for causing serious physical harm to the person of others and to himself. This is the case with many individuals who suffer from serious and persistent mental illnesses, he may not fully understand the reasons for him to take psychiatric medications, and he may not be able to understand or acknowledge the target symptoms. However, the goal is for the patient to understand that he needs active psychiatric treatment in the community, as an alternative to return to the hospital. We will continue to actively treat the patient with the hope and expectation that he will eventually be able to cooperate with our efforts to investigate diversionary strategies to avoid long-term psychiatric hospitalization. An ongoing issue for the patient is that he has come to believe that the reason that his treatment team at [facility] is recommending a Depo form of his antipsychotic medication is that it has been recommended to us by the [facility] services unit. We are attempting to help the patient understand that the reverse is true; i.e., that his p clinicians on the behavioral health unit are recommending injectable Depo antipsychotic medications, and the court service agency is saying that they will not consider a state hospital diversion unless the patient is, in fact, taking injectable Depo antipsychotic medication. It is also been carefully explained to the patient that the [facility] services unit is also looking for evidence that the patient is actively participating in treatment, and that he is forthcoming and cooperative with treatment providers. The above recomendations and sources of recommendations for treatment was reiterated again to pateint today 03/13/19. (1) Schizophrenia: 02/20--The patient was admitted to the [facility] on q15 min checks (behavioral with suicide precautions) for safety. The patient will participate in group, recreational, and milieu therapies and will be offered additional individual and family sessions as clinically appropriate. Reviewed that he should resume antipsychotic medication FABIO and he would only discuss benzos. Adamant he won't resume Risperdal. Will offer H aldol 5 mg with Ativan 2 mg (take Haldol first) TID and readdress when less agitated. 02/21--mild improvement today in that less thought blocking and slightly less irritability. Refused meds again this am. In my opinion (Dr. Diaz), antipsychotic medication is medically necessary for the treatment of his psychosis given risk of or serious injury within 30 days. He has shown a pattern of non-compliance and escalating and threatening behavior in the community and his condition is unlikely to improve without forced psychiatric medications. Will order Haldol [address] Hubbard to provide second opinion on this and likely 303 petition tomorrow. 02/22 -patient remains inappropriate for groups and therapy, due to threatening and menacing behavior with staff and peers. Continue private room. -Increase haloperidol to 10 mg twice daily, and continue as needed doses. Agree with medications over objection, as patient has a history of a primary thought disorder, has been noncompliant with treatment which has led to decompensation, increasing psychosis, and escalating threatening and aggressive behavior in the community and now in the hospital. He required physical and chemical restraints in the ER due to threats to staff and attempts to leave. He has improved with antipsychotic medication in the past. -File for 303 hearing to be held tomorrow. -Patient remains uncooperative with attempts to assess him, will not provide historical information such as where he has been living or if he has any outpatient treatment, or sign releases for family or friends to provide collateral information. 02/23 -303 commitment granted. -Continue private room given threatening behavior, agitation, and recent history of erratic and inappropriate behavior in the community. Patient not yet appropriate for groups. -Continue haloperidol 10 mg twice daily, and 5 mg as needed. Will order an IM backup for refusal, as he has been seen by 2 physicians who both agree with medications over objection. He will likely need a long-acting injectable antipsychotic given his history of nonadherence. -Parents report he has been abusing benzodiazepines, and he is very focused on getting them here, asking for them frequently and receiving 8 mg of lorazepam daily. Will decrease to 1 mg every 4 hours as needed, with a plan to taper off prior to discharge given risk of abuse/misuse/negative outcomes. -Contact forensic social work case manager, Harriett Treviño, and schedule a meeting to discuss treatment plan. Patient will likely need an involuntary outpatient commitment. 02/24 -continue Haldol p.o. with IM backup, and lorazepam as needed. Patient refusing to discuss other antipsychotic options, so if he remains on haloperidol, can receive Haldol Decanoate once the effective dose is reached. -Encourage patient to sign releases for his parents and for outpatient treatment referrals, so that discharge planning can begin. -Continue to enforce appropriate boundaries, as patient has been sexually inappropriate with female peer. Continue private room, and excused from groups until he is able to maintain behavioral control. 02/25 -continue Haldol, and lorazepam as needed. -Attempt scheduled family meeting with parents and his outpatient social work case manager. -Encourage the patient to start engaging in treatment. He is willing to meet with a counselor one-on-one today. -Appropriate boundaries-patient has been reminded repeatedly of the need to cover his genital area and the inappropriateness of his sexual propositions to females. 02/26 -The patient is taking haloperidol 10 mg twice a day as prescribedalthough he repeatedly asks to have this medication discontinued. At the same time, he cannot or will not say, specifically, why he would like haloperidol to be discontinued, other than to say "it is not what I need." (The patient does appear to be tolerating haloperidol well, except for some excess sedation at this point.) -The patient continues to appear suspicious and is withdrawn. He is declinin g to actively participate in treatment. 02/27 Continue medication regimen unchanged 304 hearing scheduled for Friday. Patient will require chest x-ray and EKG prior to transfer to [facility]. 02/28 Patient demonstrating some improved ability to participate and interacting more appropriately with peers and staff in last 24 hours. We will continue to advance therapeutic programming as tolerated and indicated. Continue Haldol as scheduled which remains well-tolerated. 03/01 -Patient noncompliant with mouth checks and continues to go to the bathroom just after taking pills; due to concerns for cheeking, will switch to liquid haloperidol, with IM back up for refusal. -304 granted. Refer to [facility]. -Schedule meeting with patient, social work case manager, and family for discharge planning/exploring diversion options. 03/02 - Continue liquid haloperidol as above - Refusing to sign ROIs to allow for consideration or adequate coordination of diversion options. 03/03 - Continue current haloperidol dosing, liquid as above - Pt signed some conditional ROIs this morning to allow for potential coordination of diversion plan 03/04 - Continue current medication regimen - Meeting with mother and [facility] medical collections representative to discuss diversionary discharge planning tomorrow morning - Continue to encourage participation in groups to most adequately assess thought content/process and appropriate behavior, these all appear to be improving 03/05 -We have been discussing the option of converting immediate release oral haloperidol to Haldol Decanoate, given his history of nonadherence. The patient's initial response was to become irritated and insists that he does not have a history of nonadherence with medications (even though he was initially nonadherent even here in the hospital). Later, he seemed to recognize that it is reasonable for treatment providers and caregivers to be concerned about his history of nonadherence with medications, and offered reassurance that he would promise to continue to take psychiatric medications as prescribedbut he does not want to take an intramuscular form. 03/06 - continue to engage ieth him about his medication and treatment plan and addressing potential of Haldol Dec CASTANEDA. addressing if pt is willing to sign TERRY's for CRR's as potential plans for diversion from [facility] referral 03/07 - making progress towards TERRY and possibility of haldol Dec but not fully occurred as of yet 03/08 -The patient appears to be less suspicious and is more cooperative. Symptoms such as thought blocking appear to have improved significantly. He continues to show obsessive symptoms and, for example, still has not actually executed the necessary release of information documents that we will need to pursue diversion from long-term hospitalization. He has expressed a willingness to do so for several days now, but has yet to actually follow through. -Although it has been difficult to get specific information from the patient regarding his thought content, he does seem to be much more trusting, less suspicious, and more animated, a set of circumstances that we are attributing to antipsychotic medication. 03/09 - Continue current medication regimen, with ongoing encouragement for consideration of haloperidol decanoate - Pt requesting additional meeting with [facility] and parents - seems appropriate as still considering diversion planning, will determine appropriate timing for a second meeting as well as clear objectives to discuss 03/10 - Continue as above - Attempting to schedule outpatient treatment team meeting for 03/15 - Continue to encourage participation in group programming in order to demonstrate appropriateness for diversionary planning 03/11 - As above - Continue to reinforce recommendation for CASTANEDA due to compliance concerns and increase likelihood of diversionary planning being appropriate - Continue to encourage increased group participation 03/12 -The patient seems to have 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 He continues to insist that the reasons for his hospitalizations and various behaviors observed in the community are simply a function of the difficulty that other people have an understanding him and his reasoning. -Oral Haldol 10 mg twice a day seems to have helped the patient be less suspicious and more cooperative. However, the patient continues to lacks substantial insight into his illness, the nature of the problems that have occurred in the community, and his need for certain forms of treatment. -All members of the patient's treatment team will need to continuously and consistently reinforce the fact that we are recommending that he agree to take Haldol Decanoate because in our clinical opinion it is medically necessary, and in the opinion of the base services unit that will possibly arrange for state hospital diversion, they are not willing to agree to diversion if the patient is not cooperating with the recommendations of the hospital. 03/13/19 - patient again wishes to discuss ways to work on discharge, discussed attending groups being able to show abitlity to be around others and have behavioral control and ability to participate, taking medications as prescribed to include strong recommendation for haldol decanoate or other CASTANEDA to help wtih compliance after discharge given his limited insight, and for aftercare to be established. He is considering haldol decanoate understanding it is available today but asks to start it "friday" for unclear reasons. TO maintain alliance will continue to offer but not pressure. (2) Noncompliance with medication regimen: 02/22 -patient with chronic noncompliance which has severely impaired his ability to function or provide for his own basic needs in the community. He will likely need an involuntary outpatient commitment. 02/23 -303 commitment granted. Pursue medications over objection, consider long- acting injectable, and schedule meeting with forensic social work case manager. 02/25 -file for 304 involuntary commitment, as state hospitalization may be needed given severity of his illness, lack of insight and unwillingness to engage in treatment, and pattern of noncompliance with treatment. Patient has requested an independent evaluation, so the hearing will be scheduled sometime next week once that is completed. Patient was informed, and states his preference is to leave the hospital immediately, with no outpatient treatment. 02/26 -The patient seems to have no insight into his illness, no insight into his need for treatment (with the exception of stimulant medications and clonazepam). He acknowledges that he had been in outpatient treatment, but stopped going "because it is not necessary." -Because of the severity of illness, the patient's lack of insight, and is not adherence with treatment on an outpatient basis, the plan was reiterated today is to refer the patient for long-term psychiatric hospitalization. 03/01 -Concerns for cheeking as above; change to liquid haloperidol with IM backup for refusal. Work towards long acting injectable. -304 granted; refer to [facility]. 03/05 -The patient seems to have improved since being given liquid haloperidol, which suggests but does not confirm that he had been "cheeking" his haloperidol tablets. This circumstance, combined with his history of recurrent nonadherence with medications on an outpatient basis are reasons that the treatment team agrees that a condition of discharge needs to be willingness to accept intramuscular Depo antipsychotic medications. 03/06 =as above 03/08 -Today, the patient says that he is giving "serious consideration" to agreeing to take an intramuscular injection of Haldol Decanoate. He understands that this is 1 of the things that we are expecting him to agree to as part of an effort to actively pursue diversion. Despite the patient's agreement that he will "seriously consider" Haldol Decanoate, he still has not agreed to take it. His history of nonadherence in the community, coupled with dangerous behaviors when not medicated, are the primary reasons that long-term psychiatric hospitalization appears to be necessary 03/10 - revisited recommendation that the patient consider CASTANEDA haloperidol decanoate prior to discharge. Pt is resistant to the idea, as he feels he does not need this form of medication. He states he is "considering it" 03/12 -The patient has variously said that he is "considering" or "seriously considering" conversion to long-acting haloperidol decanoate prior to discharge. However, to date, he has not moved past "seriously considering." -Today, we explained again that the agency that we will have control over the question of diversion from admission to the [facility] will not consider diversion unless he is adherent with our recommendations and that are recommendations include active participation in therapy, a willingness to be cooperative and forthcoming with the treatment team, and agreement to take Depo antipsychotic medication. 03/13 as above (3) Anxiety: 02/22 -patient reports anxiety, but otherwise uncooperative with the as sessment and does not appear overtly anxious; refusing vital signs for the last 3 days. He has been demanding high-dose benzodiazepines, and has been repeatedly informed that these are not indicated, but that Lorazepam is ordered as needed to be taken with haloperidol. 02/23 -parents describe history of OCD symptoms. Patient unwilling to participate in assessment, and no noticeable compulsions here, so unclear if currently active. Continue to monitor and assess. 02/25 -patient denies OCD symptoms, and none have been observed here. He does report feeling "anxious," but is a poor historian and unable to get much further information. He does not appear to be expansive panic. We will continue to assess and rule out SYBIL. He is refusing an SSRI antidepressant, wanting only benzodiazepines. 02/28Possibility of obsessive concern for germs again raised by nursing following his reluctance to take the Haldol tablet after it touched his pillow and reluctance to touch his silverware again after he has finished eating. Patient denies obsessions or compulsions but we will continue to monitor. 03/01 - Patient refusing to discuss OCD symptoms. 03/05 -Today, the patient was able to talk about his obsessive-compulsive symptoms, and his parents presence. However, he insisted that the thoughts and behaviors were not in any way abnormal, and he said "of other people have a problem with that, that is up to them." Reported behaviors include handwashing, fear of infectious disease contamination, and, for example, reluctance to touch other people, including his parents. 03/08 -The patient reports that he realizes that he has been "obsessive" which is also evidence of some improvement. 03/12 -The patient voices anxiety in association with the difficulty that he is understanding the expectations of the treatment team, as well as an anxiety associated with the possibility of long-term psychiatric hospitalization. (4) Substance abuse: 02/22 -drug screen positive for THC. Once he is less psychotic, we will need to provide education regarding the risks of cannabis use, specifically exacerbation of psychotic symptoms. -On admission, patient reported being prescribed clonazepam 2 mg twice daily, and per PDMP he last filled a prescription on 12/17/2018, from a Dr. Matt Oneill in [place], [place]. In the past year, he has filled clonazepam and dextroamphetamine/amphetamine prescriptions from 5 different clinicians in different parts of the state, a pattern consistent with substance abuse and drug-seeking. He does not appear to have been on clonazepam consistently, as his last 2 prescriptions were filled in 06/2018 and 12/2018. 02/23 -parents report history of alcohol, cannabis, benzodiazepine, and stimulant abuse. This is also indicated in previous records from 2017 hospitalization. -Avoid controlled substances given high risk of abuse. 02/26-Today, the patient tells us that he is able to take buspirone at an unspecified dose, but when we offered to prescribe this to him for anxiety he said "it is not necessary." When asked why clonazepam is necessary, if buspirone is not, he simply repeated "clonazepam is necessary. Buspirone is not necessary." 03/05 -The patient continues to have essentially no insight into the risks associated with the use of alcohol, cannabis, benzodiazepines, stimulants, and other drugs of abuse. When it was explained to him that these substances can and do interfere with treatment for mental illnesses such as schizophrenia, his replies to say "I do not have schizophrenia." 03/08 -The patient has not requested benzodiazepines and has not mentioned a need for chemical substances such as alcohol, cannabis, stimulant medications and other drugs of abuse, and is now more focused on meeting criteria for community diversion. Inventory Assets Strengths: College graduate. Supportive family. Needs: clarification of legal charges, outpatient services, adherence with treatment and medications Risk Factors Assessment Male: Yes : No Do You Have Access To A Gun?: No Health Problems: No Mental Health Diagnoses: Yes Substance Use Disorders: Yes Previous Psychiatric Hospitalization: Yes Protective Factors Assessment : No Responsible for Young Children: No Employed: No Supportive Family: Yes Good Rapport with Provider: No Interval History Identifying Information DENISE MURRY is a 24-year-old M who has a history of schizophrenia, who was admitted on 02/19/19 17:23 on a 302 involuntary commitment for threatening behavior in the community. He is on a 304 involuntary commitment as of 03/01/2019. Chief Complaint "I want to know how to get discharged". Review of Systems Sleep Information Total Hours of Sleep: 7.25 Sleep Comments: pt on q-15 minute checks Meal Information Percent Meal Consumed - Breakfast: 100 Percent Meal Consumed - Lunch: 100 Percent Meal Consumed - Dinner: 100 Nutrition Comment: pt consistently throws away plastic utensils after eating ra ther than handing them back in Subjective Subjective Patient was seen & assessed and interval progress reviewed with Treatment Team. The patient is pending meeting Friday to discuss possible diversion. The patient remains perseverative on discharge and what he needs to do for discharge and yet he is reticent about CASTANEDA medications. Met with patient today he is notably flat and slowed with some thought delay but given time is able to communicate his central concerns which are that he would like to work toward discharge, that he does not like the idea of CASTANEDA, but wonders if/what he can do to avoid going to the [facility] He shares these thoughts in a delayed drawn out manner over the course of a 20min conversation but is able to introduce his questions spontaneously when given time, however per treatment team these are repetitive questions that he continues to ask. Shared at his reqeust about CASTANEDA haldol deconoate and that he would get a shot 100mg day 1, and then 3-4days later get a second 100mg shot, and that oral medications woudl continue for a bout 1-2 weeks after starting the shot. He would then get monthly shots thereafter. He states "I think I would start the shots on Friday, is that okay?" He denies AVH today,denies paranoia, reports mood is "okay" and that he is eating and sleeping okay. He states his thoughts are not fast or slow, and "they are fine." He denies feeling anxious. He denies safety concerns Physical Exam Psychiatric Orientation: alert, oriented x 3 and cooperative (in that he answers questions) Apperance: appropriately dressed (Casually in a T-shirt and gym shorts), + disheveled and appeared stated age; + inappropriately groomed Eye Contact: good eye contact, + fair eye contact and + poor eye contact Motor Behavior: steady gait and station, no abnormal motor movements and + psychomotor retardation (slow to speak and slow movements) no EPS no dsytonia, AIMS on 03/13/19 0, passive ROM fluid flat tone, slight delay in speaking, but is able to relay his thoughts in full sentences, regular rythm and volume Affect: + depressed affect, + anxious affect and + flat affect Mood: no depressed mood, no anxious mood, no irritable mood, no dysphoric mood and no angry mood Thought Process: goal directed thought process (but slow spontaneous perseverative types of thoughts), + thought blocking (mild, slow to initiate thoughts, and slow to iterate thoughts), + perseveration, + concrete thought process (inconsistent with level of education) and + incoherent thought process; + thought association not intact Thought Content: + preoccupation (With intricate details of discharge planning and explanation) and reality based without delusions (no overt delusional content voiced today); no delusions (No overt presentation of delusional thought content), no hopelessness and no worthlessness Suicidal Thoughts: denies suicidal thoughts, denies suicidal plan and denies suicidal intent Homicidal Thoughts: denies homicidal thoughts Hallucinations: no auditory hallucinations and no visual hallucinations Cognition: recent memory grossly intact, attention grossly intact and language grossly intact Estimated Intelligence: consistent with education level and + above average estimated intelligence by his ability to understand vocabulary but his cognition and slowing are well below his known historical level of function Insight: + impaired insight Judgement: + impaired judgement Vital Signs (Past 24 Hours) Last Vital Signs Temp 36.8 C 02/19/19 19:39 Pulse 76 03/09/19 11:28 Resp 14 03/09/19 11:28 BP 113/67 03/09/19 11:28 Pulse Ox 99 02/19/19 19:39 Results & Data Current Inpatient Medications Current Inpatient Medications: Current Inpatient Medications Acetaminophen (Tylenol) 650 mg PO Q4H PRN PRN Reason: Headache or Minor Fever Stop: 03/21/19 17:22 Al Hydrox/Mg Hydrox/Simethicone (Maalox) 30 ml PO Q4H PRN PRN Reason: GI Upset Stop: 03/21/19 17:22 Benztropine Mesylate (Cogentin) 1 mg PO Q8 PRN PRN Reason: Muscle Spasm Stop: 03/22/19 11:52 Bismuth Subsalicylate (Kaopectate) 15 ml PO PRN PRN PRN Reason: Loose Stool Stop: 03/21/19 17:22 Haloperidol (Haldol) 5 mg PO Q4H PRN PRN Reason: Agitation Stop: 03/21/19 20:25 Last Admin: 02/22/19 14:52 Dose: 5 mg Documented by: Haloperidol Lactate (Haldol) 5 mg IM Q4H PRN PRN Reason: Severe Agitation Stop: 03/21/19 20:25 Haloperidol Lactate (Haldol) 10 mg IM BID PRN PRN Reason: refusal of PO Haldol Stop: 03/25/19 10:34 Haloperidol Lactate (Haldol Lactate) 10 mg PO BID [facility] Stop: 04/03/19 20:59 Last Admin: 03/13/19 09:12 Dose: 10 mg Documented by: Hydroxyzine HCl (Vistaril) 50 mg PO HSZ PRN PRN Reason: Insomnia Stop: 03/21/19 17:22 Hydroxyzine HCl (Vistaril) 25 mg PO Q4H PRN PRN Reason: Anxiety Stop: 03/21/19 17:22 Lorazepam (Ativan) 2 mg IM Q4H PRN PRN Reason: Severe Agitation Stop: 03/21/19 20:25 Lorazepam (Ativan) 1 mg PO Q4H PRN PRN Reason: Agitation Stop: 03/21/19 20:25 Last Admin: 03/12/19 09:36 Dose: 1 mg Documented by: Magnesium Hydroxide (Milk Of Magnesia) 30 ml PO DAILY PRN PRN Reason: Heartburn Stop: 03/21/19 17:22 Sodium Chloride (Brown Nasal) 1 - 2 sprays NA PRN PRN PRN Reason: Nasal Dryness/Congestion Stop: 03/21/19 17:22 Mental Health & Subst Abuse Tx Therapist Name of Therapist: IOANA Hassan Associate Manager Affiliate Marketing Name of Associate Manager Affiliate Marketing: [employer] [facility]ett Treviño Phone Number for Associate Manager Affiliate Marketing: [phone] Case Management Appointment Comment: [address], [place] [address] Post Discharge Appointments Primary Care Physician Name Of Family Doctor: STACEY Holt Contact Information Discharge Discharge Address: [address] [place] [address], [place] [address] CPT Code CPT Code 89279 (1) Schizophrenia Schizophrenia type: unspecified Qualified Code(s): F20.9 - Schizophrenia, unspecified
[2019-03-14] MEDS: HALOPERIDOL ORAL SOLN 2 MG/ML PO SCH ×2 (08:47→21:01)
--- NOTE | 2019-03-14 13:59 | Psychiatric Progress Note ---
Date of Service March 14, 2019 Impression / Recommendations Impression 24 y/o male with a history of schizophrenia, OCD, treatment nonadherence, and polysubstance abuse who presented with disorganized and threatening behavior, in the context of nonadherence, decompensation for the last several months and ongoing substance abuse. He was admitted on an involuntary commitment following escalating interactions with the police over disorganized and threatening behavior in the community, and is on a 304 involuntary commitment as of 03/01/19. We are currently seeing some signs of improvement, although the improvement noted seems to be, to some extent, depending upon the identity of the staff member with whom he is interacting. Overall, he has been less suspicious, more forthcoming, and more willing to trust. As has been the case recently, today he makes reference with a plan to cooperate, or to "seriously consider" forms of cooperation, without necessarily following through with the promised or requested behaviors. The reason that the patient currently requires psychiatric hospitalization is the fact that he has consistently, and fairly quickly, stopped psychiatric treatment, including all psychiatric medications (other than benzodiazepines) upon release from hospitals, or after they have otherwise been prescribed. His history is such that medication and other forms of treatment adherence in the community, he is at current ongoing risk for causing serious physical harm to the person of others and to himself. This is the case with many individuals who suffer from serious and persistent mental illnesses, he may not fully understand the reasons for him to take psychiatric medications, and he may not be able to understand or acknowledge the target symptoms. However, the goal is for the patient to understand that he needs active psychiatric treatment in the community, as an alternative to return to the hospital. We will continue to actively treat the patient with the hope and expectation that he will eventually be able to cooperate with our efforts to investigate diversionary strategies to avoid long-term psychiatric hospitalization. An ongoing issue for the patient is that he has come to believe that the reason that his treatment team at [facility] is recommending a Depo form of his antipsychotic medication is that it has been recommended to us by the [facility] services unit. We are attempting to help the patient understand that the reverse is true; i.e., that his p clinicians on the behavioral health unit are recommending injectable Depo antipsychotic medications, and the court service agency is saying that they will not consider a state hospital diversion unless the patient is, in fact, taking injectable Depo antipsychotic medication. It is also been carefully explained to the patient that the [facility] services unit is also looking for evidence that the patient is actively participating in treatment, and that he is forthcoming and cooperative with treatment providers. The above recommendations and sources of recommendations for treatment was reiterated again to patient 03/13 and jasmin 03/14 at which time he agreed that he wanted to take the haldol deconoate shot to work toward possible discharge to the community if possible. (1) Schizophrenia: 02/20--The patient was admitted to the [facility] on q15 min checks (behavioral with suicide precautions) for safety. The patient will participate in group, recreational, and milieu therapies and will be offered additional individual and family sessions as clinically appropriate. Reviewed that he should resume antipsychotic medication FABIO and he would only discuss benzos. Adamant he won't resume Risperdal. Will offer Haldol 5 mg with Ativan 2 mg (take Haldol first) TID and readdress when less agitated. 02/21--mild improvement today in that less thought blocking and slightly less irritability. Refused meds again this am. In my opinion (Dr. Diaz), antipsychotic medication is medically necessary for the treatment of his psychosis given risk of or serious injury within 30 days. He has shown a pattern of non-compliance and escalating and threatening behavior in the community and his condition is unlikely to improve without forced psychiatric medications. Will order Haldol [address] Hubbard to provide second opinion on this and likely 303 petition tomorrow. 02/22 -patient remains inappropriate for groups and therapy, due to threatening and menacing behavior with staff and peers. Continue private room. -Increase haloperidol to 10 mg twice daily, and continue as needed doses. Agree with medications over objection, as patient has a history of a primary thought disorder, has been noncompliant with treatment which has led to decompensation, increasing psychosis, and escalating threatening and aggressive behavior in the community and now in the hospital. He required physical and chemical restraints in the ER due to threats to staff and attempts to leave. He has improved with antipsychotic medication in the past. -File for 303 hearing to be held tomorrow. -Patient remains uncooperative with attempts to assess him, will not provide historical information such as where he has been living or if he has any outpatient treatment, or sign releases for family or friends to provide collateral information. 02/23 -303 commitment granted. -Continue private room given threatening behavior, agitation, and recent history of erratic and inappropriate behavior in the community. Patient not yet appropriate for groups. -Continue haloperidol 10 mg twice daily, and 5 mg as needed. Will order an IM backup for refusal, as he has been seen by 2 physicians who both agree with medications over objection. He will likely need a long-acting injectable antipsychotic given his history of nonadherence. -Parents report he has been abusing benzodiazepines, and he is very focused on getting them here, asking for them frequently and receiving 8 mg of lorazepam daily. Will decrease to 1 mg every 4 hours as needed, with a plan to taper off prior to discharge given risk of abuse/misuse/negative outcomes. -Contact forensic pillowcase maker, Harriett Treviño, and schedule a meeting to discuss treatment plan. Patient will likely need an involuntary outpatient commitment. 02/24 -continue Haldol p.o. with IM backup, and lorazepam as needed. Patient refusing to discuss other antipsychotic options, so if he remains on haloperidol, can receive Haldol Decanoate once the effective dose is reached. -Encourage patient to sign releases for his parents and for outpatient treatment referrals, so that discharge planning can begin. -Continue to enforce appropriate boundaries, as patient has been sexually inappropriate with female peer. Continue private room, and excused from groups until he is able to maintain behavioral control. 02/25 -continue Haldol, and lorazepam as needed. -Attempt scheduled family meeting with parents and his outpatient pillowcase maker. -Encourage the patient to start engaging in treatment. He is willing to meet with a counselor one-on-one today. -Appropriate boundaries-patient has been reminded repeatedly of the need to cover his genital area and the inappropriateness of his sexual propositions to females. 02/26 -The patient is taking haloperidol 10 mg twice a day as prescribedalthough he repeatedly asks to have this medication discontinued. At the same time, he cannot or will not say, specifically, why he would like haloperidol to be discontinued, other than to say "it is not what I need." (The patient does appear to be tolerating haloperidol well, except for some excess sedation at this point.) -The patient continues to appear suspicious and is withdrawn. He is declining to actively participate in treatment. 02/27 Continue medication regimen unchanged 304 hearing scheduled for Friday. Patient will require chest x-ray and EKG prior to transfer to [facility]. 02/28 Patient demonstrating some improved ability to participate and interacting more appropriately with peers and staff in last 24 hours. We will continue to advance therapeutic programming as tolerated and indicated. Continue Haldol as scheduled which remains well-tolerated. 03/01 -Patient noncompliant with mouth checks and continues to go to the bathroom just after taking pills; due to concerns for cheeking, will switch to liquid haloperidol, with IM back up for refusal. -304 granted. Refer to [facility]. -Schedule meeting with patient, pillowcase maker, and family for discharge planning/exploring diversion options. 03/02 - Continue liquid haloperidol as above - Refusing to sign ROIs to allow for consideration or adequate coordination of diversion options. 03/03 - Continue current haloperidol dosing, liquid as above - Pt signed some conditional ROIs this morning to allow for potential coordination of diversion plan 03/04 - Continue current medication regimen - Meeting with mother and [employer] financial service representative to discuss diversionary discharge planning tomorrow morning - Continue to encourage participation in groups to most adequately assess thought content/process and appropriate behavior, these all appear to be impr oving 03/05 -We have been discussing the option of converting immediate release oral haloperidol to Haldol Decanoate, given his history of nonadherence. The patient's initial response was to become irritated and insists that he does not have a history of nonadherence with medications (even though he was initially nonadherent even here in the hospital). Later, he seemed to recognize that it is reasonable for treatment providers and caregivers to be concerned about his history of nonadherence with medications, and offered reassurance that he would promise to continue to take psychiatric medications as prescribedbut he does not want to take an intramuscular form. 03/06 - continue to engage ieth him about his medication and treatment plan and addressing potential of Haldol Dec CASTANEDA. addressing if pt is willing to sign TERRY's for CRR's as potential plans for diversion from [facility] referral 03/07 - making progress towards TERRY and possibility of haldol Dec but not fully occurred as of yet 03/08 -The patient appears to be less suspicious and is more cooperative. Symptoms such as thought blocking appear to have improved significantly. He continues to show obsessive symptoms and, for example, still has not actually executed the necessary release of information documents that we will need to pursue diversion from long-term hospitalization. He has expressed a willingness to do so for several days now, but has yet to actually follow through. -Although it has been difficult to get specific information from the patient regarding his thought content, he does seem to be much more trusting, less suspicious, and more animated, a set of circumstances that we are attributing to antipsychotic medication. 03/09 - Continue current medication regimen, with ongoing encouragement for consideration of haloperidol decanoate - Pt requesting additional meeting with [employer] and parents - seems appropriate as still considering diversion planning, will determine appropriate timing for a second meeting as well as clear objectives to discuss 03/10 - Continue as above - Attempting to schedule outpatient treatment team meeting for 03/15 - Continue to encourage participation in group programming in order to demonstrate appropriateness for diversionary planning 03/11 - As above - Continue to reinforce recommendation for CASTANEDA due to compliance concerns and increase likelihood of diversionary planning being appropriate - Continue to encourage increased group participation 03/12 -The patient seems to have 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 He continues to insist that the reasons for his hospitalizations and various behaviors observed in the community are simply a function of the difficulty that other people have an understanding him and his reasoning. -Oral Haldol 10 mg twice a day seems to have helped the patient be less suspicious and more cooperative. However, the patient continues to lacks substantial insight into his illness, the nature of the problems that have occurred in the community, and his need for certain forms of treatment. -All members of the patient's treatment team will need to continuously and consistently reinforce the fact that we are recommending that he agree to take Haldol Decanoate because in our clinical opinion it is medically necessary, and in the opinion of the base services unit that will possibly arrange for state hospital diversion, they are not willing to agree to diversion if the patient is not cooperating with the recommendations of the hospital. 03/13/19 - patient again wishes to discuss ways to work on discharge, discussed attending groups being able to show ability to be around others and have behavioral control and ability to participate, taking medications as prescribed to include strong recommendation for haldol decanoate or other CASTANEDA to help wtih compliance after discharge given his limited insight, and for aftercare to be established. He is considering haldol decanoate understanding it is available today but asks to start it "friday" for unclear reasons. TO maintain alliance will continue to offer but not pressure. 03/14 - repeated many aspects of our discussion yesterday it is unclear but seems to be possible OCD and doubt wtih reassurance seeking vs. ambivalence. He is asking good questions about timelines and seems to be able to manipulate the information given to him even though he is showing some evidence of slowed thoughts. He does state he is willing to take the hadol deconoate shot. DIscussed r/b/se/a to include but not limited to acute possibility of EPS/dyst onia, akathisia, and longer term risks needing to monitor for Tardive dyskinesia in laymans terms. DIscussed need to get his medication in two shots divided due to the oral dose he is taking and the need to overlap the oral medication for a time (per package instructions initial dose should be 20times oral dose for high dose individuals at risk for relapse, and initial shot should not exceed 100mg, and balance of med given 3-7days after initial shot.) which would be 300mg in 3-7days. Discussed this with pharmacy. Maintainence dose would be 10-15x the oral stablizing dose, meaning 200-300mg IM which would be given in a month from first shot. We would taper the oral medications over 3 weeks, or faster if side effects emerge. Will ask staff to do routine assessments of stiffness to mini joellen EPS/dystonia in this cross taper. (2) Noncompliance with medication regimen: 02/22 -patient with chronic noncompliance which has severely impaired his a bility to function or provide for his own basic needs in the community. He will likely need an involuntary outpatient commitment. 02/23 -303 commitment granted. Pursue medications over objection, consider long- acting injectable, and schedule meeting with forensic pillowcase maker. 02/25 -file for 304 involuntary commitment, as state hospitalization may be needed given severity of his illness, lack of insight and unwillingness to engage in treatment, and pattern of noncompliance with treatment. Patient has requested an independent evaluation, so the hearing will be scheduled sometime next week once that is completed. Patient was informed, and states his preference is to leave the hospital immediately, with no outpatient treatment. 02/26 -The patient seems to have no insight into his illness, no insight into his need for treatment (with the exception of stimulant medications and clonazepam). He acknowledges that he had been in outpatient treatment, but stopped going "because it is not necessary." -Because of the severity of illness, the patient's lack of insight, and is not adherence with treatment on an outpatient basis, the plan was reiterated today is to refer the patient for long-term psychiatric hospitalization. 03/01 -Concerns for cheeking as above; change to liquid haloperidol with IM backup for refusal. Work towards long acting injectable. -304 granted; refer to [facility]. 03/05 -The patient seems to have improved since being given liquid haloperidol, which suggests but does not confirm that he had been "cheeking" his haloperidol tablets. This circumstance, combined with his history of recurrent nonadherence with medications on an outpatient basis are reasons that the treatment team agrees that a condition of discharge needs to be willingness to accept intram uscular Depo antipsychotic medications. 03/06 =as above 03/08 -Today, the patient says that he is giving "serious consideration" to agreeing to take an intramuscular injection of Haldol Decanoate. He understands that this is 1 of the things that we are expecting him to agree to as part of an effort to actively pursue diversion. Despite the patient's agreement that he will "seriously consider" Haldol Decanoate, he still has not agreed to take it. His history of nonadherence in the community, coupled with dangerous behaviors when not medicated, are the primary reasons that long-term psychiatric hospitalization appears to be necessary 03/10 - revisited recommendation that the patient consider CASTANEDA haloperidol decanoate prior to discharge. Pt is resistant to the idea, as he feels he does not need this form of medication. He states he is "considering it" 03/12 -The patient has variously said that he is "considering" or "seriously considering" conversion to long-acting haloperidol decanoate prior to discharge. However, to date, he has not moved past "seriously considering." -Today, we explained again that the agency that we will have control over the question of diversion from admission to the [facility] will not consider diversion unless he is adherent with our recommendations and that are recommendations include active participation in therapy, a willingness to be co operative and forthcoming with the treatment team, and agreement to take Depo antipsychotic medication. 03/13 as above 03/14 patient agreed to loading dose of haldol decanoate today, 100mg IM to be g iven today (3) Anxiety: 02/22 -patient reports anxiety, but otherwise uncooperative with the assessment and does not appear overtly anxious; refusing vital signs for the last 3 days. He has been demanding high-dose benzodiazepines, and has been repeatedly informed that these are not indicated, but that Lorazepam is ordered as needed to be taken with haloperidol. 02/23 -parents describe history of OCD symptoms. Patient unwilling to participate in assessment, and no noticeable compulsions here, so unclear if currently active. Continue to monitor and assess. 02/25 -patient denies OCD symptoms, and none have been observed here. He does report feeling "anxious," but is a poor historian and unable to get much further information. He does not appear to be expansive panic. We will continue to assess and rule out SYBIL. He is refusing an SSRI antidepressant, wanting only benzodiazepines. 02/28Possibility of obsessive concern for germs again raised by nursing following his reluctance to take the Haldol tablet after it touched his pillow and reluctance to touch his silverware again after he has finished eating. Patient denies obsessions or compulsions but we will continue to monitor. 03/01 - Patient refusing to discuss OCD symptoms. 03/05 -Today, the patient was able to talk about his obsessive-compulsive symptoms, and his parents presence. However, he insisted that the thoughts and behaviors were not in any way abnormal, and he said "of other people have a problem with that, that is up to them." Reported behaviors include handwashing, fear of infectious disease contamination, and, for example, reluctance to touch other people, including his parents. 03/08 -The patient reports that he realizes that he has been "obsessive" which is also evidence of some improvement. 03/12 -The patient voices anxiety in association with the difficulty that he is understanding the expectations of the treatment team, as well as an anxiety associated with the possibility of long-term psychiatric hospitalization. (4) Substance abuse: 02/22 -drug screen positive for THC. Once he is less psychotic, we will need to provide education regarding the risks of cannabis use, specifically exacerbation of psychotic symptoms. -On admission, patient reported being prescribed clonazepam 2 mg twice daily, and per PDMP he last filled a prescription on 12/17/2018, from a Dr. Matt Oneill in [place], [place]. In the past year, he has filled clonazepam and dextroamphetamine/amphetamine prescriptions from 5 different clinicians in different parts of the state, a pattern consistent with substance abuse and drug-seeking. He does not appear to have been on clonazepam consistently, as his last 2 prescriptions were filled in 06/2018 and 12/2018. 02/23 -parents report history of alcohol, cannabis, benzodiazepine, and stimulant abuse. This is also indicated in previous records from 2017 hospitalization. -Avoid controlled substances given high risk of abuse. 02/26-Today, the patient tells us that he is able to take buspirone at an unspecified dose, but when we offered to prescribe this to him for anxiety he said "it is not necessary." When asked why clonazepam is necessary, if buspirone is not, he simply repeated "clonazepam is necessary. Buspirone is not necessary." 03/05 -The patient continues to have essentially no insight into the risks associated with the use of alcohol, cannabis, benzodiazepines, stimulants, and other drugs of abuse. When it was explained to him that these substances can and do interfere with treatment for mental illnesses such as schizophrenia, his replies to say "I do not have schizophrenia." 03/08 -The patient has not requested benzodiazepines and has not mentioned a need for chemical substances such as alcohol, cannabis, stimulant medications and other drugs of abuse, and is now more focused on meeting criteria for community diversion. Inventory Assets Strengths: College graduate. Supportive family. Needs: clarification of legal charges, outpatient services, adherence with treatment and medications Risk Factors Assessment Male: Yes : No Do You Have Access To A Gun?: No Health Problems: No Mental Health Diagnoses: Yes Substance Use Disorders: Yes Previous Psychiatric Hospitalization: Yes Protective Factors Assessment : No Responsible for Young Children: No Employed: No Supportive Family: Yes Good Rapport with Provider: No Interval History Identifying Information DENISE MURRY is a 24-year-old M who has a history of schizophrenia, who was admitted on 02/19/19 17:23 on a 302 involuntary commitment for threatening behavior in the community. He is on a 304 involuntary commitment as of 03/01/2019. Chief Complaint "I want to know about medications and my discharge". Review of Systems Sleep Information Total Hours of Sleep: 9 Sleep Comments: pt on q-15 minute checks Meal Information Percent Meal Consumed - Breakfast: 100 Percent Meal Consumed - Lunch: 100 Percent Meal Consumed - Dinner: 100 Nutrition Comment: pt consistently throws away plastic utensils after eating rather than handing them back in Subjective Subjective Patient was seen & assessed and interval progress reviewed with Treatment Team The patient is reported to comply with medications. ON discussion with team we agree that he appears to be asking the right questions but appears cognitively slowed which could be combination of thought disorder and haldol and his OCD causes him to perseverate on concepts causing repeated questions, unclear but may be pathological doubt and reassurance seeking rather than ongoing confusion of psychosis. Met with the patient today he remains somewhat slowed wtih mild thought delay. He does again ask about the recommendation for the [facility] and his options regarding discharge vs. referral to the [id number] hospital. He seems to ask this 2 or 3 times. He continues to contemplate and asks further questions about the duration of an outpatient 304, and who/how is a 305 enacted. He again is thoughtful. We again discussed option of haldol decanoate if he chooses. he denies having questions about the shot but did tell nursing he does not like blood or needles. He feels his thoughts are okay and denies paranoia, or AVH and feels his mood is "okay" he denies feeling depressed denies SI. He states "I wish I could go home." He denies EPS or dystonia, denies stiffness or akathisia. Physical Exam Psychiatric Orientation: alert, oriented x 3 and cooperative (in that he answers questions) Apperance: appropriately dressed (Casually in a T-shirt and gym shorts), + disheveled and appeared stated age; + inappropriately groomed Eye Contact: good eye contact Motor Behavior: steady gait and station, no abnormal motor movements and + psychomotor retardation (slow to speak and slow movements, but physical exam reveals fluid movement) Speech: normal rate/rhythm/volume of speech (Monotone) Affect: + flat affect Mood: no depressed mood, no anxious mood, no irritable mood, no dysphoric mood and no angry mood "okay" but appears flat and slowed Thought Process: goal directed thought process (but slow spontaneous perseverative types of thoughts), clear/coherent thought process, + thought blocking (mild, slow to initiate thoughts, and slow to iterate thoughts), + tangential thought process, + perseveration, + concrete thought process (inconsistent with level of education) and + incoherent thought process; + thought association not intact Thought Content: + preoccupation (With intricate details of discharge planning and explanation), + paranoid, reality based without delusions (no overt delusional content voiced today), + compulsions (refused to take pill after it fell on his pillow) and + persecution; no delusions (No overt presentation of delusional thought content), no hopelessness and no worthlessness Suicidal Thoughts: denies suicidal thoughts, denies suicidal plan and denies suicidal intent Homicidal Thoughts: denies homicidal thoughts Hallucinations: no auditory hallucinations and no visual hallucinations Cognition: recent memory grossly intact, remote memory grossly intact, attention grossly intact and language grossly intact Estimated Intelligence: consistent with education level and + above average estimated intelligence Insight: + limited insight Judgement: + limited judgement (likely chronic, due to long-term illness) Vital Signs (Past 24 Hours) Last Vital Signs Temp 36.8 C 02/19/19 19:39 Pulse 76 03/09/19 11:28 Resp 14 03/09/19 11:28 BP 113/67 03/09/19 11:28 Pulse Ox 99 02/19/19 19:39 Results & Data Current Inpatient Medications Current Inpatient Medications: Current Inpatient Medications Acetaminophen (Tylenol) 650 mg PO Q4H PRN PRN Reason: Headache or Minor Fever Stop: 03/21/19 17:22 Al Hydrox/Mg Hydrox/Simethicone (Maalox) 30 ml PO Q4H PRN PRN Reason: GI Upset Stop: 03/21/19 17:22 Benztropine Mesylate (Cogentin) 1 mg PO Q8 PRN PRN Reason: Muscle Spasm Stop: 03/22/19 11:52 Bismuth Subsalicylate (Kaopectate) 15 ml PO PRN PRN PRN Reason: Loose Stool Stop: 03/21/19 17:22 Haloperidol (Haldol) 5 mg PO Q4H PRN PRN Reason: Agitation Stop: 03/21/19 20:25 Last Admin: 02/22/19 14:52 Dose: 5 mg Documented by: Haloperidol Lactate (Haldol) 5 mg IM Q4H PRN PRN Reason: Severe Agitation Stop: 03/21/19 20:25 Haloperidol Lactate (Haldol) 10 mg IM BID PRN PRN Reason: refusal of PO Haldol Stop: 03/25/19 10:34 Haloperidol Lactate (Haldol Lactate) 10 mg PO BID [facility] Stop: 04/03/19 20:59 Last Admin: 03/14/19 08:47 Dose: 10 mg Documented by: Hydroxyzine HCl (Vistaril) 50 mg PO HSZ PRN PRN Reason: Insomnia Stop: 03/21/19 17:22 Hydroxyzine HCl (Vistaril) 25 mg PO Q4H PRN PRN Reason: Anxiety Stop: 03/21/19 17:22 Lorazepam (Ativan) 2 mg IM Q4H PRN PRN Reason: Severe Agitation Stop: 03/21/19 20:25 Lorazepam (Ativan) 1 mg PO Q4H PRN PRN Reason: Agitation Stop: 03/21/19 20:25 Last Admin: 03/12/19 09:36 Dose: 1 mg Documented by: Magnesium Hydroxide (Milk Of Magnesia) 30 ml PO DAILY PRN PRN Reason: Heartburn Stop: 03/21/19 17:22 Sodium Chloride ([place] Nasal) 1 - 2 sprays NA PRN PRN PRN Reason: Nasal Dryness/Congestion Stop: 03/21/19 17:22 Mental Health & Subst Abuse Tx Therapist Name of Therapist: IOANA Hassan Social Media Marketing Analyst Name of Social Media Marketing Analyst: [employer]ett Treviño Phone Number for Social Media Marketing Analyst: [phone] Case Management Appointment Comment: [address], [place] [address] Post Discharge Appointments Primary Care Physician Name Of Family Doctor: STACEY Holt Contact Information Discharge Discharge Address: [address] [place] [id number] CPT Code CPT Code 71460 >60min in interiew, rounding, prescribing med clarifying dosing and instructions and asnwering patient's questions about comittments. (1) Schizophrenia Schizophrenia type: unspecified Qualified Code(s): F20.9 - Schizophrenia, unspecified
[2019-03-14] MEDS ORDERED: HALOPERIDOL DECANOATE INJ 50 MG/ML VIAL IM ONE (14:31)
[2019-03-14] MEDS: LORazepam 1 MG TAB PO PRN (21:02)
[2019-03-15] MEDS: HALOPERIDOL ORAL SOLN 2 MG/ML PO SCH ×2 (09:15→21:03)
[2019-03-15] MEDS: LORazepam 1 MG TAB PO PRN ×2 (09:19→21:03)
--- NOTE | 2019-03-15 11:00 | Psychiatric Progress Note ---
Date of Service March 15, 2019 Impression / Recommendations Impression 24 y/o male with a history of schizophrenia, OCD, treatment nonadherence, and polysubstance abuse who presented with disorganized and threatening behavior, in the context of nonadherence, decompensation for the last several months and ongoing substance abuse. He was admitted on an involuntary commitment following escalating interactions with the police over disorganized and threatening behavior in the community, and is on a 304 involuntary commitment as of 03/01/19. We are currently seeing some signs of improvement, although the improvement noted seems to be, to some extent, depending upon the identity of the staff member with whom he is interacting. Overall, he has been less suspicious, more forthcoming, and more willing to trust. As has been the case recently, today he makes reference with a plan to cooperate, or to "seriously consider" forms of cooperation, without necessarily following through with the promised or requested behaviors. The reason that the patient currently requires psychiatric hospitalization is the fact that he has consistently, and fairly quickly, stopped psychiatric treatment, including all psychiatric medications (other than benzodiazepines) upon release from hospitals, or after they have otherwise been prescribed. His history is such that medication and other forms of treatment adherence in the community, he is at current ongoing risk for causing serious physical harm to the person of others and to himself. This is the case with many individuals who suffer from serious and persistent mental illnesses, he may not fully understand the reasons for him to take psychiatric medications, and he may not be able to understand or acknowledge the target symptoms. However, the goal is for the patient to understand that he needs active psychiatric treatment in the community, as an alternative to return to the hospital. We will continue to actively treat the patient with the hope and expectation that he will eventually be able to cooperate with our efforts to investigate diversionary strategies to avoid long-term psychiatric hospitalization. An ongoing issue for the patient is that he has come to believe that the reason that his treatment team at [facility] is recommending a Depo form of his antipsychotic medication is that it has been recommended to us by the [facility] services unit. Patient was ultimately agreeable to haloperidol decanoate and received initial 100mg IM injection on 03/14/19, remaining agreeable with second injection. It is also been carefully explained to the patient that the [facility] services [facility] is also looking for evidence that the patient is actively participating in treatment, and that he is forthcoming and cooperative with treatment providers. (1) Schizophrenia: 02/20--The patient was admitted to the [facility] ([facility]) on q15 min checks (behavioral with suicide precautions) for safety. The patient will participate in group, recreational, and milieu therapies and will be offered additional individual and family sessions as clinically appropriate. Reviewed that he should resume antipsychotic medication FABIO and he would only discuss benzos. Adamant he won't resume Risperdal. Will offer Haldol 5 mg with Ativan 2 mg (take Haldol first) TID and readdress when less agitated. 02/21--mild improvement today in that less thought blocking and slightly less irritability. Refused meds again this am. In my opinion (Dr. Diaz), antipsychotic medication is medically necessary for the treatment of his psychosis given risk of or serious injury within 30 days. He has shown a pattern of non-compliance and escalating and threatening behavior in the community and his condition is unlikely to improve without forced psychiatric medications. Will order Haldol [address] Hubbard to provide second opinion on this and likely 303 petition tomorrow. 02/22 -patient remains inappropriate for groups and therapy, due to threatening and menacing behavior with staff and peers. Continue private room. -Increase haloperidol to 10 mg twice daily, and continue as needed doses. Agree with medications over objection, as patient has a history of a primary thought disorder, has been noncompliant with treatment which has led to decompensation, increasing psychosis, and escalating threatening and aggressive behavior in the community and now in the hospital. He required physical and chemical restraints in the ER due to threats to staff and attempts to leave. He has improved with antipsychotic medication in the past. -File for 303 hearing to be held tomorrow. -Patient remains uncooperative with attempts to assess him, will not provide historical information such as where he has been living or if he has any outpatient treatment, or sign releases for family or friends to provide collateral information. 02/23 -303 commitment granted. -Continue private room given threatening behavior, agitation, and recent history of erratic and inappropriate behavior in the community. Patient not yet appropriate for groups. -Continue haloperidol 10 mg twice daily, and 5 mg as needed. Will order an IM backup for refusal, as he has been seen by 2 physicians who both agree with medications over objection. He will likely need a long-acting injectable antipsychotic given his history of nonadherence. -Parents report he has been abusing benzodiazepines, and he is very focused on getting them here, asking for them frequently and receiving 8 mg of lorazepam daily. Will decrease to 1 mg every 4 hours as needed, with a plan to taper off prior to discharge given risk of abuse/misuse/negative outcomes. -Contact forensic case supervisor, Harriett Treviño, and schedule a meeting to discuss treatment plan. Patient will likely need an involuntary outpatient commitment. 02/24 -continue Haldol p.o. with IM backup, and lorazepam as needed. Patient refusing to discuss other antipsychotic options, so if he remains on haloperidol, can receive Haldol Decanoate once the effective dose is reached. -Encourage patient to sign releases for his parents and for outpatient treatment referrals, so that discharge planning can begin. -Continue to enforce appropriate boundaries, as patient has been sexually inappropriate with female peer. Continue private room, and excused from groups until he is able to maintain behavioral control. 02/25 -continue Haldol, and lorazepam as needed. -Attempt scheduled family meeting with parents and his outpatient case supervisor. -Encourage the patient to start engaging in treatment. He is willing to meet with a counselor one-on-one today. -Appropriate boundaries-patient has been reminded repeatedly of the need to cover his genital area and the inappropriateness of his sexual propositions to females. 02/26 -The patient is taking haloperidol 10 mg twice a day as prescribedalthough he repeatedly asks to have this medication discontinued. At the same time, he cannot or will not say, specifically, why he would like haloperidol to be discontinued, other than to say "it is not what I need." (The patient does appear to be tolerating haloperidol well, except for some excess sedation at this point.) -The patient continues to appear suspicious and is withdrawn. He is declining to actively participate in treatment. 02/27 Continue medication regimen unchanged 304 hearing scheduled for Friday. Patient will require chest x-ray and EKG prior to transfer to [facility]. 02/28 Patient demonstrating some improved ability to participate and interacting more appropriately with peers and staff in last 24 hours. We will continue to advance therapeutic programming as tolerated and indicated. Continue Haldol as scheduled which remains well-tolerated. 03/01 -Patient noncompliant with mouth checks and continues to go to the bathroom just after taking pills; due to concerns for cheeking, will switch to liquid haloperidol, with IM back up for refusal. -304 granted. Refer to [facility]. -Schedule meeting with patient, case supervisor, and family for discharge planning/exploring diversion options. 03/02 - Continue liquid haloperidol as above - Refusing to sign ROIs to allow for consideration or adequate coordination of diversion options. 03/03 - Continue current haloperidol dosing, liquid as above - Pt signed some conditional ROIs this morning to allow for potential coordination of diversion plan 03/04 - Continue current medication regimen - Meeting with mother and [employer] field marketing representative to discuss diversionary discharge planning tomorrow morning - Continue to encourage participation in groups to most adequately assess thought content/process and appropriate behavior, these all appear to be improving 03/05 -We have been discussing the option of converting immediate release oral haloperidol to Haldol Decanoate, given his history of nonadherence. The patient's initial response was to become irritated and insists that he does not have a history of nonadherence with medications (even though he was initially nonadherent even here in the hospital). Later, he seemed to recognize that it is reasonable for treatment providers and caregivers to be concerned about his history of nonadherence with medications, and offered reassurance that he would promise to continue to take psychiatric medications as prescribedbut he does not want to take an intramuscular form. 03/06 - continue to engage ieth him about his medication and treatment plan and addressing potential of Haldol Dec CASTANEDA. addressing if pt is willing to sign TERRY's for CRR's as potential plans for diversion from [facility] referral 03/07 - making progress towards TERRY and possibility of haldol Dec but not fully occurred as of yet 03/08 -The patient appears to be less suspicious and is more cooperative. Symptoms such as thought blocking appear to have improved significantly. He continues to show obsessive symptoms and, for example, still has not actually executed the necessary release of information documents that we will need to pursue diversion from long-term hospitalization. He has expressed a willingness to do so for several days now, but has yet to actually follow through. -Although it has been difficult to get specific information from the patient regarding his thought content, he does seem to be much more trusting, less suspicious, and more animated, a set of circumstances that we are attributing to antipsychotic medication. 03/09 - Continue current medication regimen, with ongoing encouragement for consideration of haloperidol decanoate - Pt requesting additional meeting with [facility] and parents - seems appropriate as still considering diversion planning, will determine appropriate timing for a second meeting as well as clear objectives to discuss 03/10 - Continue as above - Attempting to schedule outpatient treatment team meeting for 03/15 - Continue to encourage participation in group programming in order to demonstrate appropriateness for diversionary planning 03/11 - As above - Continue to reinforce recommendation for CASTANEDA due to compliance concerns and increase likelihood of diversionary planning being appropriate - Continue to encourage increased group participation 03/12 -The patient seems to have 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 He continues to insist that the reasons for his hospitalizations and various behaviors observed in the community are simply a function of the difficulty that other people have an understanding him and his reasoning. -Oral Haldol 10 mg twice a day seems to have helped the patient be less guo spicious and more cooperative. However, the patient continues to lacks substantial insight into his illness, the nature of the problems that have occurred in the community, and his need for certain forms of treatment. -All members of the patient's treatment team will need to continuously and consistently reinforce the fact that we are recommending that he agree to take Haldol Decanoate because in our clinical opinion it is medically necessary, and in the opinion of the base services unit that will possibly arrange for state hospital diversion, they are not willing to agree to diversion if the patient is not cooperating with the recommendations of the hospital. 03/13/19 - patient again wishes to discuss ways to work on discharge, discussed attending groups being able to show ability to be around others and have behavioral control and ability to participate, taking medications as prescribed to include strong recommendation for haldol decanoate or other CASTANEDA to help wtih compliance after discharge given his limited insight, and for aftercare to be established. He is considering haldol decanoate understanding it is available today but asks to start it "friday" for unclear reasons. TO maintain alliance will continue to offer but not pressure. 03/14 - repeated many aspects of our discussion yesterday it is unclear but seems to be possible OCD and doubt wtih reassurance seeking vs. ambivalence. He is asking good questions about timelines and seems to be able to manipulate the information given to him even though he is showing some evidence of slowed thoughts. He does state he is willing to take the hadol deconoate shot. DIscussed r/b/se/a to include but not limited to acute possibility of EPS/dystonia, akathisia, and longer term risks needing to monitor for Tardive dyskinesia in laymans terms. DIscussed need to get his medication in two shots divided due to the oral dose he is taking and the need to overlap the oral medication for a time (per package instructions initial dose should be 20times oral dose for high dose individuals at risk for relapse, and initial shot should not exceed 100mg, and balance of med given 3-7days after initial shot.) which would be 300mg in 3-7days. Discussed this with pharmacy. Maintainence dose would be 10-15x the oral stablizing dose, meaning 200-300mg IM which would be given in a month from first shot. We would taper the oral medications over 3 weeks, or faster if side effects emerge. Will ask staff to do routine assessments of stiffness to minimize EPS/dystonia in this cross taper. 03/15 - Continue current medication regimen - Continue oral haloperidol 10mg BID, with taper over the next few weeks - Continue regular monitoring for EPS/dystonia - Meeting this afternoon with [facility] health representatives to discuss treatment plan moving forward (2) Noncompliance with medication regimen: 02/22 -patient with chronic noncompliance which has severely impaired his ab ility to function or provide for his own basic needs in the community. He will likely need an involuntary outpatient commitment. 02/23 -303 commitment granted. Pursue medications over objection, consider long- acting injectable, and schedule meeting with forensic case supervisor. 02/25 -file for 304 involuntary commitment, as state hospitalization may be needed given severity of his illness, lack of insight and unwillingness to engage in treatment, and pattern of noncompliance with treatment. Patient has requested an independent evaluation, so the hearing will be scheduled sometime next week once that is completed. Patient was informed, and states his preference is to leave the hospital immediately, with no outpatient treatment. 02/26 -The patient seems to have no insight into his illness, no insight into his need for treatment (with the exception of stimulant medications and clonazepam). He acknowledges that he had been in outpatient treatment, but stopped going "because it is not necessary." -Because of the severity of illness, the patient's lack of insight, and is not adherence with treatment on an outpatient basis, the plan was reiterated today is to refer the patient for long-term psychiatric hospitalization. 03/01 -Concerns for cheeking as above; change to liquid haloperidol with IM backup for refusal. Work towards long acting injectable. -304 granted; refer to [facility]. 03/05 -The patient seems to have improved since being given liquid haloperidol, which suggests but does not confirm that he had been "cheeking" his haloperidol tablets. This circumstance, combined with his history of recurrent nonadherence with medications on an outpatient basis are reasons that the treatment team agrees that a condition of discharge needs to be willingness to accept intramu scular Depo antipsychotic medications. 03/06 =as above 03/08 -Today, the patient says that he is giving "serious consideration" to agreeing to take an intramuscular injection of Haldol Decanoate. He understands that this is 1 of the things that we are expecting him to agree to as part of an effort to actively pursue diversion. Despite the patient's agreement that he will "seriously consider" Haldol Decanoate, he still has not agreed to take it. His history of nonadherence in the community, coupled with dangerous behaviors when not medicated, are the primary reasons that long-term psychiatric hospitalization appears to be necessary 03/10 - revisited recommendation that the patient consider CASTANEDA haloperidol decanoate prior to discharge. Pt is resistant to the idea, as he feels he does not need this form of medication. He states he is "considering it" 03/12 -The patient has variously said that he is "considering" or "seriously considering" conversion to long-acting haloperidol decanoate prior to discharge. However, to date, he has not moved past "seriously considering." -Today, we explained again that the agency that we will have control over the question of diversion from admission to the [facility] will not consider diversion unless he is adherent with our recommendations and that are recommendations include active participation in therapy, a willingness to be retort cooler perative and forthcoming with the treatment team, and agreement to take Depo antipsychotic medication. 03/13 as above 03/14 patient agreed to loading dose of haldol decanoate today, 100mg IM to be gi saritha today (3) Anxiety: 02/22 -patient reports anxiety, but otherwise uncooperative with the assessment and does not appear overtly anxious; refusing vital signs for the last 3 days. He has been demanding high-dose benzodiazepines, and has been repeatedly informed that these are not indicated, but that Lorazepam is ordered as needed to be taken with haloperidol. 02/23 -parents describe history of OCD symptoms. Patient unwilling to participate in assessment, and no noticeable compulsions here, so unclear if currently active. Continue to monitor and assess. 02/25 -patient denies OCD symptoms, and none have been observed here. He does report feeling "anxious," but is a poor historian and unable to get much further information. He does not appear to be expansive panic. We will continue to assess and rule out SYBIL. He is refusing an SSRI antidepressant, wanting only benzodiazepines. 02/28Possibility of obsessive concern for germs again raised by nursing following his reluctance to take the Haldol tablet after it touched his pillow and reluctance to touch his silverware again after he has finished eating. Patient denies obsessions or compulsions but we will continue to monitor. 03/01 - Patient refusing to discuss OCD symptoms. 03/05 -Today, the patient was able to talk about his obsessive-compulsive symptoms, and his parents presence. However, he insisted that the thoughts and behaviors were not in any way abnormal, and he said "of other people have a problem with that, that is up to them." Reported behaviors include handwashing, fear of infectious disease contamination, and, for example, reluctance to touch other people, including his parents. 03/08 -The patient reports that he realizes that he has been "obsessive" which is also evidence of some improvement. 03/12 -The patient voices anxiety in association with the difficulty that he is understanding the expectations of the treatment team, as well as an anxiety associated with the possibility of long-term psychiatric hospitalization. (4) Substance abuse: 02/22 -drug screen positive for THC. Once he is less psychotic, we will need to provide education regarding the risks of cannabis use, specifically exacerbation of psychotic symptoms. -On admission, patient reported being prescribed clonazepam 2 mg twice daily, and per PDMP he last filled a prescription on 12/17/2018, from a Dr. Matt Oneill in [place], [place]. In the past year, he has filled clonazepam and dextroamphetamine/amphetamine prescriptions from 5 different clinicians in different parts of the state, a pattern consistent with substance abuse and drug-seeking. He does not appear to have been on clonazepam consistently, as his last 2 prescriptions were filled in 06/2018 and 12/2018. 02/23 -parents report history of alcohol, cannabis, benzodiazepine, and stimulant abuse. This is also indicated in previous records from 2017 hospitalization. -Avoid controlled substances given high risk of abuse. 02/26-Today, the patient tells us that he is able to take buspirone at an unspecified dose, but when we offered to prescribe this to him for anxiety he said "it is not necessary." When asked why clonazepam is necessary, if buspirone is not, he simply repeated "clonazepam is necessary. Buspirone is not necessary." 03/05 -The patient continues to have essentially no insight into the risks associated with the use of alcohol, cannabis, benzodiazepines, stimulants, and other drugs of abuse. When it was explained to him that these substances can and do interfere with treatment for mental illnesses such as schizophrenia, his replies to say "I do not have schizophrenia." 03/08 -The patient has not requested benzodiazepines and has not mentioned a need for chemical substances such as alcohol, cannabis, stimulant medications and other drugs of abuse, and is now more focused on meeting criteria for community diversion. Inventory Assets Strengths: College graduate. Supportive family. Needs: clarification of legal charges, outpatient services, adherence with treatment and medications Risk Factors Assessment Male: Yes : No Do You Have Access To A Gun?: No Health Problems: No Mental Health Diagnoses: Yes Substance Use Disorders: Yes Previous Psychiatric Hospitalization: Yes Protective Factors Assessment : No Responsible for Young Children: No Employed: No Supportive Family: Yes Good Rapport with Provider: No Interval History Identifying Information DENISE MURRY is a 24-year-old M who has a history of schizophrenia, who was admitted on 02/19/19 17:23 on a 302 involuntary commitment for threatening behavior in the community. He is on a 304 involuntary commitment as of 03/01/2019. Chief Complaint "I'm ok. How are you?" Review of Systems Notes Constitutional: denied Cardiovascular: denied Respiratory: denied Gastrointestinal: denied Neurological: denied Psychiatric: denies symptoms other than stated above Total of at least 10 systems reviewed, pertinent positives as above and in HPI. Sleep Information Total Hours of Sleep: 8 Sleep Comments: pt on q-15 minute checks Meal Information Percent Meal Consumed - Breakfast: 100 Percent Meal Consumed - Lunch: 100 Percent Meal Consumed - Dinner: 100 Nutrition Comment: pt consistently throws away plastic utensils after eating rather than handing them back in Subjective Subjective Patient was seen & assessed and interval progress reviewed with Treatment Team. Staff reports the patient continues to be isolative, often not attending groups. Otherwise, behavior has been appropriate. Meeting with [facility] representatives to be held this afternoon to further discuss diversion planning. Pt was seen today to assess progress since admission. Pt states he is "ok" today, and denies any significant concerns. He denies restlessness, muscle stiffness/soreness, or other concerns suggesting EPS/dystonia. Pt is understanding of need for a second injection 3-7 days from initial dose, and remains agreeable to taking it. Pt inquires about current discharge plan, and was reminded that the meeting this afternoon with further solidify the trajectory of his aftercare. Pt was encouraged in his cooperation thus far. He denies other needs or concerns at this time. Physical Exam Psychiatric Orientation: alert, oriented x 3 and + guarded (superficially cooperative) Apperance: appropriately dressed (casually in t-shirt ) Eye Contact: good eye contact Motor Behavior: no abnormal motor movements (observed while laying in bed) Speech: normal rate/rhythm/volume of speech Affect: + flat affect and + constricted affect Mood: no depressed mood and no anxious mood "I'm ok" Thought Process: goal directed thought process and + perseveration (on discharge planning) Thought Content: + preoccupation (with discharge planning); no delusions (no verbalized delusional content) Suicidal Thoughts: denies suicidal thoughts Homicidal Thoughts: denies homicidal thoughts Hallucinations: no auditory hallucinations and no visual hallucinations Cognition: attention grossly intact and language grossly intact Estimated Intelligence: consistent with education level Insight: + limited insight Judgement: + limited judgement Vital Signs (Past 24 Hours) Last Vital Signs Temp 36.8 C 02/19/19 19:39 Pulse 76 03/09/19 11:28 Resp 14 03/09/19 11:28 BP 113/67 03/09/19 11:28 Pulse Ox 99 02/19/19 19:39 Results & Data Current Inpatient Medications Current Inpatient Medications: Current Inpatient Medications Acetaminophen (Tylenol) 650 mg PO Q4H PRN PRN Reason: Headache or Minor Fever Stop: 03/21/19 17:22 Al Hydrox/Mg Hydrox/Simethicone (Maalox) 30 ml PO Q4H PRN PRN Reason: GI Upset Stop: 03/21/19 17:22 Benztropine Mesylate (Cogentin) 1 mg PO Q8 PRN PRN Reason: Muscle Spasm Stop: 03/22/19 11:52 Bismuth Subsalicylate (Kaopectate) 15 ml PO PRN PRN PRN Reason: Loose Stool Stop: 03/21/19 17:22 Haloperidol (Haldol) 5 mg PO Q4H PRN PRN Reason: Agitation Stop: 03/21/19 20:25 Last Admin: 02/22/19 14:52 Dose: 5 mg Documented by: Haloperidol Decanoate (Haldol Decanoate) 300 mg IM ONE ONE Stop: 03/18/19 09:01 Haloperidol Lactate (Haldol) 5 mg IM Q4H PRN PRN Reason: Severe Agitation Stop: 03/21/19 20:25 Haloperidol Lactate (Haldol) 10 mg IM BID PRN PRN Reason: refusal of PO Haldol Stop: 03/25/19 10:34 Haloperidol Lactate (Haldol Lactate) 10 mg PO BID [facility] Stop: 04/03/19 20:59 Last Admin: 03/15/19 09:15 Dose: 10 mg Documented by: Hydroxyzine HCl (Vistaril) 50 mg PO HSZ PRN PRN Reason: Insomnia Stop: 03/21/19 17:22 Hydroxyzine HCl (Vistaril) 25 mg PO Q4H PRN PRN Reason: Anxiety Stop: 03/21/19 17:22 Lorazepam (Ativan) 2 mg IM Q4H PRN PRN Reason: Severe Agitation Stop: 03/21/19 20:25 Lorazepam (Ativan) 1 mg PO Q4H PRN PRN Reason: Agitation Stop: 03/21/19 20:25 Last Admin: 03/15/19 09:19 Dose: 1 mg Documented by: Magnesium Hydroxide (Milk Of Magnesia) 30 ml PO DAILY PRN PRN Reason: Heartburn Stop: 03/21/19 17:22 Sodium Chloride ([place] Nasal) 1 - 2 sprays NA PRN PRN PRN Reason: Nasal Dryness/Congestion Stop: 03/21/19 17:22 Mental Health & Subst Abuse Tx Therapist Name of Therapist: IOANA Hassan Crozer Name of Crozer: [facility] Phone Number for Crozer: [phone] Case Management Appointment Comment: [address], [place] [address] Post Discharge Appointments Primary Care Physician Name Of Family Doctor: STACEY Holt Contact Information Discharge Discharge Address: [address] [place] [address], [place] [address] CPT Code CPT Code 77399 (1) Schizophrenia Schizophrenia type: unspecified Qualified Code(s): F20.9 - Schizophrenia, unspecified
[2019-03-16] MEDS: HALOPERIDOL ORAL SOLN 2 MG/ML PO SCH ×2 (08:19→21:50)
[2019-03-16] MEDS: LORazepam 1 MG TAB PO PRN ×2 (08:19→21:51)
--- NOTE | 2019-03-16 09:37 | Psychiatric Progress Note ---
Date of Service March 16, 2019 Impression / Recommendations Impression 24 y/o male with a history of schizophrenia, OCD, treatment nonadherence, and polysubstance abuse who presented with disorganized and threatening behavior, in the context of nonadherence, decompensation for the last several months and ongoing substance abuse. He was admitted on an involuntary commitment following escalating interactions with the police over disorganized and threatening behavior in the community, and is on a 304 involuntary commitment as of 03/01/19. Overall, he has been less suspicious, more forthcoming, and more willing to trust. The reason that the patient currently requires psychiatric ho spitalization is the fact that he has consistently, and fairly quickly, stopped psychiatric treatment, including all psychiatric medications (other than benzodiazepines) upon release from hospitals, or after they have otherwise been prescribed. His history is such that medication and other forms of treatment adherence in the community, he is at current ongoing risk for causing serious physical harm to the person of others and to himself. This is the case with many individuals who suffer from serious and persistent mental illnesses, but the goal is for the patient to understand that he needs active psychiatric treatment in the community, as an alternative to return to the hospital. We will continue to actively treat the patient with the hope and expectation that he will eventually be able to cooperate with our efforts to investigate diversionary strategies to avoid long-term psychiatric hospitalization. Patient is motivated to cooperate with a diversionary plan, and thus far has sig mirian adequate releases to allow for aftercare referrals and to begin the CRR referral process. He has received and tolerated initial loading dose of Haldol decanoate 100mg, with second injection of 300mg to be given on 03/18/19. Today, we will discontinue his medically necessary private room to increase socialization and allow patient to demonstrate that he is able to tolerate a roommate. Group participation has been limited, and we continue to encourage his attendance. (1) Schizophrenia: 02/20--The patient was admitted to the [facility] ([facility] mental health unit) on q15 min checks (behavioral with suicide precautions) for safety. The patient will participate in group, recreational, and milieu therapies and will be offered additional individual and family sessions as clinically appropriate. Reviewed that he should resume antipsychotic medication FABIO and he would only discuss benzos. Adamant he won't resume Risperdal. Will offer H aldol 5 mg with Ativan 2 mg (take Haldol first) TID and readdress when less agitated. 02/21--mild improvement today in that less thought blocking and slightly less irritability. Refused meds again this am. In my opinion (Dr. Diaz), antipsychotic medication is medically necessary for the treatment of his psychosis given risk of or serious injury within 30 days. He has shown a pattern of non-compliance and escalating and threatening behavior in the community and his condition is unlikely to improve without forced psychiatric medications. Will order Haldol [address] Hubbard to provide second opinion on this and likely 303 petition tomorrow. 02/22 -patient remains inappropriate for groups and therapy, due to threatening and menacing behavior with staff and peers. Continue private room. -Increase haloperidol to 10 mg twice daily, and continue as needed doses. Agree with medications over objection, as patient has a history of a primary thought disorder, has been noncompliant with treatment which has led to decompensation, increasing psychosis, and escalating threatening and aggressive behavior in the community and now in the hospital. He required physical and chemical restraints in the ER due to threats to staff and attempts to leave. He has improved with antipsychotic medication in the past. -File for 303 hearing to be held tomorrow. -Patient remains uncooperative with attempts to assess him, will not provide historical information such as where he has been living or if he has any outpatient treatment, or sign releases for family or friends to provide collateral information. 02/23 -303 commitment granted. -Continue private room given threatening behavior, agitation, and recent history of erratic and inappropriate behavior in the community. Patient not yet appropriate for groups. -Continue haloperidol 10 mg twice daily, and 5 mg as needed. Will order an IM backup for refusal, as he has been seen by 2 physicians who both agree with medications over objection. He will likely need a long-acting injectable antipsychotic given his history of nonadherence. -Parents report he has been abusing benzodiazepines, and he is very focused on getting them here, asking for them frequently and receiving 8 mg of lorazepam daily. Will decrease to 1 mg every 4 hours as needed, with a plan to taper off prior to discharge given risk of abuse/misuse/negative outcomes. -Contact forensic top case assembler, Harriett Treviño, and schedule a meeting to discuss treatment plan. Patient will likely need an involuntary outpatient commitment. 02/24 -continue Haldol p.o. with IM backup, and lorazepam as needed. Patient refusing to discuss other antipsychotic options, so if he remains on haloperidol, can receive Haldol Decanoate once the effective dose is reached. -Encourage patient to sign releases for his parents and for outpatient treatment referrals, so that discharge planning can begin. -Continue to enforce appropriate boundaries, as patient has been sexually inappropriate with female peer. Continue private room, and excused from groups until he is able to maintain behavioral control. 02/25 -continue Haldol, and lorazepam as needed. -Attempt scheduled family meeting with parents and his outpatient top case assembler. -Encourage the patient to start engaging in treatment. He is willing to meet with a counselor one-on-one today. -Appropriate boundaries-patient has been reminded repeatedly of the need to cover his genital area and the inappropriateness of his sexual propositions to females. 02/26 -The patient is taking haloperidol 10 mg twice a day as prescribedalthough he repeatedly asks to have this medication discontinued. At the same time, he cannot or will not say, specifically, why he would like haloperidol to be discontinued, other than to say "it is not what I need." (The patient does appear to be tolerating haloperidol well, except for some excess sedation at this point.) -The patient continues to appear suspicious and is withdrawn. He is declinin g to actively participate in treatment. 02/27 Continue medication regimen unchanged 304 hearing scheduled for Friday. Patient will require chest x-ray and EKG prior to transfer to [facility]. 02/28 Patient demonstrating some improved ability to participate and interacting more appropriately with peers and staff in last 24 hours. We will continue to advance therapeutic programming as tolerated and indicated. Continue Haldol as scheduled which remains well-tolerated. 03/01 -Patient noncompliant with mouth checks and continues to go to the bathroom just after taking pills; due to concerns for cheeking, will switch to liquid haloperidol, with IM back up for refusal. -304 granted. Refer to [facility]. -Schedule meeting with patient, top case assembler, and family for discharge planning/exploring diversion options. 03/02 - Continue liquid haloperidol as above - Refusing to sign ROIs to allow for consideration or adequate coordination of diversion options. 03/03 - Continue current haloperidol dosing, liquid as above - Pt signed some conditional ROIs this morning to allow for potential coordination of diversion plan 03/04 - Continue current medication regimen - Meeting with mother and [employer] technical sales representatives to discuss diversionary discharge planning tomorrow morning - Continue to encourage participation in groups to most adequately assess thought content/process and appropriate behavior, these all appear to be improving 03/05 -We have been discussing the option of converting immediate release oral haloperidol to Haldol Decanoate, given his history of nonadherence. The patient's initial response was to become irritated and insists that he does not have a history of nonadherence with medications (even though he was initially nonadherent even here in the hospital). Later, he seemed to recognize that it is reasonable for treatment providers and caregivers to be concerned about his history of nonadherence with medications, and offered reassurance that he would promise to continue to take psychiatric medications as prescribedbut he does not want to take an intramuscular form. 03/06 - continue to engage ieth him about his medication and treatment plan and addressing potential of Haldol Dec CASTANEDA. addressing if pt is willing to sign TERRY's for CRR's as potential plans for diversion from [facility] referral 03/07 - making progress towards TERRY and possibility of haldol Dec but not fully occurred as of yet 03/08 -The patient appears to be less suspicious and is more cooperative. Symptoms such as thought blocking appear to have improved significantly. He continues to show obsessive symptoms and, for example, still has not actually executed the necessary release of information documents that we will need to pursue diversion from long-term hospitalization. He has expressed a willingness to do so for several days now, but has yet to actually follow through. -Although it has been difficult to get specific information from the patient regarding his thought content, he does seem to be much more trusting, less suspicious, and more animated, a set of circumstances that we are attributing to antipsychotic medication. 03/09 - Continue current medication regimen, with ongoing encouragement for consideration of haloperidol decanoate - Pt requesting additional meeting with BSU and parents - seems appropriate as still considering diversion planning, will determine appropriate timing for a second meeting as well as clear objectives to discuss 03/10 - Continue as above - Attempting to schedule outpatient treatment team meeting for 03/15 - Continue to encourage participation in group programming in order to demonstrate appropriateness for diversionary planning 03/11 - As above - Continue to reinforce recommendation for CASTANEDA due to compliance concerns and increase likelihood of diversionary planning being appropriate - Continue to encourage increased group participation 03/12 -The patient seems to have 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 He continues to insist that the reasons for his hospitalizations and various behaviors observed in the community are simply a function of the difficulty that other people have an understanding him and his reasoning. -Oral Haldol 10 mg twice a day seems to have helped the patient be less suspicious and more cooperative. However, the patient continues to lacks substantial insight into his illness, the nature of the problems that have occurred in the community, and his need for certain forms of treatment. -All members of the patient's treatment team will need to continuously and consistently reinforce the fact that we are recommending that he agree to take Haldol Decanoate because in our clinical opinion it is medically necessary, and in the opinion of the base services unit that will possibly arrange for state hospital diversion, they are not willing to agree to diversion if the patient is not cooperating with the recommendations of the hospital. 03/13/19 - patient again wishes to discuss ways to work on discharge, discussed attending groups being able to show ability to be around others and have behavioral control and ability to participate, taking medications as prescribed to include strong recommendation for haldol decanoate or other CASTANEDA to help wtih compliance after discharge given his limited insight, and for aftercare to be established. He is considering haldol decanoate understanding it is available today but asks to start it "friday" for unclear reasons. TO maintain alliance will continue to offer but not pressure. 03/14 - repeated many aspects of our discussion yesterday it is unclear but seems to be possible OCD and doubt wtih reassurance seeking vs. ambivalence. He is asking good questions about timelines and seems to be able to manipulate the information given to him even though he is showing some evidence of slowed thoughts. He does state he is willing to take the hadol deconoate shot. DIscussed r/b/se/a to include but not limited to acute possibility of EPS/dystonia, akathisia, and longer term risks needing to monitor for Tardive dyskinesia in laymans terms. DIscussed need to get his medication in two shots divided due to the oral dose he is taking and the need to overlap the oral medication for a time (per package instructions initial dose should be 20times oral dose for high dose individuals at risk for relapse, and initial shot should not exceed 100mg, and balance of med given 3-7days after initial shot.) which would be 300mg in 3-7days. Discussed this with pharmacy. Maintenance dose woul d be 10-15x the oral stabilizing dose, meaning 200-300mg IM which would be given in a month from first shot. We would taper the oral medications over 3 weeks, or faster if side effects emerge. Will ask staff to do routine assessments of stiffness to minimize EPS/dystonia in this cross taper. 03/15 - Continue current medication regimen - Continue oral haloperidol 10mg BID, with taper over the next few weeks - Continue regular monitoring for EPS/dystonia - Meeting this afternoon with [facility] mental health representatives to discuss treatment plan moving forward 03/16 - Continue current medication regimen; continue oral haloperidol 10mg BID - Haldol decanoate injection for 300mg IM is scheduled to be given 03/18/19 - Discontinue MNPR - Meeting held with BSU, patient, and parents yesterday; will continue to solidify aftercare plan, as [facility] verbalized agreement with diversion attempt (2) Noncompliance with medication regimen: 02/22 -patient with chronic noncompliance which has severely impaired his ability to function or provide for his own basic needs in the community. He will likely need an involuntary outpatient commitment. 02/23 -303 commitment granted. Pursue medications over objection, consider long- acting injectable, and schedule meeting with forensic top case assembler. 02/25 -file for 304 involuntary commitment, as state hospitalization may be needed given severity of his illness, lack of insight and unwillingness to engage in treatment, and pattern of noncompliance with treatment. Patient has requested an independent evaluation, so the hearing will be scheduled sometime next week once that is completed. Patient was informed, and states his preference is to leave the hospital immediately, with no outpatient treatment. 02/26 -The patient seems to have no insight into his illness, no insight into his need for treatment (with the exception of stimulant medications and clonazepam). He acknowledges that he had been in outpatient treatment, but stopped going "because it is not necessary." -Because of the severity of illness, the patient's lack of insight, and is not adherence with treatment on an outpatient basis, the plan was reiterated today is to refer the patient for long-term psychiatric hospitalization. 7/15 -Concerns for cheeking as above; change to liquid haloperidol with IM backup for refusal. Work towards long acting injectable. -304 granted; refer to [facility]. 03/05 -The patient seems to have improved since being given liquid haloperidol, which suggests but does not confirm that he had been "cheeking" his haloperidol tablets. This circumstance, combined with his history of recurrent nonadherence with medications on an outpatient basis are reasons that the treatment team agrees that a condition of discharge needs to be willingness to accept intramuscular Depo antipsychotic medications. 03/06 =as above 03/08 -Today, the patient says that he is giving "serious consideration" to [place] to take an intramuscular injection of Haldol Decanoate. He understands that this is 1 of the things that we are expecting him to agree to as part of an effort to actively pursue diversion. Despite the patient's agreement that he will "seriously consider" Haldol Decanoate, he still has not agreed to take it. His history of nonadherence in the community, coupled with dangerous behaviors when not medicated, are the primary reasons that long-term psychiatric hospitalization appears to be necessary 03/10 - revisited recommendation that the patient consider CASTANEDA haloperidol decanoate prior to discharge. Pt is resistant to the idea, as he feels he does not need this form of medication. He states he is "considering it" 03/12 -The patient has variously said that he is "considering" or "seriously considering" conversion to long-acting haloperidol decanoate prior to discharge. However, to date, he has not moved past "seriously considering." -Today, we explained again that the agency that we will have control over the question of diversion from admission to the [facility] will not consider diversion unless he is adherent with our recommendations and that are recommendations include active participation in therapy, a willingness to be cooperative and forthcoming with the treatment team, and agreement to take Depo antipsychotic medication. 03/13 as above 03/14 patient agreed to loading dose of haldol decanoate today, 100mg IM to be given today 03/16 - Continues to accept reminders of his second Haldol decanoate injection; 300mg IM is scheduled for 03/18/19 (3) Anxiety: 02/22 -patient reports anxiety, but otherwise uncooperative with the assessment and does not appear overtly anxious; refusing vital signs for the last 3 days. He has been demanding high-dose benzodiazepines, and has been repeatedly informed that these are not indicated, but that Lorazepam is ordered as needed to be taken with haloperidol. 02/23 -parents describe history of OCD symptoms. Patient unwilling to participate in assessment, and no noticeable compulsions here, so unclear if currently active. Continue to monitor and assess. 02/25 -patient denies OCD symptoms, and none have been observed here. He does report feeling "anxious," but is a poor historian and unable to get much further information. He does not appear to be expansive panic. We will continue to assess and rule out SYBIL. He is refusing an SSRI antidepressant, wanting only benzodiazepines. 02/28Possibility of obsessive concern for germs again raised by nursing following his reluctance to take the Haldol tablet after it touched his pillow and reluctance to touch his silverware again after he has finished eating. Patient denies obsessions or compulsions but we will continue to monitor. 03/01 - Patient refusing to discuss OCD symptoms. 03/05 -Today, the patient was able to talk about his obsessive-compulsive symptoms, and his parents presence. However, he insisted that the thoughts and behaviors were not in any way abnormal, and he said "of other people have a problem with that, that is up to them." Reported behaviors include handwashing, fear of infectious disease contamination, and, for example, reluctance to touch other people, including his parents. 03/08 -The patient reports that he realizes that he has been "obsessive" which is also evidence of some improvement. 03/12 -The patient voices anxiety in association with the difficulty that he is understanding the expectations of the treatment team, as well as an anxiety associated with the possibility of long-term psychiatric hospitalization. (4) Substance abuse: 02/22 -drug screen positive for THC. Once he is less psychotic, we will need to provide education regarding the risks of cannabis use, specifically exacerbation of psychotic symptoms. -On admission, patient reported being prescribed clonazepam 2 mg twice daily, and per PDMP he last filled a prescription on 12/17/2018, from a Dr. Matt Oneill in [place], [place]. In the past year, he has filled clonazepam and dextroamphetamine/amphetamine prescriptions from 5 different clinicians in different parts of the state, a pattern consistent with substance abuse and drug-seeking. He does not appear to have been on clonazepam consistently, as his last 2 prescriptions were filled in 06/2018 and 12/2018. 02/23 -parents report history of alcohol, cannabis, benzodiazepine, and stimulant abuse. This is also indicated in previous records from 2017 hospitalization. -Avoid controlled substances given high risk of abuse. 02/26-Today, the patient tells us that he is able to take buspirone at an unspecified dose, but when we offered to prescribe this to him for anxiety he said "it is not necessary." When asked why clonazepam is necessary, if buspirone is not, he simply repeated "clonazepam is necessary. Buspirone is not necessary." 03/05 -The patient continues to have essentially no insight into the risks associated with the use of alcohol, cannabis, benzodiazepines, stimulants, and other drugs of abuse. When it was explained to him that these substances can and do interfere with treatment for mental illnesses such as schizophrenia, his replies to say "I do not have schizophrenia." 03/08 -The patient has not requested benzodiazepines and has not mentioned a need for chemical substances such as alcohol, cannabis, stimulant medications and other drugs of abuse, and is now more focused on meeting criteria for community diversion. Inventory Assets Strengths: College graduate. Supportive family. Needs: clarification of legal charges, outpatient services, adherence with treatment and medications Risk Factors Assessment Male: Yes : No Do You Have Access To A Gun?: No Health Problems: No Mental Health Diagnoses: Yes Substance Use Disorders: Yes Previous Psychiatric Hospitalization: Yes Protective Factors Assessment : No Responsible for Young Children: No Employed: No Supportive Family: Yes Good Rapport with Provider: No Interval History Identifying Information DENISE MURRY is a 24-year-old M who has a history of schizophrenia, who was admitted on 02/19/19 17:23 on a 302 involuntary commitment for threatening behavior in the community. He is on a 304 involuntary commitment as of 03/01/2019. Chief Complaint "I'm alright." Review of Systems Notes Constitutional: denied Cardiovascular: denied Respiratory: denied Gastrointestinal: denied Neurological: denied Psychiatric: denies symptoms other than stated above Total of at least 10 systems reviewed, pertinent positives as above and in HPI. Sleep Information Total Hours of Sleep: 8 Sleep Comments: pt on q-15 minute checks Meal Information Percent Meal Consumed - Breakfast: 100 Percent Meal Consumed - Lunch: 100 Percent Meal Consumed - Dinner: 100 Nutrition Comment: pt consistently throws away plastic utensils after eating rather than handing them back in Subjective Subjective Patient was seen & assessed and interval progress reviewed with Nursing and social work. Staff report the patient has been rather stable in regard to improvement of condition; however, he continues to be isolative and not attending regular groups. Pt has been frequently encouraged in this. As it is the current plan to arrange aftercare and divert the patient from a long-term state hospitalization, patient will be taken off his medically necessary private room today. This provider attended the meeting yesterday afternoon involving the patient, parents, BSU, and [facility] social work. All were in agreement that diversion seemed most appropriate and least restrictive at this time, with the expectation that the patient continue to cooperate with inpatient psychiatric treatment and that he remain compliant with medications and aftercare appointments on discharge. Pt asked insightful questions and was cooperative during the meeting. Pt was seen today to assess progress since admission. Pt states he is "alright" today. He was willing to discuss yesterday's meeting, and felt it was "pretty good." He denies having any additional questions at this time. Pt remains agreeable to receiving the second injection of Haldol decanoate - even asking that a particular staff member give it when it is due. Pt continues to be preoccupied with aftercare arrangement, as he is eager for discharge. Pt was encouraged to work on things that would allow us to have even more assurance he will be successful in the community - specifically participating in groups and being agreeable to come off of [facility]. Pt states, he would like to remain on [facility] for "privacy". After some explanation was provided to the patient about [facility] indicating a rather severe condition, he was willing to have a roommate if necessary. Pt denied other needs or concerns today. Physical Exam Psychiatric Orientation: alert, oriented x 3 and cooperative (superficially) Apperance: appropriately dressed (casually) and appropriately groomed Eye Contact: + fair eye contact Motor Behavior: no abnormal motor movements (observed while laying in bed) Speech: normal rate/rhythm/volume of speech (brief responses to questions) Affect: + flat affect Mood: no depressed mood and no anxious mood "I'm alright" Thought Process: goal directed thought process and + perseveration (on discharge plans) Thought Content: + preoccupation (with discharge and arrangement of aftercare); not paranoid and no delusions (no verbalized delusional thought content) Suicidal Thoughts: denies suicidal thoughts Homicidal Thoughts: denies homicidal thoughts Hallucinations: no auditory hallucinations and no visual hallucinations Cognition: attention grossly intact and language grossly intact Estimated Intelligence: consistent with education level Insight: + limited insight (aspects of limited insight are likely chronic due to long-term disease) Though not currently interfering with cooperation with treatment and discharge planning Judgement: + limited judgement (aspects of judgment insight are likely chronic due to long-term disease) Though not currently interfering with cooperation with treatment and discharge planning Vital Signs (Past 24 Hours) Last Vital Signs Temp 36.8 C 02/19/19 19:39 Pulse 76 03/09/19 11:28 Resp 14 03/09/19 11:28 BP 113/67 03/09/19 11:28 Pulse Ox 99 02/19/19 19:39 Results & Data Current Inpatient Medications Current Inpatient Medications: Current Inpatient Medications Acetaminophen (Tylenol) 650 mg PO Q4H PRN PRN Reason: Headache or Minor Fever Stop: 03/21/19 17:22 Al Hydrox/Mg Hydrox/Simethicone (Maalox) 30 ml PO Q4H PRN PRN Reason: GI Upset Stop: 03/21/19 17:22 Benztropine Mesylate (Cogentin) 1 mg PO Q8 PRN PRN Reason: Muscle Spasm Stop: 03/22/19 11:52 Bismuth Subsalicylate (Kaopectate) 15 ml PO PRN PRN PRN Reason: Loose Stool Stop: 03/21/19 17:22 Haloperidol (Haldol) 5 mg PO Q4H PRN PRN Reason: Agitation Stop: 03/21/19 20:25 Last Admin: 02/22/19 14:52 Dose: 5 mg Documented by: Haloperidol Decanoate (Haldol Decanoate) 300 mg IM ONE ONE Stop: 03/18/19 09:01 Haloperidol Lactate (Haldol) 5 mg IM Q4H PRN PRN Reason: Severe Agitation Stop: 03/21/19 20:25 Haloperidol Lactate (Haldol) 10 mg IM BID PRN PRN Reason: refusal of PO Haldol Stop: 03/25/19 10:34 Haloperidol Lactate (Haldol Lactate) 10 mg PO BID [facility] Stop: 04/03/19 20:59 Last Admin: 03/16/19 08:19 Dose: 10 mg Documented by: Hydroxyzine HCl (Vistaril) 50 mg PO HSZ PRN PRN Reason: Insomnia Stop: 03/21/19 17:22 Hydroxyzine HCl (Vistaril) 25 mg PO Q4H PRN PRN Reason: Anxiety Stop: 03/21/19 17:22 Lorazepam (Ativan) 2 mg IM Q4H PRN PRN Reason: Severe Agitation Stop: 03/21/19 20:25 Lorazepam (Ativan) 1 mg PO Q4H PRN PRN Reason: Agitation Stop: 03/21/19 20:25 Last Admin: 03/16/19 08:19 Dose: 1 mg Documented by: Magnesium Hydroxide (Milk Of Magnesia) 30 ml PO DAILY PRN PRN Reason: Heartburn Stop: 03/21/19 17:22 Sodium Chloride (Custer Nasal) 1 - 2 sprays NA PRN PRN PRN Reason: Nasal Dryness/Congestion Stop: 03/21/19 17:22 Mental Health & Subst Abuse Tx Therapist Name of Therapist: IOANA Hassan Antiquer Name of Antiquer: [employer] [facility] Trevi[facility] Phone Number for Antiquer: [phone] Case Management Appointment Comment: [address], [place] [address] Post Discharge Appointments Primary Care Physician Name Of Family Doctor: STACEY Holt Contact Information Discharge Discharge Address: [address] [place] [id number] CPT Code CPT Code 80156 (1) Schizophrenia Schizophrenia type: unspecified Qualified Code(s): F20.9 - Schizophrenia, unspecified
[2019-03-17] MEDS: HALOPERIDOL ORAL SOLN 2 MG/ML PO SCH ×2 (08:53→21:19)
--- NOTE | 2019-03-17 09:15 | Psychiatric Progress Note ---
Date of Service March 17, 2019 Impression / Recommendations Impression 24 y/o male with a history of schizophrenia, OCD, treatment nonadherence, and polysubstance abuse who presented with disorganized and threatening behavior, in the context of nonadherence, decompensation for the last several months and ongoing substance abuse. He was admitted on an involuntary commitment following escalating interactions with the police over disorganized and threatening behavior in the community, and is on a 304 involuntary commitment as of 03/01/19. Overall, he has been less suspicious, more forthcoming, and more willing to trust. The reason that the patient currently requires psychiatric ho spitalization is the fact that he has consistently, and fairly quickly, stopped psychiatric treatment, including all psychiatric medications (other than benzodiazepines) upon release from hospitals, or after they have otherwise been prescribed. His history is such that medication and other forms of treatment adherence in the community, he is at current ongoing risk for causing serious physical harm to the person of others and to himself. This is the case with many individuals who suffer from serious and persistent mental illnesses, but the goal is for the patient to understand that he needs active psychiatric treatment in the community, as an alternative to return to the hospital. We will continue to actively treat the patient with the hope and expectation that he will eventually be able to cooperate with our efforts to investigate diversionary strategies to avoid long-term psychiatric hospitalization. Patient is motivated to cooperate with a diversionary plan, and thus far has sig mirian adequate releases to allow for aftercare referrals and to begin the CRR referral process. He has received and tolerated initial loading dose of Haldol decanoate 100mg, with second injection of 300mg to be given on 03/18/19. Medically necessary private room was discontinued to increase socialization and allow patient to demonstrate that he is able to tolerate a roommate. Group participation has been limited, and we continue to encourage his attendance. (1) Schizophrenia: 02/20--The patient was admitted to the [facility] on q15 min checks (behavioral with suicide precautions) for safety. The patient will participate in group, recreational, and milieu therapies and will be offered additional individual and family sessions as clinically appropriate. Reviewed that he should resume antipsychotic medication FABIO and he would only discuss benzos. Adamant he won't resume Risperdal. Will offer Haldol 5 mg with Ativan 2 mg (take Haldol first) TID and readdress when less agitated. 02/21--mild improvement today in that less thought blocking and slightly less irritability. Refused meds again this am. In my opinion (Dr. Diaz), antipsychotic medication is medically necessary for the treatment of his psychosis given risk of or serious injury within 30 days. He has shown a pattern of non-compliance and escalating and threatening behavior in the community and his condition is unlikely to improve without forced psychiatric medications. Will order Haldol [address] Hubbard to provide second opinion on t his and likely 303 petition tomorrow. 02/22 -patient remains inappropriate for groups and therapy, due to threatening and menacing behavior with staff and peers. Continue private room. -Increase haloperidol to 10 mg twice daily, and continue as needed doses. Agree with medications over objection, as patient has a history of a primary thought disorder, has been noncompliant with treatment which has led to decompensation, increasing psychosis, and escalating threatening and aggressive behavior in the community and now in the hospital. He required physical and chemical restraints in the ER due to threats to staff and attempts to leave. He has improved with antipsychotic medication in the past. -File for 303 hearing to be held tomorrow. -Patient remains uncooperative with attempts to assess him, will not provide historical information such as where he has been living or if he has any outpatient treatment, or sign releases for family or friends to provide collateral information. 02/23 -303 commitment granted. -Continue private room given threatening behavior, agitation, and recent history of erratic and inappropriate behavior in the community. Patient not yet appropriate for groups. -Continue haloperidol 10 mg twice daily, and 5 mg as needed. Will order an IM backup for refusal, as he has been seen by 2 physicians who both agree with medications over objection. He will likely need a long-acting injectable antipsychotic given his history of nonadherence. -Parents report he has been abusing benzodiazepines, and he is very focused on getting them here, asking for them frequently and receiving 8 mg of lorazepam daily. Will decrease to 1 mg every 4 hours as needed, with a plan to taper off prior to discharge given risk of abuse/misuse/negative outcomes. -Contact forensic case assistant, Harriett Treviño, and schedule a meeting to discuss treatment plan. Patient will likely need an involuntary outpatient commitment. 02/24 -continue Haldol p.o. with IM backup, and lorazepam as needed. Patient refusing to discuss other antipsychotic options, so if he remains on haloperidol, can receive Haldol Decanoate once the effective dose is reached. -Encourage patient to sign releases for his parents and for outpatient treatment referrals, so that discharge planning can begin. -Continue to enforce appropriate boundaries, as patient has been sexually inappropriate with female peer. Continue private room, and excused from groups until he is able to maintain behavioral control. 02/25 -continue Haldol, and lorazepam as needed. -Attempt scheduled family meeting with parents and his outpatient case assistant. -Encourage the patient to start engaging in treatment. He is willing to meet with a counselor one-on-one today. -Appropriate boundaries-patient has been reminded repeatedly of the need to cover his genital area and the inappropriateness of his sexual propositions to females. 02/26 -The patient is taking haloperidol 10 mg twice a day as prescribedalthough he repeatedly asks to have this medication discontinued. At the same time, he cannot or will not say, specifically, why he would like haloperidol to be discontinued, other than to say "it is not what I need." (The patient does appear to be tolerating haloperidol well, except for some excess sedation at this point.) -The patient continues to appear suspicious and is withdrawn. He is declining to actively participate in treatment. 02/27 Continue medication regimen unchanged 304 hearing scheduled for Friday. Patient will require chest x-ray and EKG prior to transfer to [facility]. 02/28 Patient demonstrating some improved ability to participate and interacting more appropriately with peers and staff in last 24 hours. We will continue to advance therapeutic programming as tolerated and indicated. Continue Haldol as scheduled which remains well-tolerated. 03/01 -Patient noncompliant with mouth checks and continues to go to the bathroom just after taking pills; due to concerns for cheeking, will switch to liquid haloperidol, with IM back up for refusal. -304 granted. Refer to [facility]. -Schedule meeting with patient, case assistant, and family for discharge planning/exploring diversion options. 03/02 - Continue liquid haloperidol as above - Refusing to sign ROIs to allow for consideration or adequate coordination of diversion options. 03/03 - Continue current haloperidol dosing, liquid as above - Pt signed some conditional ROIs this morning to allow for potential coordination of diversion plan 03/04 - Continue current medication regimen - Meeting with mother and [employer] business banking representative to discuss diversionary discharge planning tomorrow morning - Continue to encourage participation in groups to most adequately assess thought content/process and appropriate behavior, these all appear to be improving 03/05 -We have been discussing the option of converting immediate release oral haloperidol to Haldol Decanoate, given his history of nonadherence. The patient's initial response was to become irritated and insists that he does not have a history of nonadherence with medications (even though he was initially nonadherent even here in the hospital). Later, he seemed to recognize that it is reasonable for treatment providers and caregivers to be concerned about his history of nonadherence with medications, and offered reassurance that he would promise to continue to take psychiatric medications as prescribedbut he does not want to take an intramuscular form. 03/06 - continue to engage ieth him about his medication and treatment plan and addressing potential of Haldol Dec CASTANEDA. addressing if pt is willing to sign TERRY's for CRR's as potential plans for diversion from [facility] referral 03/07 - making progress towards TERRY and possibility of haldol Dec but not fully occurred as of yet 03/08 -The patient appears to be less suspicious and is more cooperative. Symptoms such as thought blocking appear to have improved significantly. He continues to show obsessive symptoms and, for example, still has not actually executed the necessary release of information documents that we will need to pursue diversion from long-term hospitalization. He has expressed a willingness to do so for several days now, but has yet to actually follow through. -Although it has been difficult to get specific information from the patient regarding his thought content, he does seem to be much more trusting, less suspicious, and more animated, a set of circumstances that we are attributing to antipsychotic medication. 03/09 - Continue current medication regimen, with ongoing encouragement for consideration of haloperidol decanoate - Pt requesting additional meeting with BSU and parents - seems appropriate as still considering diversion planning, will determine appropriate timing for a second meeting as well as clear objectives to discuss 03/10 - Continue as above - Attempting to schedule outpatient treatment team meeting for 03/15 - Continue to encourage participation in group programming in order to demonstrate appropriateness for diversionary planning 03/11 - As above - Continue to reinforce recommendation for CASTANEDA due to compliance concerns and increase likelihood of diversionary planning being appropriate - Continue to encourage increased group participation 03/12 -The patient seems to have 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 He continues to insist that the reasons for his hospitalizations and various behaviors observed in the community are simply a function of the difficulty that other people have an understanding him and his reasoning. -Oral Haldol 10 mg twice a day seems to have helped the patient be less suspicious and more cooperative. However, the patient continues to lacks substantial insight into his illness, the nature of the problems that have occurred in the community, and his need for certain forms of treatment. -All members of the patient's treatment team will need to continuously and consistently reinforce the fact that we are recommending that he agree to take Haldol Decanoate because in our clinical opinion it is medically necessary, and in the opinion of the base services unit that will possibly arrange for state hospital diversion, they are not willing to agree to diversion if the patient is not cooperating with the recommendations of the hospital. 03/13/19 - patient again wishes to discuss ways to work on discharge, discussed attending groups being able to show ability to be around others and have behavioral control and ability to participate, taking medications as prescribed to include strong recommendation for haldol decanoate or other CASTANEDA to help wtih compliance after discharge given his limited insight, and for aftercare to be established. He is considering haldol decanoate understanding it is available today but asks to start it "friday" for unclear reasons. TO maintain alliance will continue to offer but not pressure. 03/14 - repeated many aspects of our discussion yesterday it is unclear but seems to be possible OCD and doubt wtih reassurance seeking vs. ambivalence. He is asking good questions about timelines and seems to be able to manipulate the information given to him even though he is showing some evidence of slowed thoughts. He does state he is willing to take the hadol deconoate shot. DIscussed r/b/se/a to include but not limited to acute possibility of EPS/dystonia, akathisia, and longer term risks needing to monitor for Tardive dyskinesia in laymans terms. DIscussed need to get his medication in two shots divided due to the oral dose he is taking and the need to overlap the oral medication for a time (per package instructions initial dose should be 20times oral dose for high dose individuals at risk for relapse, and initial shot should not exceed 100mg, and balance of med given 3-7days after initial shot.) which would be 300mg in 3-7days. Discussed this with pharmacy. Maintenance dose would be 10-15x the oral stabilizing dose, meaning 200-300mg IM which would be given in a month from first shot. We would taper the oral medications over 3 weeks, or faster if side effects emerge. Will ask staff to do routine assessments of stiffness to minimize EPS/dystonia in this cross taper. 03/15 - Continue current medication regimen - Continue oral haloperidol 10mg BID, with taper over the next few weeks - Continue regular monitoring for EPS/dystonia - Meeting this afternoon with [facility] health representatives to discuss treatment plan moving forward 03/16 - Continue current medication regimen; continue oral haloperidol 10mg BID - Haldol decanoate injection for 300mg IM is scheduled to be given 03/18/19 - Discontinue MNPR - Meeting held with BSU, patient, and parents yesterday; will continue to solidify aftercare plan, as [facility] verbalized agreement with diversion attempt 03/17 - Continue current treatment plan; oral haloperidol 10mg BID - Will receive Haldol decanoate 300mg IM tomorrow, 03/18/19 - Continue to determine clear aftercare and establish with outpatient psychiatric providers (2) Noncompliance with medication regimen: 02/22 -patient with chronic noncompliance which has severely impaired his ability to function or provide for his own basic needs in the community. He will likely need an involuntary outpatient commitment. 02/23 -303 commitment granted. Pursue medications over objection, consider long- acting injectable, and schedule meeting with forensic case assistant. 02/25 -file for 304 involuntary commitment, as state hospitalization may be needed given severity of his illness, lack of insight and unwillingness to engage in treatment, and pattern of noncompliance with treatment. Patient has requested an independent evaluation, so the hearing will be scheduled sometime next week once that is completed. Patient was informed, and states his preference is to leave the hospital immediately, with no outpatient treatment. 02/26 -The patient seems to have no insight into his illness, no insight into his need for treatment (with the exception of stimulant medications and clonazepam). He acknowledges that he had been in outpatient treatment, but stopped going "because it is not necessary." -Because of the severity of illness, the patient's lack of insight, and is not adherence with treatment on an outpatient basis, the plan was reiterated today is to refer the patient for long-term psychiatric hospitalization. 03/01 -Concerns for cheeking as above; change to liquid haloperidol with IM backup for refusal. Work towards long acting injectable. -304 granted; refer to [facility]. 03/05 -The patient seems to have improved since being given liquid haloperidol, which suggests but does not confirm that he had been "cheeking" his haloperidol tablets. This circumstance, combined with his history of recurrent nonadherence with medications on an outpatient basis are reasons that the treatment team agrees that a condition of discharge needs to be willingness to accept intramuscular Depo antipsychotic medications. 03/06 =as above 03/08 -Today, the patient says that he is giving "serious consideration" to agreeing to take an intramuscular injection of Haldol Decanoate. He understands that this is 1 of the things that we are expecting him to agree to as part of an effort to actively pursue diversion. Despite the patient's agreement that he will "seriously consider" Haldol Decanoate, he still has not agreed to take it. His history of nonadherence in the community, coupled with dangerous behaviors when not medicated, are the primary reasons that long-term psychiatric hospitalization appears to be necessary 03/10 - revisited recommendation that the patient consider CASTANEDA haloperidol decanoate prior to discharge. Pt is resistant to the idea, as he feels he does not need this form of medication. He states he is "considering it" 03/12 -The patient has variously said that he is "considering" or "seriously considering" conversion to long-acting haloperidol decanoate prior to discharge. However, to date, he has not moved past "seriously considering." -Today, we explained again that the agency that we will have control over the question of diversion from admission to the [facility] will not consider diversion unless he is adherent with our recommendations and that are recommendations include active participation in therapy, a willingness to be cooperative and forthcoming with the treatment team, and agreement to take Depo antipsychotic medication. 03/13 as above 03/14 patient agreed to loading dose of haldol decanoate today, 100mg IM to be given today 03/16 - Continues to accept reminders of his second Haldol decanoate injection; 300mg IM is scheduled for 03/18/19 (3) Anxiety: 02/22 -patient reports anxiety, but otherwise uncooperative with the assessment and does not appear overtly anxious; refusing vital signs for the last 3 days. He has been demanding high-dose benzodiazepines, and has been repeatedly informed that these are not indicated, but that Lorazepam is ordered as needed to be taken with haloperidol. 02/23 -parents describe history of OCD symptoms. Patient unwilling to participate in assessment, and no noticeable compulsions here, so unclear if currently active. Continue to monitor and assess. 02/25 -patient denies OCD symptoms, and none have been observed here. He does report feeling "anxious," but is a poor historian and unable to get much further information. He does not appear to be expansive panic. We will continue to assess and rule out SYBIL. He is refusing an SSRI antidepressant, wanting only benzodiazepines. 02/28Possibility of obsessive concern for germs again raised by nursing followi ng his reluctance to take the Haldol tablet after it touched his pillow and reluctance to touch his silverware again after he has finished eating. Patient denies obsessions or compulsions but we will continue to monitor. 03/01 - Patient refusing to discuss OCD symptoms. 03/05 -Today, the patient was able to talk about his obsessive-compulsive symptoms, and his parents presence. However, he insisted that the thoughts and behaviors were not in any way abnormal, and he said "of other people have a problem with that, that is up to them." Reported behaviors include handwashing, fear of infectious disease contamination, and, for example, reluctance to touch other people, including his parents. 03/08 -The patient reports that he realizes that he has been "obsessive" which is also evidence of some improvement. 03/12 -The patient voices anxiety in association with the difficulty that he is understanding the expectations of the treatment team, as well as an anxiety associated with the possibility of long-term psychiatric hospitalization. (4) Substance abuse: 02/22 -drug screen positive for THC. Once he is less psychotic, we will need to provide education regarding the risks of cannabis use, specifically exacerbation of psychotic symptoms. -On admission, patient reported being prescribed clonazepam 2 mg twice daily, and per PDMP he last filled a prescription on 12/17/2018, from a Dr. Matt Oneill in [place], [place]. In the past year, he has filled clonazepam and dextroamphetamine/amphetamine prescriptions from 5 different clinicians in different parts of the state, a pattern consistent with substance abuse and drug-seeking. He does not appear to have been on clonazepam consistently, as his last 2 prescriptions were filled in 06/2018 and 12/2018. 02/23 -parents report history of alcohol, cannabis, benzodiazepine, and stimulant abuse. This is also indicated in previous records from 2017 hospitalization. -Avoid controlled substances given high risk of abuse. 02/26-Today, the patient tells us that he is able to take buspirone at an unspecified dose, but when we offered to prescribe this to him for anxiety he said "it is not necessary." When asked why clonazepam is necessary, if buspirone is not, he simply repeated "clonazepam is necessary. Buspirone is not necessary." 03/05 -The patient continues to have essentially no insight into the risks associated with the use of alcohol, cannabis, benzodiazepines, stimulants, and other drugs of abuse. When it was explained to him that these substances can and do interfere with treatment for mental illnesses such as schizophrenia, his replies to say "I do not have schizophrenia." 03/08 -The patient has not requested benzodiazepines and has not mentioned a need for chemical substances such as alcohol, cannabis, stimulant medications and other drugs of abuse, and is now more focused on meeting criteria for community diversion. Inventory Assets Strengths: College graduate. Supportive family. Needs: clarification of legal charges, outpatient services, adherence with treatment and medications Risk Factors Assessment Male: Yes : No Do You Have Access To A Gun?: No Health Problems: No Mental Health Diagnoses: Yes Substance Use Disorders: Yes Previous Psychiatric Hospitalization: Yes Protective Factors Assessment : No Responsible for Young Children: No Employed: No Supportive Family: Yes Good Rapport with Provider: No Interval History Identifying Information DENISE MURRY is a 24-year-old M who has a history of schizophrenia, who was admitted on 02/19/19 17:23 on a 302 involuntary commitment for threatening behavior in the community. He is on a 304 involuntary commitment as of 03/01/2019. Chief Complaint "I need a solid discharge date." Review of Systems Notes Constitutional: denied Cardiovascular: denied Respiratory: denied Gastrointestinal: denied Neurological: denied Psychiatric: denies symptoms other than stated above Total of at least 10 systems reviewed, pertinent positives as above and in HPI. Sleep Information Total Hours of Sleep: 6.75 Sleep Comments: pt on q-15 minute checks Meal Information Percent Meal Consumed - Breakfast: 100 Percent Meal Consumed - Lunch: 100 Percent Meal Consumed - Dinner: 100 Nutrition Comment: pt consistently throws away plastic utensils after eating rather than handing them back in Subjective Subjective Patient was seen & assessed and interval progress reviewed with Treatment Team. Staff reports that the referral to a CRR has been started. Patient has been assigned a case assistant through the base service unit, with continued efforts to establish outpatient psychiatric providers as well. Patient participated in group therapy yesterday, with limited but appropriate comments showing participation. Patient was seen today to assess progress since admission. Patient requested this provider an exact discharge date. Patient was informed that his discharge is highly dependent on the arrangement of appropriate outpatient providers, which has yet to be solidified. Patient was informed that once his aftercare has been arranged it is likely discharge will follow rather rapidly. Patient was informed that until he has scheduled outpatient appointments, it is not likely that we will be able to anticipate an exact discharge date. Patient states he continues to do well, denying suicidal, homicidal, or disorganized thoughts. Patient remains mildly withdrawn, but does not verbalize any delusional thought content, and denies any confusion or bizarre beliefs. Patient was reminded of his second haloperidol decanoate injection, scheduled for tomorrow. He remains agreeable to receiving this medication at this time. Patient continues to verbalize goal of expedited aftercare planning, and was encouraged to remain patient and engaged in treatment as staff works on this request. Patient denies other needs or concerns today. Physical Exam Psychiatric Orientation: alert, oriented x 3 and cooperative (Superficially, remains somewhat guarded) Apperance: appropriately dressed (Casually, in T-shirt and shorts) and appropriately groomed Eye Contact: + fair eye contact (Prolonged staring, some moments of direct eye contact) Motor Behavior: steady gait and station and no abnormal motor movements Speech: normal rate/rhythm/volume of speech Affect: + flat affect Mood: no depressed mood and no anxious mood "I am fine" Thought Process: goal directed thought process, clear/coherent thought process and + perseveration (Highly focused on discharge planning) Thought Content: + preoccupation (With discharge and aftercare); not paranoid and no delusions (No verbalized delusional thought content) Suicidal Thoughts: denies suicidal thoughts and denies suicidal intent Homicidal Thoughts: denies homicidal thoughts Hallucinations: no auditory hallucinations and no visual hallucinations Cognition: attention grossly intact and language grossly intact Estimated Intelligence: consistent with education level Insight: + limited insight (Will likely be chronically limited due to long-term disease) Judgement: + impaired judgement (Will likely be chronically limited due to long- term disease) Vital Signs (Past 24 Hours) Last Vital Signs Temp 36.8 C 02/19/19 19:39 Pulse 76 03/09/19 11:28 Resp 14 03/09/19 11:28 BP 113/67 03/09/19 11:28 Pulse Ox 99 02/19/19 19:39 Results & Data Current Inpatient Medications Current Inpatient Medications: Current Inpatient Medications Acetaminophen (Tylenol) 650 mg PO Q4H PRN PRN Reason: Headache or Minor Fever Stop: 03/21/19 17:22 Al Hydrox/Mg Hydrox/Simethicone (Maalox) 30 ml PO Q4H PRN PRN Reason: GI Upset Stop: 03/21/19 17:22 Benztropine Mesylate (Cogentin) 1 mg PO Q8 PRN PRN Reason: Muscle Spasm Stop: 03/22/19 11:52 Bismuth Subsalicylate (Kaopectate) 15 ml PO PRN PRN PRN Reason: Loose Stool Stop: 03/21/19 17:22 Haloperidol (Haldol) 5 mg PO Q4H PRN PRN Reason: Agitation Stop: 03/21/19 20:25 Last Admin: 02/22/19 14:52 Dose: 5 mg Documented by: Haloperidol Decanoate (Haldol Decanoate) 300 mg IM ONE ONE Stop: 03/18/19 09:01 Haloperidol Lactate (Haldol) 5 mg IM Q4H PRN PRN Reason: Severe Agitation Stop: 03/21/19 20:25 Haloperidol Lactate (Haldol) 10 mg IM BID PRN PRN Reason: refusal of PO Haldol Stop: 03/25/19 10:34 Haloperidol Lactate (Haldol Lactate) 10 mg PO BID [facility] Stop: 04/03/19 20:59 Last Admin: 03/17/19 08:53 Dose: 10 mg Documented by: Hydroxyzine HCl (Vistaril) 50 mg PO HSZ PRN PRN Reason: Insomnia Stop: 03/21/19 17:22 Hydroxyzine HCl (Vistaril) 25 mg PO Q4H PRN PRN Reason: Anxiety Stop: 03/21/19 17:22 Lorazepam (Ativan) 2 mg IM Q4H PRN PRN Reason: Severe Agitation Stop: 03/21/19 20:25 Lorazepam (Ativan) 1 mg PO Q4H PRN PRN Reason: Agitation Stop: 03/21/19 20:25 Last Admin: 03/16/19 21:51 Dose: 1 mg Documented by: Magnesium Hydroxide (Milk Of Magnesia) 30 ml PO DAILY PRN PRN Reason: Heartburn Stop: 03/21/19 17:22 Sodium Chloride ([place] Nasal) 1 - 2 sprays NA PRN PRN PRN Reason: Nasal Dryness/Congestion Stop: 03/21/19 17:22 Mental Health & Subst Abuse Tx Therapist Name of Therapist: IOANA Hassan Taker Out Name of Taker Out: [facility]ett Treviño Phone Number for Taker Out: [phone] Case Management Appointment Comment: [address] [place] [address] [place] [address], [place] [address] Post Discharge Appointments Primary Care Physician Name Of Family Doctor: STACEY Holt Contact Information Discharge Discharge Address: [address] [place] [address], [place] [address] CPT Code CPT Code 22598 (1) Schizophrenia Schizophrenia type: unspecified Qualified Code(s): F20.9 - Schizophrenia, unspecified
[2019-03-17] MEDS: LORazepam 1 MG TAB PO PRN (21:21)
[2019-03-18] MEDS ORDERED: HALOPERIDOL DECANOATE INJ 50 MG/ML VIAL IM ONE (09:00)
[2019-03-18] MEDS: LORazepam 1 MG TAB PO PRN ×2 (09:11→21:26)
[2019-03-18] MEDS: HALOPERIDOL ORAL SOLN 2 MG/ML PO SCH (09:11)
--- NOTE | 2019-03-18 12:31 | Psychiatric Progress Note ---
Date of Service March 18, 2019 Impression / Recommendations Impression 24 y/o male with a history of schizophrenia, OCD, treatment nonadherence, and polysubstance abuse who presented with disorganized and threatening behavior, in the context of nonadherence, decompensation for the last several months and ongoing substance abuse. He was admitted on an involuntary commitment following escalating interactions with the police over disorganized and threatening behavior in the community, and is on a 304 involuntary commitment as of 03/01/19. Overall, he has been less suspicious, more forthcoming, and more willing to trust. The reason that the patient currently requires psychiatric h ospitalization is the fact that he has consistently, and fairly quickly, stopped psychiatric treatment, including all psychiatric medications (other than benzodiazepines) upon release from hospitals, or after they have otherwise been prescribed. His history is such that medication and other forms of treatment adherence in the community, he is at current ongoing risk for causing serious physical harm to the person of others and to himself. This is the case with many individuals who suffer from serious and persistent mental illnesses, but the goal is for the patient to understand that he needs active psychiatric treatment in the community, as an alternative to return to the hospital. We will continue to actively treat the patient with the hope and expectation that he will eventually be able to cooperate with our efforts to investigate diversionary strategies to avoid long-term psychiatric hospitalization. Patient is motivated to cooperate with a diversionary plan, and thus far has si gned adequate releases to allow for aftercare referrals and to begin the CRR referral process. Patient did receive his second injection of 300 mg of haloperidol decanoate today, 03/18/2019. Medically necessary private room was discontinued to increase socialization and allow patient to demonstrate that he is able to tolerate a roommate. Group participation has been limited, and we continue to encourage his attendance. Patient still requires appropriate aftercare for anticipated 304 involuntary outpatient commitment on discharge. Roll acceptance remains in place should patient's condition worsen or diversion seem appropriate. (1) Schizophrenia: 02/20--The patient was admitted to the [facility] ([facility] unit) on q15 min checks (behavioral with suicide precautions) for safety. The patient will participate in group, recreational, and milieu therapies and will be offered additional individual and family sessions as clinically appropriate. Reviewed that he should resume antipsychotic medication FABIO and he would only discuss benzos. Adamant he won't resume Risperdal. Will offer Haldol 5 mg with Ativan 2 mg (take Haldol first) TID and readdress when less agitated. 02/21--mild improvement today in that less thought blocking and slightly less irritability. Refused meds again this am. In my opinion (Dr. Diaz), antipsy chotic medication is medically necessary for the treatment of his psychosis given risk of or serious injury within 30 days. He has shown a pattern of non-compliance and escalating and threatening behavior in the community and his condition is unlikely to improve without forced psychiatric medications. Will order Haldol [address] Hubbard to provide second opinion on this and likely 303 petition tomorrow. 02/22 -patient remains inappropriate for groups and therapy, due to threatening and menacing behavior with staff and peers. Continue private room. -Increase haloperidol to 10 mg twice daily, and continue as needed doses. Agree with medications over objection, as patient has a history of a primary thought disorder, has been noncompliant with treatment which has led to decompensation, increasing psychosis, and escalating threatening and aggressive behavior in the community and now in the hospital. He required physical and chemical restraints in the ER due to threats to staff and attempts to leave. He has improved with antipsychotic medication in the past. -File for 303 hearing to be held tomorrow. -Patient remains uncooperative with attempts to assess him, will not provide historical information such as where he has been living or if he has any outpatient treatment, or sign releases for family or friends to provide collateral information. 02/23 -303 commitment granted. -Continue private room given threatening behavior, agitation, and recent history of erratic and inappropriate behavior in the community. Patient not yet appropriate for groups. -Continue haloperidol 10 mg twice daily, and 5 mg as needed. Will order an IM backup for refusal, as he has been seen by 2 physicians who both agree with medications over objection. He will likely need a long-acting injectable antipsychotic given his history of nonadherence. -Parents report he has been abusing benzodiazepines, and he is very focused on getting them here, asking for them frequently and receiving 8 mg of lorazepam daily. Will decrease to 1 mg every 4 hours as needed, with a plan to taper off prior to discharge given risk of abuse/misuse/negative outcomes. -Contact forensic block and case maker, Harriett Treviño, and schedule a meeting to discuss treatment plan. Patient will likely need an involuntary outpatient commitment. 02/24 -continue Haldol p.o. with IM backup, and lorazepam as needed. Patient refusing to discuss other antipsychotic options, so if he remains on haloperidol, can receive Haldol Decanoate once the effective dose is reached. -Encourage patient to sign releases for his parents and for outpatient treatment referrals, so that discharge planning can begin. -Continue to enforce appropriate boundaries, as patient has been sexually inappropriate with female peer. Continue private room, and excused from groups until he is able to maintain behavioral control. 02/25 -continue Haldol, and lorazepam as needed. -Attempt scheduled family meeting with parents and his outpatient block and case maker. -Encourage the patient to start engaging in treatment. He is willing to meet with a counselor one-on-one today. -Appropriate boundaries-patient has been reminded repeatedly of the need to cover his genital area and the inappropriateness of his sexual propositions to females. 02/26 -The patient is taking haloperidol 10 mg twice a day as prescribedalthough he repeatedly asks to have this medication discontinued. At the same time, he cannot or will not say, specifically, why he would like haloperidol to be discontinued, other than to say "it is not what I need." (The patient does appear to be tolerating haloperidol well, except for some excess sedation at this point.) -The patient continues to appear suspicious and is withdrawn. He is declining to actively participate in treatment. 02/27 Continue medication regimen unchanged 304 hearing scheduled for Friday. Patient will require chest x-ray and EKG prior to transfer to [facility]. 02/28 Patient demonstrating some improved ability to participate and interacting more appropriately with peers and staff in last 24 hours. We will continue to advance therapeutic programming as tolerated and indicated. Continue Haldol as scheduled which remains well-tolerated. 03/01 -Patient noncompliant with mouth checks and continues to go to the bathroom just after taking pills; due to concerns for cheeking, will switch to liquid haloperidol, with IM back up for refusal. -304 granted. Refer to [facility]. -Schedule meeting with patient, block and case maker, and family for discharge planning/exploring diversion options. 03/02 - Continue liquid haloperidol as above - Refusing to sign ROIs to allow for consideration or adequate coordination of diversion options. 03/03 - Continue current haloperidol dosing, liquid as above - Pt signed some conditional ROIs this morning to allow for potential coordination of diversion plan 03/04 - Continue current medication regimen - Meeting with mother and [facility] charter representative to discuss diversionary discharge planning tomorrow morning - Continue to encourage participation in groups to most adequately assess thought content/process and appropriate behavior, these all appear to be improving 03/05 -We have been discussing the option of converting immediate release oral haloperidol to Haldol Decanoate, given his history of nonadherence. The patient's initial response was to become irritated and insists that he does not have a history of nonadherence with medications (even though he was initially nonadherent even here in the hospital). Later, he seemed to recognize that it is reasonable for treatment providers and caregivers to be concerned about his history of nonadherence with medications, and offered reassurance that he would promise to continue to take psychiatric medications as prescribedbut he does not want to take an intramuscular form. 03/06 - continue to engage ieth him about his medication and treatment plan and addressing potential of Haldol Dec CASTANEDA. addressing if pt is willing to sign TERRY's for CRR's as potential plans for diversion from [facility] referral 03/07 - making progress towards TERRY and possibility of haldol Dec but not fully occurred as of yet 03/08 -The patient appears to be less suspicious and is more cooperative. Symptoms such as thought blocking appear to have improved significantly. He continues to show obsessive symptoms and, for example, still has not actually executed the necessary release of information documents that we will need to pursue diversion from long-term hospitalization. He has expressed a willingness to do so for several days now, but has yet to actually follow through. -Although it has been difficult to get specific information from the patient regarding his thought content, he does seem to be much more trusting, less suspicious, and more animated, a set of circumstances that we are attributing to antipsychotic medication. 03/09 - Continue current medication regimen, with ongoing encouragement for consideration of haloperidol decanoate - Pt requesting additional meeting with BSU and parents - seems appropriate as still considering diversion planning, will determine appropriate timing for a second meeting as well as clear objectives to discuss 03/10 - Continue as above - Attempting to schedule outpatient treatment team meeting for 03/15 - Continue to encourage participation in group programming in order to demonstrate appropriateness for diversionary planning 03/11 - As above - Continue to reinforce recommendation for CASTANEDA due to compliance concerns and increase likelihood of diversionary planning being appropriate - Continue to encourage increased group participation 03/12 -The patient seems to have 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 He continues to insist that the reasons for his hospitalizations and various behaviors observed in the community are simply a function of the difficulty that other people have an understanding him and his reasoning. -Oral Haldol 10 mg twice a day seems to have helped the patient be less suspicious and more cooperative. However, the patient continues to lacks substantial insight into his illness, the nature of the problems that have occurred in the community, and his need for certain forms of treatment. -All members of the patient's treatment team will need to continuously and consistently reinforce the fact that we are recommending that he agree to take Haldol Decanoate because in our clinical opinion it is medically necessary, and in the opinion of the [facility] services unit that will possibly arrange for state hospital diversion, they are not willing to agree to diversion if the patient is not cooperating with the recommendations of the hospital. 03/13/19 - patient again wishes to discuss ways to work on discharge, discussed attending groups being able to show ability to be around others and have behavioral control and ability to participate, taking medications as prescribed to include strong recommendation for haldol decanoate or other CASTANEDA to help wtih compliance after discharge given his limited insight, and for aftercare to be established. He is considering haldol decanoate understanding it is available today but asks to start it "friday" for unclear reasons. TO maintain alliance will continue to offer but not pressure. 03/14 - repeated many aspects of our discussion yesterday it is unclear but seems to be possible OCD and doubt wtih reassurance seeking vs. ambivalence. He is asking good questions about timelines and seems to be able to manipulate the information given to him even though he is showing some evidence of slowed thoughts. He does state he is willing to take the hadol deconoate shot. DIscussed r/b/se/a to include but not limited to acute possibility of EPS/dystonia, akathisia, and longer term risks needing to monitor for Tardive dyskinesia in laymans terms. DIscussed need to get his medication in two shots divided due to the oral dose he is taking and the need to overlap the oral medication for a time (per package instructions initial dose should be 20times oral dose for high dose individuals at risk for relapse, and initial shot should not exceed 100mg, and balance of med given 3-7days after initial shot.) which would be 300mg in 3-7days. Discussed this with pharmacy. Maintenance dose would be 10-15x the oral stabilizing dose, meaning 200-300mg IM which would be given in a month from first shot. We would taper the oral medications over 3 weeks, or faster if side effects emerge. Will ask staff to do routine assessments of stiffness to minimize EPS/dystonia in this cross taper. 03/15 - Continue current medication regimen - Continue oral haloperidol 10mg BID, with taper over the next few weeks - Continue regular monitoring for EPS/dystonia - Meeting this afternoon with [facility] mental health representatives to discuss treatment plan moving forward 03/16 - Continue current medication regimen; continue oral haloperidol 10mg BID - Haldol decanoate injection for 300mg IM is scheduled to be given 03/18/19 - Discontinue MNPR - Meeting held with BSU, patient, and parents yesterday; will continue to solidify aftercare plan, [facility] agreement with diversion attempt 03/17 - Continue current treatment plan; oral haloperidol 10mg BID - Will receive Haldol decanoate 300mg IM tomorrow, 03/18/19 - Continue to determine clear aftercare and establish with outpatient psychiatric providers 03/18 - Patient willingly accepted second injection of Haldol decanoate 300mg IM today - no evidence of EPS/TD - Will reduce oral haloperidol to 5mg qAM and 10mg qHS - continue taper over the next few weeks - Oral Cogentin is available for signs of EPS - will order IM injection to have available for acute dystonia - Continue to determine clear aftercare plan; continue collaboration with BSU for appropriate outpatient providers for 304 IOC (2) Noncompliance with medication regimen: 02/22 -patient with chronic noncompliance which has severely impaired his ability to function or provide for his own basic needs in the community. He will likely need an involuntary outpatient commitment. 02/23 -303 commitment granted. Pursue medications over objection, consider long- acting injectable, and schedule meeting with forensic block and case maker. 02/25 -file for 304 involuntary commitment, as state hospitalization may be needed given severity of his illness, lack of insight and unwillingness to engage in treatment, and pattern of noncompliance with treatment. Patient has r equested an independent evaluation, so the hearing will be scheduled sometime next week once that is completed. Patient was informed, and states his preference is to leave the hospital immediately, with no outpatient treatment. 02/26 -The patient seems to have no insight into his illness, no insight into his need for treatment (with the exception of stimulant medications and clonazepam). He acknowledges that he had been in outpatient treatment, but stopped going "because it is not necessary." -Because of the severity of illness, the patient's lack of insight, and is not adherence with treatment on an outpatient basis, the plan was reiterated today is to refer the patient for long-term psychiatric hospitalization. 03/01 -Concerns for cheeking as above; change to liquid haloperidol with IM backup for refusal. Work towards long acting injectable. -304 granted; refer to [facility]. 03/05 -The patient seems to have improved since being given liquid haloperidol, which suggests but does not confirm that he had been "cheeking" his haloperidol tablets. This circumstance, combined with his history of recurrent nonadherence with medications on an outpatient basis are reasons that the treatment team agrees that a condition of discharge needs to be willingness to accept intramuscular Depo antipsychotic medications. 03/06 =as above 03/08 -Today, the patient says that he is giving "serious consideration" to agreeing to take an intramuscular injection of Haldol Decanoate. He understands that this is 1 of the things that we are expecting him to agree to as part of an effort to actively pursue diversion. Despite the patient's agreement that he will "seriously consider" Haldol Decanoate, he still has not agreed to take it. His history of nonadherence in the community, coupled with dangerous behaviors when not medicated, are the primary reasons that long-term psychiatric hospitalization appears to be necessary 03/10 - revisited recommendation that the patient consider CASTANEDA haloperidol decanoate prior to discharge. Pt is resistant to the idea, as he feels he does not need this form of medication. He states he is "considering it" 03/12 -The patient has variously said that he is "considering" or "seriously considering" conversion to long-acting haloperidol decanoate prior to discharge. However, to date, he has not moved past "seriously considering." -Today, we explained again that the agency that we will have control over the question of diversion from admission to the [facility] will not consider diversion unless he is adherent with our recommendations and that are recommendations include active participation in therapy, a willingness to be cooperative and forthcoming with the treatment team, and agreement to take Depo antipsychotic medication. 03/13 as above 03/14 patient agreed to loading dose of haldol decanoate today, 100mg IM to be given today 03/16 - Continues to accept reminders of his second Haldol decanoate injection; 300mg IM is scheduled for 03/18/1903/18 - Pt willingly accepted second injection of Haldol decanoate today (3) Anxiety: 02/22 -patient reports anxiety, but otherwise uncooperative with the assessment and does not appear overtly anxious; refusing vital signs for the last 3 days. He has been demanding high-dose benzodiazepines, and has been repeatedly informed that these are not indicated, but that Lorazepam is ordered as needed to be taken with haloperidol. 02/23 -parents describe history of OCD symptoms. Patient unwilling to participate in assessment, and no noticeable compulsions here, so unclear if currently active. Continue to monitor and assess. 02/25 -patient denies OCD symptoms, and none have been observed here. He does report feeling "anxious," but is a poor historian and unable to get much further information. He does not appear to be expansive panic. We will continue to assess and rule out SYBIL. He is refusing an SSRI antidepressant, wanting only b enzodiazepines. 02/28Possibility of obsessive concern for germs again raised by nursing following his reluctance to take the Haldol tablet after it touched his pillow and reluctance to touch his silverware again after he has finished eating. Patient denies obsessions or compulsions but we will continue to monitor. 03/01 - Patient refusing to discuss OCD symptoms. 03/05 -Today, the patient was able to talk about his obsessive-compulsive symptoms, and his parents presence. However, he insisted that the thoughts and behaviors were not in any way abnormal, and he said "of other people have a problem with that, that is up to them." Reported behaviors include handwashing, fear of infectious disease contamination, and, for example, reluctance to touch other people, including his parents. 03/08 -The patient reports that he realizes that he has been "obsessive" which is also evidence of some improvement. 03/12 -The patient voices anxiety in association with the difficulty that he is und erstanding the expectations of the treatment team, as well as an anxiety associated with the possibility of long-term psychiatric hospitalization. (4) Substance abuse: 02/22 -drug screen positive for THC. Once he is less psychotic, we will need to provide education regarding the risks of cannabis use, specifically exacerbation of psychotic symptoms. -On admission, patient reported being prescribed clonazepam 2 mg twice daily, and per PDMP he last filled a prescription on 12/17/2018, from a Dr. Matt Oneill in [place], [place]. In the past year, he has filled clonazepam and dextroamphetamine/amphetamine prescriptions from 5 different clinicians in different parts of the state, a pattern consistent with substance abuse and drug-seeking. He does not appear to have been on clonazepam consistently, as his last 2 prescriptions were filled in 06/2018 and 12/2018. 02/23 -parents report history of alcohol, cannabis, benzodiazepine, and stimulant abuse. This is also indicated in previous records from 2017 hospitalization. -Avoid controlled substances given high risk of abuse. 02/26-Today, the patient tells us that he is able to take buspirone at an unspecified dose, but when we offered to prescribe this to him for anxiety he said "it is not necessary." When asked why clonazepam is necessary, if buspirone is not, he simply repeated "clonazepam is necessary. Buspirone is not necessary." 03/05 -The patient continues to have essentially no insight into the risks associated with the use of alcohol, cannabis, benzodiazepines, stimulants, and other drugs of abuse. When it was explained to him that these substances can and do interfere with treatment for mental illnesses such as schizophrenia, his replies to say "I do not have schizophrenia." 03/08 -The patient has not requested benzodiazepines and has not mentioned a need for chemical substances such as alcohol, cannabis, stimulant medications and other drugs of abuse, and is now more focused on meeting criteria for community diversion. Inventory Assets Strengths: College graduate. Supportive family. Needs: clarification of legal charges, outpatient services, adherence with treatment and medications Risk Factors Assessment Male: Yes : No Do You Have Access To A Gun?: No Health Problems: No Mental Health Diagnoses: Yes Substance Use Disorders: Yes Previous Psychiatric Hospitalization: Yes Protective Factors Assessment : No Responsible for Young Children: No Employed: No Supportive Family: Yes Good Rapport with Provider: No Interval History Identifying Information DENISE MURRY is a 24-year-old M who has a history of schizophrenia, who was admitted on 02/19/19 17:23 on a 302 involuntary commitment for threatening behavior in the community. He is on a 304 involuntary commitment as of 03/01/2019. Chief Complaint "I got those injections today." Review of Systems Notes Constitutional: denied Cardiovascular: denied Respiratory: denied Gastrointestinal: denied Neurological: denied Psychiatric: denies symptoms other than stated above Total of at least 10 systems reviewed, pertinent positives as above and in HPI. Sleep Information Total Hours of Sleep: 7.25 Sleep Comments: pt on q-15 minute checks Meal Information Percent Meal Consumed - Breakfast: 100 Percent Meal Consumed - Lunch: 100 Percent Meal Consumed - Dinner: 100 Nutrition Comment: pt consistently throws away plastic utensils after eating rather than handing them back in Subjective Subjective Patient was seen & assessed and interval progress reviewed with Nursing and social work. Staff reports the patient continues to be somewhat isolative, but continues to be encouraged to attend groups. Patient is scheduled for a brief meeting with his potential block and case maker tomorrow afternoon. Patient is scheduled to receive his second injection of haloperidol decanoate this morning. Patient was seen today to assess progress since admission. It was reported the patient did agree to his second injection of haloperidol decanoate. Patient is assessed following this medication administration. Patient is found resting in bed, but is agreeable to conversation with this provider. He states that he is feeling "withdrawn" today, offering the reasoning that he "accepted the injection today" as a cause. Patient was rather focused on having received the injection, as he states his mood is also "thinking about having gotten the injection." Patient denies any muscle stiffness or soreness, restlessness, or other physical concerns at this time. Patient does participate with a physical exam to ensure no presence of EPS at this time. Patient denies other specific needs or concerns today. Physical Exam Psychiatric Orientation: alert, oriented x 3 and + guarded Apperance: appropriately dressed and + disheveled Eye Contact: good eye contact Motor Behavior: no abnormal motor movements (Observed while laying in bed) Speech: normal rate/rhythm/volume of speech (Brief responses to questions) Affect: + flat affect Mood: + depressed mood (Patient reports feeling "withdrawn" today) Thought Process: + concrete thought process (Rather focused on having received injections today, additional discussion is limited) Suicidal Thoughts: denies suicidal thoughts Homicidal Thoughts: denies homicidal thoughts Cognition: attention grossly intact and language grossly intact Estimated Intelligence: consistent with education level Insight: + impaired insight Judgement: + impaired judgement Vital Signs (Past 24 Hours) Last Vital Signs Temp 36.8 C 02/19/19 19:39 Pulse 76 03/09/19 11:28 Resp 14 03/09/19 11:28 BP 113/67 03/09/19 11:28 Pulse Ox 99 02/19/19 19:39 Musculoskeletal A focused musculoskeletal exam was completed to assess for presence of EPS following administration of haloperidol decanoate. Muscle tone and strength is as expected. Movement is fluid, without evidence of dystonia or cogwheeling. No fasciculations or tremors noted. Fluid movement in the neck, without complaints of stiffness. No fasciculation of tongue, or evidence of TD. Patient does not appear restless or agitated, resting comfortably in bed. Results & Data Current Inpatient Medications Current Inpatient Medications: Current Inpatient Medications Acetaminophen (Tylenol) 650 mg PO Q4H PRN PRN Reason: Headache or Minor Fever Stop: 03/21/19 17:22 Al Hydrox/Mg Hydrox/Simethicone (Maalox) 30 ml PO Q4H PRN PRN Reason: GI Upset Stop: 03/21/19 17:22 Benztropine Mesylate (Cogentin) 1 mg PO Q8 PRN PRN Reason: Muscle Spasm Stop: 03/22/19 11:52 Bismuth Subsalicylate (Kaopectate) 15 ml PO PRN PRN PRN Reason: Loose Stool Stop: 03/21/19 17:22 Haloperidol (Haldol) 5 mg PO Q4H PRN PRN Reason: Agitation Stop: 03/21/19 20:25 Last Admin: 02/22/19 14:52 Dose: 5 mg Documented by: Haloperidol Lactate (Haldol) 5 mg IM Q4H PRN PRN Reason: Severe Agitation Stop: 03/21/19 20:25 Haloperidol Lactate (Haldol) 10 mg IM BID PRN PRN Reason: refusal of PO Haldol Stop: 03/25/19 10:34 Haloperidol Lactate (Haldol Lactate) 10 mg PO BID [facility] Stop: 04/03/19 20:59 Last Admin: 03/18/19 09:11 Dose: 10 mg Documented by: Hydroxyzine HCl (Vistaril) 50 mg PO HSZ PRN PRN Reason: Insomnia Stop: 03/21/19 17:22 Hydroxyzine HCl (Vistaril) 25 mg PO Q4H PRN PRN Reason: Anxiety Stop: 03/21/19 17:22 Lorazepam (Ativan) 2 mg IM Q4H PRN PRN Reason: Severe Agitation Stop: 03/21/19 20:25 Lorazepam (Ativan) 1 mg PO Q4H PRN PRN Reason: Agitation Stop: 03/21/19 20:25 Last Admin: 03/18/19 09:11 Dose: 1 mg Documented by: Magnesium Hydroxide (Milk Of Magnesia) 30 ml PO DAILY PRN PRN Reason: Heartburn Stop: 03/21/19 17:22 Sodium Chloride ([place] Nasal) 1 - 2 sprays NA PRN PRN PRN Reason: Nasal Dryness/Congestion Stop: 03/21/19 17:22 Mental Health & Subst Abuse Tx Therapist Name of Therapist: IOANA Hassan Causticiser Name of Causticiser: [facility] Treviño Phone Number for Causticiser: [phone] Case Management Appointment Comment: [phone] [place] [address], [place] [address] Post Discharge Appointments Primary Care Physician Name Of Family Doctor: STACEY Holt Contact Information Discharge Discharge [address]: [address] [place] [id number] CPT Code CPT Code 85678 (1) Schizophrenia Schizophrenia type: unspecified Qualified Code(s): F20.9 - Schizophrenia, un specified
[2019-03-18] MEDS ORDERED: BENZTROPINE MESYLATE 1 MG/ML 2 ML AMP IM PRN (16:23)
[2019-03-18] MEDS ORDERED: HALOPERIDOL 10 MG TABLET PO SCH (22:00)
[2019-03-18] MEDS ORDERED: HALOPERIDOL ORAL SOLN 2 MG/ML PO SCH (22:00)
[2019-03-19] MEDS ORDERED: HALOPERIDOL 5 MG TAB PO SCH (09:00)
[2019-03-19] MEDS ORDERED: HALOPERIDOL ORAL SOLN 2 MG/ML PO SCH ×2 (09:00)
[2019-03-19] MEDS: LORazepam 1 MG TAB PO PRN ×2 (09:44→20:55)
--- NOTE | 2019-03-19 09:48 | Psychiatric Progress Note ---
Date of Service March 19, 2019 Impression / Recommendations Impression 24 y/o male with a history of schizophrenia, OCD, treatment nonadherence, and polysubstance abuse who presented with disorganized and threatening behavior, in the context of nonadherence, decompensation for the last several months and ongoing substance abuse. He was admitted on an involuntary commitment following escalating interactions with the police over disorganized and threatening behavior in the community, and is on a 304 involuntary commitment as of 03/01/19. Overall, he has been less suspicious, more forthcoming, and more willing to trust. The reason that the patient currently requires psychiatric h ospitalization is the fact that he has consistently, and fairly quickly, stopped psychiatric treatment, including all psychiatric medications (other than benzodiazepines) upon release from hospitals, or after they have otherwise been prescribed. His history is such that medication and other forms of treatment adherence in the community, he is at current ongoing risk for causing serious physical harm to the person of others and to himself. This is the case with many individuals who suffer from serious and persistent mental illnesses, but the goal is for the patient to understand that he needs active psychiatric treatment in the community, as an alternative to return to the hospital. We will continue to actively treat the patient with the hope and expectation that he will eventually be able to cooperate with our efforts to investigate diversionary strategies to avoid long-term psychiatric hospitalization. Patient is motivated to cooperate with a diversionary plan, and thus far has si gned adequate releases to allow for aftercare referrals and to begin the CRR referral process. Patient did receive his second injection of 300 mg of haloperidol decanoate on 03/18/2019 - we will discontinue oral haloperidol at this time. Medically necessary private room was discontinued to increase socialization and allow patient to demonstrate that he is able to tolerate a roommate. Group participation has been limited, and we continue to encourage his attendance. Patient still requires appropriate aftercare for anticipated 304 involuntary outpatient commitment on discharge. [place] acceptance remains in place should patient's condition worsen or diversion seem appropriate. (1) Schizophrenia: 02/20--The patient was admitted to the [facility] ([facility] mental health unit) on q15 min checks (behavioral with suicide precautions) for safety. The patient will participate in group, recreational, and milieu therapies and will be offered additional individual and family sessions as clinically appropriate. Reviewed that he should resume antipsychotic medication FABIO and he would only discuss benzos. Adamant he won't resume Risperdal. Will offer Haldol 5 mg with Ativan 2 mg (take Haldol first) TID and readdress when less agitated. 02/21--mild improvement today in that less thought blocking and slightly less irritability. Refused meds again this am. In my opinion (Dr. Diaz), antipsychotic medication is medically necessary for the treatment of his psychosis given risk of or serious injury within 30 days. He has shown a pattern of non-compliance and escalating and threatening behavior in the community and his condition is unlikely to improve without forced psychiatric medications. Will order Haldol [address] Hubbard to provide second opinion on this and likely 303 petition tomorrow. 02/22 -patient remains inappropriate for groups and therapy, due to threatening and menacing behavior with staff and peers. Continue private room. -Increase haloperidol to 10 mg twice daily, and continue as needed doses. Agree with medications over objection, as patient has a history of a primary thought disorder, has been noncompliant with treatment which has led to decompensation, increasing psychosis, and escalating threatening and aggressive behavior in the community and now in the hospital. He required physical and chemical restraints in the ER due to threats to staff and attempts to leave. He has improved with antipsychotic medication in the past. -File for 303 hearing to be held tomorrow. -Patient remains uncooperative with attempts to assess him, will not provide historical information such as where he has been living or if he has any outpatient treatment, or sign releases for family or friends to provide collat eral information. 02/23 -303 commitment granted. -Continue private room given threatening behavior, agitation, and recent history of erratic and inappropriate behavior in the community. Patient not yet appropriate for groups. -Continue haloperidol 10 mg twice daily, and 5 mg as needed. Will order an IM backup for refusal, as he has been seen by 2 physicians who both agree with medications over objection. He will likely need a long-acting injectable antipsychotic given his history of nonadherence. -Parents report he has been abusing benzodiazepines, and he is very focused on getting them here, asking for them frequently and receiving 8 mg of lorazepam daily. Will decrease to 1 mg every 4 hours as needed, with a plan to taper off prior to discharge given risk of abuse/misuse/negative outcomes. -Contact forensic caser, Harriett Treviño, and schedule a meeting to discuss treatment plan. Patient will likely need an involuntary outpatient commitment. 02/24 -continue Haldol p.o. with IM backup, and lorazepam as needed. Patient refusing to discuss other antipsychotic options, so if he remains on haloperidol, can receive Haldol Decanoate once the effective dose is reached. -Encourage patient to sign releases for his parents and for outpatient treatment referrals, so that discharge planning can begin. -Continue to enforce appropriate boundaries, as patient has been sexually inapp ropriate with female peer. Continue private room, and excused from groups until he is able to maintain behavioral control. 02/25 -continue Haldol, and lorazepam as needed. -Attempt scheduled family meeting with parents and his outpatient caser. -Encourage the patient to start engaging in treatment. He is willing to meet with a counselor one-on-one today. -Appropriate boundaries-patient has been reminded repeatedly of the need to cover his genital area and the inappropriateness of his sexual propositions to females. 02/26 -The patient is taking haloperidol 10 mg twice a day as prescribedalthough he repeatedly asks to have this medication discontinued. At the same time, he cannot or will not say, specifically, why he would like haloperidol to be discontinued, other than to say "it is not what I need." (The patient does appear to be tolerating haloperidol well, except for some excess sedation at this point.) -The patient continues to appear suspicious and is withdrawn. He is declining to actively participate in treatment. 02/27 Continue medication regimen unchanged 304 hearing scheduled for Friday. Patient will require chest x-ray and EKG prior to transfer to [facility]. 02/28 Patient demonstrating some improved ability to participate and interacting more appropriately with peers and staff in last 24 hours. We will continue to advance therapeutic programming as tolerated and indicated. Continue Haldol as scheduled which remains well-tolerated. 03/01 -Patient noncompliant with mouth checks and continues to go to the bathroom just after taking pills; due to concerns for cheeking, will switch to liquid haloperidol, with IM back up for refusal. -304 granted. Refer to [facility]. -Schedule meeting with patient, caser, and family for discharge planning/exploring diversion options. 03/02 - Continue liquid haloperidol as above - Refusing to sign ROIs to allow for consideration or adequate coordination of diversion options. 03/03 - Continue current haloperidol dosing, liquid as above - Pt signed some conditional ROIs this morning to allow for potential coordination of diversion plan 03/04 - Continue current medication regimen - Meeting with mother and [employer] telephone services sales representative to discuss diversionary discharge planning tomorrow morning - Continue to encourage participation in groups to most adequately assess thought content/process and appropriate behavior, these all appear to be improving 03/05 -We have been discussing the option of converting immediate release oral haloperidol to Haldol Decanoate, given his history of nonadherence. The patient's initial response was to become irritated and insists that he does not have a history of nonadherence with medications (even though he was initially nonadherent even here in the hospital). Later, he seemed to recognize that it is reasonable for treatment providers and caregivers to be concerned about his history of nonadherence with medications, and offered reassurance that he would promise to continue to take psychiatric medications as prescribedbut he does not want to take an intramuscular form. 03/06 - continue to engage ieth him about his medication and treatment plan and addressing potential of Haldol Dec CASTANEDA. addressing if pt is willing to sign TERRY's for CRR's as potential plans for diversion from [facility] referral 03/07 - making progress towards TERRY and possibility of haldol Dec but not fully occurred as of yet 03/08 -The patient appears to be less suspicious and is more cooperative. Symptoms such as thought blocking appear to have improved significantly. He continues to show obsessive symptoms and, for example, still has not actually executed the necessary release of information documents that we will need to pursue diversion from long-term hospitalization. He has expressed a willingness to do so for several days now, but has yet to actually follow through. -Although it has been difficult to get specific information from the patient regarding his thought content, he does seem to be much more trusting, less suspicious, and more animated, a set of circumstances that we are attributing to antipsychotic medication. 03/09 - Continue current medication regimen, with ongoing encouragement for consideration of haloperidol decanoate - Pt requesting additional meeting with [employer] and parents - seems appropriate as still considering diversion planning, will determine appropriate timing for a second meeting as well as clear objectives to discuss 03/10 - Continue as above - Attempting to schedule outpatient treatment team meeting for 03/15 - Continue to encourage participation in group programming in order to demonstrate appropriateness for diversionary planning 03/11 - As above - Continue to reinforce recommendation for CASTANEDA due to compliance concerns and increase likelihood of diversionary planning being appropriate - Continue to encourage increased group participation 03/12 -The patient seems to have 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 He continues to insist that the reasons for his hospitalizations and various behaviors observed in the community are simply a function of the difficulty that other people have an understanding him and his reasoning. -Oral Haldol 10 mg twice a day seems to have helped the patient be less suspicious and more cooperative. However, the patient continues to lacks substantial insight into his illness, the nature of the problems that have occurred in the community, and his need for certain forms of treatment. -All members of the patient's treatment team will need to continuously and consistently reinforce the fact that we are recommending that he agree to take Haldol Decanoate because in our clinical opinion it is medically necessary, and in the opinion of the [facility] services [facility] that will possibly arrange for [facility] diversion, they are not willing to agree to diversion if the patient is not cooperating with the recommendations of the hospital. 03/13/19 - patient again wishes to discuss ways to work on discharge, discussed attending groups being able to show ability to be around others and have behavioral control and ability to participate, taking medications as prescribed to include strong recommendation for haldol decanoate or other CASTANEDA to help wtih compliance after discharge given his limited insight, and for aftercare to be established. He is considering haldol decanoate understanding it is available today but asks to start it "friday" for unclear reasons. TO maintain alliance will continue to offer but not pressure. 03/14 - repeated many aspects of our discussion yesterday it is unclear but seems to be possible OCD and doubt wtih reassurance seeking vs. ambivalence. He is asking good questions about timelines and seems to be able to manipulate the information given to him even though he is showing some evidence of slowed thoughts. He does state he is willing to take the hadol deconoate shot. DIscussed r/b/se/a to include but not limited to acute possibility of EPS/dystonia, akathisia, and longer term risks needing to monitor for Tardive dyskinesia in laymans terms. DIscussed need to get his medication in two shots divided due to the oral dose he is taking and the need to overlap the oral medication for a time (per package instructions initial dose should be 20times oral dose for high dose individuals at risk for relapse, and initial shot should not exceed 100mg, and balance of med given 3-7days after initial shot.) which would be 300mg in 3-7days. Discussed this with pharmacy. Maintenance dose would be 10-15x the oral stabilizing dose, meaning 200-300mg IM which would be given in a month from first shot. We would taper the oral medications over 3 weeks, or faster if side effects emerge. Will ask staff to do routine assessments of stiffness to minimize EPS/dystonia in this cross taper. 03/15 - Continue current medication regimen - Continue oral haloperidol 10mg BID, with taper over the next few weeks - Continue regular monitoring for EPS/dystonia - Meeting this afternoon with [facility] health representatives to discuss treatment plan moving forward 03/16 - Continue current medication regimen; continue oral haloperidol 10mg BID - Haldol decanoate injection for 300mg IM is scheduled to be given 03/18/19 - Discontinue MNPR - Meeting held with BSU, patient, and parents yesterday; will continue to solidify aftercare plan, as [facility] verbalized agreement with diversion attempt 03/17 - Continue current treatment plan; oral haloperidol 10mg BID - Will receive Haldol decanoate 300mg IM tomorrow, 03/18/19 - Continue to determine clear aftercare and establish with outpatient psychiatric providers 03/18 - Patient willingly accepted second injection of Haldol decanoate 300mg IM today - no evidence of EPS/TD - Will reduce oral haloperidol to 5mg qAM and 10mg qHS - continue taper over the next few weeks - Oral Cogentin is available for signs of EPS - will order IM injection to have available for acute dystonia - Continue to determine clear aftercare plan; continue collaboration with [facility] for appropriate outpatient providers for 304 IOC 03/19 - Will discontinue oral haloperidol - no physical evidence of EPS/dystonia on exam today - Continue to arrange appropriate after and discharge plan (2) Noncompliance with medication regimen: 02/22 -patient with chronic noncompliance which has severely impaired his ability to function or provide for his own basic needs in the community. He will likely need an involuntary outpatient commitment. 02/23 -303 commitment granted. Pursue medications over objection, consider long- acting injectable, and schedule meeting with forensic caser. 02/25 -file for 304 involuntary commitment, as state hospitalization may be needed given severity of his illness, lack of insight and unwillingness to engage in treatment, and pattern of noncompliance with treatment. Patient has requested an independent evaluation, so the hearing will be scheduled sometime next week once that is completed. Patient was informed, and states his preference is to leave the hospital immediately, with no outpatient treatment. 02/26 -The patient seems to have no insight into his illness, no insight into his need for treatment (with the exception of stimulant medications and clonazepam). He acknowledges that he had been in outpatient treatment, but stopped going "because it is not necessary." -Because of the severity of illness, the patient's lack of insight, and is not adherence with treatment on an outpatient basis, the plan was reiterated today is to refer the patient for long-term psychiatric hospitalization. 03/01 -Concerns for cheeking as above; change to liquid haloperidol with IM backup for refusal. Work towards long acting injectable. -304 granted; refer to [facility]. 03/05 -The patient seems to have improved since being given liquid haloperidol, which suggests but does not confirm that he had been "cheeking" his haloperidol tablets. This circumstance, combined with his history of recurrent nonadherence with medications on an outpatient basis are reasons that the treatment team agrees that a condition of discharge needs to be willingness to accept intramuscular Depo antipsychotic medications. 03/06 =as above 03/08 -Today, the patient says that he is giving "serious consideration" to agreeing to take an intramuscular injection of Haldol Decanoate. He understands that this is 1 of the things that we are expecting him to agree to as part of an effort to actively pursue diversion. Despite the patient's agreement that he will "seriously consider" Haldol Decanoate, he still has not agreed to take it. His history of nonadherence in the community, coupled with dangerous behaviors when not medicated, are the primary reasons that long-term psychiatric hospitalization appears to be necessary 03/10 - revisited recommendation that the patient consider CASTANEDA haloperidol decanoate prior to discharge. Pt is resistant to the idea, as he feels he does not need this form of medication. He states he is "considering it" 03/12 -The patient has variously said that he is "considering" or "seriously considering" conversion to long-acting haloperidol decanoate prior to discharge. However, to date, he has not moved past "seriously considering." -Today, we explained again that the agency that we will have control over the question of diversion from admission to the [facility] will not consider diversion unless he is adherent with our recommendations and that are recommendations include active participation in therapy, a willingness to be cooperative and forthcoming with the treatment team, and agreement to take Depo antipsychotic medication. 03/13 as above 03/14 patient agreed to loading dose of haldol decanoate today, 100mg IM to be given today 03/16 - Continues to accept reminders of his second Haldol decanoate injection; 300mg IM is scheduled for 03/18/1903/18 - Pt willingly accepted second injection of Haldol decanoate today (3) Anxiety: 02/22 -patient reports anxiety, but otherwise uncooperative with the assessment and does not appear overtly anxious; refusing vital signs for the last 3 days. He has been demanding high-dose benzodiazepines, and has been repeatedly informed that these are not indicated, but that Lorazepam is ordered as needed to be taken with haloperidol. 02/23 -parents describe history of OCD symptoms. Patient unwilling to participate in assessment, and no noticeable compulsions here, so unclear if currently active. Continue to monitor and assess. 02/25 -patient denies OCD symptoms, and none have been observed here. He does report feeling "anxious," but is a poor historian and unable to get much further information. He does not appear to be expansive panic. We will continue to assess and rule out SYBIL. He is refusing an SSRI antidepressant, wanting only benzodiazepines. 02/28Possibility of obsessive concern for germs again raised by nursing following his reluctance to take the Haldol tablet after it touched his pillow and reluctance to touch his silverware again after he has finished eating. Patient denies obsessions or compulsions but we will continue to monitor. 03/01 - Patient refusing to discuss OCD symptoms. 03/05 -Today, the patient was able to talk about his obsessive-compulsive symptoms, and his parents presence. However, he insisted that the thoughts and behaviors were not in any way abnormal, and he said "of other people have a problem with that, that is up to them." Reported behaviors include handwashing, fear of infectious disease contamination, and, for example, reluctance to touch other people, including his parents. 03/08 -The patient reports that he realizes that he has been "obsessive" which is also evidence of some improvement. 03/12 -The patient voices anxiety in association with the difficulty that he is understanding the expectations of the treatment team, as well as an anxiety associated with the possibility of long-term psychiatric hospitalization. (4) Substance abuse: 02/22 -drug screen positive for THC. Once he is less psychotic, we will need to provide education regarding the risks of cannabis use, specifically exacerbation of psychotic symptoms. -On admission, patient reported being prescribed clonazepam 2 mg twice daily, and per PDMP he last filled a prescription on 12/17/2018, from a Dr. Matt Oneill in [place], [place]. In the past year, he has filled clonazepam and dextroamphetamine/amphetamine prescriptions from 5 different clinicians in different parts of the state, a pattern consistent with substance abuse and drug-seeking. He does not appear to have been on clonazepam consistently, as his last 2 prescriptions were filled in 06/2018 and 12/2018. 02/23 -parents report history of alcohol, cannabis, benzodiazepine, and stimulant abuse. This is also indicated in previous records from 2017 hospitalization. -Avoid controlled substances given high risk of abuse. 02/26-Today, the patient tells us that he is able to take buspirone at an unspe cified dose, but when we offered to prescribe this to him for anxiety he said "it is not necessary." When asked why clonazepam is necessary, if buspirone is not, he simply repeated "clonazepam is necessary. Buspirone is not necessary." 03/05 -The patient continues to have essentially no insight into the risks associated with the use of alcohol, cannabis, benzodiazepines, stimulants, and other drugs of abuse. When it was explained to him that these substances can and do interfere with treatment for mental illnesses such as schizophrenia, his replies to say "I do not have schizophrenia." 03/08 -The patient has not requested benzodiazepines and has not mentioned a need for chemical substances such as alcohol, cannabis, stimulant medications and other drugs of abuse, and is now more focused on meeting criteria for community diversion. Inventory Assets Strengths: College graduate. Supportive family. Needs: clarification of legal charges, outpatient services, adherence with treatment and medications Risk Factors Assessment Male: Yes : No Do You Have Access To A Gun?: No Health Problems: No Mental Health Diagnoses: Yes Substance Use Disorders: Yes Previous Psychiatric Hospitalization: Yes Protective Factors Assessment : No Responsible for Young Children: No Employed: No Supportive Family: Yes Good Rapport with Provider: No Interval History Identifying Information DENISE MURRY is a 24-year-old M who has a history of schizophrenia, who was admitted on 02/19/19 17:23 on a 302 involuntary commitment for threatening behavior in the community. He is on a 304 involuntary commitment as of 03/01/2019. Chief Complaint "I'm fine. Can we talk after lunch?" Review of Systems Notes Constitutional: denied Cardiovascular: denied Respiratory: denied Gastrointestinal: denied Neurological: denied Psychiatric: denies symptoms other than stated above Total of at least 10 systems reviewed, pertinent positives as above and in HPI. Sleep Information Total Hours of Sleep: 6.5 Sleep Comments: pt on q-15 minute checkes Meal Information Percent Meal Consumed - Breakfast: 100 Percent Meal Consumed - Lunch: 100 Percent Meal Consumed - Dinner: 100 Nutrition Comment: pt consistently throws away plastic utensils after eating rather than handing them back in Subjective Subjective Patient was seen & assessed and interval progress reviewed with Treatment Team. Staff reports the patient continues to be somewhat withdrawn. He did accept and receive his second injection of haloperidol decanoate yesterday. Pt has been observed to be attending most group programming so far this morning. Pt was seen today to assess progress since admission. He was initially seen prior to lunch and requested we speak after he eats. Pt was visited again, this time resting in bed. He states he is "fine" today. Pt denies any symptoms suggestive of EPS/dystonia and is cooperative with physical exam. Pt verbalizes desire to retract his [facility] for [facility], as "I would prefer not to follow-up there." Pt was updated on status of his discharge planning, and that this office may be necessary as there are limited options for medication follow-up. Pt seemed to understand, but again verbalized desire to withdraw TERRY until this could be clarified. Pt then asked if it was possible to see providers outside of the county. Pt was praised for attending groups this morning and was encouraged to continue in this. He denied acute needs or concerns and was informed that we would be discontinuing his dose of oral haloperidol at this time. Physical Exam Psychiatric Orientation: alert, oriented x 3 and + guarded Apperance: appropriately dressed (casually in t-shirt and shorts) and + disheveled (somewhat malodorous) Eye Contact: good eye contact Motor Behavior: steady gait and station and no abnormal motor movements Motor exam completed with no evidence of dystonia, cogwheeling, rigidity, Speech: normal rate/rhythm/volume of speech (limited responses to questions) Affect: + flat affect Mood: no depressed mood ("Fine") Thought Process: goal directed thought process and + perseveration (on discharge plan) Thought Content: + preoccupation (with discharge plan); no delusions (none verbalized) Suicidal Thoughts: denies suicidal thoughts and denies suicidal intent Homicidal Thoughts: denies homicidal thoughts Hallucinations: no auditory hallucinations and no visual hallucinations Cognition: attention grossly intact and language grossly intact Estimated Intelligence: consistent with education level Insight: + impaired insight Judgement: + impaired judgement Vital Signs (Past 24 Hours) Last Vital Signs Temp 36.8 C 02/19/19 19:39 Pulse 76 03/09/19 11:28 Resp 14 03/09/19 11:28 BP 113/67 03/09/19 11:28 Pulse Ox 99 02/19/19 19:39 Results & Data Current Inpatient Medications Current Inpatient Medications: Current Inpatient Medications Acetaminophen (Tylenol) 650 mg PO Q4H PRN PRN Reason: Headache or Minor Fever Stop: 03/21/19 17:22 Al Hydrox/Mg Hydrox/Simethicone (Maalox) 30 ml PO Q4H PRN PRN Reason: GI Upset Stop: 03/21/19 17:22 Benztropine Mesylate (Cogentin) 1 mg PO Q8 PRN PRN Reason: Muscle Spasm Stop: 03/22/19 11:52 Benztropine Mesylate (Cogentin) 2 mg IM Q6 PRN PRN Reason: severe dystonic reaction Stop: 04/17/19 16:22 Bismuth Subsalicylate (Kaopectate) 15 ml PO PRN PRN PRN Reason: Loose Stool Stop: 03/21/19 17:22 Haloperidol (Haldol) 5 mg PO Q4H PRN PRN Reason: Agitation Stop: 03/21/19 20:25 Last Admin: 02/22/19 14:52 Dose: 5 mg Documented by: Haloperidol Lactate (Haldol) 5 mg IM Q4H PRN PRN Reason: Severe Agitation Stop: 03/21/19 20:25 Haloperidol Lactate (Haldol Lactate) 10 mg PO HS [facility] Stop: 04/17/19 21:59 Last Admin: 03/18/19 21:21 Dose: 10 mg Documented by: Haloperidol Lactate (Haldol Lactate) 5 mg PO QAM [facility] Stop: 04/18/19 08:59 Last Admin: 03/19/19 09:44 Dose: 5 mg Documented by: Hydroxyzine HCl (Vistaril) 50 mg PO HSZ PRN PRN Reason: Insomnia Stop: 03/21/19 17:22 Hydroxyzine HCl (Vistaril) 25 mg PO Q4H PRN PRN Reason: Anxiety Stop: 03/21/19 17:22 Lorazepam (Ativan) 2 mg IM Q4H PRN PRN Reason: Severe Agitation Stop: 03/21/19 20:25 Lorazepam (Ativan) 1 mg PO Q4H PRN PRN Reason: Agitation Stop: 03/21/19 20:25 Last Admin: 03/19/19 09:44 Dose: 1 mg Documented by: Magnesium Hydroxide (Milk Of Magnesia) 30 ml PO DAILY PRN PRN Reason: Heartburn Stop: 03/21/19 17:22 Sodium Chloride (Storla Nasal) 1 - 2 sprays NA PRN PRN PRN Reason: Nasal Dryness/Congestion Stop: 03/21/19 17:22 Mental Health & Subst Abuse Tx Therapist Name of Therapist: IOANA Hassan Public Relations Officer Name of Public Relations Officer: [employer] Treviño Phone Number for Public Relations Officer: [phone] Case Management Appointment Comment: [address], [place] [address] Post Discharge Appointments Primary Care Physician Name Of Family Doctor: STACEY Holt Contact Information Discharge Discharge Address: [address] [place] [address], [place] [address] CPT Code CPT Code 29413 (1) Schizophrenia Schizophrenia type: unspecified Qualified Code(s): F20.9 - Schizophrenia, unspecified
--- NOTE | 2019-03-20 13:30 | Psychiatric Progress Note ---
Date of Service March 20, 2019 Impression / Recommendations Impression 24 y/o male with a history of schizophrenia, OCD, treatment nonadherence, and polysubstance abuse who presented with disorganized and threatening behavior, in the context of nonadherence, decompensation for the last several months and ongoing substance abuse. He was admitted on an involuntary commitment following escalating interactions with the police over disorganized and threatening behavior in the community, and is on a 304 involuntary commitment as of 03/01/19. Overall, he has been less suspicious, more forthcoming, and more willing to trust. The reason that the patient currently requires psychiatric h ospitalization is the fact that he has consistently, and fairly quickly, stopped psychiatric treatment, including all psychiatric medications (other than benzodiazepines) upon release from hospitals, or after they have otherwise been prescribed. His history is such that medication and other forms of treatment adherence in the community, he is at current ongoing risk for causing serious physical harm to the person of others and to himself. This is the case with many individuals who suffer from serious and persistent mental illnesses, but the goal is for the patient to understand that he needs active psychiatric treatment in the community, as an alternative to return to the hospital. We will continue to actively treat the patient with the hope and expectation that he will eventually be able to cooperate with our efforts to investigate diversionary strategies to avoid long-term psychiatric hospitalization. Patient is motivated to cooperate with a diversionary plan, and thus far has si gned adequate releases to allow for aftercare referrals and to begin the CRR referral process. Patient did receive his second injection of 300 mg of haloperidol decanoate on 03/18/2019 - oral haloperidol discontinued. [place] acceptance remains in place should patient's condition worsen or diversion seem appropriate. (1) Schizophrenia: 02/20--The patient was admitted to the [facility] ([facility] mental health unit) on q15 min checks (behavioral with suicide precautions) for safety. The patient will participate in group, recreational, and milieu therapies and will be offered additional individual and family sessions as clinically appropriate. Reviewed that he should resume antipsychotic medication FABIO and he would only discuss benzos. Adamant he won't resume Risperdal. Will offer Haldol 5 mg with Ativan 2 mg (take Haldol first) TID and readdress when less agitated. 02/21--mild improvement today in that less thought blocking and slightly less irritability. Refused meds again this am. In my opinion (Dr. Diaz), antipsychotic medication is medically necessary for the treatment of his psychosis given risk of or serious injury within 30 days. He has shown a pattern of non-compliance and escalating and threatening behavior in the community and his condition is unlikely to improve without forced psychiatric medications. Will order Haldol [address] Hubbard to provide second opinion on this and likely 303 petition tomorrow. 02/22 -patient remains inappropriate for groups and therapy, due to threatening and menacing behavior with staff and peers. Continue private room. -Increase haloperidol to 10 mg twice daily, and continue as needed doses. Agree with medications over objection, as patient has a history of a primary thought disorder, has been noncompliant with treatment which has led to decompensation, increasing psychosis, and escalating threatening and aggressive behavior in the community and now in the hospital. He required physical and chemical restraints in the ER due to threats to staff and attempts to leave. He has improved with antipsychotic medication in the past. -File for 303 hearing to be held tomorrow. -Patient remains uncooperative with attempts to assess him, will not provide historical information such as where he has been living or if he has any outpatient treatment, or sign releases for family or friends to provide collateral information. 02/23 -303 commitment granted. -Continue private room given threatening behavior, agitation, and recent history of erratic and inappropriate behavior in the community. Patient not yet appropriate for groups. -Continue haloperidol 10 mg twice daily, and 5 mg as needed. Will order an IM backup for refusal, as he has been seen by 2 physicians who both agree with medications over objection. He will likely need a long-acting injectable antipsychotic given his history of nonadherence. -Parents report he has been abusing benzodiazepines, and he is very focused on getting them here, asking for them frequently and receiving 8 mg of lorazepam daily. Will decrease to 1 mg every 4 hours as needed, with a plan to taper off prior to discharge given risk of abuse/misuse/negative outcomes. -Contact forensic bottle caser, Harriett Treviño, and schedule a meeting to discuss treatment plan. Patient will likely need an involuntary outpatient commitment. 02/24 -continue Haldol p.o. with IM backup, and lorazepam as needed. Patient refusing to discuss other antipsychotic options, so if he remains on haloperidol, can receive Haldol Decanoate once the effective dose is reached. -Encourage patient to sign releases for his parents and for outpatient treatment referrals, so that discharge planning can begin. -Continue to enforce appropriate boundaries, as patient has been sexually inappropriate with female peer. Continue private room, and excused from groups until he is able to maintain behavioral control. 02/25 -continue Haldol, and lorazepam as needed. -Attempt scheduled family meeting with parents and his outpatient bottle caser. -Encourage the patient to start engaging in treatment. He is willing to meet with a counselor one-on-one today. -Appropriate boundaries-patient has been reminded repeatedly of the need to cover his genital area and the inappropriateness of his sexual propositions to females. 02/26 -The patient is taking haloperidol 10 mg twice a day as prescribedalthough he repeatedly asks to have this medication discontinued. At the same time, he cannot or will not say, specifically, why he would like haloperidol to be di scontinued, other than to say "it is not what I need." (The patient does appear to be tolerating haloperidol well, except for some excess sedation at this point.) -The patient continues to appear suspicious and is withdrawn. He is declining to actively participate in treatment. 02/27 Continue medication regimen unchanged 304 hearing scheduled for Friday. Patient will require chest x-ray and EKG prior to transfer to [facility]. 02/28 Patient demonstrating some improved ability to participate and interacting more appropriately with peers and staff in last 24 hours. We will continue to advance therapeutic programming as tolerated and indicated. Continue Haldol as scheduled which remains well-tolerated. 03/01 -Patient noncompliant with mouth checks and continues to go to the bathroom just after taking pills; due to concerns for cheeking, will switch to liquid haloperidol, with IM back up for refusal. -304 granted. Refer to [facility]. -Schedule meeting with patient, bottle caser, and family for discharge planning/exploring diversion options. 03/02 - Continue liquid haloperidol as above - Refusing to sign ROIs to allow for consideration or adequate coordination of diversion options. 03/03 - Continue current haloperidol dosing, liquid as above - Pt signed some conditional ROIs this morning to allow for potential coordination of diversion plan 03/04 - Continue current medication regimen - Meeting with mother and [employer] entry level account representative to discuss diversionary discharge planning tomorrow morning - Continue to encourage participation in groups to most adequately assess thought content/process and appropriate behavior, these all appear to be improving 03/05 -We have been discussing the option of converting immediate release oral haloperidol to Haldol Decanoate, given his history of nonadherence. The patient's initial response was to become irritated and insists that he does not have a history of nonadherence with medications (even though he was initially nonadherent even here in the hospital). Later, he seemed to recognize that it is reasonable for treatment providers and caregivers to be concerned about his history of nonadherence with medications, and offered reassurance that he would promise to continue to take psychiatric medications as prescribedbut he does not want to take an intramuscular form. 03/06 - continue to engage ieth him about his medication and treatment plan and addressing potential of Haldol Dec CASTANEDA. addressing if pt is willing to sign TERRY's for CRR's as potential plans for diversion from [facility] referral 03/07 - making progress towards TERRY and possibility of haldol Dec but not fully occurred as of yet 03/08 -The patient appears to be less suspicious and is more cooperative. Symptoms such as thought blocking appear to have improved significantly. He continues to show obsessive symptoms and, for example, still has not actually executed the necessary release of information documents that we will need to pursue diversion from long-term hospitalization. He has expressed a willingness to do so for several days now, but has yet to actually follow through. -Although it has been difficult to get specific information from the patient regarding his thought content, he does seem to be much more trusting, less suspicious, and more animated, a set of circumstances that we are attributing to antipsychotic medication. 03/09 - Continue current medication regimen, with ongoing encouragement for consideration of haloperidol decanoate - Pt requesting additional meeting with BSU and parents - seems appropriate as still considering diversion planning, will determine appropriate timing for a second meeting as well as clear objectives to discuss 03/10 - Continue as above - Attempting to schedule outpatient treatment team meeting for 03/15 - Continue to encourage participation in group programming in order to demonstrate appropriateness for diversionary planning 03/11 - As above - Continue to reinforce recommendation for CASTANEDA due to compliance concerns and increase likelihood of diversionary planning being appropriate - Continue to encourage increased group participation 03/12 -The patient seems to have 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 He continues to insist that the reasons for his hospitalizations and various behaviors observed in the community are simply a function of the difficulty that other people have an understanding him and his reasoning. -Oral Haldol 10 mg twice a day seems to have helped the patient be less suspicious and more cooperative. However, the patient continues to lacks substantial insight into his illness, the nature of the problems that have occurred in the community, and his need for certain forms of treatment. -All members of the patient's treatment team will need to continuously and consistently reinforce the fact that we are recommending that he agree to take Haldol Decanoate because in our clinical opinion it is medically necessary, and in the opinion of the [facility] services unit that will possibly arrange for [facility] diversion, they are not willing to agree to diversion if the patient is not cooperating with the recommendations of the hospital. 03/13/19 - patient again wishes to discuss ways to work on discharge, discussed attending groups being able to show ability to be around others and have be havioral control and ability to participate, taking medications as prescribed to include strong recommendation for haldol decanoate or other CASTANEDA to help wtih compliance after discharge given his limited insight, and for aftercare to be established. He is considering haldol decanoate understanding it is available today but asks to start it "friday" for unclear reasons. TO maintain alliance will continue to offer but not pressure. 03/14 - repeated many aspects of our discussion yesterday it is unclear but seems to be possible OCD and doubt wtih reassurance seeking vs. ambivalence. He is asking good questions about timelines and seems to be able to manipulate the information given to him even though he is showing some evidence of slowed thoughts. He does state he is willing to take the hadol deconoate shot. DIscussed r/b/se/a to include but not limited to acute possibility of EPS/dystonia, akathisia, and longer term risks needing to monitor for Tardive dyskinesia in laymans terms. DIscussed need to get his medication in two shots divided due to the oral dose he is taking and the need to overlap the oral medication for a time (per package instructions initial dose should be 20times oral dose for high dose individuals at risk for relapse, and initial shot should not exceed 100mg, and balance of med given 3-7days after initial shot.) which would be 300mg in 3-7days. Discussed this with pharmacy. Maintenance dose would be 10-15x the oral stabilizing dose, meaning 200-300mg IM which would be given in a month from first shot. We would taper the oral medications over 3 weeks, or faster if side effects emerge. Will ask staff to do routine assessments of stiffness to minimize EPS/dystonia in this cross taper. 03/15 - Continue current medication regimen - Continue oral haloperidol 10mg BID, with taper over the next few weeks - Continue regular monitoring for EPS/dystonia - Meeting this afternoon with [facility] health representatives to discuss treatment plan moving forward 03/16 - Continue current medication regimen; continue oral haloperidol 10mg BID - Haldol decanoate injection for 300mg IM is scheduled to be given 03/18/19 - Discontinue MNPR - Meeting held with BSU, patient, and parents yesterday; will continue to solidify aftercare plan, as [facility] verbalized agreement with diversion attempt 03/17 - Continue current treatment plan; oral haloperidol 10mg BID - Will receive Haldol decanoate 300mg IM tomorrow, 03/18/19 - Continue to determine clear aftercare and establish with outpatient psychiatric providers 03/18 - Patient willingly accepted second injection of Haldol decanoate 300mg IM today - no evidence of EPS/TD - Will reduce oral haloperidol to 5mg qAM and 10mg qHS - continue taper over the next few weeks - Oral Cogentin is available for signs of EPS - will order IM injection to have available for acute dystonia - Continue to determine clear aftercare plan; continue collaboration with BSU for appropriate outpatient providers for 304 IOC 03/19 - Will discontinue oral haloperidol - no physical evidence of EPS/dystonia on exam today - Continue to arrange appropriate after and discharge plan (2) Noncompliance with medication regimen: 02/22 -patient with chronic noncompliance which has severely impaired his ability to function or provide for his own basic needs in the community. He will likely need an involuntary outpatient commitment. 02/23 -303 commitment granted. Pursue medications over objection, consider long- acting injectable, and schedule meeting with forensic bottle caser. 02/25 -file for 304 involuntary commitment, as state hospitalization may be needed given severity of his illness, lack of insight and unwillingness to engage in treatment, and pattern of noncompliance with treatment. Patient has requested an independent evaluation, so the hearing will be scheduled sometime next week once that is completed. Patient was informed, and states his preference is to leave the hospital immediately, with no outpatient treatment. 02/26 -The patient seems to have no insight into his illness, no insight into his need for treatment (with the exception of stimulant medications and clonazepam). He acknowledges that he had been in outpatient treatment, but stopped going "because it is not necessary." -Because of the severity of illness, the patient's lack of insight, and is not adherence with treatment on an outpatient basis, the plan was reiterated today is to refer the patient for long-term psychiatric hospitalization. 03/01 -Concerns for cheeking as above; change to liquid haloperidol with IM backup for refusal. Work towards long acting injectable. -304 granted; refer to [facility]. 03/05 -The patient seems to have improved since being given liquid haloperidol, which suggests but does not confirm that he had been "cheeking" his haloperidol tablets. This circumstance, combined with his history of recurrent nonadherence with medications on an outpatient basis are reasons that the treatment team agrees that a condition of discharge needs to be willingness to accept intramuscular Depo antipsychotic medications. 03/06 =as above 03/08 -Today, the patient says that he is giving "serious consideration" to agreeing to take an intramuscular injection of Haldol Decanoate. He understands that this is 1 of the things that we are expecting him to agree to as part of an effort to actively pursue diversion. Despite the patient's agreement that he will "seriously consider" Haldol Decanoate, he still has not agreed to take it. His history of nonadherence in the community, coupled with dangerous behaviors when not medicated, are the primary reasons that long-term psychiatric hospitalization appears to be necessary 03/10 - revisited recommendation that the patient consider CASTANEDA haloperidol decanoate prior to discharge. Pt is resistant to the idea, as he feels he does not need this form of medication. He states he is "considering it" 03/12 -The patient has variously said that he is "considering" or "seriously considering" conversion to long-acting haloperidol decanoate prior to discharge. However, to date, he has not moved past "seriously considering." -Today, we explained again that the agency that we will have control over the question of diversion from admission to the state hospital will not consider diversion unless he is adherent with our recommendations and that are recommendations include active participation in therapy, a willingness to be cooperative and forthcoming with the treatment team, and agreement to take Depo antipsychotic medication. 03/13 as above 03/14 patient agreed to loading dose of haldol decanoate today, 100mg IM to be given today 03/16 - Continues to accept reminders of his second Haldol decanoate injection; 300mg IM is scheduled for 03/18/1903/18 - Pt willingly accepted second injection of Haldol decanoate today (3) Anxiety: 02/22 -patient reports anxiety, but otherwise uncooperative with the assessment and does not appear overtly anxious; refusing vital signs for the last 3 days. He has been demanding high-dose benzodiazepines, and has been repeatedly informed that these are not indicated, but that Lorazepam is ordered as needed to be taken with haloperidol. 02/23 -parents describe history of OCD symptoms. Patient unwilling to participate in assessment, and no noticeable compulsions here, so unclear if currently active. Continue to monitor and assess. 02/25 -patient denies OCD symptoms, and none have been observed here. He does re port feeling "anxious," but is a poor historian and unable to get much further information. He does not appear to be expansive panic. We will continue to assess and rule out SYBIL. He is refusing an SSRI antidepressant, wanting only benzodiazepines. 02/28Possibility of obsessive concern for germs again raised by nursing following his reluctance to take the Haldol tablet after it touched his pillow and reluctance to touch his silverware again after he has finished eating. Patient denies obsessions or compulsions but we will continue to monitor. 03/01 - Patient refusing to discuss OCD symptoms. 03/05 -Today, the patient was able to talk about his obsessive-compulsive symptoms, and his parents presence. However, he insisted that the thoughts and behaviors were not in any way abnormal, and he said "of other people have a problem with that, that is up to them." Reported behaviors include handwashing, fear of infectious disease contamination, and, for example, reluctance to touch other people, including his parents. 03/08 -The patient reports that he realizes that he has been "obsessive" which is also evidence of some improvement. 03/12 -The patient voices anxiety in association with the difficulty that he is understanding the expectations of the treatment team, as well as an anxiety associated with the possibility of long-term psychiatric hospitalization. (4) Substance abuse: 02/22 -drug screen positive for THC. Once he is less psychotic, we will need to provide education regarding the risks of cannabis use, specifically exacerbation of psychotic symptoms. -On admission, patient reported being prescribed clonazepam 2 mg twice daily, and per PDMP he last filled a prescription on 12/17/2018, from a Dr. Matt Oneill in [place], [place]. In the past year, he has filled clonazepam and dextroamphetamine/amphetamine prescriptions from 5 different clinicians in different parts of the state, a pattern consistent with substance abuse and drug-seeking. He does not appear to have been on clonazepam consistently, as his last 2 prescriptions were filled in 06/2018 and 12/2018. 02/23 -parents report history of alcohol, cannabis, benzodiazepine, and stimulant abuse. This is also indicated in previous records from 2017 hospitalization. -Avoid controlled substances given high risk of abuse. 02/26-Today, the patient tells us that he is able to take buspirone at an unspecified dose, but when we offered to prescribe this to him for anxiety he said "it is not necessary." When asked why clonazepam is necessary, if buspirone is not, he simply repeated "clonazepam is necessary. Buspirone is not necessary." 03/05 -The patient continues to have essentially no insight into the risks associated with the use of alcohol, cannabis, benzodiazepines, stimulants, and other drugs of abuse. When it was explained to him that these substances can and do interfere with treatment for mental illnesses such as schizophrenia, his replies to say "I do not have schizophrenia." 03/08 -The patient has not requested benzodiazepines and has not mentioned a need for chemical substances such as alcohol, cannabis, stimulant medications and other drugs of abuse, and is now more focused on meeting criteria for community diversion. Inventory Assets Strengths: College graduate. Supportive family. Needs: clarification of legal charges, outpatient services, adherence with treatment and medications Risk Factors Assessment Male: Yes : No Do You Have Access To A Gun?: No Health Problems: No Mental Health Diagnoses: Yes Substance Use Disorders: Yes Previous Psychiatric Hospitalization: Yes Protective Factors Assessment : No Responsible for Young Children: No Employed: No Supportive Family: Yes Good Rapport with Provider: No Interval History Identifying Information DENISE MURRY is a 24-year-old M who has a history of schizophrenia, who was admitted on 02/19/19 17:23 on a 302 involuntary commitment for threatening behavior in the community. He is on a 304 involuntary commitment as of 03/01/2019. Chief Complaint "I'm good, why are you bothering with me?". Review of Systems Sleep Information Total Hours of Sleep: 6.5 Sleep Comments: pt on q-15 minute checks Meal Information Percent Meal Consumed - Breakfast: 100 Percent Meal Consumed - Lunch: 100 Percent Meal Consumed - Dinner: 100 Nutrition Comment: pt consistently throws away plastic utensils after eating rather than handing them back in Subjective Subjective Patient was seen & assessed and interval progress reviewed with Nursing and social work coordinator. He got a Haldol dec injection yesterday and is reportedly tolerating it well. Seems tired this am but denies sedation, dystonia, etc. Staf f report passive aggressive behaviors, says he'll cooperate but then does so partway, like turning away bottle caser after agreeing to meeting, etc. Physical Exam Psychiatric Orientation: alert Apperance: appropriately groomed Eye Contact: + poor eye contact Motor Behavior: steady gait and station Speech: + abnormal rate/rhythm/volume of speech non spontaneous Affect: + blunted affect "whatever" Thought Process: + concrete thought process Suicidal Thoughts: denies suicidal thoughts Homicidal Thoughts: denies homicidal thoughts Hallucinations: no auditory hallucinations and no visual hallucinations Cognition: language grossly intact Estimated Intelligence: consistent with education level Insight: + poor insight Judgement: + poor judgement Vital Signs (Past 24 Hours) Last Vital Signs Temp 36.8 C 02/19/19 19:39 Pulse 76 03/09/19 11:28 Resp 14 03/09/19 11:28 BP 113/67 03/09/19 11:28 Pulse Ox 99 02/19/19 19:39 Results & Data Current Inpatient Medications Current Inpatient Medications: Current Inpatient Medications Acetaminophen (Tylenol) 650 mg PO Q4H PRN PRN Reason: Headache or Minor Fever Stop: 03/21/19 17:22 Al Hydrox/Mg Hydrox/Simethicone (Maalox) 30 ml PO Q4H PRN PRN Reason: GI Upset Stop: 03/21/19 17:22 Benztropine Mesylate (Cogentin) 1 mg PO Q8 PRN PRN Reason: Muscle Spasm Stop: 03/22/19 11:52 Benztropine Mesylate (Cogentin) 2 mg IM Q6 PRN PRN Reason: severe dystonic reaction Stop: 04/17/19 16:22 Bismuth Subsalicylate (Kaopectate) 15 ml PO PRN PRN PRN Reason: Loose Stool Stop: 03/21/19 17:22 Haloperidol (Haldol) 5 mg PO Q4H PRN PRN Reason: Agitation Stop: 03/21/19 20:25 Last Admin: 02/22/19 14:52 Dose: 5 mg Documented by: Hydroxyzine HCl (Vistaril) 50 mg PO HSZ PRN PRN Reason: Insomnia Stop: 03/21/19 17:22 Hydroxyzine HCl (Vistaril) 25 mg PO Q4H PRN PRN Reason: Anxiety Stop: 03/21/19 17:22 Lorazepam (Ativan) 2 mg IM Q4H PRN PRN Reason: Severe Agitation Stop: 03/21/19 20:25 Lorazepam (Ativan) 1 mg PO Q4H PRN PRN Reason: Agitation Stop: 03/21/19 20:25 Last Admin: 03/19/19 20:55 Dose: 1 mg Documented by: Magnesium Hydroxide (Milk Of Magnesia) 30 ml PO DAILY PRN PRN Reason: Heartburn Stop: 03/21/19 17:22 Sodium Chloride (Odem Nasal) 1 - 2 sprays NA PRN PRN PRN Reason: Nasal Dryness/Congestion Stop: 03/21/19 17:22 Mental Health & Subst Abuse Tx Therapist Name of Therapist: IOANA Hassan [employer] L[employer] Tender Name of Forging Press Lever Tender: [employer] [facility] Harriett Treviño Phone Number for Forging Press Lever Tender: [phone] Case Management Appointment Comment: [address], [place] [address] Post Discharge Appointments Primary Care Physician Name Of Family Doctor: STACEY Holt Contact Information Discharge Discharge [address]: [address] [place] [id number] CPT Code CPT Code 67797 (1) Schizophrenia Schizophrenia type: unspecified Qualified Code(s): F20.9 - Schizophrenia, un specified
--- NOTE | 2019-03-21 11:40 | Psychiatric Progress Note ---
Date of Service March 21, 2019 Impression / Recommendations Impression 24 y/o male with a history of schizophrenia, OCD, treatment nonadherence, and polysubstance abuse who presented with disorganized and threatening behavior, in the context of nonadherence, decompensation for the last several months and ongoing substance abuse. He was admitted on an involuntary commitment following escalating interactions with the police over disorganized and threatening behavior in the community, and is on a 304 involuntary commitment as of 03/01/19. Overall, he has been less suspicious, more forthcoming, and more willing to trust. The reason that the patient currently requires psychiatric h ospitalization is the fact that he has consistently, and fairly quickly, stopped psychiatric treatment, including all psychiatric medications (other than benzodiazepines) upon release from hospitals, or after they have otherwise been prescribed. His history is such that medication and other forms of treatment adherence in the community, he is at current ongoing risk for causing serious physical harm to the person of others and to himself. This is the case with many individuals who suffer from serious and persistent mental illnesses, but the goal is for the patient to understand that he needs active psychiatric treatment in the community, as an alternative to return to the hospital. We will continue to actively treat the patient with the hope and expectation that he will eventually be able to cooperate with our efforts to investigate diversionary strategies to avoid long-term psychiatric hospitalization. Patient is motivated to cooperate with a diversionary plan, and thus far has si gned adequate releases to allow for aftercare referrals and to begin the CRR referral process. Patient did receive his second injection of 300 mg of haloperidol decanoate on 03/18/2019 - oral haloperidol discontinued. [place] acceptance remains in place should patient's condition worsen or diversion seem appropriate. (1) Schizophrenia: 02/20--The patient was admitted to the [facility] ([facility] unit) on q15 min checks (behavioral with suicide precautions) for safety. The patient will participate in group, recreational, and milieu therapies and will be offered additional individual and family sessions as clinically appropriate. Reviewed that he should resume antipsychotic medication FABIO and he would only discuss benzos. Adamant he won't resume Risperdal. Will offer Haldol 5 mg with Ativan 2 mg (take Haldol first) TID and readdress when less agitated. 02/21--mild improvement today in that less thought blocking and slightly less irritability. Refused meds again this am. In my opinion (Dr. Diaz), antipsychotic medication is medically necessary for the treatment of his psychosis given risk of or serious injury within 30 days. He has shown a pattern of non-compliance and escalating and threatening behavior in the community and his condition is unlikely to improve without forced psychiatric medications. Will order Haldol [address] Hubbard to provide second opinion on this and likely 303 petition tomorrow. 02/22 -patient remains inappropriate for groups and therapy, due to threatening and menacing behavior with staff and peers. Continue private room. -Increase haloperidol to 10 mg twice daily, and continue as needed doses. Agree with medications over objection, as patient has a history of a primary thought disorder, has been noncompliant with treatment which has led to decompensation, increasing psychosis, and escalating threatening and aggressive behavior in the community and now in the hospital. He required physical and chemical restraints in the ER due to threats to staff and attempts to leave. He has improved with antipsychotic medication in the past. -File for 303 hearing to be held tomorrow. -Patient remains uncooperative with attempts to assess him, will not provide historical information such as where he has been living or if he has any outpatient treatment, or sign releases for family or friends to provide collateral information. 02/23 -303 commitment granted. -Continue private room given threatening behavior, agitation, and recent history of erratic and inappropriate behavior in the community. Patient not yet appropriate for groups. -Continue haloperidol 10 mg twice daily, and 5 mg as needed. Will order an IM backup for refusal, as he has been seen by 2 physicians who both agree with medications over objection. He will likely need a long-acting injectable antipsychotic given his history of nonadherence. -Parents report he has been abusing benzodiazepines, and he is very focused on getting them here, asking for them frequently and receiving 8 mg of lorazepam daily. Will decrease to 1 mg every 4 hours as needed, with a plan to taper off prior to discharge given risk of abuse/misuse/negative outcomes. -Contact forensic cyanide case hardener, Harriett Treviño, and schedule a meeting to discuss treatment plan. Patient will likely need an involuntary outpatient commitment. 02/24 -continue Haldol p.o. with IM backup, and lorazepam as needed. Patient refusing to discuss other antipsychotic options, so if he remains on haloperidol, can receive Haldol Decanoate once the effective dose is reached. -Encourage patient to sign releases for his parents and for outpatient treatment referrals, so that discharge planning can begin. -Continue to enforce appropriate boundaries, as patient has been sexually inappropriate with female peer. Continue private room, and excused from groups until he is able to maintain behavioral control. 02/25 -continue Haldol, and lorazepam as needed. -Attempt scheduled family meeting with parents and his outpatient cyanide case hardener. -Encourage the patient to start engaging in treatment. He is willing to meet with a counselor one-on-one today. -Appropriate boundaries-patient has been reminded repeatedly of the need to cover his genital area and the inappropriateness of his sexual propositions to females. 02/26 -The patient is taking haloperidol 10 mg twice a day as prescribedalthough he repeatedly asks to have this medication discontinued. At the same time, he cannot or will not say, specifically, why he would like haloperidol to be di scontinued, other than to say "it is not what I need." (The patient does appear to be tolerating haloperidol well, except for some excess sedation at this point.) -The patient continues to appear suspicious and is withdrawn. He is declining to actively participate in treatment. 02/27 Continue medication regimen unchanged 304 hearing scheduled for Friday. Patient will require chest x-ray and EKG prior to transfer to [facility]. 02/28 Patient demonstrating some improved ability to participate and interacting more appropriately with peers and staff in last 24 hours. We will continue to advance therapeutic programming as tolerated and indicated. Continue Haldol as scheduled which remains well-tolerated. 03/01 -Patient noncompliant with mouth checks and continues to go to the bathroom just after taking pills; due to concerns for cheeking, will switch to liquid haloperidol, with IM back up for refusal. -304 granted. Refer to [facility]. -Schedule meeting with patient, cyanide case hardener, and family for discharge planning/exploring diversion options. 03/02 - Continue liquid haloperidol as above - Refusing to sign ROIs to allow for consideration or adequate coordination of diversion options. 03/03 - Continue current haloperidol dosing, liquid as above - Pt signed some conditional ROIs this morning to allow for potential coordination of diversion plan 03/04 - Continue current medication regimen - Meeting with mother and [employer]SU wire rope sales representative to discuss diversionary discharge planning tomorrow morning - Continue to encourage participation in groups to most adequately assess thought content/process and appropriate behavior, these all appear to be improving 03/05 -We have been discussing the option of converting immediate release oral haloperidol to Haldol Decanoate, given his history of nonadherence. The patient's initial response was to become irritated and insists that he does not have a history of nonadherence with medications (even though he was initially nonadherent even here in the hospital). Later, he seemed to recognize that it is reasonable for treatment providers and caregivers to be concerned about his history of nonadherence with medications, and offered reassurance that he would promise to continue to take psychiatric medications as prescribedbut he does not want to take an intramuscular form. 03/06 - continue to engage ieth him about his medication and treatment plan and addressing potential of Haldol Dec CASTANEDA. addressing if pt is willing to sign TERRY's for CRR's as potential plans for diversion from [facility] referral 03/07 - making progress towards TERRY and possibility of haldol Dec but not fully occurred as of yet 03/08 -The patient appears to be less suspicious and is more cooperative. Symptoms such as thought blocking appear to have improved significantly. He continues to show obsessive symptoms and, for example, still has not actually executed the necessary release of information documents that we will need to pursue diversion from long-term hospitalization. He has expressed a willingness to do so for several days now, but has yet to actually follow through. -Although it has been difficult to get specific information from the patient regarding his thought content, he does seem to be much more trusting, less suspicious, and more animated, a set of circumstances that we are attributing to antipsychotic medication. 03/09 - Continue current medication regimen, with ongoing encouragement for consideration of haloperidol decanoate - Pt requesting additional meeting with BSU and parents - seems appropriate as still considering diversion planning, will determine appropriate timing for a second meeting as well as clear objectives to discuss 03/10 - Continue as above - Attempting to schedule outpatient treatment team meeting for 03/15 - Continue to encourage participation in group programming in order to demonstrate appropriateness for diversionary planning 03/11 - As above - Continue to reinforce recommendation for CASTANEDA due to compliance concerns and increase likelihood of diversionary planning being appropriate - Continue to encourage increased group participation 03/12 -The patient seems to have 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 He continues to insist that the reasons for his hospitalizations and various behaviors observed in the community are simply a function of the difficulty that other people have an understanding him and his reasoning. -Oral Haldol 10 mg twice a day seems to have helped the patient be less suspicious and more cooperative. However, the patient continues to lacks substantial insight into his illness, the nature of the problems that have occurred in the community, and his need for certain forms of treatment. -All members of the patient's treatment team will need to continuously and consistently reinforce the fact that we are recommending that he agree to take Haldol Decanoate because in our clinical opinion it is medically necessary, and in the opinion of the [facility] unit that will possibly arrange for [facility] diversion, they are not willing to agree to diversion if the patient is not cooperating with the recommendations of the hospital. 03/13/19 - patient again wishes to discuss ways to work on discharge, discussed attending groups being able to show ability to be around others and have be havioral control and ability to participate, taking medications as prescribed to include strong recommendation for haldol decanoate or other CASTANEDA to help wtih compliance after discharge given his limited insight, and for aftercare to be established. He is considering haldol decanoate understanding it is available today but asks to start it "friday" for unclear reasons. TO maintain alliance will continue to offer but not pressure. 03/14 - repeated many aspects of our discussion yesterday it is unclear but seems to be possible OCD and doubt wtih reassurance seeking vs. ambivalence. He is asking good questions about timelines and seems to be able to manipulate the information given to him even though he is showing some evidence of slowed thoughts. He does state he is willing to take the hadol deconoate shot. DIscussed r/b/se/a to include but not limited to acute possibility of EPS/dystonia, akathisia, and longer term risks needing to monitor for Tardive dyskinesia in laymans terms. DIscussed need to get his medication in two shots divided due to the oral dose he is taking and the need to overlap the oral medication for a time (per package instructions initial dose should be 20times oral dose for high dose individuals at risk for relapse, and initial shot should not exceed 100mg, and balance of med given 3-7days after initial shot.) which would be 300mg in 3-7days. Discussed this with pharmacy. Maintenance dose would be 10-15x the oral stabilizing dose, meaning 200-300mg IM which would be given in a month from first shot. We would taper the oral medications over 3 weeks, or faster if side effects emerge. Will ask staff to do routine assessments of stiffness to minimize EPS/dystonia in this cross taper. 03/15 - Continue current medication regimen - Continue oral haloperidol 10mg BID, with taper over the next few weeks - Continue regular monitoring for EPS/dystonia - Meeting this afternoon with [facility] health representatives to discuss treatment plan moving forward 03/16 - Continue current medication regimen; continue oral haloperidol 10mg BID - Haldol decanoate injection for 300mg IM is scheduled to be given 03/18/19 - Discontinue MNPR - Meeting held with BSU, patient, and parents yesterday; will continue to solidify aftercare plan, as [facility] verbalized agreement with diversion attempt 03/17 - Continue current treatment plan; oral haloperidol 10mg BID - Will receive Haldol decanoate 300mg IM tomorrow, 03/18/19 - Continue to determine clear aftercare and establish with outpatient psychiatric providers 03/18 - Patient willingly accepted second injection of Haldol decanoate 300mg IM today - no evidence of EPS/TD - Will reduce oral haloperidol to 5mg qAM and 10mg qHS - continue taper over the next few weeks - Oral Cogentin is available for signs of EPS - will order IM injection to have available for acute dystonia - Continue to determine clear aftercare plan; continue collaboration with BSU for appropriate outpatient providers for 304 IOC 03/19 - Will discontinue oral haloperidol - no physical evidence of EPS/dystonia on exam today - Continue to arrange appropriate after and discharge plan (2) Noncompliance with medication regimen: 02/22 -patient with chronic noncompliance which has severely impaired his ability to function or provide for his own basic needs in the community. He will likely need an involuntary outpatient commitment. 02/23 -303 commitment granted. Pursue medications over objection, consider long- acting injectable, and schedule meeting with forensic cyanide case hardener. 02/25 -file for 304 involuntary commitment, as state hospitalization may be needed given severity of his illness, lack of insight and unwillingness to engage in treatment, and pattern of noncompliance with treatment. Patient has requested an independent evaluation, so the hearing will be scheduled sometime next week once that is completed. Patient was informed, and states his preference is to leave the hospital immediately, with no outpatient treatment. 02/26 -The patient seems to have no insight into his illness, no insight into his need for treatment (with the exception of stimulant medications and clonazepam). He acknowledges that he had been in outpatient treatment, but stopped going "because it is not necessary." -Because of the severity of illness, the patient's lack of insight, and is not adherence with treatment on an outpatient basis, the plan was reiterated today is to refer the patient for long-term psychiatric hospitalization. 03/01 -Concerns for cheeking as above; change to liquid haloperidol with IM backup for refusal. Work towards long acting injectable. -304 granted; refer to [facility]. 03/05 -The patient seems to have improved since being given liquid haloperidol, which suggests but does not confirm that he had been "cheeking" his haloperidol tablets. This circumstance, combined with his history of recurrent nonadherence with medications on an outpatient basis are reasons that the treatment team agrees that a condition of discharge needs to be willingness to accept intramuscular Depo antipsychotic medications. 03/06 =as above 03/08 -Today, the patient says that he is giving "serious consideration" to agreeing to take an intramuscular injection of Haldol Decanoate. He understands that this is 1 of the things that we are expecting him to agree to as part of an effort to actively pursue diversion. Despite the patient's agreement that he will "seriously consider" Haldol Decanoate, he still has not agreed to take it. His history of nonadherence in the community, coupled with dangerous behaviors when not medicated, are the primary reasons that long-term psychiatric hospitalization appears to be necessary 03/10 - revisited recommendation that the patient consider CASTANEDA haloperidol decanoate prior to discharge. Pt is resistant to the idea, as he feels he does not need this form of medication. He states he is "considering it" 03/12 -The patient has variously said that he is "considering" or "seriously considering" conversion to long-acting haloperidol decanoate prior to discharge. However, to date, he has not moved past "seriously considering." -Today, we explained again that the agency that we will have control over the question of diversion from admission to the state hospital will not consider diversion unless he is adherent with our recommendations and that are recommendations include active participation in therapy, a willingness to be cooperative and forthcoming with the treatment team, and agreement to take Depo antipsychotic medication. 03/13 as above 03/14 patient agreed to loading dose of haldol decanoate today, 100mg IM to be given today 03/16 - Continues to accept reminders of his second Haldol decanoate injection; 300mg IM is scheduled for 03/18/1903/18 - Pt willingly accepted second injection of Haldol decanoate today (3) Anxiety: 02/22 -patient reports anxiety, but otherwise uncooperative with the assessment and does not appear overtly anxious; refusing vital signs for the last 3 days. He has been demanding high-dose benzodiazepines, and has been repeatedly informed that these are not indicated, but that Lorazepam is ordered as needed to be taken with haloperidol. 02/23 -parents describe history of OCD symptoms. Patient unwilling to participate in assessment, and no noticeable compulsions here, so unclear if currently active. Continue to monitor and assess. 02/25 -patient denies OCD symptoms, and none have been observed here. He does re port feeling "anxious," but is a poor historian and unable to get much further information. He does not appear to be expansive panic. We will continue to assess and rule out SYBIL. He is refusing an SSRI antidepressant, wanting only benzodiazepines. 02/28Possibility of obsessive concern for germs again raised by nursing following his reluctance to take the Haldol tablet after it touched his pillow and reluctance to touch his silverware again after he has finished eating. Patient denies obsessions or compulsions but we will continue to monitor. 03/01 - Patient refusing to discuss OCD symptoms. 03/05 -Today, the patient was able to talk about his obsessive-compulsive symptoms, and his parents presence. However, he insisted that the thoughts and behaviors were not in any way abnormal, and he said "of other people have a problem with that, that is up to them." Reported behaviors include handwashing, fear of infectious disease contamination, and, for example, reluctance to touch other people, including his parents. 03/08 -The patient reports that he realizes that he has been "obsessive" which is also evidence of some improvement. 03/12 -The patient voices anxiety in association with the difficulty that he is understanding the expectations of the treatment team, as well as an anxiety associated with the possibility of long-term psychiatric hospitalization. (4) Substance abuse: 02/22 -drug screen positive for THC. Once he is less psychotic, we will need to provide education regarding the risks of cannabis use, specifically exacerbation of psychotic symptoms. -On admission, patient reported being prescribed clonazepam 2 mg twice daily, and per PDMP he last filled a prescription on 12/17/2018, from a Dr. Matt Oneill in [place], [place]. In the past year, he has filled clonazepam and dextroamphetamine/amphetamine prescriptions from 5 different clinicians in different parts of the state, a pattern consistent with substance abuse and drug-seeking. He does not appear to have been on clonazepam consistently, as his last 2 prescriptions were filled in 06/2018 and 12/2018. 02/23 -parents report history of alcohol, cannabis, benzodiazepine, and stimulant abuse. This is also indicated in previous records from 2017 hospitalization. -Avoid controlled substances given high risk of abuse. 02/26-Today, the patient tells us that he is able to take buspirone at an unspecified dose, but when we offered to prescribe this to him for anxiety he said "it is not necessary." When asked why clonazepam is necessary, if buspirone is not, he simply repeated "clonazepam is necessary. Buspirone is not necessary." 03/05 -The patient continues to have essentially no insight into the risks associated with the use of alcohol, cannabis, benzodiazepines, stimulants, and other drugs of abuse. When it was explained to him that these substances can and do interfere with treatment for mental illnesses such as schizophrenia, his replies to say "I do not have schizophrenia." 03/08 -The patient has not requested benzodiazepines and has not mentioned a need for chemical substances such as alcohol, cannabis, stimulant medications and other drugs of abuse, and is now more focused on meeting criteria for community diversion. Inventory Assets Strengths: College graduate. Supportive family. Needs: clarification of legal charges, outpatient services, adherence with treatment and medications Risk Factors Assessment Male: Yes : No Do You Have Access To A Gun?: No Health Problems: No Mental Health Diagnoses: Yes Substance Use Disorders: Yes Previous Psychiatric Hospitalization: Yes Protective Factors Assessment : No Responsible for Young Children: No Employed: No Supportive Family: Yes Good Rapport with Provider: No Interval History Identifying Information DENISE MURRY is a 24-year-old M who has a history of schizophrenia, who was admitted on 02/19/19 17:23 on a 302 involuntary commitment for threatening behavior in the community. He is on a 304 involuntary commitment as of 03/01/2019. Chief Complaint "I want to leave, diversion". Review of Systems Sleep Information Total Hours of Sleep: 10 Sleep Comments: pt appeared to sleep 3 hrs during evening shift. pt on q-15 minute checks Meal Information Percent Meal Consumed - Breakfast: 100 Percent Meal Consumed - Lunch: 100 Percent Meal Consumed - Dinner: 100 Nutrition Comment: pt consistently throws away plastic utensils after eating rather than handing them back in Subjective Subjective Patient was seen & assessed and interval progress reviewed with Nursing and social work. Reviewed with patient that he must meet with cyanide case hardener and engage with groups/other aspects of treatment. He denies medication side effects. Physical Exam Psychiatric Orientation: alert Apperance: appropriately groomed Eye Contact: + poor eye contact Motor Behavior: no abnormal motor movements non spontaneous Affect: + blunted affect calm Thought Process: + concrete thought process Thought Content: + preoccupation Suicidal Thoughts: denies suicidal thoughts Homicidal Thoughts: denies homicidal thoughts Hallucinations: no auditory hallucinations and no visual hallucinations Cognition: language grossly intact; + attention not intact Insight: + impaired insight Judgement: + impaired judgement Vital Signs (Past 24 Hours) Last Vital Signs Temp 36.8 C 02/19/19 19:39 Pulse 76 03/09/19 11:28 Resp 14 03/09/19 11:28 BP 113/67 03/09/19 11:28 Pulse Ox 99 02/19/19 19:39 Results & Data Current Inpatient Medications Current Inpatient Medications: Current Inpatient Medications Acetaminophen (Tylenol) 650 mg PO Q4H PRN PRN Reason: Headache or Minor Fever Stop: 03/21/19 17:22 Al Hydrox/Mg Hydrox/Simethicone (Maalox) 30 ml PO Q4H PRN PRN Reason: GI Upset Stop: 03/21/19 17:22 Benztropine Mesylate (Cogentin) 1 mg PO Q8 PRN PRN Reason: Muscle Spasm Stop: 03/22/19 11:52 Benztropine Mesylate (Cogentin) 2 mg IM Q6 PRN PRN Reason: severe dystonic reaction Stop: 04/17/19 16:22 Bismuth Subsalicylate (Kaopectate) 15 ml PO PRN PRN PRN Reason: Loose Stool Stop: 03/21/19 17:22 Haloperidol (Haldol) 5 mg PO Q4H PRN PRN Reason: Agitation Stop: 03/21/19 20:25 Last Admin: 02/22/19 14:52 Dose: 5 mg Documented by: Hydroxyzine HCl (Vistaril) 50 mg PO HSZ PRN PRN Reason: Insomnia Stop: 03/21/19 17:22 Hydroxyzine HCl (Vistaril) 25 mg PO Q4H PRN PRN Reason: Anxiety Stop: 03/21/19 17:22 Lorazepam (Ativan) 2 mg IM Q4H PRN PRN Reason: Severe Agitation Stop: 03/21/19 20:25 Lorazepam (Ativan) 1 mg PO Q4H PRN PRN Reason: Agitation Stop: 03/21/19 20:25 Last Admin: 03/19/19 20:55 Dose: 1 mg Documented by: Magnesium Hydroxide (Milk Of Magnesia) 30 ml PO DAILY PRN PRN Reason: Heartburn Stop: 03/21/19 17:22 Sodium Chloride ([place] Nasal) 1 - 2 sprays NA PRN PRN PRN Reason: Nasal Dryness/Congestion Stop: 03/21/19 17:22 Mental Health & Subst Abuse Tx Therapist Name of Therapist: IOANA Hassan 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, [place] [address] Post Discharge Appointments Primary Care Physician Name Of Family Doctor: STACEY Holt Contact Information Discharge Discharge [address]: [address] [place] [id number] CPT Code CPT Code 21607 (1) Schizophrenia Schizophrenia type: unspecified Qualified Code(s): F20.9 - Schizophrenia, unspecified
--- NOTE | 2019-03-22 11:35 | Psychiatric Progress Note ---
Date of Service March 22, 2019 Impression / Recommendations Impression 24 y/o male with a history of schizophrenia, OCD, treatment nonadherence, and polysubstance abuse who presented with disorganized and threatening behavior, in the context of nonadherence, decompensation for the last several months and ongoing substance abuse. He was admitted on an involuntary commitment following escalating interactions with the police over disorganized and threatening behavior in the community, and is on a 304 involuntary commitment as of 03/01/19. Overall, he has been less suspicious, more forthcoming, and more willing to trust. The reason that the patient currently requires psychiatric h ospitalization is the fact that he has consistently, and fairly quickly, stopped psychiatric treatment, including all psychiatric medications (other than benzodiazepines) upon release from hospitals, or after they have otherwise been prescribed. His history is such that medication and other forms of treatment adherence in the community, he is at current ongoing risk for causing serious physical harm to the person of others and to himself. This is the case with many individuals who suffer from serious and persistent mental illnesses, but the goal is for the patient to understand that he needs active psychiatric treatment in the community, as an alternative to return to the hospital. We will continue to actively treat the patient with the hope and expectation that he will eventually be able to cooperate with our efforts to investigate diversionary strategies to avoid long-term psychiatric hospitalization. Patient is motivated to cooperate with a diversionary plan, and thus far has si gned adequate releases to allow for aftercare referrals and to begin the CRR referral process. Patient did receive his second injection of 300 mg of haloperidol decanoate on 03/18/2019 - oral haloperidol discontinued. [facility] acceptance remains in place should patient's condition worsen or diversion seem appropriate. (1) Schizophrenia: 02/20--The patient was admitted to the [facility] ([facility]) on q15 min checks (behavioral with suicide precautions) for safety. The patient will participate in group, recreational, and milieu therapies and will be offered additional individual and family sessions as clinically appropriate. Reviewed that he should resume antipsychotic medication FABIO and he would only discuss benzos. Adamant he won't resume Risperdal. Will offer Haldol 5 mg with Ativan 2 mg (take Haldol first) TID and readdress when less agitated. 02/21--mild improvement today in that less thought blocking and slightly less irritability. Refused meds again this am. In my opinion (Dr. Diaz), antipsychotic medication is medically necessary for the treatment of his psychosis given risk of or serious injury within 30 days. He has shown a pattern of non-compliance and escalating and threatening behavior in the community and his condition is unlikely to improve without forced psychiatric medications. Will order Haldol [address] Hubbard to provide second opinion on this and likely 303 petition tomorrow. 02/22 -patient remains inappropriate for groups and therapy, due to threatening and menacing behavior with staff and peers. Continue private room. -Increase haloperidol to 10 mg twice daily, and continue as needed doses. Agree with medications over objection, as patient has a history of a primary thought disorder, has been noncompliant with treatment which has led to decompensation, increasing psychosis, and escalating threatening and aggressive behavior in the community and now in the hospital. He required physical and chemical restraints in the ER due to threats to staff and attempts to leave. He has improved with antipsychotic medication in the past. -File for 303 hearing to be held tomorrow. -Patient remains uncooperative with attempts to assess him, will not provide historical information such as where he has been living or if he has any outpatient treatment, or sign releases for family or friends to provide collateral information. 02/23 -303 commitment granted. -Continue private room given threatening behavior, agitation, and recent history of erratic and inappropriate behavior in the community. Patient not yet appropriate for groups. -Continue haloperidol 10 mg twice daily, and 5 mg as needed. Will order an IM backup for refusal, as he has been seen by 2 physicians who both agree with medications over objection. He will likely need a long-acting injectable antipsychotic given his history of nonadherence. -Parents report he has been abusing benzodiazepines, and he is very focused on getting them here, asking for them frequently and receiving 8 mg of lorazepam daily. Will decrease to 1 mg every 4 hours as needed, with a plan to taper off prior to discharge given risk of abuse/misuse/negative outcomes. -Contact forensic pillowcase folder, Harriett Treviño, and schedule a meeting to discuss treatment plan. Patient will likely need an involuntary outpatient commitment. 02/24 -continue Haldol p.o. with IM backup, and lorazepam as needed. Patient refusing to discuss other antipsychotic options, so if he remains on haloperidol, can receive Haldol Decanoate once the effective dose is reached. -Encourage patient to sign releases for his parents and for outpatient treatment referrals, so that discharge planning can begin. -Continue to enforce appropriate boundaries, as patient has been sexually inappropriate with female peer. Continue private room, and excused from groups until he is able to maintain behavioral control. 02/25 -continue Haldol, and lorazepam as needed. -Attempt scheduled family meeting with parents and his outpatient pillowcase folder. -Encourage the patient to start engaging in treatment. He is willing to meet with a counselor one-on-one today. -Appropriate boundaries-patient has been reminded repeatedly of the need to cover his genital area and the inappropriateness of his sexual propositions to females. 02/26 -The patient is taking haloperidol 10 mg twice a day as prescribedalthough he repeatedly asks to have this medication discontinued. At the same time, he cannot or will not say, specifically, why he would like haloperidol to be di scontinued, other than to say "it is not what I need." (The patient does appear to be tolerating haloperidol well, except for some excess sedation at this point.) -The patient continues to appear suspicious and is withdrawn. He is declining to actively participate in treatment. 02/27 Continue medication regimen unchanged 304 hearing scheduled for Friday. Patient will require chest x-ray and EKG prior to transfer to [facility]. 02/28 Patient demonstrating some improved ability to participate and interacting more appropriately with peers and staff in last 24 hours. We will continue to advance therapeutic programming as tolerated and indicated. Continue Haldol as scheduled which remains well-tolerated. 03/01 -Patient noncompliant with mouth checks and continues to go to the bathroom just after taking pills; due to concerns for cheeking, will switch to liquid haloperidol, with IM back up for refusal. -304 granted. Refer to [facility]. -Schedule meeting with patient, pillowcase folder, and family for discharge planning/exploring diversion options. 03/02 - Continue liquid haloperidol as above - Refusing to sign ROIs to allow for consideration or adequate coordination of diversion options. 03/03 - Continue current haloperidol dosing, liquid as above - Pt signed some conditional ROIs this morning to allow for potential coordination of diversion plan 03/04 - Continue current medication regimen - Meeting with mother and [employer] strategic partnership representative to discuss diversionary discharge planning tomorrow morning - Continue to encourage participation in groups to most adequately assess thought content/process and appropriate behavior, these all appear to be improving 03/05 -We have been discussing the option of converting immediate release oral haloperidol to Haldol Decanoate, given his history of nonadherence. The patient's initial response was to become irritated and insists that he does not have a history of nonadherence with medications (even though he was initially nonadherent even here in the hospital). Later, he seemed to recognize that it is reasonable for treatment providers and caregivers to be concerned about his history of nonadherence with medications, and offered reassurance that he would promise to continue to take psychiatric medications as prescribedbut he does not want to take an intramuscular form. 03/06 - continue to engage ieth him about his medication and treatment plan and addressing potential of Haldol Dec CASTANEDA. addressing if pt is willing to sign TERRY's for CRR's as potential plans for diversion from [facility] referral 03/07 - making progress towards TERRY and possibility of haldol Dec but not fully occurred as of yet 03/08 -The patient appears to be less suspicious and is more cooperative. Symptoms such as thought blocking appear to have improved significantly. He continues to show obsessive symptoms and, for example, still has not actually executed the necessary release of information documents that we will need to pursue diversion from long-term hospitalization. He has expressed a willingness to do so for several days now, but has yet to actually follow through. -Although it has been difficult to get specific information from the patient regarding his thought content, he does seem to be much more trusting, less suspicious, and more animated, a set of circumstances that we are attributing to antipsychotic medication. 03/09 - Continue current medication regimen, with ongoing encouragement for consideration of haloperidol decanoate - Pt requesting additional meeting with BSU and parents - seems appropriate as still considering diversion planning, will determine appropriate timing for a second meeting as well as clear objectives to discuss 03/10 - Continue as above - Attempting to schedule outpatient treatment team meeting for 03/15 - Continue to encourage participation in group programming in order to demonstrate appropriateness for diversionary planning 03/11 - As above - Continue to reinforce recommendation for CASTANEDA due to compliance concerns and increase likelihood of diversionary planning being appropriate - Continue to encourage increased group participation 03/12 -The patient seems to have 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 He continues to insist that the reasons for his hospitalizations and various behaviors observed in the community are simply a function of the difficulty that other people have an understanding him and his reasoning. -Oral Haldol 10 mg twice a day seems to have helped the patient be less suspicious and more cooperative. However, the patient continues to lacks substantial insight into his illness, the nature of the problems that have occurred in the community, and his need for certain forms of treatment. -All members of the patient's treatment team will need to continuously and consistently reinforce the fact that we are recommending that he agree to take Haldol Decanoate because in our clinical opinion it is medically necessary, and in the opinion of the [facility] services unit that will possibly arrange for [facility] diversion, they are not willing to agree to diversion if the patient is not cooperating with the recommendations of the hospital. 03/13/19 - patient again wishes to discuss ways to work on discharge, discussed attending groups being able to show ability to be around others and have be havioral control and ability to participate, taking medications as prescribed to include strong recommendation for haldol decanoate or other CASTANEDA to help wtih compliance after discharge given his limited insight, and for aftercare to be established. He is considering haldol decanoate understanding it is available today but asks to start it "friday" for unclear reasons. TO maintain alliance will continue to offer but not pressure. 03/14 - repeated many aspects of our discussion yesterday it is unclear but seems to be possible OCD and doubt wtih reassurance seeking vs. ambivalence. He is asking good questions about timelines and seems to be able to manipulate the information given to him even though he is showing some evidence of slowed thoughts. He does state he is willing to take the hadol deconoate shot. DIscussed r/b/se/a to include but not limited to acute possibility of EPS/dystonia, akathisia, and longer term risks needing to monitor for Tardive dyskinesia in laymans terms. DIscussed need to get his medication in two shots divided due to the oral dose he is taking and the need to overlap the oral medication for a time (per package instructions initial dose should be 20times oral dose for high dose individuals at risk for relapse, and initial shot should not exceed 100mg, and balance of med given 3-7days after initial shot.) which would be 300mg in 3-7days. Discussed this with pharmacy. Maintenance dose would be 10-15x the oral stabilizing dose, meaning 200-300mg IM which would be given in a month from first shot. We would taper the oral medications over 3 weeks, or faster if side effects emerge. Will ask staff to do routine assessments of stiffness to minimize EPS/dystonia in this cross taper. 03/15 - Continue current medication regimen - Continue oral haloperidol 10mg BID, with taper over the next few weeks - Continue regular monitoring for EPS/dystonia - Meeting this afternoon with [facility] health representatives to discuss treatment plan moving forward 03/16 - Continue current medication regimen; continue oral haloperidol 10mg BID - Haldol decanoate injection for 300mg IM is scheduled to be given 03/18/19 - Discontinue MNPR - Meeting held with BSU, patient, and parents yesterday; will continue to solidify aftercare plan, as [facility] verbalized agreement with diversion attempt 03/17 - Continue current treatment plan; oral haloperidol 10mg BID - Will receive Haldol decanoate 300mg IM tomorrow, 03/18/19 - Continue to determine clear aftercare and establish with outpatient psychiatric providers 03/18 - Patient willingly accepted second injection of Haldol decanoate 300mg IM today - no evidence of EPS/TD - Will reduce oral haloperidol to 5mg qAM and 10mg qHS - continue taper over the next few weeks - Oral Cogentin is available for signs of EPS - will order IM injection to have available for acute dystonia - Continue to determine clear aftercare plan; continue collaboration with BSU for appropriate outpatient providers for 304 IOC 03/19 - Will discontinue oral haloperidol - no physical evidence of EPS/dystonia on exam today - Continue to arrange appropriate after and discharge plan 03/22 - Continue current medication regimen - haloperidol decanoate with prn benztropine available - Encourage patient's participation in group and recreational programming - Continue to encourage cooperation with discharge planning (2) Noncompliance with medication regimen: 02/22 -patient with chronic noncompliance which has severely impaired his ability to function or provide for his own basic needs in the community. He will likely need an involuntary outpatient commitment. 02/23 -303 commitment granted. Pursue medications over objection, consider long- acting injectable, and schedule meeting with forensic pillowcase folder. 02/25 -file for 304 involuntary commitment, as state hospitalization may be needed given severity of his illness, lack of insight and unwillingness to engage in treatment, and pattern of noncompliance with treatment. Patient has requested an independent evaluation, so the hearing will be scheduled sometime next week once that is completed. Patient was informed, and states his preference is to leave the hospital immediately, with no outpatient treatment. 02/26 -The patient seems to have no insight into his illness, no insight into his need for treatment (with the exception of stimulant medications and clonazepam). He acknowledges that he had been in outpatient treatment, but stopped going "because it is not necessary." -Because of the severity of illness, the patient's lack of insight, and is not adherence with treatment on an outpatient basis, the plan was reiterated today is to refer the patient for long-term psychiatric hospitalization. 03/01 -Concerns for cheeking as above; change to liquid haloperidol with IM backup for refusal. Work towards long acting injectable. -304 granted; refer to [facility]. 03/05 -The patient seems to have improved since being given liquid haloperidol, which suggests but does not confirm that he had been "cheeking" his haloperidol tablets. This circumstance, combined with his history of recurrent nonadherence with medications on an outpatient basis are reasons that the treatment team agrees that a condition of discharge needs to be willingness to accept intramuscular Depo antipsychotic medications. 03/06 =as above 03/08 -Today, the patient says that he is giving "serious consideration" to agreeing to take an intramuscular injection of Haldol Decanoate. He understands that this is 1 of the things that we are expecting him to agree to as part of an effort to actively pursue diversion. Despite the patient's agreement that he will "seriously consider" Haldol Decanoate, he still has not agreed to take it. His history of nonadherence in the community, coupled with dangerous behaviors when not medicated, are the primary reasons that long-term psychiatric hospitalization appears to be necessary 03/10 - revisited recommendation that the patient consider CASTANEDA haloperidol decanoate prior to discharge. Pt is resistant to the idea, as he feels he does not need this form of medication. He states he is "considering it" 03/12 -The patient has variously said that he is "considering" or "seriously considering" conversion to long-acting haloperidol decanoate prior to discharge. However, to date, he has not moved past "seriously considering." -Today, we explained again that the agency that we will have control over the question of diversion from admission to the [facility] will not consider diversion unless he is adherent with our recommendations and that are recommendations include active participation in therapy, a willingness to be cooperative and forthcoming with the treatment team, and agreement to take Depo antipsychotic medication. 03/13 as above 03/14 patient agreed to loading dose of haldol decanoate today, 100mg IM to be given today 03/16 - Continues to accept reminders of his second Haldol decanoate injection; 300mg IM is scheduled for 03/18/1903/18 - Pt willingly accepted second injection of Haldol decanoate today (3) Anxiety: 02/22 -patient reports anxiety, but otherwise uncooperative with the assessment and does not appear overtly anxious; refusing vital signs for the last 3 days. He has been demanding high-dose benzodiazepines, and has been repeatedly informed that these are not indicated, but that Lorazepam is ordered as needed to be taken with haloperidol. 02/23 -parents describe history of OCD symptoms. Patient unwilling to participate in assessment, and no noticeable compulsions here, so unclear if currently active. Continue to monitor and assess. 02/25 -patient denies OCD symptoms, and none have been observed here. He does report feeling "anxious," but is a poor historian and unable to get much further information. He does not appear to be expansive panic. We will continue to assess and rule out SYBIL. He is refusing an SSRI antidepressant, wanting only benzodiazepines. 02/28Possibility of obsessive concern for germs again raised by nursing following his reluctance to take the Haldol tablet after it touched his pillow and reluctance to touch his silverware again after he has finished eating. Patient denies obsessions or compulsions but we will continue to monitor. 03/01 - Patient refusing to discuss OCD symptoms. 03/05 -Today, the patient was able to talk about his obsessive-compulsive symptoms, and his parents presence. However, he insisted that the thoughts and behaviors were not in any way abnormal, and he said "of other people have a problem with that, that is up to them." Reported behaviors include handwashing, fear of infectious disease contamination, and, for example, reluctance to touch other people, including his parents. 03/08 -The patient reports that he realizes that he has been "obsessive" which is also evidence of some improvement. 03/12 -The patient voices anxiety in association with the difficulty that he is understanding the expectations of the treatment team, as well as an anxiety associated with the possibility of long-term psychiatric hospitalization. (4) Substance abuse: 02/22 -drug screen positive for THC. Once he is less psychotic, we will need to provide education regarding the risks of cannabis use, specifically exacerbation of psychotic symptoms. -On admission, patient reported being prescribed clonazepam 2 mg twice daily, and per PDMP he last filled a prescription on 12/17/2018, from a Dr. Matt Oneill in [place], [place]. In the past year, he has filled clonazepam and dextroamphetamine/amphetamine prescriptions from 5 different clinicians in different parts of the state, a pattern consistent with substance abuse and drug-seeking. He does not appear to have been on clonazepam consistently, as his last 2 prescriptions were filled in 06/2018 and 12/2018. 02/23 -parents report history of alcohol, cannabis, benzodiazepine, and stimulant abuse. This is also indicated in previous records from 2017 hospitalization. -Avoid controlled substances given high risk of abuse. 02/26-Today, the patient tells us that he is able to take buspirone at an unspecified dose, but when we offered to prescribe this to him for anxiety he said "it is not necessary." When asked why clonazepam is necessary, if buspirone is not, he simply repeated "clonazepam is necessary. Buspirone is not necessary." 03/05 -The patient continues to have essentially no insight into the risks associated with the use of alcohol, cannabis, benzodiazepines, stimulants, and other drugs of abuse. When it was explained to him that these substances can and do interfere with treatment for mental illnesses such as schizophrenia, his replies to say "I do not have schizophrenia." 03/08 -The patient has not requested benzodiazepines and has not mentioned a need for chemical substances such as alcohol, cannabis, stimulant medications and other drugs of abuse, and is now more focused on meeting criteria for community diversion. Inventory Assets Strengths: College graduate. Supportive family. Needs: clarification of legal charges, outpatient services, adherence with treatment and medications Risk Factors Assessment Male: Yes : No Do You Have Access To A Gun?: No Health Problems: No Mental Health Diagnoses: Yes Substance Use Disorders: Yes Previous Psychiatric Hospitalization: Yes Protective Factors Assessment : No Responsible for Young Children: No Employed: No Supportive Family: Yes Good Rapport with Provider: No Interval History Identifying Information DENISE MURRY is a 24-year-old M who has a history of schizophrenia, who was admitted on 02/19/19 17:23 on a 302 involuntary commitment for threatening behavior in the community. He is on a 304 involuntary commitment as of 03/01/2019. Chief Complaint "I'm good. How about yourself?" and "I wanna talk about discharge." Review of Systems Notes Constitutional: denied Cardiovascular: denied Respiratory: denied Gastrointestinal: denied Neurological: denied Psychiatric: denies symptoms other than stated above Total of at least 10 systems reviewed, pertinent positives as above and in HPI. Sleep Information Total Hours of Sleep: 9.25 Sleep Comments: pt on q-15 minute checks Meal Information Percent Meal Consumed - Breakfast: 100 Percent Meal Consumed - Lunch: 90 Percent Meal Consumed - Dinner: 100 Nutrition Comment: pt consistently throws away plastic utensils after eating rather than handing them back in Subjective Subjective Patient was seen & assessed and interval progress reviewed with Treatment Team. Staff report the patient has been somewhat more interactive on the unit. Attending groups more frequently. 30-day treatment plan reviewed today, with permission for patient to go outside if weather allows. Pt was seen today to assess progress since admission. Pt is agreeable to interaction, and (as is typical for our encounters) rapidly starts inquiring about discharge after a brief exchange of pleasantries. Pt states he is concerned that his estimated length of stay has not been changing. Pt was informed that a large part of this had to do with his limited participation in group programming last week. It was recognized that his involvement has increased recently, and he was encouraged to continue in these efforts. Pt was also informed that a large portion of this discharge plan had to do with arrangement of aftercare. Pt was informed that restrictions to ROIs limit the providers we are able to speak with and the pool of providers available. Pt indicates a willingness to sign ROIs as needed to arrange aftercare. Pt denies any other significant concerns today. Physical Exam Psychiatric Orientation: alert, oriented x 3 and + guarded (superficially pleasant) Apperance: appropriately dressed, appropriately groomed and appeared stated age Eye Contact: + fair eye contact (prolonged staring) Motor Behavior: steady gait and station and no abnormal motor movements Speech: normal rate/rhythm/volume of speech (rather brief responses to questions) Affect: + flat affect Mood: no depressed mood and no anxious mood Thought Process: goal directed thought process (remains highly focused on discharge), clear/coherent thought process and + concrete thought process Thought Content: + preoccupation (with discharge planning); no delusions (no verbalization of delusional thought content) Suicidal Thoughts: denies suicidal thoughts and denies suicidal intent Homicidal Thoughts: denies homicidal thoughts Hallucinations: no auditory hallucinations and no visual hallucinations No verbalization of hallucinations - does not outwardly appear to be responding to internal stimuli Cognition: attention grossly intact and language grossly intact Insight: + impaired insight Judgement: + impaired judgement Vital Signs (Past 24 Hours) Last Vital Signs Temp 36.8 C 02/19/19 19:39 Pulse 76 03/09/19 11:28 Resp 14 03/09/19 11:28 BP 113/67 03/09/19 11:28 Pulse Ox 99 02/19/19 19:39 Results & Data Current Inpatient Medications Current Inpatient Medications: Current Inpatient Medications Benztropine Mesylate (Cogentin) 1 mg PO Q8 PRN PRN Reason: Muscle Spasm Stop: 03/22/19 11:52 Benztropine Mesylate (Cogentin) 2 mg IM Q6 PRN PRN Reason: severe dystonic reaction Stop: 04/17/19 16:22 Mental Health & Subst Abuse Tx Therapist Name of Therapist: IOANA Hassan Group Controller Name of Group Controller: [facility] Harriett Treviño Phone Number for Group Controller: [phone] Case Management Appointment Comment: [address], [place] [address] Post Discharge Appointments Primary Care Physician Name Of Family Doctor: STACEY Holt Contact Information Discharge Discharge [address]: [address] [place] [id number] CPT Code CPT Code 28733 (1) Schizophrenia Schizophrenia type: unspecified Qualified Code(s): F20.9 - Schizophrenia, unspecified
[2019-03-23] MEDS ORDERED: BENZTROPINE MESYLATE 1 MG TAB PO PRN (08:37)
[2019-03-23] MEDS ORDERED: MAGNESIUM HYDROXIDE SUSP 30 ML UDC PO PRN (08:39)
[2019-03-23] MEDS ORDERED: ACETAMINOPHEN 325 MG TAB PO PRN (08:39)
[2019-03-23] MEDS ORDERED: BISMUTH SUBSALICYLATE PER ML OMNICELL CHARGE PO PRN (08:39)
[2019-03-23] MEDS ORDERED: SODIUM CHLORIDE 0.65% NA SOLN 45 ML (OCEAN) PRN (08:39)
[2019-03-23] MEDS ORDERED: ALUMINUM/MAGNESIUM SUSP 30 ML UDC PO PRN (08:39)
--- NOTE | 2019-03-23 13:25 | Psychiatric Progress Note ---
Date of Service March 23, 2019 Impression / Recommendations Impression 24 y/o male with a history of schizophrenia, OCD, treatment nonadherence, and polysubstance abuse who presented with disorganized and threatening behavior, in the context of nonadherence, decompensation for the last several months and ongoing substance abuse. He was admitted on an involuntary commitment following escalating interactions with the police over disorganized and threatening behavior in the community, and is on a 304 involuntary commitment as of 03/01/19. Overall, he has been less suspicious, more forthcoming, and more willing to trust. The reason that the patient currently requires psychiatric h ospitalization is the fact that he has consistently, and fairly quickly, stopped psychiatric treatment, including all psychiatric medications (other than benzodiazepines) upon release from hospitals, or after they have otherwise been prescribed. His history is such that medication and other forms of treatment adherence in the community, he is at current ongoing risk for causing serious physical harm to the person of others and to himself. This is the case with many individuals who suffer from serious and persistent mental illnesses, but the goal is for the patient to understand that he needs active psychiatric treatment in the community, as an alternative to return to the hospital. We will continue to actively treat the patient with the hope and expectation that he will eventually be able to cooperate with our efforts to investigate diversionary strategies to avoid long-term psychiatric hospitalization. Patient is motivated to cooperate with a diversionary plan, and thus far has si gned adequate releases to allow for aftercare referrals and to begin the CRR referral process. Patient did receive his second injection of 300 mg of haloperidol decanoate on 03/18/2019 - oral haloperidol discontinued. [facility] acceptance remains in place should patient's condition worsen or diversion seem appropriate. (1) Schizophrenia: 02/20--The patient was admitted to the [facility] ([facility] unit) on q15 min checks (behavioral with suicide precautions) for safety. The patient will participate in group, recreational, and milieu therapies and will be offered additional individual and family sessions as clinically appropriate. Reviewed that he should resume antipsychotic medication FABIO and he would only discuss benzos. Adamant he won't resume Risperdal. Will offer Haldol 5 mg with Ativan 2 mg (take Haldol first) TID and readdress when less agitated. 02/21--mild improvement today in that less thought blocking and slightly less irritability. Refused meds again this am. In my opinion (Dr. Diaz), antipsychotic medication is medically necessary for the treatment of his psychosis given risk of or serious injury within 30 days. He has shown a pattern of non-compliance and escalating and threatening behavior in the community and his condition is unlikely to improve without forced psychiatric medications. Will order Haldol [address] Hubbard to provide second opinion on this and likely 303 petition tomorrow. 02/22 -patient remains inappropriate for groups and therapy, due to threatening and menacing behavior with staff and peers. Continue private room. -Increase haloperidol to 10 mg twice daily, and continue as needed doses. Agree with medications over objection, as patient has a history of a primary thought disorder, has been noncompliant with treatment which has led to decompensation, increasing psychosis, and escalating threatening and aggressive behavior in the community and now in the hospital. He required physical and chemical restraints in the ER due to threats to staff and attempts to leave. He has improved with antipsychotic medication in the past. -File for 303 hearing to be held tomorrow. -Patient remains uncooperative with attempts to assess him, will not provide historical information such as where he has been living or if he has any outpatient treatment, or sign releases for family or friends to provide collateral information. 02/23 -303 commitment granted. -Continue private room given threatening behavior, agitation, and recent history of erratic and inappropriate behavior in the community. Patient not yet appropriate for groups. -Continue haloperidol 10 mg twice daily, and 5 mg as needed. Will order an IM backup for refusal, as he has been seen by 2 physicians who both agree with medications over objection. He will likely need a long-acting injectable antipsychotic given his history of nonadherence. -Parents report he has been abusing benzodiazepines, and he is very focused on getting them here, asking for them frequently and receiving 8 mg of lorazepam daily. Will decrease to 1 mg every 4 hours as needed, with a plan to taper off prior to discharge given risk of abuse/misuse/negative outcomes. -Contact forensic case reviewer, Harriett Treviño, and schedule a meeting to discuss treatment plan. Patient will likely need an involuntary outpatient commitment. 02/24 -continue Haldol p.o. with IM backup, and lorazepam as needed. Patient refusing to discuss other antipsychotic options, so if he remains on haloperidol, can receive Haldol Decanoate once the effective dose is reached. -Encourage patient to sign releases for his parents and for outpatient treatment referrals, so that discharge planning can begin. -Continue to enforce appropriate boundaries, as patient has been sexually inappropriate with female peer. Continue private room, and excused from groups until he is able to maintain behavioral control. 02/25 -continue Haldol, and lorazepam as needed. -Attempt scheduled family meeting with parents and his outpatient case reviewer. -Encourage the patient to start engaging in treatment. He is willing to meet with a counselor one-on-one today. -Appropriate boundaries-patient has been reminded repeatedly of the need to cover his genital area and the inappropriateness of his sexual propositions to females. 02/26 -The patient is taking haloperidol 10 mg twice a day as prescribedalthough he repeatedly asks to have this medication discontinued. At the same time, he cannot or will not say, specifically, why he would like haloperidol to be di scontinued, other than to say "it is not what I need." (The patient does appear to be tolerating haloperidol well, except for some excess sedation at this point.) -The patient continues to appear suspicious and is withdrawn. He is declining to actively participate in treatment. 02/27 Continue medication regimen unchanged 304 hearing scheduled for Friday. Patient will require chest x-ray and EKG prior to transfer to [facility]. 02/28 Patient demonstrating some improved ability to participate and interacting more appropriately with peers and staff in last 24 hours. We will continue to advance therapeutic programming as tolerated and indicated. Continue Haldol as scheduled which remains well-tolerated. 03/01 -Patient noncompliant with mouth checks and continues to go to the bathroom just after taking pills; due to concerns for cheeking, will switch to liquid haloperidol, with IM back up for refusal. -304 granted. Refer to [facility]. -Schedule meeting with patient, case reviewer, and family for discharge planning/exploring diversion options. 03/02 - Continue liquid haloperidol as above - Refusing to sign ROIs to allow for consideration or adequate coordination of diversion options. 03/03 - Continue current haloperidol dosing, liquid as above - Pt signed some conditional ROIs this morning to allow for potential coordination of diversion plan 03/04 - Continue current medication regimen - Meeting with mother and [employer] customer relations representative to discuss diversionary discharge planning tomorrow morning - Continue to encourage participation in groups to most adequately assess thought content/process and appropriate behavior, these all appear to be improving 03/05 -We have been discussing the option of converting immediate release oral haloperidol to Haldol Decanoate, given his history of nonadherence. The patient's initial response was to become irritated and insists that he does not have a history of nonadherence with medications (even though he was initially nonadherent even here in the hospital). Later, he seemed to recognize that it is reasonable for treatment providers and caregivers to be concerned about his history of nonadherence with medications, and offered reassurance that he would promise to continue to take psychiatric medications as prescribedbut he does not want to take an intramuscular form. 03/06 - continue to engage ieth him about his medication and treatment plan and addressing potential of Haldol Dec CASTANEDA. addressing if pt is willing to sign TERRY's for CRR's as potential plans for diversion from [facility] referral 03/07 - making progress towards TERRY and possibility of haldol Dec but not fully occurred as of yet 03/08 -The patient appears to be less suspicious and is more cooperative. Symptoms such as thought blocking appear to have improved significantly. He continues to show obsessive symptoms and, for example, still has not actually executed the necessary release of information documents that we will need to pursue diversion from long-term hospitalization. He has expressed a willingness to do so for several days now, but has yet to actually follow through. -Although it has been difficult to get specific information from the patient regarding his thought content, he does seem to be much more trusting, less suspicious, and more animated, a set of circumstances that we are attributing to antipsychotic medication. 03/09 - Continue current medication regimen, with ongoing encouragement for consideration of haloperidol decanoate - Pt requesting additional meeting with [facility] and parents - seems appropriate as still considering diversion planning, will determine appropriate timing for a second meeting as well as clear objectives to discuss 03/10 - Continue as above - Attempting to schedule outpatient treatment team meeting for 03/15 - Continue to encourage participation in group programming in order to demonstrate appropriateness for diversionary planning 03/11 - As above - Continue to reinforce recommendation for CASTANEDA due to compliance concerns and increase likelihood of diversionary planning being appropriate - Continue to encourage increased group participation 03/12 -The patient seems to have 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 He continues to insist that the reasons for his hospitalizations and various behaviors observed in the community are simply a function of the difficulty that other people have an understanding him and his reasoning. -Oral Haldol 10 mg twice a day seems to have helped the patient be less suspicious and more cooperative. However, the patient continues to lacks substantial insight into his illness, the nature of the problems that have occurred in the community, and his need for certain forms of treatment. -All members of the patient's treatment team will need to continuously and consistently reinforce the fact that we are recommending that he agree to take Haldol Decanoate because in our clinical opinion it is medically necessary, and in the opinion of the [facility] services unit that will possibly arrange for [facility] diversion, they are not willing to agree to diversion if the patient is not cooperating with the recommendations of the hospital. 03/13/19 - patient again wishes to discuss ways to work on discharge, discussed attending groups being able to show ability to be around others and have be havioral control and ability to participate, taking medications as prescribed to include strong recommendation for haldol decanoate or other CASTANEDA to help wtih compliance after discharge given his limited insight, and for aftercare to be established. He is considering haldol decanoate understanding it is available today but asks to start it "friday" for unclear reasons. TO maintain alliance will continue to offer but not pressure. 03/14 - repeated many aspects of our discussion yesterday it is unclear but seems to be possible OCD and doubt wtih reassurance seeking vs. ambivalence. He is asking good questions about timelines and seems to be able to manipulate the information given to him even though he is showing some evidence of slowed thoughts. He does state he is willing to take the hadol deconoate shot. DIscussed r/b/se/a to include but not limited to acute possibility of EPS/dystonia, akathisia, and longer term risks needing to monitor for Tardive dyskinesia in laymans terms. DIscussed need to get his medication in two shots divided due to the oral dose he is taking and the need to overlap the oral medication for a time (per package instructions initial dose should be 20times oral dose for high dose individuals at risk for relapse, and initial shot should not exceed 100mg, and balance of med given 3-7days after initial shot.) which would be 300mg in 3-7days. Discussed this with pharmacy. Maintenance dose would be 10-15x the oral stabilizing dose, meaning 200-300mg IM which would be given in a month from first shot. We would taper the oral medications over 3 weeks, or faster if side effects emerge. Will ask staff to do routine assessments of stiffness to minimize EPS/dystonia in this cross taper. 03/15 - Continue current medication regimen - Continue oral haloperidol 10mg BID, with taper over the next few weeks - Continue regular monitoring for EPS/dystonia - Meeting this afternoon with [facility] mental health representatives to discuss treatment plan moving forward 03/16 - Continue current medication regimen; continue oral haloperidol 10mg BID - Haldol decanoate injection for 300mg IM is scheduled to be given 03/18/19 - Discontinue MNPR - Meeting held with [facility], patient, and parents yesterday; will continue to solidify aftercare plan, as [facility] verbalized agreement with diversion attempt 03/17 - Continue current treatment plan; oral haloperidol 10mg BID - Will receive Haldol decanoate 300mg IM tomorrow, 03/18/19 - Continue to determine clear aftercare and establish with outpatient psychiatric providers 03/18 - Patient willingly accepted second injection of Haldol decanoate 300mg IM today - no evidence of EPS/TD - Will reduce oral haloperidol to 5mg qAM and 10mg qHS - continue taper over the next few weeks - Oral Cogentin is available for signs of EPS - will order IM injection to have available for acute dystonia - Continue to determine clear aftercare plan; continue collaboration with [facility] for appropriate outpatient providers for 304 IOC 03/19 - Will discontinue oral haloperidol - no physical evidence of EPS/dystonia on exam today - Continue to arrange appropriate after and discharge plan 03/22 - 03/23 - Continue current medication regimen - haloperidol decanoate with prn benztropine available - Encourage patient's participation in group and recreational programming - Continue to encourage cooperation with discharge planning (2) Noncompliance with medication regimen: 02/22 -patient with chronic noncompliance which has severely impaired his ability to function or provide for his own basic needs in the community. He will likely need an involuntary outpatient commitment. 02/23 -303 commitment granted. Pursue medications over objection, consider long- acting injectable, and schedule meeting with forensic case reviewer. 02/25 -file for 304 involuntary commitment, as state hospitalization may be needed given severity of his illness, lack of insight and unwillingness to enga ge in treatment, and pattern of noncompliance with treatment. Patient has requested an independent evaluation, so the hearing will be scheduled sometime next week once that is completed. Patient was informed, and states his preference is to leave the hospital immediately, with no outpatient treatment. 02/26 -The patient seems to have no insight into his illness, no insight into his need for treatment (with the exception of stimulant medications and clonazepam). He acknowledges that he had been in outpatient treatment, but stopped going "because it is not necessary." -Because of the severity of illness, the patient's lack of insight, and is not adherence with treatment on an outpatient basis, the plan was reiterated today is to refer the patient for long-term psychiatric hospitalization. 03/01 -Concerns for cheeking as above; change to liquid haloperidol with IM backup for refusal. Work towards long acting injectable. -304 granted; refer to [facility]. 03/05 -The patient seems to have improved since being given liquid haloperidol, which suggests but does not confirm that he had been "cheeking" his haloperidol tablets. This circumstance, combined with his history of recurrent nonadherence with medications on an outpatient basis are reasons that the treatment team agrees that a condition of discharge needs to be willingness to accept intramuscular Depo antipsychotic medications. 03/06 =as above 03/08 -Today, the patient says that he is giving "serious consideration" to agreeing to take an intramuscular injection of Haldol Decanoate. He understands that this is 1 of the things that we are expecting him to agree to as part of an effort to actively pursue diversion. Despite the patient's agreement that he will "seriously consider" Haldol Decanoate, he still has not agreed to take it. His history of nonadherence in the community, coupled with dangerous behaviors when not medicated, are the primary reasons that long-term psychiatric hospitalization appears to be necessary 03/10 - revisited recommendation that the patient consider CASTANEDA haloperidol decanoate prior to discharge. Pt is resistant to the idea, as he feels he does not need this form of medication. He states he is "considering it" 03/12 -The patient has variously said that he is "considering" or "seriously considering" conversion to long-acting haloperidol decanoate prior to discharge. However, to date, he has not moved past "seriously considering." -Today, we explained again that the agency that we will have control over the question of diversion from admission to the [facility] will not consider diversion unless he is adherent with our recommendations and that are recommendations include active participation in therapy, a willingness to be cooperative and forthcoming with the treatment team, and agreement to take Depo antipsychotic medication. 03/13 as above 03/14 patient agreed to loading dose of haldol decanoate today, 100mg IM to be given today 03/16 - Continues to accept reminders of his second Haldol decanoate injection; 300mg IM is scheduled for 03/18/1903/18 - Pt willingly accepted second injection of Haldol decanoate today (3) Anxiety: 02/22 -patient reports anxiety, but otherwise uncooperative with the assessment and does not appear overtly anxious; refusing vital signs for the last 3 days. He has been demanding high-dose benzodiazepines, and has been repeatedly informed that these are not indicated, but that Lorazepam is ordered as needed to be taken with haloperidol. 02/23 -parents describe history of OCD symptoms. Patient unwilling to participate in assessment, and no noticeable compulsions here, so unclear if currently active. Continue to monitor and assess. 02/25 -patient denies OCD symptoms, and none have been observed here. He does report feeling "anxious," but is a poor historian and unable to get much further information. He does not appear to be expansive panic. We will continue to ass ess and rule out SYBIL. He is refusing an SSRI antidepressant, wanting only benzodiazepines. 02/28Possibility of obsessive concern for germs again raised by nursing following his reluctance to take the Haldol tablet after it touched his pillow and reluctance to touch his silverware again after he has finished eating. Patient denies obsessions or compulsions but we will continue to monitor. 03/01 - Patient refusing to discuss OCD symptoms. 03/05 -Today, the patient was able to talk about his obsessive-compulsive symptoms, and his parents presence. However, he insisted that the thoughts and behaviors were not in any way abnormal, and he said "of other people have a problem with that, that is up to them." Reported behaviors include handwashing, fear of infectious disease contamination, and, for example, reluctance to touch other people, including his parents. 03/08 -The patient reports that he realizes that he has been "obsessive" which is also evidence of some improvement. 03/12 -The patient voices anxiety in association with the difficulty that he is understanding the expectations of the treatment team, as well as an anxiety associated with the possibility of long-term psychiatric hospitalization. (4) Substance abuse: 02/22 -drug screen positive for THC. Once he is less psychotic, we will need to provide education regarding the risks of cannabis use, specifically exacerbation of psychotic symptoms. -On admission, patient reported being prescribed clonazepam 2 mg twice daily, and per PDMP he last filled a prescription on 12/17/2018, from a Dr. Matt Oneill in [place], [place]. In the past year, he has filled clonazepam and dextroamphetamine/amphetamine prescriptions from 5 different clinicians in different parts of the state, a pattern consistent with substance abuse and drug-seeking. He does not appear to have been on clonazepam consistently, as his last 2 prescriptions were filled in 06/2018 and 12/2018. 02/23 -parents report history of alcohol, cannabis, benzodiazepine, and stimulant abuse. This is also indicated in previous records from 2017 hospitalization. -Avoid controlled substances given high risk of abuse. 02/26-Today, the patient tells us that he is able to take buspirone at an unspecified dose, but when we offered to prescribe this to him for anxiety he said "it is not necessary." When asked why clonazepam is necessary, if buspirone is not, he simply repeated "clonazepam is necessary. Buspirone is not necessary." 03/05 -The patient continues to have essentially no insight into the risks associated with the use of alcohol, cannabis, benzodiazepines, stimulants, and other drugs of abuse. When it was explained to him that these substances can and do interfere with treatment for mental illnesses such as schizophrenia, his replies to say "I do not have schizophrenia." 03/08 -The patient has not requested benzodiazepines and has not mentioned a need for chemical substances such as alcohol, cannabis, stimulant medications and other drugs of abuse, and is now more focused on meeting criteria for community diversion. Inventory Assets Strengths: College graduate. Supportive family. Needs: clarification of legal charges, outpatient services, adherence with treatment and medications Risk Factors Assessment Male: Yes : No Do You Have Access To A Gun?: No Health Problems: No Mental Health Diagnoses: Yes Substance Use Disorders: Yes Previous Psychiatric Hospitalization: Yes Protective Factors Assessment : No Responsible for Young Children: No Employed: No Supportive Family: Yes Good Rapport with Provider: No Interval History Identifying Information DENISE MURRY is a 24-year-old M who has a history of schizophrenia, who was admitted on 02/19/19 17:23 on a 302 involuntary commitment for threatening behavior in the community. He is on a 304 involuntary commitment as of 03/01/2019. Chief Complaint "...I need my nails cut..." Review of Systems Notes Constitutional: denied Cardiovascular: denied Respiratory: denied Gastrointestinal: denied Neurological: denied Psychiatric: denies symptoms other than stated above Total of at least 10 systems reviewed, pertinent positives as above and in HPI. Sleep Information Total Hours of Sleep: 8.75 Sleep Comments: pt on q-15 minute checks Meal Information Percent Meal Consumed - Breakfast: 100 Percent Meal Consumed - Lunch: 100 Percent Meal Consumed - Dinner: 100 Nutrition Comment: pt consistently throws away plastic utensils after eating rather than handing them back in Subjective Subjective Patient was seen & assessed and interval progress reviewed with Nursing and social work. Staff report the patient is to have a meeting with his case reviewer this morning, he has been reminded of his need to participate with the discharge and referral process if he desire to continue with diversion plan. Pt was seen today to assess progress since admission. He does request that his fingernails and toenails be clipped today, which this provider completes without incident. This provider inquired about his meeting with is case reviewer, which patient states went well. Pt requests to know a discharge date, and was informed again that a discharge to the community cannot be considered unless he has sufficient aftercare arranged. Pt verbalized understanding. Pt denies SI/HI and A/V hallucinations. He denied other needs or concerns today. Physical Exam Psychiatric Orientation: alert, oriented x 3 and + guarded Apperance: appropriately dressed, appropriately groomed and appeared stated age Eye Contact: good eye contact Motor Behavior: steady gait and station and no abnormal motor movements Speech: normal rate/rhythm/volume of speech Affect: + flat affect and + constricted affect Mood: no depressed mood and no anxious mood Thought Process: goal directed thought process (remains highly focused on discharge planning) and + concrete thought process Thought Content: + preoccupation (with discharge); no delusions, no hopelessness and no worthlessness Suicidal Thoughts: denies suicidal thoughts and denies suicidal intent Homicidal Thoughts: denies homicidal thoughts Hallucinations: no auditory hallucinations and no visual hallucinations Cognition: attention grossly intact and language grossly intact Estimated Intelligence: consistent with education level Insight: + impaired insight Judgement: + impaired judgement Vital Signs (Past 24 Hours) Last Vital Signs Temp 36.8 C 02/19/19 19:39 Pulse 76 03/09/19 11:28 Resp 14 03/09/19 11:28 BP 113/67 03/09/19 11:28 Pulse Ox 99 02/19/19 19:39 Results & Data Current Inpatient Medications Current Inpatient Medications: Current Inpatient Medications Acetaminophen (Tylenol) 650 mg PO Q4H PRN PRN Reason: Headache or Minor Fever Stop: 04/22/19 08:38 Al Hydrox/Mg Hydrox/Simethicone (Maalox) 30 ml PO Q4H PRN PRN Reason: GI Upset Stop: 04/22/19 08:38 Benztropine Mesylate (Cogentin) 2 mg IM Q6 PRN PRN Reason: severe dystonic reaction Stop: 04/17/19 16:22 Benztropine Mesylate (Cogentin) 1 mg PO Q8H PRN PRN Reason: EPS/dystonia Stop: 04/22/19 08:36 Bismuth Subsalicylate (Kaopectate) 15 ml PO PRN PRN PRN Reason: Loose Stool Stop: 04/22/19 08:38 Hydroxyzine HCl (Vistaril) 25 mg PO Q4H PRN PRN Reason: Anxiety Stop: 04/22/19 08:38 Hydroxyzine HCl (Vistaril) 50 mg PO HSZ PRN PRN Reason: Insomnia Stop: 04/22/19 08:38 Magnesium Hydroxide (Milk Of Magnesia) 30 ml PO DAILY PRN PRN Reason: Heartburn Stop: 04/22/19 08:38 Sodium Chloride ([place] Nasal) 1 - 2 sprays NA PRN PRN PRN Reason: Nasal Dryness/Congestion Stop: 04/22/19 08:38 Mental Health & Subst Abuse Tx Psychiatrist Name of Psychiatrist: [facility]? Psychiatrist's Therapist Name of Therapist: BandarterrieLindsay [place] Therapist's Date of Therapist Appointment: 04/09/19 Time of Therapist Appointment: 9:30am Circuit Breaker Mechanic Name of Circuit Breaker Mechanic: [facility] Antonio Schofield? Phone Number for Circuit Breaker Mechanic: [phone] Date of Appointment with Circuit Breaker Mechanic: 03/31/19 Time of Appointment with Circuit Breaker Mechanic: 9am Case Management Appointment Comment: and 05/10/19 at 10:30am. [address] [facility] [address] Post Discharge Appointments Primary Care Physician Name Of Family Doctor: STACEY Holt Contact Information Discharge Discharge [address]: [address] [place] [address] CPT Code CPT Code 79375 (1) Schizophrenia Schizophrenia type: unspecified Qualified Code(s): F20.9 - Schizophrenia, unspecified
[2019-03-23] MEDS ORDERED: LORazepam 0.5 MG TAB PO PRN (14:26)
--- NOTE | 2019-03-24 13:01 | Psychiatric Progress Note ---
Date of Service March 24, 2019 Impression / Recommendations Impression 24 y/o male with a history of schizophrenia, OCD, treatment nonadherence, and polysubstance abuse who presented with disorganized and threatening behavior, in the context of nonadherence, decompensation for the last several months and ongoing substance abuse. He was admitted on an involuntary commitment following escalating interactions with the police over disorganized and threatening behavior in the community, and is on a 304 involuntary commitment as of 03/01/19. Overall, he has been less suspicious, more forthcoming, and more willing to trust. The reason that the patient currently requires psychiatric h ospitalization is the fact that he has consistently, and fairly quickly, stopped psychiatric treatment, including all psychiatric medications (other than benzodiazepines) upon release from hospitals, or after they have otherwise been prescribed. His history is such that medication and other forms of treatment adherence in the community, he is at current ongoing risk for causing serious physical harm to the person of others and to himself. This is the case with many individuals who suffer from serious and persistent mental illnesses, but the goal is for the patient to understand that he needs active psychiatric treatment in the community, as an alternative to return to the hospital. We will continue to actively treat the patient with the hope and expectation that he will eventually be able to cooperate with our efforts to investigate diversionary strategies to avoid long-term psychiatric hospitalization. Patient is motivated to cooperate with a diversionary plan, and thus far has si gned adequate releases to allow for aftercare referrals and to begin the CRR referral process. Patient did receive his second injection of 300 mg of haloperidol decanoate on 03/18/2019 - oral haloperidol discontinued. [place] acceptance remains in place should patient's condition worsen or diversion seem appropriate. (1) Schizophrenia: 02/20--The patient was admitted to the [facility] ([facility] unit) on q15 min checks (behavioral with suicide precautions) for safety. The patient will participate in group, recreational, and milieu therapies and will be offered additional individual and family sessions as clinically appropriate. Reviewed that he should resume antipsychotic medication FABIO and he would only discuss benzos. Adamant he won't resume Risperdal. Will offer Haldol 5 mg with Ativan 2 mg (take Haldol first) TID and readdress when less agitated. 02/21--mild improvement today in that less thought blocking and slightly less irritability. Refused meds again this am. In my opinion (Dr. Diaz), antipsychotic medication is medically necessary for the treatment of his psychosis given risk of or serious injury within 30 days. He has shown a pattern of non-compliance and escalating and threatening behavior in the community and his condition is unlikely to improve without forced psychiatric medications. Will order Haldol [address] Hubbard to provide second opinion on this and likely 303 petition tomorrow. 02/22 -patient remains inappropriate for groups and therapy, due to threatening and menacing behavior with staff and peers. Continue private room. -Increase haloperidol to 10 mg twice daily, and continue as needed doses. Agree with medications over objection, as patient has a history of a primary thought disorder, has been noncompliant with treatment which has led to decompensation, increasing psychosis, and escalating threatening and aggressive behavior in the community and now in the hospital. He required physical and chemical restraints in the ER due to threats to staff and attempts to leave. He has improved with antipsychotic medication in the past. -File for 303 hearing to be held tomorrow. -Patient remains uncooperative with attempts to assess him, will not provide historical information such as where he has been living or if he has any outpatient treatment, or sign releases for family or friends to provide collateral information. 02/23 -303 commitment granted. -Continue private room given threatening behavior, agitation, and recent history of erratic and inappropriate behavior in the community. Patient not yet appropriate for groups. -Continue haloperidol 10 mg twice daily, and 5 mg as needed. Will order an IM backup for refusal, as he has been seen by 2 physicians who both agree with medications over objection. He will likely need a long-acting injectable antipsychotic given his history of nonadherence. -Parents report he has been abusing benzodiazepines, and he is very focused on getting them here, asking for them frequently and receiving 8 mg of lorazepam daily. Will decrease to 1 mg every 4 hours as needed, with a plan to taper off prior to discharge given risk of abuse/misuse/negative outcomes. -Contact forensic egg caser, Harriett Treviño, and schedule a meeting to discuss treatment plan. Patient will likely need an involuntary outpatient commitment. 02/24 -continue Haldol p.o. with IM backup, and lorazepam as needed. Patient refusing to discuss other antipsychotic options, so if he remains on haloperidol, can receive Haldol Decanoate once the effective dose is reached. -Encourage patient to sign releases for his parents and for outpatient treatment referrals, so that discharge planning can begin. -Continue to enforce appropriate boundaries, as patient has been sexually inappropriate with female peer. Continue private room, and excused from groups until he is able to maintain behavioral control. 02/25 -continue Haldol, and lorazepam as needed. -Attempt scheduled family meeting with parents and his outpatient egg caser. -Encourage the patient to start engaging in treatment. He is willing to meet with a counselor one-on-one today. -Appropriate boundaries-patient has been reminded repeatedly of the need to cover his genital area and the inappropriateness of his sexual propositions to females. 02/26 -The patient is taking haloperidol 10 mg twice a day as prescribedalthough he repeatedly asks to have this medication discontinued. At the same time, he cannot or will not say, specifically, why he would like haloperidol to be di scontinued, other than to say "it is not what I need." (The patient does appear to be tolerating haloperidol well, except for some excess sedation at this point.) -The patient continues to appear suspicious and is withdrawn. He is declining to actively participate in treatment. 02/27 Continue medication regimen unchanged 304 hearing scheduled for Friday. Patient will require chest x-ray and EKG prior to transfer to [facility]. 02/28 Patient demonstrating some improved ability to participate and interacting more appropriately with peers and staff in last 24 hours. We will continue to advance therapeutic programming as tolerated and indicated. Continue Haldol as scheduled which remains well-tolerated. 03/01 -Patient noncompliant with mouth checks and continues to go to the bathroom just after taking pills; due to concerns for cheeking, will switch to liquid haloperidol, with IM back up for refusal. -304 granted. Refer to [facility]. -Schedule meeting with patient, egg caser, and family for discharge planning/exploring diversion options. 03/02 - Continue liquid haloperidol as above - Refusing to sign ROIs to allow for consideration or adequate coordination of diversion options. 03/03 - Continue current haloperidol dosing, liquid as above - Pt signed some conditional ROIs this morning to allow for potential coordination of diversion plan 03/04 - Continue current medication regimen - Meeting with mother and [employer] rental sales representative to discuss diversionary discharge planning tomorrow morning - Continue to encourage participation in groups to most adequately assess thought content/process and appropriate behavior, these all appear to be improving 03/05 -We have been discussing the option of converting immediate release oral haloperidol to Haldol Decanoate, given his history of nonadherence. The patient's initial response was to become irritated and insists that he does not have a history of nonadherence with medications (even though he was initially nonadherent even here in the hospital). Later, he seemed to recognize that it is reasonable for treatment providers and caregivers to be concerned about his history of nonadherence with medications, and offered reassurance that he would promise to continue to take psychiatric medications as prescribedbut he does not want to take an intramuscular form. 03/06 - continue to engage ieth him about his medication and treatment plan and addressing potential of Haldol Dec CASTANEDA. addressing if pt is willing to sign TERRY's for CRR's as potential plans for diversion from [facility] referral 03/07 - making progress towards TERRY and possibility of haldol Dec but not fully occurred as of yet 03/08 -The patient appears to be less suspicious and is more cooperative. Symptoms such as thought blocking appear to have improved significantly. He continues to show obsessive symptoms and, for example, still has not actually executed the necessary release of information documents that we will need to pursue diversion from long-term hospitalization. He has expressed a willingness to do so for several days now, but has yet to actually follow through. -Although it has been difficult to get specific information from the patient regarding his thought content, he does seem to be much more trusting, less suspicious, and more animated, a set of circumstances that we are attributing to antipsychotic medication. 03/09 - Continue current medication regimen, with ongoing encouragement for consideration of haloperidol decanoate - Pt requesting additional meeting with BSU and parents - seems appropriate as still considering diversion planning, will determine appropriate timing for a second meeting as well as clear objectives to discuss 03/10 - Continue as above - Attempting to schedule outpatient treatment team meeting for 03/15 - Continue to encourage participation in group programming in order to demonstrate appropriateness for diversionary planning 03/11 - As above - Continue to reinforce recommendation for CASTANEDA due to compliance concerns and increase likelihood of diversionary planning being appropriate - Continue to encourage increased group participation 03/12 -The patient seems to have 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 He continues to insist that the reasons for his hospitalizations and various behaviors observed in the community are simply a function of the difficulty that other people have an understanding him and his reasoning. -Oral Haldol 10 mg twice a day seems to have helped the patient be less suspicious and more cooperative. However, the patient continues to lacks substantial insight into his illness, the nature of the problems that have occurred in the community, and his need for certain forms of treatment. -All members of the patient's treatment team will need to continuously and consistently reinforce the fact that we are recommending that he agree to take Haldol Decanoate because in our clinical opinion it is medically necessary, and in the opinion of the [facility] that will possibly arrange for [facility] diversion, they are not willing to agree to diversion if the patient is not cooperating with the recommendations of the hospital. 03/13/19 - patient again wishes to discuss ways to work on discharge, discussed attending groups being able to show ability to be around others and have be havioral control and ability to participate, taking medications as prescribed to include strong recommendation for haldol decanoate or other CASTANEDA to help wtih compliance after discharge given his limited insight, and for aftercare to be established. He is considering haldol decanoate understanding it is available today but asks to start it "friday" for unclear reasons. TO maintain alliance will continue to offer but not pressure. 03/14 - repeated many aspects of our discussion yesterday it is unclear but seems to be possible OCD and doubt wtih reassurance seeking vs. ambivalence. He is asking good questions about timelines and seems to be able to manipulate the information given to him even though he is showing some evidence of slowed thoughts. He does state he is willing to take the hadol deconoate shot. DIscussed r/b/se/a to include but not limited to acute possibility of EPS/dystonia, akathisia, and longer term risks needing to monitor for Tardive dyskinesia in laymans terms. DIscussed need to get his medication in two shots divided due to the oral dose he is taking and the need to overlap the oral medication for a time (per package instructions initial dose should be 20times oral dose for high dose individuals at risk for relapse, and initial shot should not exceed 100mg, and balance of med given 3-7days after initial shot.) which would be 300mg in 3-7days. Discussed this with pharmacy. Maintenance dose would be 10-15x the oral stabilizing dose, meaning 200-300mg IM which would be given in a month from first shot. We would taper the oral medications over 3 weeks, or faster if side effects emerge. Will ask staff to do routine assessments of stiffness to minimize EPS/dystonia in this cross taper. 03/15 - Continue current medication regimen - Continue oral haloperidol 10mg BID, with taper over the next few weeks - Continue regular monitoring for EPS/dystonia - Meeting this afternoon with [facility] mental health representatives to discuss treatment plan moving forward 03/16 - Continue current medication regimen; continue oral haloperidol 10mg BID - Haldol decanoate injection for 300mg IM is scheduled to be given 03/18/19 - Discontinue MNPR - Meeting held with BSU, patient, and parents yesterday; will continue to solidify aftercare plan, as [facility] verbalized agreement with diversion attempt 03/17 - Continue current treatment plan; oral haloperidol 10mg BID - Will receive Haldol decanoate 300mg IM tomorrow, 03/18/19 - Continue to determine clear aftercare and establish with outpatient psychiatric providers 03/18 - Patient willingly accepted second injection of Haldol decanoate 300mg IM today - no evidence of EPS/TD - Will reduce oral haloperidol to 5mg qAM and 10mg qHS - continue taper over the next few weeks - Oral Cogentin is available for signs of EPS - will order IM injection to have available for acute dystonia - Continue to determine clear aftercare plan; continue collaboration with BSU for appropriate outpatient providers for 304 IOC 03/19 - Will discontinue oral haloperidol - no physical evidence of EPS/dystonia on exam today - Continue to arrange appropriate after and discharge plan 03/22 - 03/24 - Continue current medication regimen - haloperidol decanoate with prn benztropine available - Encourage patient's participation in group and recreational programming - Continue to encourage cooperation with discharge planning (2) Noncompliance with medication regimen: 02/22 -patient with chronic noncompliance which has severely impaired his ability to function or provide for his own basic needs in the community. He will likely need an involuntary outpatient commitment. 02/23 -303 commitment granted. Pursue medications over objection, consider long- acting injectable, and schedule meeting with forensic egg caser. 02/25 -file for 304 involuntary commitment, as state hospitalization may be needed given severity of his illness, lack of insight and unwillingness to enga ge in treatment, and pattern of noncompliance with treatment. Patient has requested an independent evaluation, so the hearing will be scheduled sometime next week once that is completed. Patient was informed, and states his preference is to leave the hospital immediately, with no outpatient treatment. 02/26 -The patient seems to have no insight into his illness, no insight into his need for treatment (with the exception of stimulant medications and clonazepam). He acknowledges that he had been in outpatient treatment, but stopped going "because it is not necessary." -Because of the severity of illness, the patient's lack of insight, and is not adherence with treatment on an outpatient basis, the plan was reiterated today is to refer the patient for long-term psychiatric hospitalization. 03/01 -Concerns for cheeking as above; change to liquid haloperidol with IM backup for refusal. Work towards long acting injectable. -304 granted; refer to [facility]. 03/05 -The patient seems to have improved since being given liquid haloperidol, which suggests but does not confirm that he had been "cheeking" his haloperidol tablets. This circumstance, combined with his history of recurrent nonadherence with medications on an outpatient basis are reasons that the treatment team agrees that a condition of discharge needs to be willingness to accept intramuscular Depo antipsychotic medications. 03/06 =as above 03/08 -Today, the patient says that he is giving "serious consideration" to agreeing to take an intramuscular injection of Haldol Decanoate. He understands that this is 1 of the things that we are expecting him to agree to as part of an effort to actively pursue diversion. Despite the patient's agreement that he will "seriously consider" Haldol Decanoate, he still has not agreed to take it. His history of nonadherence in the community, coupled with dangerous behaviors when not medicated, are the primary reasons that long-term psychiatric hospitalization appears to be necessary 03/10 - revisited recommendation that the patient consider CASTANEDA haloperidol decanoate prior to discharge. Pt is resistant to the idea, as he feels he does not need this form of medication. He states he is "considering it" 03/12 -The patient has variously said that he is "considering" or "seriously considering" conversion to long-acting haloperidol decanoate prior to discharge. However, to date, he has not moved past "seriously considering." -Today, we explained again that the agency that we will have control over the question of diversion from admission to the [facility] will not consider diversion unless he is adherent with our recommendations and that are recommendations include active participation in therapy, a willingness to be cooperative and forthcoming with the treatment team, and agreement to take Depo antipsychotic medication. 03/13 as above 03/14 patient agreed to loading dose of haldol decanoate today, 100mg IM to be given today 03/16 - Continues to accept reminders of his second Haldol decanoate injection; 300mg IM is scheduled for 03/18/1903/18 - Pt willingly accepted second injection of Haldol decanoate today (3) Anxiety: 02/22 -patient reports anxiety, but otherwise uncooperative with the assessment and does not appear overtly anxious; refusing vital signs for the last 3 days. He has been demanding high-dose benzodiazepines, and has been repeatedly informed that these are not indicated, but that Lorazepam is ordered as needed to be taken with haloperidol. 02/23 -parents describe history of OCD symptoms. Patient unwilling to participate in assessment, and no noticeable compulsions here, so unclear if currently active. Continue to monitor and assess. 02/25 -patient denies OCD symptoms, and none have been observed here. He does report feeling "anxious," but is a poor historian and unable to get much further information. He does not appear to be expansive panic. We will continue to ass ess and rule out SYBIL. He is refusing an SSRI antidepressant, wanting only benzodiazepines. 02/28Possibility of obsessive concern for germs again raised by nursing following his reluctance to take the Haldol tablet after it touched his pillow and reluctance to touch his silverware again after he has finished eating. Patient denies obsessions or compulsions but we will continue to monitor. 03/01 - Patient refusing to discuss OCD symptoms. 03/05 -Today, the patient was able to talk about his obsessive-compulsive symptoms, and his parents presence. However, he insisted that the thoughts and behaviors were not in any way abnormal, and he said "of other people have a problem with that, that is up to them." Reported behaviors include handwashing, fear of infectious disease contamination, and, for example, reluctance to touch other people, including his parents. 03/08 -The patient reports that he realizes that he has been "obsessive" which is also evidence of some improvement. 03/12 -The patient voices anxiety in association with the difficulty that he is understanding the expectations of the treatment team, as well as an anxiety associated with the possibility of long-term psychiatric hospitalization. 03/24 - Lorazepam reduced to 0.5mg daily prn - with intention that the medication be discontinued on discharge (4) Substance abuse: 02/22 -drug screen positive for THC. Once he is less psychotic, we will need to provide education regarding the risks of cannabis use, specifically exacerbation of psychotic symptoms. -On admission, patient reported being prescribed clonazepam 2 mg twice daily, and per PDMP he last filled a prescription on 12/17/2018, from a Dr. Matt Oneill in [place], [place]. In the past year, he has filled clonazepam and dextroamphetamine/amphetamine prescriptions from 5 different clinicians in different parts of the state, a pattern consistent with substance abuse and drug-seeking. He does not appear to have been on clonazepam consistently, as his last 2 prescriptions were filled in 06/2018 and 12/2018. 02/23 -parents report history of alcohol, cannabis, benzodiazepine, and stimulant abuse. This is also indicated in previous records from 2017 hospitalization. -Avoid controlled substances given high risk of abuse. 02/26-Today, the patient tells us that he is able to take buspirone at an unspecified dose, but when we offered to prescribe this to him for anxiety he said "it is not necessary." When asked why clonazepam is necessary, if buspirone is not, he simply repeated "clonazepam is necessary. Buspirone is not necessary." 03/05 -The patient continues to have essentially no insight into the risks associated with the use of alcohol, cannabis, benzodiazepines, stimulants, and other drugs of abuse. When it was explained to him that these substances can and do interfere with treatment for mental illnesses such as schizophrenia, his replies to say "I do not have schizophrenia." 03/08 -The patient has not requested benzodiazepines and has not mentioned a need for chemical substances such as alcohol, cannabis, stimulant medications and other drugs of abuse, and is now more focused on meeting criteria for community diversion. Inventory Assets Strengths: College graduate. Supportive family. Needs: clarification of legal charges, outpatient services, adherence with treatment and medications Risk Factors Assessment Male: Yes : No Do You Have Access To A Gun?: No Health Problems: No Mental Health Diagnoses: Yes Substance Use Disorders: Yes Previous Psychiatric Hospitalization: Yes Protective Factors Assessment : No Responsible for Young Children: No Employed: No Supportive Family: Yes Good Rapport with Provider: No Interval History Identifying Information DENISE MURRY is a 24-year-old M who has a history of schizophrenia, who was admit melissa on 02/19/19 17:23 on a 302 involuntary commitment for threatening behavior in the community. He is on a 304 involuntary commitment as of 03/01/2019. Chief Complaint "I am making progress just fine." Review of Systems Notes Constitutional: denied Cardiovascular: denied Respiratory: denied Gastrointestinal: denied Neurological: denied Psychiatric: denies symptoms other than stated above Total of at least 10 systems reviewed, pertinent positives as above and in HPI. Sleep Information Total Hours of Sleep: 8 Sleep Comments: pt on q-15 minute checks Meal Information Percent Meal Consumed - Breakfast: 100 Percent Meal Consumed - Lunch: 100 Percent Meal Consumed - Dinner: 100 Nutrition Comment: pt consistently throws away plastic utensils after eating rather than handing them back in Subjective Subjective Patient was seen & assessed and interval progress reviewed with Treatment Team. Staff report the patient met with his egg caser yesterday and signed appropriate ROIs. He participated intermittently with groups, but not for the full duration. Pt was seen today to assess progress since admission. He states he is "fine" today and reports "feeling like I'm making progress just fine." Pt inquires about current discharge plan, as he is aware his length of stay was reduced during treatment team today. He was reminded of current options our team is looking into to provide him with a psychiatrist, and states "I think we need to broaden the search." Pt was informed there is still no formal discharge date. Pt denied other needs or concerns at this time. Physical Exam Psychiatric Orientation: alert, oriented x 3 and + guarded (but superficially cooperative) Apperance: appropriately dressed, appropriately groomed and appeared stated age Eye Contact: good eye contact Motor Behavior: no abnormal motor movements (observed while laying in bed) Speech: normal rate/rhythm/volume of speech Affect: + flat affect Mood: no depressed mood and no anxious mood "I feel like I'm making progress just fine" Thought Process: goal directed thought process and + concrete thought process Thought Content: reality based without delusions (no delusional beliefs verbalized) Suicidal Thoughts: denies suicidal thoughts Homicidal Thoughts: denies homicidal thoughts Hallucinations: no auditory hallucinations and no visual hallucinations Cognition: attention grossly intact and language grossly intact Estimated Intelligence: consistent with education level Insight: + impaired insight Judgement: + impaired judgement Vital Signs (Past 24 Hours) Last Vital Signs Temp 36.8 C 02/19/19 19:39 Pulse 76 03/09/19 11:28 Resp 14 03/09/19 11:28 BP 113/67 03/09/19 11:28 Pulse Ox 99 02/19/19 19:39 Results & Data Current Inpatient Medications Current Inpatient Medications: Current Inpatient Medications Acetaminophen (Tylenol) 650 mg PO Q4H PRN PRN Reason: Headache or Minor Fever Stop: 04/22/19 08:38 Al Hydrox/Mg Hydrox/Simethicone (Maalox) 30 ml PO Q4H PRN PRN Reason: GI Upset Stop: 04/22/19 08:38 Benztropine Mesylate (Cogentin) 2 mg IM Q6 PRN PRN Reason: severe dystonic reaction Stop: 04/17/19 16:22 Benztropine Mesylate (Cogentin) 1 mg PO Q8H PRN PRN Reason: EPS/dystonia Stop: 04/22/19 08:36 Bismuth Subsalicylate (Kaopectate) 15 ml PO PRN PRN PRN Reason: Loose Stool Stop: 04/22/19 08:38 Hydroxyzine HCl (Vistaril) 25 mg PO Q4H PRN PRN Reason: Anxiety Stop: 04/22/19 08:38 Hydroxyzine HCl (Vistaril) 50 mg PO HSZ PRN PRN Reason: Insomnia Stop: 04/22/19 08:38 Lorazepam (Ativan) 0.5 mg PO DAILY PRN PRN Reason: Anxiety Stop: 04/22/19 14:25 Magnesium Hydroxide (Milk Of Magnesia) 30 ml PO DAILY PRN PRN Reason: Heartburn Stop: 04/22/19 08:38 Sodium Chloride ([place] Nasal) 1 - 2 sprays NA PRN PRN PRN Reason: Nasal Dryness/Congestion Stop: 04/22/19 08:38 Mental Health & Subst Abuse Tx Psychiatrist Name of Psychiatrist: [facility]? Psychiatrist's Therapist Name of Therapist: Lindsay Gates Therapist's Date of Therapist Appointment: 04/09/19 Time of Therapist Appointment: 9:30am Open Cut Examiner Name of Open Cut Examiner: [facility] - Antonio Schofield? Phone Number for Open Cut Examiner: [phone] Date of Appointment with Open Cut Examiner: 03/31/19 Time of Appointment with Open Cut Examiner: 9am Case Management Appointment Comment: and 05/10/19 at 10:30am. [address] [facility] [address] [facility] [place] Post Discharge Appointments Primary Care Physician Name Of Family Doctor: STACEY Holt Contact Information Discharge Discharge Address: [address] [place] [address] CPT Code CPT Code 99731 (1) Schizophrenia Schizophrenia type: unspecified Qualified Code(s): F20.9 - Schizophrenia, unspecified
[2019-03-24] MEDS: LORazepam 0.5 MG TAB PO PRN (21:55)
--- NOTE | 2019-03-25 11:45 | Psychiatric Progress Note ---
Date of Service March 25, 2019 Impression / Recommendations Impression 24 y/o male with a history of schizophrenia, OCD, treatment nonadherence, and polysubstance abuse who presented with disorganized and threatening behavior, in the context of nonadherence, decompensation for the last several months and ongoing substance abuse. He was admitted on an involuntary commitment following escalating interactions with the police over disorganized and threatening behavior in the community, and is on a 304 involuntary commitment as of 03/01/19. Overall, he has been less suspicious, more forthcoming, and more willing to trust. The reason that the patient currently requires psychiatric h ospitalization is the fact that he has consistently, and fairly quickly, stopped psychiatric treatment, including all psychiatric medications (other than benzodiazepines) upon release from hospitals, or after they have otherwise been prescribed. His history is such that medication and other forms of treatment adherence in the community, he is at current ongoing risk for causing serious physical harm to the person of others and to himself. This is the case with many individuals who suffer from serious and persistent mental illnesses, but the goal is for the patient to understand that he needs active psychiatric treatment in the community, as an alternative to return to the hospital. We will continue to actively treat the patient with the hope and expectation that he will eventually be able to cooperate with our efforts to investigate diversionary strategies to avoid long-term psychiatric hospitalization. Patient is motivated to cooperate with a diversionary plan, and thus far has si gned adequate releases to allow for aftercare referrals and to begin the CRR referral process. Patient did receive his second injection of 300 mg of haloperidol decanoate on 03/18/2019 - oral haloperidol discontinued. [place] acceptance remains in place should patient's condition worsen or diversion seem appropriate. (1) Schizophrenia: 02/20--The patient was admitted to the [facility] ([facility] mental health unit) on q15 min checks (behavioral with suicide precautions) for safety. The patient will participate in group, recreational, and milieu therapies and will be offered additional individual and family sessions as clinically appropriate. Reviewed that he should resume antipsychotic medication FABIO and he would only discuss benzos. Adamant he won't resume Risperdal. Will offer Haldol 5 mg with Ativan 2 mg (take Haldol first) TID and readdress when less agitated. 02/21--mild improvement today in that less thought blocking and slightly less irritability. Refused meds again this am. In my opinion (Dr. Diaz), antipsychotic medication is medically necessary for the treatment of his psychosis given risk of or serious injury within 30 days. He has shown a pattern of non-compliance and escalating and threatening behavior in the community and his condition is unlikely to improve without forced psychiatric medications. Will order Haldol [address] Hubbard to provide second opinion on this and likely 303 petition tomorrow. 02/22 -patient remains inappropriate for groups and therapy, due to threatening and menacing behavior with staff and peers. Continue private room. -Increase haloperidol to 10 mg twice daily, and continue as needed doses. Agree with medications over objection, as patient has a history of a primary thought disorder, has been noncompliant with treatment which has led to decompensation, increasing psychosis, and escalating threatening and aggressive behavior in the community and now in the hospital. He required physical and chemical restraints in the ER due to threats to staff and attempts to leave. He has improved with antipsychotic medication in the past. -File for 303 hearing to be held tomorrow. -Patient remains uncooperative with attempts to assess him, will not provide historical information such as where he has been living or if he has any outpatient treatment, or sign releases for family or friends to provide collateral information. 02/23 -303 commitment granted. -Continue private room given threatening behavior, agitation, and recent history of erratic and inappropriate behavior in the community. Patient not yet appropriate for groups. -Continue haloperidol 10 mg twice daily, and 5 mg as needed. Will order an IM backup for refusal, as he has been seen by 2 physicians who both agree with medications over objection. He will likely need a long-acting injectable antipsychotic given his history of nonadherence. -Parents report he has been abusing benzodiazepines, and he is very focused on getting them here, asking for them frequently and receiving 8 mg of lorazepam daily. Will decrease to 1 mg every 4 hours as needed, with a plan to taper off prior to discharge given risk of abuse/misuse/negative outcomes. -Contact forensic sample case porter, Harriett Treviño, and schedule a meeting to discuss treatment plan. Patient will likely need an involuntary outpatient commitment. 02/24 -continue Haldol p.o. with IM backup, and lorazepam as needed. Patient refusing to discuss other antipsychotic options, so if he remains on haloperidol, can receive Haldol Decanoate once the effective dose is reached. -Encourage patient to sign releases for his parents and for outpatient treatment referrals, so that discharge planning can begin. -Continue to enforce appropriate boundaries, as patient has been sexually inappropriate with female peer. Continue private room, and excused from groups until he is able to maintain behavioral control. 02/25 -continue Haldol, and lorazepam as needed. -Attempt scheduled family meeting with parents and his outpatient sample case porter. -Encourage the patient to start engaging in treatment. He is willing to meet with a counselor one-on-one today. -Appropriate boundaries-patient has been reminded repeatedly of the need to cover his genital area and the inappropriateness of his sexual propositions to females. 02/26 -The patient is taking haloperidol 10 mg twice a day as prescribedalthough he repeatedly asks to have this medication discontinued. At the same time, he cannot or will not say, specifically, why he would like haloperidol to be di scontinued, other than to say "it is not what I need." (The patient does appear to be tolerating haloperidol well, except for some excess sedation at this point.) -The patient continues to appear suspicious and is withdrawn. He is declining to actively participate in treatment. 02/27 Continue medication regimen unchanged 304 hearing scheduled for Friday. Patient will require chest x-ray and EKG prior to transfer to [facility]. 02/28 Patient demonstrating some improved ability to participate and interacting more appropriately with peers and staff in last 24 hours. We will continue to advance therapeutic programming as tolerated and indicated. Continue Haldol as scheduled which remains well-tolerated. 03/01 -Patient noncompliant with mouth checks and continues to go to the bathroom just after taking pills; due to concerns for cheeking, will switch to liquid haloperidol, with IM back up for refusal. -304 granted. Refer to [facility]. -Schedule meeting with patient, sample case porter, and family for discharge planning/exploring diversion options. 03/02 - Continue liquid haloperidol as above - Refusing to sign ROIs to allow for consideration or adequate coordination of diversion options. 03/03 - Continue current haloperidol dosing, liquid as above - Pt signed some conditional ROIs this morning to allow for potential coordination of diversion plan 03/04 - Continue current medication regimen - Meeting with mother and [employer] market survey representative to discuss diversionary discharge planning tomorrow morning - Continue to encourage participation in groups to most adequately assess thought content/process and appropriate behavior, these all appear to be improving 03/05 -We have been discussing the option of converting immediate release oral haloperidol to Haldol Decanoate, given his history of nonadherence. The patient's initial response was to become irritated and insists that he does not have a history of nonadherence with medications (even though he was initially nonadherent even here in the hospital). Later, he seemed to recognize that it is reasonable for treatment providers and caregivers to be concerned about his history of nonadherence with medications, and offered reassurance that he would promise to continue to take psychiatric medications as prescribedbut he does not want to take an intramuscular form. 03/06 - continue to engage ieth him about his medication and treatment plan and addressing potential of Haldol Dec CASTANEDA. addressing if pt is willing to sign TERRY's for CRR's as potential plans for diversion from [facility] referral 03/07 - making progress towards TERRY and possibility of haldol Dec but not fully occurred as of yet 03/08 -The patient appears to be less suspicious and is more cooperative. Symptoms such as thought blocking appear to have improved significantly. He continues to show obsessive symptoms and, for example, still has not actually executed the necessary release of information documents that we will need to pursue diversion from long-term hospitalization. He has expressed a willingness to do so for several days now, but has yet to actually follow through. -Although it has been difficult to get specific information from the patient regarding his thought content, he does seem to be much more trusting, less suspicious, and more animated, a set of circumstances that we are attributing to antipsychotic medication. 03/09 - Continue current medication regimen, with ongoing encouragement for consideration of haloperidol decanoate - Pt requesting additional meeting with BSU and parents - seems appropriate as still considering diversion planning, will determine appropriate timing for a second meeting as well as clear objectives to discuss 03/10 - Continue as above - Attempting to schedule outpatient treatment team meeting for 03/15 - Continue to encourage participation in group programming in order to demonstrate appropriateness for diversionary planning 03/11 - As above - Continue to reinforce recommendation for CASTANEDA due to compliance concerns and increase likelihood of diversionary planning being appropriate - Continue to encourage increased group participation 03/12 -The patient seems to have 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 He continues to insist that the reasons for his hospitalizations and various behaviors observed in the community are simply a function of the difficulty that other people have an understanding him and his reasoning. -Oral Haldol 10 mg twice a day seems to have helped the patient be less suspicious and more cooperative. However, the patient continues to lacks substantial insight into his illness, the nature of the problems that have occurred in the community, and his need for certain forms of treatment. -All members of the patient's treatment team will need to continuously and consistently reinforce the fact that we are recommending that he agree to take Haldol Decanoate because in our clinical opinion it is medically necessary, and in the opinion of the [facility] unit that will possibly arrange for [facility] diversion, they are not willing to agree to diversion if the patient is not cooperating with the recommendations of the hospital. 03/13/19 - patient again wishes to discuss ways to work on discharge, discussed attending groups being able to show ability to be around others and have be havioral control and ability to participate, taking medications as prescribed to include strong recommendation for haldol decanoate or other CASTANEDA to help wtih compliance after discharge given his limited insight, and for aftercare to be established. He is considering haldol decanoate understanding it is available today but asks to start it "friday" for unclear reasons. TO maintain alliance will continue to offer but not pressure. 03/14 - repeated many aspects of our discussion yesterday it is unclear but seems to be possible OCD and doubt wtih reassurance seeking vs. ambivalence. He is asking good questions about timelines and seems to be able to manipulate the information given to him even though he is showing some evidence of slowed thoughts. He does state he is willing to take the hadol deconoate shot. DIscussed r/b/se/a to include but not limited to acute possibility of EPS/dystonia, akathisia, and longer term risks needing to monitor for Tardive dyskinesia in laymans terms. DIscussed need to get his medication in two shots divided due to the oral dose he is taking and the need to overlap the oral medication for a time (per package instructions initial dose should be 20times oral dose for high dose individuals at risk for relapse, and initial shot should not exceed 100mg, and balance of med given 3-7days after initial shot.) which would be 300mg in 3-7days. Discussed this with pharmacy. Maintenance dose would be 10-15x the oral stabilizing dose, meaning 200-300mg IM which would be given in a month from first shot. We would taper the oral medications over 3 weeks, or faster if side effects emerge. Will ask staff to do routine assessments of stiffness to minimize EPS/dystonia in this cross taper. 03/15 - Continue current medication regimen - Continue oral haloperidol 10mg BID, with taper over the next few weeks - Continue regular monitoring for EPS/dystonia - Meeting this afternoon with [facility] mental health representatives to discuss treatment plan moving forward 03/16 - Continue current medication regimen; continue oral haloperidol 10mg BID - Haldol decanoate injection for 300mg IM is scheduled to be given 03/18/19 - Discontinue MNPR - Meeting held with BSU, patient, and parents yesterday; will continue to solidify aftercare plan, as [facility] verbalized agreement with diversion attempt 03/17 - Continue current treatment plan; oral haloperidol 10mg BID - Will receive Haldol decanoate 300mg IM tomorrow, 03/18/19 - Continue to determine clear aftercare and establish with outpatient psychiatric providers 03/18 - Patient willingly accepted second injection of Haldol decanoate 300mg IM today - no evidence of EPS/TD - Will reduce oral haloperidol to 5mg qAM and 10mg qHS - continue taper over the next few weeks - Oral Cogentin is available for signs of EPS - will order IM injection to have available for acute dystonia - Continue to determine clear aftercare plan; continue collaboration with BSU for appropriate outpatient providers for 304 IOC 03/19 - Will discontinue oral haloperidol - no physical evidence of EPS/dystonia on exam today - Continue to arrange appropriate after and discharge plan 03/22 - 03/25 - Continue current medication regimen - haloperidol decanoate with prn benztropine available - Encourage patient's participation in group and recreational programming - Continue to encourage cooperation with discharge planning (2) Noncompliance with medication regimen: 02/22 -patient with chronic noncompliance which has severely impaired his ability to function or provide for his own basic needs in the community. He will likely need an involuntary outpatient commitment. 02/23 -303 commitment granted. Pursue medications over objection, consider long- acting injectable, and schedule meeting with forensic sample case porter. 02/25 -file for 304 involuntary commitment, as state hospitalization may be needed given severity of his illness, lack of insight and unwillingness to enga ge in treatment, and pattern of noncompliance with treatment. Patient has requested an independent evaluation, so the hearing will be scheduled sometime next week once that is completed. Patient was informed, and states his preference is to leave the hospital immediately, with no outpatient treatment. 02/26 -The patient seems to have no insight into his illness, no insight into his need for treatment (with the exception of stimulant medications and clonazepam). He acknowledges that he had been in outpatient treatment, but stopped going "because it is not necessary." -Because of the severity of illness, the patient's lack of insight, and is not adherence with treatment on an outpatient basis, the plan was reiterated today is to refer the patient for long-term psychiatric hospitalization. 03/01 -Concerns for cheeking as above; change to liquid haloperidol with IM backup for refusal. Work towards long acting injectable. -304 granted; refer to [facility]. 03/05 -The patient seems to have improved since being given liquid haloperidol, which suggests but does not confirm that he had been "cheeking" his haloperidol tablets. This circumstance, combined with his history of recurrent nonadherence with medications on an outpatient basis are reasons that the treatment team agrees that a condition of discharge needs to be willingness to accept intramuscular Depo antipsychotic medications. 03/06 =as above 03/08 -Today, the patient says that he is giving "serious consideration" to agreeing to take an intramuscular injection of Haldol Decanoate. He understands that this is 1 of the things that we are expecting him to agree to as part of an effort to actively pursue diversion. Despite the patient's agreement that he will "seriously consider" Haldol Decanoate, he still has not agreed to take it. His history of nonadherence in the community, coupled with dangerous behaviors when not medicated, are the primary reasons that long-term psychiatric hospitalization appears to be necessary 03/10 - revisited recommendation that the patient consider CASTANEDA haloperidol decanoate prior to discharge. Pt is resistant to the idea, as he feels he does not need this form of medication. He states he is "considering it" 03/12 -The patient has variously said that he is "considering" or "seriously considering" conversion to long-acting haloperidol decanoate prior to discharge. However, to date, he has not moved past "seriously considering." -Today, we explained again that the agency that we will have control over the question of diversion from admission to the [facility] will not consider diversion unless he is adherent with our recommendations and that are recommendations include active participation in therapy, a willingness to be cooperative and forthcoming with the treatment team, and agreement to take Depo antipsychotic medication. 03/13 as above 03/14 patient agreed to loading dose of haldol decanoate today, 100mg IM to be given today 03/16 - Continues to accept reminders of his second Haldol decanoate injection; 300mg IM is scheduled for 03/18/1903/18 - Pt willingly accepted second injection of Haldol decanoate today (3) Anxiety: 02/22 -patient reports anxiety, but otherwise uncooperative with the assessment and does not appear overtly anxious; refusing vital signs for the last 3 days. He has been demanding high-dose benzodiazepines, and has been repeatedly informed that these are not indicated, but that Lorazepam is ordered as needed to be taken with haloperidol. 02/23 -parents describe history of OCD symptoms. Patient unwilling to participate in assessment, and no noticeable compulsions here, so unclear if currently active. Continue to monitor and assess. 02/25 -patient denies OCD symptoms, and none have been observed here. He does report feeling "anxious," but is a poor historian and unable to get much further information. He does not appear to be expansive panic. We will continue to ass ess and rule out SYBIL. He is refusing an SSRI antidepressant, wanting only benzodiazepines. 02/28Possibility of obsessive concern for germs again raised by nursing following his reluctance to take the Haldol tablet after it touched his pillow and reluctance to touch his silverware again after he has finished eating. Patient denies obsessions or compulsions but we will continue to monitor. 03/01 - Patient refusing to discuss OCD symptoms. 03/05 -Today, the patient was able to talk about his obsessive-compulsive symptoms, and his parents presence. However, he insisted that the thoughts and behaviors were not in any way abnormal, and he said "of other people have a problem with that, that is up to them." Reported behaviors include handwashing, fear of infectious disease contamination, and, for example, reluctance to touch other people, including his parents. 03/08 -The patient reports that he realizes that he has been "obsessive" which is also evidence of some improvement. 03/12 -The patient voices anxiety in association with the difficulty that he is understanding the expectations of the treatment team, as well as an anxiety associated with the possibility of long-term psychiatric hospitalization. 03/24 - Lorazepam reduced to 0.5mg daily prn - with intention that the medication be discontinued on discharge (4) Substance abuse: 02/22 -drug screen positive for THC. Once he is less psychotic, we will need to provide education regarding the risks of cannabis use, specifically exacerbation of psychotic symptoms. -On admission, patient reported being prescribed clonazepam 2 mg twice daily, and per PDMP he last filled a prescription on 12/17/2018, from a Dr. Matt Oneill in [place], [place]. In the past year, he has filled clonazepam and dextroamphetamine/amphetamine prescriptions from 5 different clinicians in different parts of the state, a pattern consistent with substance abuse and drug-seeking. He does not appear to have been on clonazepam consistently, as his last 2 prescriptions were filled in 06/2018 and 12/2018. 02/23 -parents report history of alcohol, cannabis, benzodiazepine, and stimulant abuse. This is also indicated in previous records from 2017 hospitalization. -Avoid controlled substances given high risk of abuse. 02/26-Today, the patient tells us that he is able to take buspirone at an unspecified dose, but when we offered to prescribe this to him for anxiety he said "it is not necessary." When asked why clonazepam is necessary, if buspirone is not, he simply repeated "clonazepam is necessary. Buspirone is not necessary." 03/05 -The patient continues to have essentially no insight into the risks associated with the use of alcohol, cannabis, benzodiazepines, stimulants, and other drugs of abuse. When it was explained to him that these substances can and do interfere with treatment for mental illnesses such as schizophrenia, his replies to say "I do not have schizophrenia." 03/08 -The patient has not requested benzodiazepines and has not mentioned a need for chemical substances such as alcohol, cannabis, stimulant medications and other drugs of abuse, and is now more focused on meeting criteria for community diversion. Inventory Assets Strengths: College graduate. Supportive family. Needs: clarification of legal charges, outpatient services, adherence with treatment and medications Risk Factors Assessment Male: Yes : No Do You Have Access To A Gun?: No Health Problems: No Mental Health Diagnoses: Yes Substance Use Disorders: Yes Previous Psychiatric Hospitalization: Yes Protective Factors Assessment : No Responsible for Young Children: No Employed: No Supportive Family: Yes Good Rapport with Provider: No Interval History Identifying Information DENISE MURRY is a 24-year-old M who has a history of schizophrenia, who was admit melissa on 02/19/19 17:23 on a 302 involuntary commitment for threatening behavior in the community. He is on a 304 involuntary commitment as of 03/01/2019. Chief Complaint "I'm good." Review of Systems Notes Constitutional: denies fatigue, despite sleeping for a large part of the day Cardiovascular: denied Respiratory: denied Gastrointestinal: denied Neurological: denied Psychiatric: denies symptoms other than stated above Total of at least 10 systems reviewed, pertinent positives as above and in HPI. Sleep Information Total Hours of Sleep: 7.25 Sleep Comments: pt on q-15 minute checks Meal Information Percent Meal Consumed - Breakfast: 100 Percent Meal Consumed - Lunch: 100 Percent Meal Consumed - Dinner: 100 Nutrition Comment: pt consistently throws away plastic utensils after eating rather than handing them back in Subjective Subjective Patient was seen & assessed and interval progress reviewed with nursing and social work. Staff report the patient continues to be attending some groups, often arriving late and showing limited participation. His aftercare continues to be a concern, as primary plan is for discharge on a 304 outpatient commitment. Pt was seen today to assess progress since admission. He was encouraged to attend exercise group prior to our meeting, to which he agreed. Pt states he is "good" and denies any new concerns. Pt inquires about specifics regarding his anticipated outpatient 304 commitment and "the 90-day timeline for me to come back to the hospital." Pt was asked to clarify his comment, and we were eventually able to review what is to be expected should he be discharged to the community as anticipated. After reviewing his concerns, he was able to verbalize understanding of topics discussed. Pt denied any acute concerns. Physical Exam Psychiatric Orientation: alert, oriented x 3 and + guarded (but superficially cooperative) Apperance: appropriately dressed, appropriately groomed and appeared stated age Eye Contact: good eye contact Motor Behavior: steady gait and station and no abnormal motor movements (mildly slowed) Speech: normal rate/rhythm/volume of speech Affect: + flat affect Mood: no depressed mood and no anxious mood Thought Process: goal directed thought process Thought Content: no delusions (does not verbalize any delusional thought content) Suicidal Thoughts: denies suicidal thoughts Homicidal Thoughts: denies homicidal thoughts Hallucinations: no auditory hallucinations and no visual hallucinations Cognition: attention grossly intact and language grossly intact Estimated Intelligence: consistent with education level Insight: + fair insight (in general-can expect limitations to some degree due to nature of condition) Judgement: + fair judgement (in general-can expect limitations to some degree due to nature of condition) Vital Signs (Past 24 Hours) Last Vital Signs Temp 36.8 C 02/19/19 19:39 Pulse 76 03/09/19 11:28 Resp 14 03/09/19 11:28 BP 113/67 03/09/19 11:28 Pulse Ox 99 02/19/19 19:39 Results & Data Current Inpatient Medications Current Inpatient Medications: Current Inpatient Medications Acetaminophen (Tylenol) 650 mg PO Q4H PRN PRN Reason: Headache or Minor Fever Stop: 04/22/19 08:38 Al Hydrox/Mg Hydrox/Simethicone (Maalox) 30 ml PO Q4H PRN PRN Reason: GI Upset Stop: 04/22/19 08:38 Benztropine Mesylate (Cogentin) 2 mg IM Q6 PRN PRN Reason: severe dystonic reaction Stop: 04/17/19 16:22 Benztropine Mesylate (Cogentin) 1 mg PO Q8H PRN PRN Reason: EPS/dystonia Stop: 04/22/19 08:36 Bismuth Subsalicylate (Kaopectate) 15 ml PO PRN PRN PRN Reason: Loose Stool Stop: 04/22/19 08:38 Hydroxyzine HCl (Vistaril) 25 mg PO Q4H PRN PRN Reason: Anxiety Stop: 04/22/19 08:38 Hydroxyzine HCl (Vistaril) 50 mg PO HSZ PRN PRN Reason: Insomnia Stop: 04/22/19 08:38 Lorazepam (Ativan) 0.5 mg PO DAILY PRN PRN Reason: Anxiety Stop: 04/22/19 14:25 Last Admin: 03/24/19 21:55 Dose: 0.5 mg Documented by: Magnesium Hydroxide (Milk Of Magnesia) 30 ml PO DAILY PRN PRN Reason: Heartburn Stop: 04/22/19 08:38 Sodium Chloride ([place] Nasal) 1 - 2 sprays NA PRN PRN PRN Reason: Nasal Dryness/Congestion Stop: 04/22/19 08:38 Mental Health & Subst Abuse Tx Psychiatrist Name of Psychiatrist: [facility]? Psychiatrist's Therapist Name of Therapist: Lindsay Gates Therapist's Date of Therapist Appointment: 04/09/19 Time of Therapist Appointment: 9:30am Director Account Management Name of Director Account Management: [facility] - Antonio Schofield? Phone Number for Director Account Management: [phone] Date of Appointment with Director Account Management: 03/31/19 Time of Appointment with Director Account Management: 9am Case Management Appointment Comment: and 05/10/19 at 10:30am. [address] [place] [address] Post Discharge Appointments Primary Care Physician Name Of Family Doctor: STACEY Holt Contact Information Discharge Discharge [address]: [address] [place] [address], [place] [address] CPT Code CPT Code 67256 (1) Schizophrenia Schizophrenia type: unspecified Qualified Code(s): F20.9 - Schizophrenia, unspecified
[2019-03-25] MEDS: LORazepam 0.5 MG TAB PO PRN (23:22)
--- NOTE | 2019-03-26 13:13 | Discharge Summary ---
Date of Service March 26, 2019 History of Present Illness Kendall is very uncooperative with initial assessment. He states he wants discharged immediately and repeatedly asks for benzodiazepines. He takes no responsibility for why he is here and it's not clear that he remembers getting medication in the ED. There have been a dozen or more interactions with with police over the past year and multiple ED visits. He was agitated in the ED and received Haldol and Ativan. Charges were filed related to disorderly conduct, etc in December but his behavior has continued to escalate. He will wander around [place] and was asked to leave [facility] as staring made people uncomfortable. He has been on the radar of crisis management team and made a report that his mother was sexually inappropriate with him as she walked in on him naked (reportedly). Per the police he makes vague threats to others in the community and shakes his fist at deputies. When officers try to redirect him he talks about getting his firearms permit back. On 02/18 he was by the courthouse in nothing but his underwear. Sometimes he appears intoxicated and other times just disorganized. Availability of past treatment records limited due to the weekend but referred to inpatient hospitalizations in the past year from the ED ([facility]). PDMP shows rx's for Haldol prn, Klonopin 2 mg BID (last 01/03, #[address] [place]ill in [place], [place]), Alprazolam BID, Adderall XR (last 2017). Physical Exam Psychiatric Orientation: oriented x 3 Apperance: appropriately dressed, appropriately groomed and appeared stated age Eye Contact: good eye contact Motor Behavior: no abnormal motor movements Speech: normal rate/rhythm/volume of speech Affect: euthymic affect "Good." Thought Process: linear/logical thought process Thought Content: reality based without delusions Obsessive features persist. Suicidal Thoughts: denies suicidal thoughts, denies suicidal plan and denies suicidal intent Homicidal Thoughts: denies homicidal thoughts, denies homicidal plan and denies homicidal intent Hallucinations: no auditory hallucinations and no visual hallucinations Cognition: recent memory grossly intact, remote memory grossly intact, attention grossly intact and language grossly intact Estimated Intelligence: + above average estimated intelligence Insight: + fair insight Doesn't fully accept his diagnosis, but clearly understands that he is expected to adhere with recommended psychiatric treatment and he commits to adherence. Judgement: + fair judgement Vital Signs (Past 24 Hours) Last Vital Signs Temp 36.8 C 02/19/19 19:39 Pulse 76 03/09/19 11:28 Resp 14 03/09/19 11:28 BP 113/67 03/09/19 11:28 Pulse Ox 99 02/19/19 19:39 Principal Diagnosis Schizophrenia Psychiatric Data During the course of hospitalization the patient was offered various modalities of psychiatric treatment and education. He was also prescribed several forms of psychiatric medication. Initially, the patient's behavior was quite disorganized and somewhat hostile. He would periodically expose his genitalia to others on the unit, and also made inappropriate sexual advances towards female peers. He refused to participate in therapeutic groups and activities after he was cleared to begin participation, and he refused prescribed psychiatric medications, and indicated the only psychiatric medications that he would consider were stimulant medication such as Adderall, and benzodiazepines, such as clonazepam. (The patient has a known history of abusing benzodiazepines.) "Medication over objection" was determined to be medically necessary and the patient subsequently began to take oral haloperidol 10 mg twice a day voluntarily. However, the patient's condition did not seem to improve and it was subsequently realized that he had been "cheeking" and then expelling his Haldol tablets. Currently, the patient was placed on liquid haloperidol 10 mg twice daily and he began to show clinical improvement and that he became less suspicious, less hostile, and his behavior became more ap propriate in the milieu. However, the patient continued to essentially have no insight into his illness and repeatedly insisted that he should be discharged and did not need psychiatric medications. A prominent feature and evidence throughout the stay was the patient's tendency to be very obsessive. He understood, for example, that because of his history of nonadherence with outpatient treatment, combined with his history of multiple psychiatric hospitalizations secondary to dangerous behaviors, and because of his ongoing refusal to fully cooperate with treatment (agreed to accept monthly injections of haloperidol decanoate, regular attendance and therapeutic activities and groups, willingness to sign releases necessary to treatment planning) he was referred for long-term hospitalization at the [facility]. He told us that he most certainly did not wish to go to the [facility] and wanted to assist and are hope of being able to arrange a diversion. Nevertheless, he struggled with decision making and, for example, repeatedly modified releases of information by lying at certain phrases and inserting new clauses that essentially made the documents impossible to execute. There was also a long stretch of time during which the patient told his that he was "considering" and then "seriously considering" agreeing to accept haloperidol decanoate. There were a series of family meetings that were helpful and his parents demonstrated their deep concern and strong wish to be helpful and supportive. Eventually, the patient accepted haloperidol decanoate 100 mg IM, followed several days later by a second dose of haloperidol decanoate 300 mg daily. Subsequent to that, the patient became even more cooperative, began to attend groups and participate appropriately, appeared to be more animated and relaxed in the milieu, and remained appropriate and engaged. Also, we saw no further evidence of psychosis, nor did we see evidence of ongoing disorganized thinking and disorganized behavior. Aftercare arrangements were secured. His parents expressed a strong preference for the patient to return to their home. The patient continued to question his primary psychiatric diagnosis of schizophrenia, but he did not endorse other diagnoses, including ADHD and obsessive-compulsive disorder. Further, the patient stated that he clearly recognized that a condition of his discharge and a condition of avoiding rehospitalization would be full adherence with recommended outpatient treatments, including outpatient psychiatric/mental health appointments, as well as submitting to haloperidol decanoate injections. The current recommended dose at discharge was haloperidol decanoate 300 mg daily. His most recent dose of haloperidol decanoate was given on 03/18/2019 and his next scheduled dose will be 04/14/2019. The patient voiced full intention adhere to these expectations and seemed very interested in making sure that he was aware of the dates and times of each of the appointments that were being scheduled for him. Day of Discharge Assessment On the day of discharge, the patient was found to be cooperative, appropriately dressed and appropriately groomed. His speech was spontaneous and delivered at a normal rate and volume. He reported that his mood was "good" and added that the plan to discharge him today because his mood to be "really good!" Patient's affect ranged from somewhat constricted to fairly bright. Although he had steadfastly declined to shake hands with people during the hospital stay because of a fear of germs contamination, he put out his right hand and offered to shake the psychiatrist's hand while offering thanks for helping to arrange for the diversion from the [facility]. The patient's thought processes demonstrated tight associations. There is no evidence of any delusional material and the patient's thought content. He did obsess and perseverate to some degree over certain relatively insignificant questions, but was able to accept redirection. He continued to report that he was not experiencing perceptual disturbances, and there was no observed evidence that he was responding to internal stimuli. As above, although the patient indicated that he was still not convinced of his primary psychiatric diagnosis, he told us that he recognized that he would be expected to fully adhere to recommended outpatient treatment, not chest treatment recommended by the hospital but also as recommended by his future outpatient treatment team. He was aware that his status was being converted to outpatient commitment and that he would be required to adhere with these recommendations as a condition of avoiding rehospitalization. The patient's judgment was assessed as being at least fair, as evidenced by his insistence upon knowing the dates and times of his upcoming appointments. He reports that he has no suicidal thoughts and suicidal thoughts. Transition of Care Transition Of Care Record: was reviewed with the patient Advance Directives Advance Directives Information Provided: Yes Advance Directives: No Advance Directives on File: No Living Will: No (pt uncooperative with admission assessment, refusing to answer questions) Power of Mineral Industry Teacher: No (pt uncooperative with admission assessment, refusing to answer questions) Advance Directives Reason:: Declines as Mental Health Visit. Risk Factors Assessment Male: Yes : No Do You Have Access To A Gun?: No Health Problems: No Mental Health Diagnoses: Yes Substance Use Disorders: Yes Previous Psychiatric Hospitalization: Yes Protective Factors Assessment : No Responsible for Young Children: No Employed: No Supportive Family: Yes Good Rapport with Provider: No Discharge Data Lab Results 02/19/19 02/19/19 02/19/19 12:09 12:09 12:09 WBC 4.37 L RBC 4.56 L Hgb 14.7 Hct 42.1 MCV 92.3 MCH 32.2 MCHC 34.9 RDW Std Deviation 46.1 RDW Coeff of Alessandra 13.7 Plt Count 216 MPV 10.2 Immature Gran % (Auto) 0.0 Neut % (Auto) 59.5 Lymph % (Auto) 33.0 [place] % (Auto) 6.6 Eos % (Auto) 0.2 Baso % (Auto) 0.7 Immature Gran # (Auto) 0.00 Neut # (Auto) 2.60 Lymph # (Auto) 1.44 [place] # (Auto) 0.29 Eos # (Auto) 0.01 Baso # (Auto) 0.03 Sodium 139 Potassium 3.3 L Chloride 103 Carbon Dioxide 28 Anion Gap 8.0 BUN 9 Creatinine 1.06 Est Cr Clr Drug Dosing 109.0 Est GFR ( Amer) 111.7 Est GFR (Non-Af Amer) 96.4 BUN/Creatinine Ratio 8.1 L Glucose 117 H Calcium 9.1 Total Bilirubin 0.9 AST 50 H ALT 42 Alkaline Phosphatase 83 Total Protein 7.1 Albumin 4.0 Globulin 3.1 Albumin/Globulin Ratio 1.3 TSH 1.130 Urine Color Urine Appearance Urine pH Ur Specific Palms Urine Protein Urine Glucose (UA) Urine Ketones Urine Blood Urine Nitrite Urine Bilirubin Urine Urobilinogen Ur Leukocyte Esterase Urine WBC (Auto) Urine RBC (Auto) U Hyaline Cast (Auto) U Epithel Cells (Auto) Urine Bacteria (Auto) Salicylates < 1.7 L Urine Opiates Screen Ur Methadone, Qual Acetaminophen < 2 L Urine Barbiturates Ur Phencyclidine (PCP) U Amphetamin/Meth Scrn MDMA (Ecstasy) Screen U Benzodiazepines Scrn Ur Cocaine Metabolite U Marijuana (THC) Screen U Marijuana THC Carboxy Ethyl Alcohol mg/dL 02/19/19 02/19/19 02/19/19 12:09 16:15 16:15 WBC RBC Hgb Hct MCV MCH MCHC RDW Std Deviation RDW Coeff of Alessandra Plt Count MPV Immature Gran % (Auto) Neut % (Auto) Lymph % (Auto) [place] % (Auto) Eos % (Auto) Baso % (Auto) Immature Gran # (Auto) Neut # (Auto) Lymph # (Auto) [place] # (Auto) Eos # (Auto) Baso # (Auto) Sodium Potassium Chloride Carbon Dioxide Anion Gap BUN Creatinine Est Cr Clr Drug Dosing Est GFR ( Amer) Est GFR (Non-Af Amer) BUN/Creatinine Ratio Glucose Calcium Total Bilirubin AST ALT Alkaline Phosphatase Total Protein Albumin Globulin Albumin/Globulin Ratio TSH Urine Color Urine Appearance Urine pH Ur Specific Palms Urine Protein Urine Glucose (UA) Urine Ketones Urine Blood Urine Nitrite Urine Bilirubin Urine Urobilinogen Ur Leukocyte Esterase Urine WBC (Auto) Urine RBC (Auto) U Hyaline Cast (Auto) U Epithel Cells (Auto) Urine Bacteria (Auto) Salicylates Urine Opiates Screen Neg Ur Methadone, Qual Neg Acetaminophen Urine Barbiturates Neg Ur Phencyclidine (PCP) Neg U Amphetamin/Meth Scrn Neg MDMA (Ecstasy) Screen Neg U Benzodiazepines Scrn Neg Ur Cocaine Metabolite Neg U Marijuana (THC) Screen Pos H U Marijuana THC Carboxy 16 A Ethyl Alcohol mg/dL < 3.0 02/19/19 16:15 WBC RBC Hgb Hct MCV MCH MCHC RDW Std Deviation RDW Coeff of Alessandra Plt Count MPV Immature Gran % (Auto) Neut % (Auto) Lymph % (Auto) [place] % (Auto) Eos % (Auto) Baso % (Auto) Immature Gran # (Auto) Neut # (Auto) Lymph # (Auto) [place] # (Auto) Eos # (Auto) Baso # (Auto) Sodium Potassium Chloride Carbon Dioxide Anion Gap BUN Creatinine Est Cr Clr Drug Dosing Est GFR ( Amer) Est GFR (Non-Af Amer) BUN/Creatinine Ratio Glucose Calcium Total Bilirubin AST ALT Alkaline Phosphatase Total Protein Albumin Globulin Albumin/Globulin Ratio TSH Urine Color Yellow Urine Appearance Clear Urine pH 6.0 Ur Specific Palms 1.017 Urine Protein Negative Urine Glucose (UA) Negative Urine Ketones Negative Urine Blood Negative Urine Nitrite Negative Urine Bilirubin Negative Urine Urobilinogen Negative Ur Leukocyte Esterase Trace H Urine WBC (Auto) 5-10 H Urine RBC (Auto) 0-4 U Hyaline Cast (Auto) 1-5 U Epithel Cells (Auto) 5-10 H Urine Bacteria (Auto) Negative Salicylates Urine Opiates Screen Ur Methadone, Qual Acetaminophen Urine Barbiturates Ur Phencyclidine (PCP) U Amphetamin/Meth Scrn MDMA (Ecstasy) Screen U Benzodiazepines Scrn Ur Cocaine Metabolite U Marijuana (THC) Screen U Marijuana THC Carboxy Ethyl Alcohol mg/dL Hospital Course (1) Schizophrenia: 02/20--The patient was [facility] ([facility]) on q15 min checks (behavioral with suicide precautions) for safety. The patient will participate in group, recreational, and milieu therapies and will be offered additional individual and family sessions as clinically appropriate. Reviewed that he should resume antipsychotic medication FABIO and he would only discuss benzos. Adamant he won't resume Risperdal. Will offer Haldol 5 mg with Ativan 2 mg (take Haldol first) TID and readdress when less agitated. 02/21--mild improvement today in that less thought blocking and slightly less i rritability. Refused meds again this am. In my opinion (Dr. Diaz), antipsychotic medication is medically necessary for the treatment of his psychosis given risk of or serious injury within 30 days. He has shown a pattern of non- compliance and escalating and threatening behavior in the community and his condition is unlikely to improve without forced psychiatric medications. Will order Haldol [address] Hubbard to provide second opinion on this and likely 303 petition tomorrow. 02/22 -patient remains inappropriate for groups and therapy, due to threatening and menacing behavior with staff and peers. Continue private room. -Increase haloperidol to 10 mg twice daily, and continue as needed doses. Agree with medications over objection, as patient has a history of a primary thought disorder, has been noncompliant with treatment which has led to decompensation, increasing psychosis, and escalating threatening and aggressive behavior in the community and now in the hospital. He required physical and chemical restraints in the ER due to threats to staff and attempts to leave. He has improved with antipsychotic medication in the past. -File for 303 hearing to be held tomorrow. -Patient remains uncooperative with attempts to assess him, will not provide historical information such as where he has been living or if he has any outpatient treatment, or sign releases for family or friends to provide collateral information. 02/23 -303 commitment granted. -Continue private room given threatening behavior, agitation, and recent history of erratic and inappropriate behavior in the community. Patient not yet appropriate for groups. -Continue haloperidol 10 mg twice daily, and 5 mg as needed. Will order an IM backup for refusal, as he has been seen by 2 physicians who both agree with medications over objection. He will likely need a long-acting injectable antipsychotic given his history of nonadherence. -Parents report he has been abusing benzodiazepines, and he is very focused on getting them here, asking for them frequently and receiving 8 mg of lorazepam daily. Will decrease to 1 mg every 4 hours as needed, with a plan to taper off prior to discharge given risk of abuse/misuse/negative outcomes. -Contact forensic business case analyst, Harriett Treviño, and schedule a meeting to discuss treatment plan. Patient will likely need an involuntary outpatient commitment. 02/24 -continue Haldol p.o. with IM backup, and lorazepam as needed. Patient refusing to discuss other antipsychotic options, so if he remains on haloperidol, can receive Haldol Decanoate once the effective dose is reached. -Encourage patient to sign releases for his parents and for outpatient treatment referrals, so that discharge planning can begin. -Continue to enforce appropriate boundaries, as patient has been sexually inappropriate with female peer. Continue private room, and excused from groups until he is able to maintain behavioral control. 02/25 -continue Haldol, and lorazepam as needed. -Attempt scheduled family meeting with parents and his outpatient business case analyst. -Encourage the patient to start engaging in treatment. He is willing to meet with a counselor one-on-one today. -Appropriate boundaries-patient has been reminded repeatedly of the need to cover his genital area and the inappropriateness of his sexual propositions to females. 02/26 -The patient is taking haloperidol 10 mg twice a day as prescribedalthough he repeatedly asks to have this medication discontinued. At the same time, he cannot or will not say, specifically, why he would like haloperidol to be discontinued, other than to say "it is not what I need." (The patient does appear to be tolerating haloperidol well, except for some excess sedation at this point.) -The patient continues to appear suspicious and is withdrawn. He is declining to actively participate in treatment. 02/27 Continue medication regimen unchanged 304 hearing scheduled for Friday. Patient will require chest x-ray and EKG prior to transfer to [facility]. 02/28 Patient demonstrating some improved ability to participate and interacting more appropriately with peers and staff in last 24 hours. We will continue to advance therapeutic programming as tolerated and indicated. Continue Haldol as scheduled which remains well-tolerated. 03/01 -Patient noncompliant with mouth checks and continues to go to the bathroom just after taking pills; due to concerns for cheeking, will switch to liquid haloperidol, with IM back up for refusal. -304 granted. Refer to [facility]. -Schedule meeting with patient, business case analyst, and family for discharge planning/exploring diversion options. 03/02 - Continue liquid haloperidol as above - Refusing to sign ROIs to allow for consideration or adequate coordination of diversion options. 03/03 - Continue current haloperidol dosing, liquid as above - Pt signed some conditional ROIs this morning to allow for potential coordination of diversion plan 03/04 - Continue current medication regimen - Meeting with mother and [employer] telephone services sales representative to discuss diversionary discharge planning tomorrow morning - Continue to encourage participation in groups to most adequately assess thought content/process and appropriate behavior, these all appear to be improving 03/05 -We have been discussing the option of converting immediate release oral haloperidol to Haldol Decanoate, given his history of nonadherence. The patient's initial response was to become irritated and insists that he does not have a history of nonadherence with medications (even though he was initially nonadherent even here in the hospital). Later, he seemed to recognize that it is reasonable for treatment providers and caregivers to be concerned about his history of nonadherence with medications, and offered reassurance that he would promise to continue to take psychiatric medications as prescribedbut he does not want to take an intramuscular form. 03/06 - continue to engage ieth him about his medication and treatment plan and addressing potential of Haldol Dec CASTANEDA. addressing if pt is willing to sign TERRY's for CRR's as potential plans for diversion from [facility] referral 03/07 - making progress towards TERRY and possibility of haldol Dec but not fully occurred as of yet 03/08 -The patient appears to be less suspicious and is more cooperative. Symptoms such as thought blocking appear to have improved significantly. He continues to show obsessive symptoms and, for example, still has not actually executed the necessary release of information documents that we will need to pursue diversion from long-term hospitalization. He has expressed a willingness to do so for several days now, but has yet to actually follow through. -Although it has been difficult to get specific information from the patient regarding his thought content, he does seem to be much more trusting, less suspicious, and more animated, a set of circumstances that we are attributing to antipsychotic medication. 03/09 - Continue current medication regimen, with ongoing encouragement for consideration of haloperidol decanoate - Pt requesting additional meeting with BSU and parents - seems appropriate as still considering diversion planning, will determine appropriate timing for a second meeting as well as clear objectives to discuss 03/10 - Continue as above - Attempting to schedule outpatient treatment team meeting for 03/15 - Continue to encourage participation in group programming in order to demonstrate appropriateness for diversionary planning 03/11 - As above - Continue to reinforce recommendation for CASTANEDA due to compliance concerns and increase likelihood of diversionary planning being appropriate - Continue to encourage increased group participation 03/12 -The patient seems to have 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 He continues to insist that the reasons for his hospitalizations and various behaviors observed in the community are simply a function of the difficulty that other people have an understanding him and his reasoning. -Oral Haldol 10 mg twice a day seems to have helped the patient be less suspicious and more cooperative. However, the patient continues to lacks substantial insight into his illness, the nature of the problems that have occurred in the community, and his need for certain forms of treatment. -All members of the patient's treatment team will need to continuously and consistently reinforce the fact that we are recommending that he agree to take Haldol Decanoate because in our clinical opinion it is medically necessary, and in the opinion of the base services unit that will possibly arrange for [facility] diversion, they are not willing to agree to diversion if the patient is not cooperating with the recommendations of the hospital. 03/13/19 - patient again wishes to discuss ways to work on discharge, discussed attending groups being able to show ability to be around others and have behavioral control and ability to participate, taking medications as prescribed to include strong recommendation for haldol decanoate or other CASTANEDA to help wtih compliance after discharge given his limited insight, and for aftercare to be established. He is considering haldol decanoate understanding it is available today but asks to start it "friday" for unclear reasons. TO maintain alliance will continue to offer but not pressure. 03/14 - repeated many aspects of our discussion yesterday it is unclear but seems to be possible OCD and doubt wtih reassurance seeking vs. ambivalence. He is asking good questions about timelines and seems to be able to manipulate the information given to him even though he is showing some evidence of slowed thoughts. He does state he is willing to take the hadol deconoate shot. DIscussed r/b/se/a to include but not limited to acute possibility of EPS/dystonia, akathisia, and longer term risks needing to monitor for Tardive dyskinesia in laymans terms. DIscussed need to get his medication in two shots divided due to the oral dose he is taking and the need to overlap the oral medication for a time (per package instructions initial dose should be 20times oral dose for high dose individuals at risk for relapse, and initial shot should not exceed 100mg, and balance of med given 3-7days after initial shot.) which would be 300mg in 3-7days. Discussed this with pharmacy. Maintenance dose would be 10-15x the oral stabilizing dose, meaning 200-300mg IM which would be given in a month from first shot. We would taper the oral medications over 3 weeks, or faster if side effects emerge. Will ask staff to do routine assessments of stiffness to minimize EPS/dystonia in this cross taper. 03/15 - Continue current medication regimen - Continue oral haloperidol 10mg BID, with taper over the next few weeks - Continue regular monitoring for EPS/dystonia - Meeting this afternoon with [facility] health representatives to discuss treatment plan moving forward 03/16 - Continue current medication regimen; continue oral haloperidol 10mg BID - Haldol decanoate injection for 300mg IM is scheduled to be given 03/18/19 - Discontinue MNPR - Meeting held with BSU, patient, and parents yesterday; will continue to solidify aftercare plan, as [facility] verbalized agreement with diversion attempt 03/17 - Continue current treatment plan; oral haloperidol 10mg BID - Will receive Haldol decanoate 300mg IM tomorrow, 03/18/19 - Continue to determine clear aftercare and establish with outpatient psychiatric providers 03/18 - Patient willingly accepted second injection of Haldol decanoate 300mg IM today - no evidence of EPS/TD - Will reduce oral haloperidol to 5mg qAM and 10mg qHS - continue taper over the next few weeks - Oral Cogentin is available for signs of EPS - will order IM injection to have available for acute dystonia - Continue to determine clear aftercare plan; continue collaboration with [facility] for appropriate outpatient providers for [address] [place] [address] 03/19 - Will discontinue oral haloperidol - no physical evidence of EPS/dystonia on exam today - Continue to arrange appropriate after and discharge plan 03/22 - 03/25 - Continue current medication regimen - haloperidol decanoate with prn benztropine available - Encourage patient's participation in group and recreational programming - Continue to encourage cooperation with discharge planning 03/26/19 -There is no evidence of delusional material and the patient's thought content, and we see no evidence that the patient is currently experiencing any perceptual disturbances. -Indicates that he is tolerating haloperidol decanoate well, and offers no complaints of any side effects at this point. -He is attending groups and is generally pleasant and cooperative. (2) Noncompliance with medication regimen: 02/22 -patient with chronic noncompliance which has severely impaired his ability to function or provide for his own basic needs in the community. He will likely need an involuntary outpatient commitment. 02/23 -303 commitment granted. Pursue medications over objection, consider long- acting injectable, and schedule meeting with forensic business case analyst. 02/25 -file for 304 involuntary commitment, as state hospitalization may be needed given severity of his illness, lack of insight and unwillingness to engage in treatment, and pattern of noncompliance with treatment. Patient has requested an independent evaluation, so the hearing will be scheduled sometime next week once that is completed. Patient was informed, and states his prefer ence is to leave the hospital immediately, with no outpatient treatment. 02/26 -The patient seems to have no insight into his illness, no insight into his need for treatment (with the exception of stimulant medications and clonazepam). He acknowledges that he had been in outpatient treatment, but stopped going "because it is not necessary." -Because of the severity of illness, the patient's lack of insight, and is not adherence with treatment on an outpatient basis, the plan was reiterated today is to refer the patient for long-term psychiatric hospitalization. 03/01 -Concerns for cheeking as above; change to liquid haloperidol with IM backup for refusal. Work towards long acting injectable. -304 granted; refer to [facility]. 03/05 -The patient seems to have improved since being given liquid haloperidol, which suggests but does not confirm that he had been "cheeking" his haloperidol tablets. This circumstance, combined with his history of recurrent nonadherence with medications on an outpatient basis are reasons that the treatment team agrees that a condition of discharge needs to be willingness to accept intramuscular Depo antipsychotic medications. 03/06 =as above 03/08 -Today, the patient says that he is giving "serious consideration" to agreeing to take an intramuscular injection of Haldol Decanoate. He understands that this is 1 of the things that we are expecting him to agree to as part of an effort to actively pursue diversion. Despite the patient's agreement that he will "seriously consider" Haldol Decanoate, he still has not agreed to take it. His history of nonadherence in the community, coupled with dangerous behaviors when not medicated, are the primary reasons that long-term psychiatric hospitalization appears to be necessary 03/10 - revisited recommendation that the patient consider CASTANEDA haloperidol decanoate prior to discharge. Pt is resistant to the idea, as he feels he does not need this form of medication. He states he is "considering it" 03/12 -The patient has variously said that he is "considering" or "seriously considering" conversion to long-acting haloperidol decanoate prior to discharge. However, to date, he has not moved past "seriously considering." -Today, we explained again that the agency that we will have control over the question of diversion from [facility] will not consider diversion unless he is adherent with our recommendations and that are recommendations include active participation in therapy, a willingness to be cooperative and forthcoming with the treatment team, and agreement to take Depo antipsychotic medication. 03/13 as above 03/14 patient agreed to loading dose of haldol decanoate today, 100mg IM to be given today 03/16 - Continues to accept reminders of his second Haldol decanoate injection; 300mg IM is scheduled for 03/18/1903/18 - Pt willingly accepted second injection of Haldol decanoate today 03/26 -The patient spontaneously voices an intent to follow through on recommended treatment on an outpatient basis, including all recommended treatments as established by his outpatient providers. -He specifically notes that he is aware that he will be required to except haloperidol decanoate injections at an anticipated rate of every 4 weeks. -His attendance at group and activity therapies has been much improved. (3) Anxiety: 02/22 -patient reports anxiety, but otherwise uncooperative with the assessment and does not appear overtly anxious; refusing vital signs for the last 3 days. He has been demanding high-dose benzodiazepines, and has been repeatedly informed that these are not indicated, but that Lorazepam is ordered as needed to be taken with haloperidol. 02/23 -parents describe history of OCD symptoms. Patient unwilling to participate in assessment, and no noticeable compulsions here, so unclear if currently active. Continue to monitor and assess. 02/25 -patient denies OCD symptoms, and none have been observed here. He does report feeling "anxious," but is a poor historian and unable to get much further information. He does not appear to be expansive panic. We will continue to assess and rule out SYBIL. He is refusing an SSRI antidepressant, wanting only benzodiazepines. 02/28Possibility of obsessive concern for germs again raised by nursing following his reluctance to take the Haldol tablet after it touched his pillow and reluctance to touch his silverware again after he has finished eating. Patient denies obsessions or compulsions but we will continue to monitor. 03/01 - Patient refusing to discuss OCD symptoms. 03/05 -Today, the patient was able to talk about his obsessive-compulsive symptoms, and his parents presence. However, he insisted that the thoughts and behaviors were not in any way abnormal, and he said "of other people have a problem with that, that is up to them." Reported behaviors include handwashing, fear of infectious disease contamination, and, for example, reluctance to touch other people, including his parents. 03/08 -The patient reports that he realizes that he has been "obsessive" which is also evidence of some improvement. 03/12 -The patient voices anxiety in association with the difficulty that he is understanding the expectations of the treatment team, as well as an anxiety associated with the possibility of long-term psychiatric hospitalization. 03/24 - Lorazepam reduced to 0.5mg daily prn - with intention that the medication be discontinued on discharge 03/26 -Lorazepam has been discontinued. -The patient does not currently complain of anxiety. (4) Substance abuse: 02/22 -drug screen positive for THC. Once he is less psychotic, we will need to provide education regarding the risks of cannabis use, specifically exacerbation of psychotic symptoms. -On admission, patient reported being prescribed clonazepam 2 mg twice daily, and per PDMP he last filled a prescription on 12/17/2018, from a Dr. Matt Oneill in [place], [place]. In the past year, he has filled clonazepam and dextroamphetamine/amphetamine prescriptions from 5 different clinicians in different parts of the [place], a pattern consistent with substance abuse and drug-seeking. He does not appear to have been on clonazepam consistently, as his last 2 prescriptions were filled in 06/2018 and 12/2018. 02/23 -parents report history of alcohol, cannabis, benzodiazepine, and stimulant abuse. This is also indicated in previous records from 2017 hospitalization. -Avoid controlled substances given high risk of abuse. 02/26-Today, the patient tells us that he is able to take buspirone at an unspecified dose, but when we offered to prescribe this to him for anxiety he said "it is not necessary." When asked why clonazepam is necessary, if buspirone is not, he simply repeated "clonazepam is necessary. Buspirone is not necessary." 03/05 -The patient continues to have essentially no insight into the risks associated with the use of alcohol, cannabis, benzodiazepines, stimulants, and other drugs of abuse. When it was explained to him that these substances can and do interfere with treatment for mental illnesses such as schizophrenia, his replies to say "I do not have schizophrenia." 03/08 -The patient has not requested benzodiazepines and has not mentioned a need for chemical substances such as alcohol, cannabis, stimulant medications and other drugs of abuse, and is now more focused on meeting criteria for community diversion. 03/26 -We reviewed the recommendation that the patient not take benzodiazepines. We explained that benzodiazepines can result in poorly controlled behavior, and that it has been noted that he has sometimes misused benzodiazepines in the past. The patient accepted this recommendation. Mental Health & Subst Abuse Tx Psychiatrist Name of Psychiatrist: [facility] - Dr. Goss Psychiatrist's Date of Appointment with Psychiatrist: 04/14/19 Time of Appointment with Psychiatrist: 10:30 a.m. Psychiatric Appointment Comment: [address], [address], [place] [address] Therapist Name of Therapist: Kody Montoya Therapist's Date of Therapist Appointment: 04/01/19 Time of Therapist Appointment: 8:30 a.m. Therapy Appointment Comment: [address], [address], [place] Accounting System Expert Name of Accounting System Expert: [facility] - Antonio Schofield Phone Number for Accounting System Expert: [phone] Date of Appointment with Accounting System Expert: 03/31/19 Time of Appointment with Accounting System Expert: 9am Case Management Appointment Comment: and 05/10/19 at 10:30am. [address], [place] Post Discharge Appointments Primary Care Physician Name Of Family Doctor: [facility]ACE[facility] - Dr. Holt Primary Care Provider Appointment Comment: [address] [facility] Contact Information Discharge Discharge Address: [address] [place] [address], [place] [address] Discharge Plan Discharge Items Patient Disposition: Home - Self-Care Reason For Visit: SCHIZOPHRENIA Discharge Diagnosis: Schizophrenia Discharge Goals: Improve disease control, Improve function and Learn about illness Activity: Resume your previous activity Non-emergency contact: Psychiatrist and In Classroom Tutor Call non-emergency contact if: you have any medication questions and your symptoms worsen Follow-up/Referrals: PCP,NO [Primary Care Provider] - Diet: Regular Addtl Provider Instructions: Haldol Decanoate Injections. 300 mg intramuscularly ("I.M.") every four weeks. Most recent dose 03/18/19. Next dose due 04/14/19. Don't forget to keep all your scheduled psychiatric appointments. Stand-Alone Forms: [facility] Discharge Orders: Discharge Order (Routine); Ordered 03/26/19 Ordered By: Familia Coombs Admission Data Admit Date/Time: 02/19/19 17:23 Attending Provider: Kamala Hubbard Admit Provider: Familia Coombs Primary Care Provider: PCP,NO Service: Psychiatry Other Interventions: PSY Interdisciplinary Discharge Planning Last Done: 03/26/19 09:55
== END 2019-03-26 15:07 | disposition home or self-care (01) | DRG 885 ==
LOC: ED 10:00 → 3S 17:23 → SUATTDRO 17:23 → 3S 19:00